=== PATIENT | male | born 1955 | race Caucasian/White ===

== ENCOUNTER 2016-06-10 20:24 | Emergency (ER) | payer MEDICAID ==
[~2016-06-10] VITALS: Wt 56.5 kg
[~2016-06-10 20:24] MED LIST: METF500T4 PO
[2016-06-10] MEDS ORDERED: LIDOCAINE 1% (MDV) 20 ML INJ SC ONE (21:30)
[2016-06-10] MEDS ORDERED: DIPHTH/TET/ACEL PERTUSS (ADULT) 0.5 ML VIAL IM* ONE (21:30)
[2016-06-10] MEDS ORDERED: CEPH-443 PO (22:27)
[2016-06-10 22:28] VITALS: BP 147/48; PULSE 100; RESP 16
--- NOTE | 2016-06-10 22:32 | ERD ---
ER Documentation Chief Complaint Date/Time DATE: 06/10/16 TIME: 22:28 Chief Complaint Bleeding Right BKA d/t fall HPI Patient is a 60-year-old male with a past medical history of diabetes, arthrosclerosis, right below the knee amputation who presents to the emergency department with concerns of wound bleeding. Patient states that he fell earlier today twice now using his walker. Patient states he fell onto his right stump. Patient states that he started having bleeding to the affected area. Patient does report poor healing of the affected air however he states that the wound has only remained slightly open. Patient denies any pain at this time. Patient is able to flex his knee without any difficulty. Patient denies any fevers, chills, nausea, vomiting, chest pain, shortness of breath. Patient denies any headache, head trauma, excessive sleepiness, acute confusion or loss of consciousness, ROS All systems reviewed and are negative except as per history of present illness. Medications Home Meds Active Scripts Cephalexin* (Keflex*) 500 Mg Capsule, 500 MG PO QID for 7 Days, CAP Prov:EDMAR JOYA PA-C 06/10/16 Reported Medications Metformin* (Glucophage*) 500 Mg Tab, 500 MG PO BID 08/22/11 Allergies Allergies: Coded Allergies: No Known Allergy (Unverified , 08/22/11) PMhx/Soc History of Surgery: Yes (R BKA) Anesthesia Reaction: No Hx Neurological Disorder: No Hx Respiratory Disorders: No Hx Cardiac Disorders: Yes (HTN--NON COMPLIANT WITH HTN MEDS) Hx Psychiatric Problems: No Hx Miscellaneous Medical Probl: No Hx Alcohol Use: Yes (2-3 BEERS DAILY) Hx Substance Use: No Hx Tobacco Use: Yes (CIGARETTES 1 PPD) Smoking Status: Current every day smoker Physical Exam Vitals Vital Signs Date Time Temp Pulse Resp B/P Pulse Ox O2 Delivery O2 Flow Rate FiO2 06/10/16 22:28 100 16 147/48 100 Room Air 06/10/16 20:28 97.4 105 20 162/83 97 Physical Exam GENERAL: Well-developed, well-nourished male. Appears in no acute distress. HEAD: Normocephalic, atraumatic. EYES: Pupils are equally reactive bilaterally. EOMs grossly intact. No conjunctival erythema. ENT: Moist mucous membranes. No uvula deviation. No kissing tonsils. NECK: Supple. No meningismus. Normal range of motion of the neck. LUNG: Clear to auscultation bilaterally. No rhonchi, wheezing, rales or coarse breath sounds. HEART: Regular rate and rhythm. No murmurs, rubs or gallops. EXTREMITIES: Equal pulses bilaterally. No peripheral clubbing, cyanosis or edema. No unilateral leg swelling. NEUROLOGIC: Alert and oriented. Moving all four extremities without any difficulty. Normal speech. Steady gait. RIGHT EXTREMITY: Dressing in place with bright red blood noted. Dressing was removed. Below the knee amputation noted. 12 cm complete wound dehiscence of surgical site noted. Scar tissue visualized with blood clots noted. Able is able to flex at the knee without any pain elicited. Nontender palpation of the knee. Nontender palpation of the thigh. Sensation intact to light touch. 2+ femoral pulse palpated Results 24 hrs Current Medications Medications (Trade) Dose Ordered Sig/Ana Route PRN Reason Start Time Stop Time Status Last Admin Dose Admin Lidocaine (Xylocaine 1% (Mdv) 20 ml) 20 ml ONCE ONCE SC 06/10/16 21:30 06/10/16 21:31 DC Diphtheria/ Tetanus/Acell Pertussis (Adacel) 0.5 ml ONCE ONCE IM* 06/10/16 21:30 06/10/16 21:31 DC 06/10/16 21:12 Acetaminophen/ Hydrocodone Bitart ([place] (5/325)) 1 tab ONCE ONCE PO 06/10/16 23:00 06/10/16 23:00 DC 06/10/16 22:38 Procedures/MDM ED COURSE: The patient was stable throughout ED course. I kept the patient and/or family informed of laboratory and diagnostic imaging results throughout the ED course. PROCEDURES: Laceration Repair: The patient was verbally consented prior to procedure. Patient was explained the risks, benefits and alternatives to this procedure. Length: 12 cm Irrigation: Thorough irrigation was performed with normal saline and adequate pressure. Inspection: The wound was thoroughly explored and no foreign bodies, deep tissue , tendon or structural injuries were noted. Anesthesia: 10 cc 1% lidocaine Repair: The area was prepared and draped in the usual sterile manner with the wound exposed. 19 marvin, 3 Prolene 0 sutures were placed with good wound closure and wound approximation. Bleeding was minimal. The patient tolerated the procedure well with no complications. The wound was dressed with Steri- Strips and pressure dressing. The patient was neurovascularly intact post- procedure. Post-procedural wound care was discussed with the patient. MEDICAL DECISION MAKING: This is a 60-year-old male who presents with wound dehiscence to his surgical incision of his right below the knee amputation. Vital signs were reviewed. Patient was afebrile. The wound was cleansed thoroughly and closed using marvin , sutures and steri strips. The patient had good wound closure and wound approximation. Patient tolerated wound closure without any complications. Patient was given TDAP here in the ED. My supervising physician, Dr. Dior, examined the patient, pre and post wound repair. Given that patient has a history of diabetes, I will give the patient a course of antibiotics. At this time the patient's presentation is most consistent with wound dehiscence. Low suspicion for deep space infection, abscess formation, cellulitis, tendon injury , nerve injury, fracture, head injury. PRESCRIPTIONS: Keflex DISCHARGE: At this time, the patient is stable for discharge and outpatient management. Post-procedural wound care was discussed with the patient. Patient was advised to follow-up with his surgeon immediately on Sunday. I have instructed the patient to promptly return to the ER for any new or worsening symptoms including increasing pain, fever, warmth, redness or swelling. The patient and/ or family expressed understanding of and agreement with this plan. All questions were answered. Home care instructions were provided. Departure Diagnosis: Primary Impression: Dehiscence of laceration repair Encounter type: initial encounter Qualified Code: T81.33XA - Dehiscence of laceration repair, initial encounter Condition: Stable Patient Instructions: Wound Care Referrals: JASVIR OLIVARES MD Additional Instructions: Call your primary care doctor TOMORROW for an appointment during the next 1-2 days.See the doctor sooner or return here if your condition worsens before your appointment time. Follow-up with Dr. Fuller on Sunday. Avoid bearing any weight to the affected area. Use wheelchair at all times. Return the emergency department for any new or worsening symptoms including but not limited to fevers, chills, wound opening, bleeding, pain. EDMAR JOYA PA-C June 10, 2016 22:32
[2016-06-10] MEDS ORDERED: HYDROCODONE/APAP (5/325) TAB PO ONE (23:00)
== END 2016-06-10 22:56 | disposition home or self-care (01) ==
LOC: EDBD 20:24 → FTE 20:24
DX: T81.33XA Disruption of traumatic injury wound repair, initial encounter (principal); I10 Essential (primary) hypertension; F17.210 Nicotine dependence, cigarettes, uncomplicated; E11.9 Type 2 diabetes mellitus without complications; Y82.8 Other medical devices associated with adverse incidents; Z79.84 Long term (current) use of oral hypoglycemic drugs; Z23 Encounter for immunization
CPT/HCPCS: 12020; 90471; 90715; Z7502; Z7610

== ENCOUNTER 2016-06-12 11:59 | Inpatient (IN) | payer MEDICAID ==
[~2016-06-12] VITALS: Ht 160 cm; Wt 56.6 kg
[~2016-06-12 11:59] MED LIST changes: +CEPH-443 PO
[2016-06-12 15:00] VITALS: BP 119/59; PULSE 88; RESP 18
[2016-06-12] MEDS ORDERED: METO25TA4 PO (15:47)
[2016-06-12] MEDS ORDERED: GABA300C16 PO (15:47)
[2016-06-12] MEDS ORDERED: LISI20TA11 PO (15:47)
[2016-06-12] MEDS ORDERED: ATOR40TA68 PO (15:47)
[2016-06-12] MEDS ORDERED: ASPI-664 PO (15:47)
[2016-06-12] MEDS ORDERED: LOPE2CAP PO (15:47)
[2016-06-12] MEDS ORDERED: SITA25TA3 PO (15:47)
[2016-06-12] MEDS ORDERED: TRAM50TA2 PO (15:47)
[2016-06-12 15:52] VITALS: Ht 160 cm; Wt 56.6 kg
[2016-06-12] MEDS ORDERED: DOCUSATE SODIUM 100 MG CAP PO PRN (17:30)
[2016-06-12] MEDS ORDERED: ONDANSETRON 4 MG INJ IV PRN (17:30)
[2016-06-12] MEDS ORDERED: GLUCOSE GEL 15 GRAM TUBE PO PRN ×2 (17:30)
[2016-06-12] MEDS ORDERED: DEXTROSE 50% 50 ML SYRINGE IV PRN ×2 (17:30)
[2016-06-12] MEDS ORDERED: ACETAMINOPHEN 325 MG TAB PO PRN (17:30)
[2016-06-12] MEDS ORDERED: GLUCAGON 1 MG INJ IM PRN (17:30)
[2016-06-12] MEDS ORDERED: VANCOMYCIN IV PER PHARMACY XX SCH (17:30)
[2016-06-12] MEDS ORDERED: GLUCOSE GEL 15 GRAM TUBE BUCCAL PRN (17:30)
[2016-06-12] MEDS: metFORMIN 500 MG TAB PO SCH (17:51)
--- NOTE | 2016-06-12 18:03 | CONS ---
DATE OF ADMISSION: 06/12/2016 DATE OF CONSULTATION: 06/12/2016 VASCULAR SURGERY CONSULTATION Dear Doctors: Mr. Hernandez is a 60-year-old gentleman known to our vascular surgery service group secondary to his h istory of right lower extremity atherosclerosis and gangrene. The patient had presented a few month s ago to [facility] with right lower extremity gas gangrene in which he un derwent incision and drainage and vascular evaluation at that time. Patient did undergo foot explor ation for possible revascularization; however, patient did not have any pedal or tibial options for revascularization and subsequently underwent below knee amputation. Patient has since been followin g up with our wound care clinic for eventual wound closure. It seems the patient recently had a fal l in which he developed significant wound dehiscence and was brought into the emergency department. At that time, patient did undergo closure of the wound, but it seems that the patient's wound is st ill having drainage and dehiscing, in which the patient will probably require further debridement an d revision. At the moment, the patient denies shortness of breath, chest pain, nausea, vomiting, f ever or chills. Patient currently has social economic issues in which he lives in his car and is no t able to take care of himself. 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 PHYSICAL EXAMINATION: GENERAL: Alert and oriented x3, no apparent distress. HEENT: Normocephalic, atraumatic. PERRLA, EOMI. Mucosa moist. Poor dentition. NECK: Supple. No carotid bruit. PULMONARY: Clear to auscultation bilaterally. No crackles. CARDIOVASCULAR: S1, S2 present. No murmurs. ABDOMEN: Soft, nontender, nondistended. Bowel sounds positive. EXTREMITIES: Right lower extremity: Palpable femoral pulse. BKA stump with cap refill 3 seconds. Motor, sensor y intact. There are blisters that developed over the area where Steri-Strips were placed and there is wound dehiscence where the areas of the new closure was performed in the ER with marvin and sutu res intact; however, there is serous drainage and there is erythema around all the wound and further wound dehiscence on the anterior aspect of the flap and on the medial and lateral sides. Left lower extremity: Palpable femoral pulse, nonpalpable pedal pulse. Motor, sensory intact. Cap refill 3 to 4 seconds. There is area of lipodermatosclerosis. No ulcers identified. ASSESSMENT AND PLAN: Bilateral lower extremity atherosclerosis with right lower extremity gangrene: It seems the patient 's BK stump has developed significant wound dehiscence post his fall and complicating his wound clos ure. Even though the patient did have a management, it seems that the patient would require an actu al debridement operatively and possible revision with wound VAC placement. We will plan to schedule the patient accordingly per our OR availability. Optimize vascular status (BP meds, diet, nutrition, exercise, sugar control, antiplatelets). Recommend placing the patient on antibiotics. The patient does have erythema around the wound and i s having foul smelling drainage from the wound dehiscence site. Discussed findings, plan of management with the patient and he understands. Thank you for allowing us to participate in the care of your patient. Please call with any questions . Dictated By: JUAN DEWITT/ABI Conf#: [id number] DID#: [id number]
[2016-06-12 18:10] LABS: ADD SCAN DIFF NO
[2016-06-12 18:12] LABS: BASOPHILS % 0.4 % (0.0-2.0); EOSINOPHILS # 0.4 10^3/ul (0.0-0.5); EOSINOPHILS % 6.2 % (0.0-7.0); HEMATOCRIT 32.3 % (42.0-52.0); HEMOGLOBIN 10.6 g/dl (14.0-18.0); LYMPHOCYTES # 1.6 10^3/ul (0.8-2.9); LYMPHOCYTES % 23.4 % (15.0-51.0); MEAN CORPUSCULAR HEMOGLOBIN 28.4 pg (29.0-33.0); MEAN CORPUSCULAR HGB CONC 32.8 g/dl (32.0-37.0); MEAN CORPUSCULAR VOLUME 86.6 fl (82.0-101.0); MEAN PLATELET VOLUME 9.6 fl (7.4-10.4); MONOCYTE # 0.6 10^3/ul (0.3-0.9); MONOCYTES % 8.5 % (0.0-11.0); NEUTROPHIL # 4.3 10^3/ul (1.6-7.5); NEUTROPHILS % 60.9 % (39.0-77.0); PLATELET COUNT 258 10^3/UL (140-415); RED BLOOD COUNT 3.73 10^6/ul (4.70-6.10); RED CELL DISTRIBUTION WIDTH 14.1 % (11.5-14.5)
[2016-06-12] MEDS: SOD CHLORIDE 0.9% 1,000 ML IV SCH (18:14)
[2016-06-12] MEDS: INSULIN ASPART [NOVOLOG] 3 ML PEN SC SCH ×2 (18:14→20:32)
[2016-06-12] MEDS: LEVOFLOXACIN 500MG/D5W (PMX) 100 ML IVPB SCH (18:14)
[2016-06-12 18:29] LABS: POTASSIUM 3.8 mmol/L (3.5-5.1)
[2016-06-12] MEDS ORDERED: VANCOMYCIN 1 GM in NS 250 ML IVPB ONE (18:30)
[2016-06-12 18:32] LABS: CREATININE 0.78 mg/dl (0.61-1.24)
[2016-06-12 19:41] VITALS: BP 95/55; RESP 18
[2016-06-12] MEDS: GABAPENTIN 300 MG CAP PO SCH (20:26)
[2016-06-12] MEDS: ATORVASTATIN 40 MG TAB PO SCH (20:26)
[2016-06-12] MEDS: METOPROLOL 25 MG TAB PO SCH (20:27)
--- NOTE | 2016-06-12 22:09 | HP ---
DATE OF ADMISSION: 06/12/2016 CHIEF COMPLAINT: Dehiscence and laceration of the right BKA stump. HISTORY OF PRESENT ILLNESS: The patient is a 60-year-old gentleman with past medical history positi ve for diabetes, hypertension. The patient underwent right BKA in 04/2016 at [facility] and [facility]; however, patient was discharged and patient is currently homeless. The patient stated that he was walking using walker and fell and no johnathon to have opening and bleeding of the right BKA stump. Then, patient presented to the emergency r oom on Sunday. The patient's wound was cleaned thoroughly at this time and closed using marvin a nd Steri-Strips, and patient was discharged with p.o. antibiotics and instructed to [facility], which patient did. The patient followed up with Dr. Fuller today and was admitted for worsening of right BKA wound. PAST MEDICAL HISTORY: Positive for diabetes, hypertension. PAST SURGICAL HISTORY: Status post right BKA in 04/2016. Status post excisional debridement of the right below knee amputation stump on ____. FAMILY HISTORY: Noncontributory. SOCIAL HISTORY: The patient is homeless. The patient stated that he smokes a couple of cigarettes per day, smoked for many years. The patient stated that he drinks a couple of beers daily. The pat ient denies any illicit drug use. ALLERGIES: NO KNOWN ALLERGIES. MEDICATIONS: On admission include: 1. Keflex 500 mg p.o. q.i.d. 2. Aspirin. 3. Atorvastatin. 4. Gabapentin. 5. Lisinopril. 6. Imodium p.r.n. 7. Metformin. 8. Metoprolol. 9. Januvia. 10. Tramadol p.r.n. REVIEW OF SYSTEMS: A 12-point review of systems is negative unless what mentioned in the HPI. The patient denies any nausea, vomiting. Denies any chest pain. Denies diarrhea. Denies fever or chil ls. PHYSICAL ASSESSMENT: GENERAL: Well-developed, well-nourished gentleman. Currently is awake, alert. VITAL SIGNS: Temperature is 98.2, heart rate is 88, blood pressure 119/39, respiratory rate 18, oxy gen saturation 99% on room air. HEENT: Atraumatic, normocephalic. Pupils equal, round, reactive to light and accommodation. Oral mucosa is pink and moist. NECK: Supple. No cervical lymphadenopathy, no thyromegaly. CHEST: Lungs clear bilaterally. There are no rhonchi, wheezes, rales noted. CARDIOVASCULAR: Normal S1, S2. No murmurs, gallops, clicks, rubs noted. ABDOMEN: Round, soft, nondistended, nontender. Bowel sounds present. There is no guarding, no chet ound tenderness. EXTREMITIES: The patient has a right BKA with some exudate and intact marvin and Steri-Strips. Le ft lower extremity, no edema. Palpable pedal pulse. SKIN: There is no rash, petechiae noted. NEUROLOGICAL: The patient is awake, alert, and oriented x4. No focal deficits noted. Motor streng th of 5/5 in all extremities. LABORATORY DATA: No labs available. We will obtain CBC and BMP. ASSESSMENT AND PLAN: 1. Right xxkaq-fks-pvef amputation stump dehiscence, laceration, possible infection. Dr. Fuller will be following in vascular surgery. Will start patient on IV antibiotics. Continue dressing ch anges per vascular surgery. 2. Diabetes mellitus type 2. Continue Januvia, metformin, and NovoLog per mild algorithm sliding s amado a.c. and at bedtime. Start patient on 1800 ADA, 2 g sodium, low fat, low cholesterol diet. Wi ll obtain hemoglobin A1c. 3. Hypertension. Continue metoprolol and lisinopril. Continue to monitor blood pressure. 4. Homelessness. Will obtain marriage and family social worker consult. 5. Will obtain CBC and BMP. Further recommendations based on clinical course. Plan of care discussed with Dr. Li. Dictated By: WEI SULLIVAN OCEAN FORWARDER for AARON LI MD SR/NTS Conf#: [id number] DID#: [id number]
--- NOTE | 2016-06-12 23:54 | RADRPT ---
PROCEDURE: XR Chest. CLINICAL INDICATION: Chest pain. TECHNIQUE: AP Portable chest. COMPARISON: None available FINDINGS: The soft tissues and bones are remarkable for low lung volume chest x-ray.. No focal infiltrates, m asses, or effusions are noted. The mediastinum and heart are remarkable for mild vascular calcifica tions of the thoracic aorta. Bibasilar discoid atelectasis is present.. No pneumothorax is present . IMPRESSION: 1. Low lung volumes with bibasilar discoid atelectasis. 2. Mild atherosclerotic vascular disease. RPTAT: HDC .Peace Vu MD, Date Time Electronically viewed and signed by .Peace Vu MD, on 06/12/2016 23:54 .C/
--- NOTE | 2016-06-12 23:57 | RADRPT ---
PROCEDURE: Limited right knee series CLINICAL INDICATION: Right. Injury TECHNIQUE: AP oblique and lateral views of his right knee and stump COMPARISON: None available FINDINGS: The osseous structures are intact with no evidence of fracture or subluxation. The soft tissues are remarkable for status post right fzxth-gfq-aars amputation with stump present. Post surgical skin marvin are noted. Amputation of the right proximal tibia and fibular diaphyses are noted. Postsur gical changes are present in the medial joint compartment soft tissues. A small knee effusion is pr esent. IMPRESSION: 1. No acute fractures or dislocations are present. 2. Status post right wmqqy-vkp-lwci amputation. 3. Mild atherosclerotic vascular disease 4. Small right knee effusion RPTAT: HDC .Peace Vu MD, Date Time Electronically viewed and signed by .Peace Vu MD, on 06/12/2016 23:57 .C/
[2016-06-13] MEDS: ACCU-CHEK XX SCH (02:34)
[2016-06-13 05:36] LABS: ADD SCAN DIFF NO
[2016-06-13] MEDS: PANTOPRAZOLE (EC) 40 MG TAB PO SCH (05:59)
[2016-06-13 06:12] LABS: ALBUMIN 3.1 g/dl (3.3-4.9); ALBUMIN/GLOBULIN RATIO 0.88; BILIRUBIN,INDIRECT 0.4 mg/dl (0-1.1); BILIRUBIN,TOTAL 0.4 mg/dl (0.2-1.3); CALCIUM 9.3 mg/dl (8.4-10.2); CREATININE 0.7 mg/dl (0.61-1.24); MAGNESIUM 1.6 mg/dl (1.7-2.5); POTASSIUM 4.6 mmol/L (3.5-5.1); TOTAL PROTEIN 6.6 g/dl (6.1-8.1)
[2016-06-13 06:18] LABS: INR 1.09; PROTIME 14.1 Sec (12.2-14.2); PT RATIO 1.1
[2016-06-13 06:19] LABS: PARTIAL THROMBOPLASTIN TIME 37.6 Sec (25.0-35.0)
[2016-06-13 07:25] VITALS: BP 98/58; RESP 18
[2016-06-13] MEDS: INSULIN ASPART [NOVOLOG] 3 ML PEN SC SCH ×5 (08:30→20:22)
[2016-06-13] MEDS: VANCOMYCIN 750 MG in SOD CHLORIDE 0.9% 150 ML IVPB SCH ×2 (09:00→20:21)
[2016-06-13] MEDS: ASPIRIN (EC) 81 MG TAB PO SCH (09:01)
[2016-06-13] MEDS: LISINOPRIL 20 MG TAB PO SCH (09:01)
[2016-06-13] MEDS: GABAPENTIN 300 MG CAP PO SCH ×3 (09:01→20:21)
[2016-06-13] MEDS: metFORMIN 500 MG TAB PO SCH ×2 (09:01→18:09)
[2016-06-13] MEDS: LINAGLIPTIN 5 MG TABLET PO SCH (09:02)
[2016-06-13] MEDS: METOPROLOL 25 MG TAB PO SCH ×2 (09:02→20:21)
[2016-06-13] MEDS: ENOXAPARIN 30 MG/0.3 ML SYG SC SCH (09:06)
[2016-06-13 09:12] LABS: BASOPHILS % 0.6 % (0.0-2.0); EOSINOPHILS # 0.5 10^3/ul (0.0-0.5); EOSINOPHILS % 6.8 % (0.0-7.0); HEMATOCRIT 33.2 % (42.0-52.0); HEMOGLOBIN 10.3 g/dl (14.0-18.0); LYMPHOCYTES # 1.9 10^3/ul (0.8-2.9); LYMPHOCYTES % 25.6 % (15.0-51.0); MEAN CORPUSCULAR HEMOGLOBIN 27.4 pg (29.0-33.0); MEAN CORPUSCULAR VOLUME 88.3 fl (82.0-101.0); MEAN PLATELET VOLUME 10.1 fl (7.4-10.4); MONOCYTE # 0.7 10^3/ul (0.3-0.9); MONOCYTES % 9.5 % (0.0-11.0); NEUTROPHIL # 4.1 10^3/ul (1.6-7.5); NEUTROPHILS % 56.9 % (39.0-77.0); PLATELET COUNT 269 10^3/UL (140-415); RED BLOOD COUNT 3.76 10^6/ul (4.70-6.10); RED CELL DISTRIBUTION WIDTH 14.4 % (11.5-14.5); WHITE BLOOD COUNT 7.2 10^3/ul (4.8-10.8)
[2016-06-13] MEDS ORDERED: MAGNESIUM SULFATE 2 GM/50 ML 50 ML IVPB ONE (12:00)
--- NOTE | 2016-06-13 13:58 | CONS ---
DATE OF ADMISSION: 06/12/2016 DATE OF CONSULTATION: 06/13/2016 Infectious Disease consultation REASON FOR CONSULTATION: Antibiotic management. HISTORY OF PRESENT ILLNESS: Inocente Hernandez is a 60-year-old male with numerous problems who comes in with dehiscence of laceration of the right BKA stump and is being seen for antibiotic management. H is past problems include: 1. Adult-onset diabetes mellitus. 2. Hypertension. 3. Status post right BKA at [facility] on 04/24/2016. He was recuperating [facility] but was discharged and is homeless. He was walking using a walker and fell. noted to h ave opening and bleeding of the right BKA stump. He came to the emergency room on Sunday, 3 days ago, the wound was cleaned and closed using marvin and Steri-Strips. He was instructed to follow u p [facility], which he did. He was admitted for worsening right BKA wound. PAST MEDICAL HISTORY: Operations as outlined. Status post excisional debridement of the right belo w knee amputation as well. FAMILY HISTORY: Positive for diabetes and hypertension. FAMILY HISTORY: Noncontributory. SOCIAL HISTORY: He is homeless. He smokes a few cigarettes per day. He drinks a beer. He does no t abuse drugs, according to the patient. ALLERGIES: NONE TO PENICILLIN, SULFA OR FOODS. MEDICATIONS: Per chart. REVIEW OF SYSTEMS: Noncontributory. PHYSICAL EXAMINATION: GENERAL: The patient is a well-developed, well-nourished male who is alert, responsive, in no acute distress. VITAL SIGNS: Stable. He is afebrile. SKIN: Without generalized rash. HEENT: Within normal limits. NECK: Supple. LYMPH NODES: None palpable. CHEST: Decreased breath sounds at the bases. HEART: Without murmur or gallop. ABDOMEN: Soft, nontender, without organosplenomegaly or masses. EXTREMITIES: He has a right BKA with some exudate and intact marvin and Steri-Strips. Left lower extremity without cyanosis, clubbing, or edema. RECTAL AND GENITAL: Deferred. NEUROLOGIC: No focal neurological abnormalities. IMPRESSION AND PLAN: The patient comes in now with infected right below knee amputation stump. He was started on vancomycin and Levaquin. He had blood cultures done, 2 sets. He should have a wound culture done as well if that was not ordered. I will dictate my findings to dictate to Dr. Connie leslie, nurse practitioner Maylin and Dr. Fuller. Dictated By: LORENA CEBALLOS MD, JD/ABI Conf#: [id number] DID#: [id number]
--- NOTE | 2016-06-13 14:13 | RADRPT ---
Vent Rate: 73 bpm RR Interval: 0 msec WI Interval: 158 msec QRS Duration: 74 msec QT Interval: 390 msec QTC Interval: 429 msec P-R-T [place]: 61 - 19 - 58 degrees Normal sinus rhythm Normal ECG Electronically Signed By: Alfredo Newton [id number]
--- NOTE | 2016-06-13 16:11 | PN ---
Date/Time of Note Date/Time of Note DATE: 06/13/16 TIME: 16:06 Assessment/Plan VTE Prophylaxis VTE Prophylaxis Intervention: LMWH Lines/Catheters IV [facility]ter [facility]from [facility]): Peripheral IV Central line still needed: Yes Assessment/Plan Chief Complaint/Hosp Course ASSESSMENT AND PLAN: 1. Right [id number] amputation stump dehiscence, laceration, possible infection. Dr. Fuller is following in vascular surgery. Pending wound debridement and revision upon OR availability. Continue IV antibiotics. Continue dressing changes per vascular surgery. Dr. Eldridge is following infection disease consultation. 2. Diabetes mellitus type 2. Hemoglobin A1c is 8.7. Continue Januvia, metformin, and NovoLog per mild algorithm sliding scale a.c. and at bedtime. 3. Hypertension. Continue metoprolol and lisinopril. Continue to monitor blood pressure. 4. Homelessness. Further recommendations based on clinical course. Plan of care discussed with Dr. Li. Problems: Subjective 24 Hr Interval Summary Free Text/Dictation Patient's complaint of right stump pain, denies any nausea vomiting. Exam/Review of Systems Vital Signs Vitals Vital Signs Date Time Temp Pulse Resp B/P Pulse Ox O2 Delivery O2 Flow Rate FiO2 06/13/16 07:25 98.0 78 18 98/58 99 06/12/16 15:00 Room Air Intake and Output 06/12/16 06/12/16 06/13/16 15:00 23:00 07:00 Intake Total 340 ml 920 ml Output Total 1100 ml Balance 340 ml -180 ml Exam GENERAL: Well-developed, well-nourished gentleman. Currently is awake, alert. HEENT: Atraumatic, normocephalic. PERRLA. NECK: Supple. No cervical lymphadenopathy, no thyromegaly. CHEST: Lungs clear bilaterally. There are no rhonchi, wheezes, rales noted. CARDIOVASCULAR: Normal S1, S2. No murmurs, gallops, clicks, rubs noted. ABDOMEN: Round, soft, nondistended, nontender. Bowel sounds present. There is no guarding, no rebound tenderness. EXTREMITIES: The patient has a right BKA with some exudate and intact marvin and Steri-Strips. Left lower extremity, no edema. Palpable pedal pulse. SKIN: There is no rash, petechiae noted. NEUROLOGICAL: The patient is awake, alert, and oriented x4. Results Result Diagram: 06/13/16 0500 06/13/16 0500 Results 24 hrs Laboratory Tests Test 06/12/16 17:46 06/12/16 17:51 06/12/16 20:24 06/13/16 02:15 White Blood Count 7.0 Red Blood Count 3.73 L Hemoglobin 10.6 L Hematocrit 32.3 L Mean Corpuscular Volume 86.6 Mean Corpuscular Hemoglobin 28.4 L Mean Corpuscular Hemoglobin Concent 32.8 Red Cell Distribution Width 14.1 Platelet Count 258 Mean Platelet Volume 9.6 Neutrophils % 60.9 Lymphocytes % 23.4 Monocytes % 8.5 Eosinophils % 6.2 Basophils % 0.4 Nucleated Red Blood Cells % 0.0 Neutrophils # 4.3 Lymphocytes # 1.6 Monocytes # 0.6 Eosinophils # 0.4 Basophils # 0.0 Nucleated Red Blood Cells # 0.0 Sodium Level 133 L Potassium Level 3.8 Chloride Level 92 L Carbon Dioxide Level 29 Anion Gap 16 Blood Urea Nitrogen 11 Creatinine 0.78 Glucose Level 252 H Calcium Level 9.0 Bedside Glucose 282 H 271 H 187 Test 06/13/16 05:00 06/13/16 08:05 06/13/16 12:15 White Blood Count 7.2 Red Blood Count 3.76 L Hemoglobin 10.3 L Hematocrit 33.2 L Mean Corpuscular Volume 88.3 Mean Corpuscular Hemoglobin 27.4 L Mean Corpuscular Hemoglobin Concent 31.0 L Red Cell Distribution Width 14.4 Platelet Count 269 Mean Platelet Volume 10.1 Neutrophils % 56.9 Lymphocytes % 25.6 Monocytes % 9.5 Eosinophils % 6.8 Basophils % 0.6 Nucleated Red Blood Cells % 0.0 Neutrophils # 4.1 Lymphocytes # 1.9 Monocytes # 0.7 Eosinophils # 0.5 Basophils # 0.0 Nucleated Red Blood Cells # 0.0 Prothrombin Time 14.1 Prothrombin Time Ratio 1.1 INR International Normalized Ratio 1.09 Activated Partial Thromboplast Time 37.6 H Sodium Level 132 L Potassium Level 4.6 Chloride Level 99 Carbon Dioxide Level 29 Anion Gap 9 # Blood Urea Nitrogen 10 Creatinine 0.70 Glucose Level 216 Hemoglobin A1c 8.7 H Calcium Level 9.3 Magnesium Level 1.6 L Total Bilirubin 0.4 Direct Bilirubin 0.00 Indirect Bilirubin 0.4 Aspartate Amino Transf (AST/SGOT) 14 L Alanine Aminotransferase (ALT/SGPT) 24 Alkaline Phosphatase 145 H Total Protein 6.6 Albumin 3.1 L Globulin 3.50 H Albumin/Globulin Ratio 0.88 Bedside Glucose 177 225 H Medications Medications Current Medications Aspirin (Halfprin) 81 mg DAILY PO Last administered on 06/13/16 09:01; Admin Dose 81 MG; Start 06/13/16 at 09:00 Atorvastatin Calcium (Lipitor) 10 mg QHS PO Last administered on 06/12/16 20:26 ; Admin Dose 10 MG; Start 06/12/16 at 21:00 Gabapentin (Neurontin) 300 mg TID PO Last administered on 06/13/16 13:08; Admin Dose 300 MG; Start 06/12/16 at 21:00 Lisinopril (Zestril) 20 mg DAILY PO Last administered on 06/13/16 09:01; Admin Dose 20 MG; Start 06/13/16 at 09:00 Metoprolol Tartrate (Lopressor) 25 mg BID PO Last administered on 06/13/16 09: 02; Admin Dose 25 MG; Start 06/12/16 at 21:00 Linagliptin 25 mg 25 mg DAILY PO Last administered on 06/13/16 09:02; Admin Dose 25 MG; Start 06/13/16 at 09:00 Sodium Chloride (NS) 1,000 ml @ 40 mls/hr Q24H IV Last administered on 18:14; Admin Dose 40 MLS/HR; Start 06/12/16 at 17:15 Ondansetron HCl (Zofran Inj) 4 mg Q6H PRN IV NAUSEA AND/OR VOMITING; Start 06/12 at 17:30 Acetaminophen (Tylenol Tab) 650 mg Q6H PRN PO PAIN LEVEL 1-3 OR FEVER; Start at 17:30 Acetaminophen/ Hydrocodone Bitart ([place] (5/325)) 1 tab Q6H PRN PO MODERATE PAIN LEVEL 4-6; Start 06/12/16 at 17:30 Docusate Sodium (Colace) 100 mg Q12H PRN PO CONSTIPATION; Start 06/12/16 at 17: 30 Pantoprazole (Protonix Tab) 40 mg DAILY@06 PO Last administered on 06/13/16 05: 59; Admin Dose 40 MG; Start 06/13/16 at 06:00 Enoxaparin Sodium (Lovenox) 30 mg DAILY SC Last administered on 06/13/16 09:06 ; Admin Dose 30 MG; Start 06/13/16 at 09:00 Diagnostic Test (Pha) 1 ea 1 ea 02 XX Last administered on 06/13/16 02:34; Admin Dose 1 EA; Start 06/13/16 at 02:00 Levofloxacin/ Dextrose (Levaquin 500mg/ D5W 100 ml (Pmx)) 100 ml @ 100 mls/hr Q24H IVPB Last administered on 06/12/16 18:14; Admin Dose 100 MLS/HR; Start 06/12/16 at 17:30 Miscellaneous Information 1 ea NOTE XX ; Start 06/12/16 at 17:30 Glucose (Glutose) 15 gm Q15M PRN PO DECREASED GLUCOSE; Start 06/12/16 at 17:30 Glucose (Glutose) 22.5 gm Q15M PRN PO DECREASED GLUCOSE; Start 06/12/16 at 17:30 Dextrose (D50w Syringe) 25 ml Q15M PRN IV DECREASED GLUCOSE; Start 06/12/16 at 17:30 Dextrose (D50w Syringe) 50 ml Q15M PRN IV DECREASED GLUCOSE; Start 06/12/16 at 17:30 Glucagon (Glucagen) 1 mg Q15M PRN IM DECREASED GLUCOSE; Start 06/12/16 at 17:30 Glucose 15 gm 15 gm Q15M PRN BUCCAL DECREASED GLUCOSE; Start 06/12/16 at 17:30 Vancomycin HCl/ Sodium Chloride (Vancocin/NS) 150 ml @ 75 mls/hr Q12H IVPB Last administered on 06/13/16 09:00; Admin Dose 75 MLS/HR; Start 06/13/16 at 08: 00 Miscellaneous Information (*Rx Drug Level Order Reminder*) VANCO TROUGH @ 0, 700 ON... ONCE ONCE XX ; Start 06/14/16 at 07:00; Stop 06/14/16 at 07:01 WEI SULLIVAN June 13, 2016 16:11
[2016-06-13] MEDS: SOD CHLORIDE 0.9% 1,000 ML IV SCH (17:15)
[2016-06-13] MEDS: LEVOFLOXACIN 500MG/D5W (PMX) 100 ML IVPB SCH (18:09)
[2016-06-13] MEDS: HYDROCODONE/APAP (5/325) TAB PO PRN (19:11)
[2016-06-13 19:55] VITALS: BP 129/63; RESP 20
[2016-06-13] MEDS: ATORVASTATIN 40 MG TAB PO SCH (20:21)
[2016-06-13] MEDS: INSULIN GLARGINE [LANtus] 3 ML PEN SC SCH (20:36)
[2016-06-14] VITALS (19 sets, daily range): BP systolic 108–139; BP diastolic 55–66; PULSE 77–87; RESP 17–30
[2016-06-14] MEDS: ACCU-CHEK XX SCH (02:00)
[2016-06-14] MEDS ORDERED: ACCU-CHEK XX SCH (02:00)
[2016-06-14] MEDS: PANTOPRAZOLE (EC) 40 MG TAB PO SCH (05:40)
[2016-06-14] MEDS: HYDROCODONE/APAP (5/325) TAB PO PRN ×2 (05:40→20:10)
[2016-06-14 06:23] LABS: ADD SCAN DIFF NO
[2016-06-14 06:36] LABS: BASOPHILS % 0.5 % (0.0-2.0); EOSINOPHILS # 0.5 10^3/ul (0.0-0.5); HEMOGLOBIN 10.5 g/dl (14.0-18.0); LYMPHOCYTES # 1.8 10^3/ul (0.8-2.9); LYMPHOCYTES % 29.2 % (15.0-51.0); MEAN CORPUSCULAR HEMOGLOBIN 27.3 pg (29.0-33.0); MEAN CORPUSCULAR HGB CONC 30.9 g/dl (32.0-37.0); MEAN CORPUSCULAR VOLUME 88.5 fl (82.0-101.0); MEAN PLATELET VOLUME 9.7 fl (7.4-10.4); MONOCYTE # 0.5 10^3/ul (0.3-0.9); MONOCYTES % 8.3 % (0.0-11.0); NEUTROPHIL # 3.4 10^3/ul (1.6-7.5); NEUTROPHILS % 53.5 % (39.0-77.0); PLATELET COUNT 272 10^3/UL (140-415); RED BLOOD COUNT 3.84 10^6/ul (4.70-6.10); RED CELL DISTRIBUTION WIDTH 14.4 % (11.5-14.5); WHITE BLOOD COUNT 6.3 10^3/ul (4.8-10.8)
[2016-06-14 07:02] LABS: ALBUMIN 3.3 g/dl (3.3-4.9); ALBUMIN/GLOBULIN RATIO 0.86; BILIRUBIN,INDIRECT 0.2 mg/dl (0-1.1); BILIRUBIN,TOTAL 0.2 mg/dl (0.2-1.3); CALCIUM 9.3 mg/dl (8.4-10.2); CREATININE 0.61 mg/dl (0.61-1.24); POTASSIUM 3.9 mmol/L (3.5-5.1); TOTAL PROTEIN 7.1 g/dl (6.1-8.1)
--- NOTE | 2016-06-14 07:30 | HPN ---
Date/Time of Note Date/Time of Note DATE: 06/14/16 TIME: 07:30 Interval H&P Admission Note Pt. seen H&P reviewed: No system changes JUAN PRIDE MD June 14, 2016 07:30
[2016-06-14] MEDS ORDERED: morphine SULFATE/PF (10 MG/10 ML) INJ ONE (07:35)
[2016-06-14] MEDS ORDERED: LIDOCAINE 2% (SDV) 5 ML INJ ONE (07:57)
[2016-06-14] MEDS ORDERED: CEFAZOLIN 1 GM INJ ONE (07:57)
[2016-06-14] MEDS ORDERED: PROPOFOL 20 ML ONE (07:57)
[2016-06-14] MEDS ORDERED: MEPERIDINE 25 MG INJ IV PRN (08:30)
[2016-06-14] MEDS ORDERED: hydrALAzine 20 MG INJ IV PRN (08:30)
[2016-06-14] MEDS ORDERED: FENTAnyl 50 MCG/ML VIAL IV PRN (08:30)
[2016-06-14] MEDS ORDERED: ONDANSETRON 4 MG INJ IV PRN (08:30)
[2016-06-14] MEDS ORDERED: DIPHENHYDRAMINE 50 MG INJ IV PRN (08:30)
[2016-06-14] MEDS ORDERED: LABETALOL HCL 20MG INJ IV PRN (08:30)
[2016-06-14] MEDS: GABAPENTIN 300 MG CAP PO SCH ×3 (10:05→20:10)
[2016-06-14] MEDS: VANCOMYCIN 750 MG in SOD CHLORIDE 0.9% 150 ML IVPB SCH ×3 (10:05→22:18)
[2016-06-14] MEDS: ASPIRIN (EC) 81 MG TAB PO SCH (10:06)
[2016-06-14] MEDS: LISINOPRIL 20 MG TAB PO SCH (10:06)
[2016-06-14] MEDS: ENOXAPARIN 30 MG/0.3 ML SYG SC SCH (10:09)
--- NOTE | 2016-06-14 10:09 | OPR ---
DATE OF OPERATION: 06/14/2016 SURGEON: Dylan Fuller. PREOPERATIVE DIAGNOSIS: Right lower extremity wound dehiscence. POSTOPERATIVE DIAGNOSIS: Right lower extremity wound dehiscence. ANESTHESIA: Spinal. ESTIMATED BLOOD LOSS: Minimal. COMPLICATIONS: None. PROCEDURE: 1. Right below-knee amputation stump debridement involving skin, subcutaneous tissue, muscle, tendo n, and bone. 2. Creation of a rotational flap at the below knee amputation stump. INDICATIONS: This is a 60-year-old gentleman with history of right lower extremity gas gangrene in which limb salvage was attempted. Unfortunately, patient had severe pedal disease in which a bypass revascularization was not an option. Subsequently, the patient underwent a right below knee amputa tion at outside hospital and he returned with wound dehiscence as he has poor socioeconomic status a nd did not have the appropriate followup. The patient over the weekend had fallen and had further d ehisced his wound in which the area had gotten infected and developed significant necrosis at the in cision line. Risk and benefits and alternatives were discussed with the patient, but not limited to bleeding, myocardial infarction, , stroke, infection, revision of his BKA stump, and the patie nt has agreed to proceed. DESCRIPTION OF PROCEDURE: The patient was brought into the operating room table, placed in supine p osition. The right lower extremity was prepped and draped in the usual standard sterile fashion. T he patient had received a spinal block and preoperative antibiotics were given. At this point, in brenda kilgore sharp scissors, we went ahead and debrided the skin, subcutaneous tissue, muscle, tendon, and th e proximal aspect of the tibia. Once this was completed, a bone sample was sent to pathology for ev aluation of possible osteomyelitis. Once upon the completion of this aspect, we went ahead and used the pulse tungsten refiner to irrigate the wound with saline solution. Subsequently, we used a sharp scis sors and made an incision and created myocutaneous flap that was rotated in order to close the defec t over the bone. We performed this aspect of the procedure as the patient had fallen and had dehisc ed his wound. He also had it exposed tibia where previous rotational flap was performed. Upon revi foreign of that, we went ahead and reapproximated the rotational flap in order to close the defect wher e the tibia was. Further debridement of the bone was performed in order to create smooth edges with a rasper. At the completion of this, we went ahead and placed a wound VAC on the wound to allow fo r a secondary closure. We placed a silver sponge from [facility] at settings of 175 mmHg, high intensity, and continuous. The patient tolerated procedure well and was taken to the postanesthesia care unit in stable condition. All instrument, sponge, needle counts were correct x2. Dictated By: DYLAN DEWITT/ABI Conf#: [id number] DID#: [id number]
[2016-06-14] MEDS: INSULIN ASPART [NOVOLOG] 3 ML PEN SC SCH ×7 (10:20→20:15)
[2016-06-14] MEDS: metFORMIN 500 MG TAB PO SCH ×2 (10:48→17:38)
[2016-06-14] MEDS: LINAGLIPTIN 5 MG TABLET PO SCH (10:48)
[2016-06-14] MEDS: METOPROLOL 25 MG TAB PO SCH ×2 (13:20→20:11)
--- NOTE | 2016-06-14 13:23 | PN ---
Date/Time of Note Date/Time of Note DATE: 06/14/16 TIME: 13:21 Assessment/Plan VTE Prophylaxis VTE Prophylaxis Intervention: SCD's Lines/Catheters IV [facility]ter Type (from [facility]): Peripheral IV Assessment/Plan Chief Complaint/Hosp Course ASSESSMENT AND PLAN: 1. Right [id number] amputation stump dehiscence, laceration, possible infection. S/p debridement and creation of a rotational flap by Dr. Fuller, vascular surgery, on 06/13. Continue IV antibiotics. Continue wound VAC. Dr. Eldridge is following infection disease consultation. 2. Diabetes mellitus type 2. Hemoglobin A1c is 8.7. Continue Januvia, metformin, and NovoLog per mild algorithm sliding scale a.c. and at bedtime. 3. Hypertension. Continue metoprolol and lisinopril. Continue to monitor blood pressure. 4. Homelessness. Further recommendations based on clinical course. Plan of care discussed with Dr. Li. Problems: Subjective 24 Hr Interval Summary Free Text/Dictation Patient's complains of the right BKA stump numbness and mild pain, denies nausea vomiting denies fever. Exam/Review of Systems Vital Signs Vitals Vital Signs Date Time Temp Pulse Resp B/P Pulse Ox O2 Delivery O2 Flow Rate FiO2 06/14/16 09:22 86 23 120/62 100 Room Air 06/14/16 09:07 2.0 06/14/16 08:42 97.2 Intake and Output 06/13/16 06/13/16 06/14/16 15:00 23:00 07:00 Intake Total 1950 ml 780 ml Output Total 2700 ml 900 ml Balance -750 ml -120 ml Exam GENERAL: Well-developed, well-nourished gentleman. Currently is awake, alert. HEENT: Atraumatic, normocephalic. PERRLA. NECK: Supple. No cervical lymphadenopathy, no thyromegaly. CHEST: Lungs clear bilaterally. There are no rhonchi, wheezes, rales noted. CARDIOVASCULAR: Normal S1, S2. No murmurs, gallops, clicks, rubs noted. ABDOMEN: Round, soft, nondistended, nontender. Bowel sounds present. EXTREMITIES: The patient has a right BKA wound to wound vac. SKIN: There is no rash, petechiae noted. NEUROLOGICAL: The patient is awake, alert, and oriented x4. Results Result Diagram: 06/14/16 0540 06/14/16 0540 Results 24 hrs Laboratory Tests Test 06/13/16 18:08 06/13/16 20:19 06/14/16 05:40 06/14/16 05:44 Bedside Glucose 141 146 112 White Blood Count 6.3 Red Blood Count 3.84 L Hemoglobin 10.5 L Hematocrit 34.0 L Mean Corpuscular Volume 88.5 Mean Corpuscular Hemoglobin 27.3 L Mean Corpuscular Hemoglobin Concent 30.9 L Red Cell Distribution Width 14.4 Platelet Count 272 Mean Platelet Volume 9.7 Neutrophils % 53.5 Lymphocytes % 29.2 Monocytes % 8.3 Eosinophils % 8.0 H Basophils % 0.5 Nucleated Red Blood Cells % 0.0 Neutrophils # 3.4 Lymphocytes # 1.8 Monocytes # 0.5 Eosinophils # 0.5 Basophils # 0.0 Nucleated Red Blood Cells # 0.0 Sodium Level 138 Potassium Level 3.9 Chloride Level 102 Carbon Dioxide Level 29 Anion Gap 11 Blood Urea Nitrogen 11 Creatinine 0.61 Glucose Level 115 # Calcium Level 9.3 Total Bilirubin 0.2 Direct Bilirubin 0.00 Indirect Bilirubin 0.2 Aspartate Amino Transf (AST/SGOT) 13 L Alanine Aminotransferase (ALT/SGPT) 24 Alkaline Phosphatase 163 H Total Protein 7.1 Albumin 3.3 Globulin 3.80 H Albumin/Globulin Ratio 0.86 Test 06/14/16 10:14 06/14/16 12:18 Bedside Glucose 104 215 Medications Medications Current Medications Aspirin (Halfprin) 81 mg DAILY PO Last administered on 06/14/16 10:06; Admin Dose 81 MG; Start 06/13/16 at 09:00 Atorvastatin Calcium (Lipitor) 10 mg QHS PO Last administered on 06/13/16 20:21 ; Admin Dose 10 MG; Start 06/12/16 at 21:00 Gabapentin (Neurontin) 300 mg TID PO Last administered on 06/14/16 13:13; Admin Dose 300 MG; Start 06/12/16 at 21:00 Lisinopril (Zestril) 20 mg DAILY PO Last administered on 06/14/16 10:06; Admin Dose 20 MG; Start 06/13/16 at 09:00 Metoprolol Tartrate (Lopressor) 25 mg BID PO Last administered on 06/14/16 13: 20; Admin Dose 25 MG; Start 06/12/16 at 21:00 Linagliptin 25 mg 25 mg DAILY PO Last administered on 06/14/16 10:48; Admin Dose 25 MG; Start 06/13/16 at 09:00 Sodium Chloride (NS) 1,000 ml @ 40 mls/hr Q24H IV Last administered on 18:14; Admin Dose 40 MLS/HR; Start 06/12/16 at 17:15 Ondansetron HCl (Zofran Inj) 4 mg Q6H PRN IV NAUSEA AND/OR VOMITING; Start 06/12 at 17:30 Acetaminophen (Tylenol Tab) 650 mg Q6H PRN PO PAIN LEVEL 1-3 OR FEVER; Start at 17:30 Acetaminophen/ Hydrocodone Bitart ([place] (5/325)) 1 tab Q6H PRN PO MODERATE PAIN LEVEL 4-6 Last administered on 06/14/16 05:40; Admin Dose 1 TAB; Start 06/12/16 at 17:30 Docusate Sodium (Colace) 100 mg Q12H PRN PO CONSTIPATION; Start 06/12/16 at 17: 30 Pantoprazole (Protonix Tab) 40 mg DAILY@06 PO Last administered on 06/14/16 05 :40; Admin Dose 40 MG; Start 06/13/16 at 06:00 Enoxaparin Sodium (Lovenox) 30 mg DAILY SC Last administered on 06/14/16 10:09 ; Admin Dose 30 MG; Start 06/13/16 at 09:00 Diagnostic Test (Pha) (Accu-Chek) 1 ea 02 XX Last administered on 06/13/16 02: 34; Admin Dose 1 EA; Start 06/13/16 at 02:00 Miscellaneous Information 1 ea NOTE XX ; Start 06/12/16 at 17:30 Glucose (Glutose) 15 gm Q15M PRN PO DECREASED GLUCOSE; Start 06/12/16 at 17:30 Glucose (Glutose) 22.5 gm Q15M PRN PO DECREASED GLUCOSE; Start 06/12/16 at 17:30 Dextrose (D50w Syringe) 25 ml Q15M PRN IV DECREASED GLUCOSE; Start 06/12/16 at 17:30 Dextrose (D50w Syringe) 50 ml Q15M PRN IV DECREASED GLUCOSE; Start 06/12/16 at 17:30 Glucagon (Glucagen) 1 mg Q15M PRN IM DECREASED GLUCOSE; Start 06/12/16 at 17:30 Glucose (Glutose) 15 gm Q15M PRN BUCCAL DECREASED GLUCOSE; Start 06/12/16 at 17: 30 Insulin Glargine 12 unit 12 unit DAILY@20 SC Last administered on 06/13/16t 20: 36; Admin Dose 12 UNIT; Start 06/13/16 at 20:00 Vancomycin HCl/ Sodium Chloride (Vancocin/NS) 150 ml @ 75 mls/hr Q12H IVPB ; Start 06/14/16 at 22:00 Levofloxacin (Levaquin) 500 mg DAILY@06 PO ; Start 06/15/16 at 06:00 WEI SULLIVAN June 14, 2016 13:23
--- NOTE | 2016-06-14 13:45 | PN ---
DATE: 06/14/2016 SUBJECTIVE: No acute changes. The patient is alert, eating lunch, looks comfortable. No fevers. No pain. WBC 6.3, no shift, no bands. BUN 11, creatinine 0.61. MICROBIOLOGY: Wound culture growing Staph aureus. ANTIMICROBIALS: The patient is on IV vancomycin and Levaquin. PHYSICAL EXAMINATION: GENERAL: This is a well-nourished, well-developed elderly man who is awake, in no distress . HEENT: Head: Atraumatic, normocephalic. Sclerae anicteric. Buccal mucosa pink. NECK: Supple, trachea midline. CHEST: Rise symmetrical. Breath sounds clear. HEART: S1, S2. ABDOMEN: Soft, bowel tones present. EXTREMITIES: Without cyanosis. Right lower extremity wound VAC present. ASSESSMENT: 1. Right below-knee amputation, infected stump, status post revision with rotation flap and wound V AC application. 2. Diabetes. 3. Hypertension. PLAN: The patient remains stable. Cultures are pending. Continue present care. Local wound care per vascular recommendations. Change Levaquin to p.o. Dictated By: HILARIO ACÑUA [employer] SUPERVISOR for LORENA CEBALLOS MD NI/NTS Conf#: [id number] DID#: [id number]
[2016-06-14] MEDS: SOD CHLORIDE 0.9% 1,000 ML IV SCH (13:59)
[2016-06-14] MEDS: ATORVASTATIN 40 MG TAB PO SCH (20:11)
[2016-06-14] MEDS: INSULIN GLARGINE [LANtus] 3 ML PEN SC SCH (20:23)
[2016-06-15] MEDS: ACCU-CHEK XX SCH (02:00)
[2016-06-15] MEDS ORDERED: LEVOFLOXACIN 500 MG TAB PO SCH (06:00)
[2016-06-15] MEDS: PANTOPRAZOLE (EC) 40 MG TAB PO SCH (06:00)
[2016-06-15] MEDS: HYDROCODONE/APAP (5/325) TAB PO PRN ×2 (06:00→19:36)
[2016-06-15 07:40] VITALS: BP 102/60; RESP 16
[2016-06-15] MEDS: INSULIN ASPART [NOVOLOG] 3 ML PEN SC SCH ×7 (08:49→20:07)
[2016-06-15] MEDS: metFORMIN 500 MG TAB PO SCH ×2 (08:56→17:45)
[2016-06-15] MEDS: GABAPENTIN 300 MG CAP PO SCH ×3 (08:56→20:07)
[2016-06-15] MEDS: ASPIRIN (EC) 81 MG TAB PO SCH (08:56)
[2016-06-15] MEDS: LINAGLIPTIN 5 MG TABLET PO SCH (08:57)
[2016-06-15] MEDS: LISINOPRIL 20 MG TAB PO SCH (09:00)
[2016-06-15] MEDS: METOPROLOL 25 MG TAB PO SCH ×2 (09:00→20:06)
[2016-06-15] MEDS: ENOXAPARIN 30 MG/0.3 ML SYG SC SCH (09:03)
[2016-06-15] MEDS: VANCOMYCIN 750 MG in SOD CHLORIDE 0.9% 150 ML IVPB SCH (10:35)
--- NOTE | 2016-06-15 13:19 | CONS ---
Date/Time of Note Date/Time of Note DATE: 06/15/16 TIME: 13:17 Assessment/Plan Assessment/Plan Chief Complaint/Hosp Course SUBJECTIVE: No acute changes. The patient is alert, eating lunch, looks comfortable. No fevers. No pain. MICROBIOLOGY: Wound culture growing MSSA ANTIMICROBIALS: The patient is on IV vancomycin and Levaquin. PHYSICAL EXAMINATION: GENERAL: This is a well-nourished, well-developed elderly man who is awake, in no distress. HEENT: Head: Atraumatic, normocephalic. Sclerae anicteric. Buccal mucosa pink. NECK: Supple, trachea midline. CHEST: Rise symmetrical. Breath sounds clear. HEART: S1, S2. ABDOMEN: Soft, bowel tones present. EXTREMITIES: Without cyanosis. Right lower extremity wound VAC present. ASSESSMENT: 1. Right below-knee amputation, infected stump, status post revision with rotation flap and wound VAC application. 2. Diabetes. 3. Hypertension. PLAN: The patient remains stable. Will change abx to Ancef, continue local wound care per vascular recommendations. DW staff Problems: Consultation Date/Type/Reason Admit Date/Time June 12, 2016 at 13:22 Initial Consult Date Type of Consultation: ID Exam/Review of Systems Vital Signs Vitals Vital Signs Date Time Temp Pulse Resp B/P Pulse Ox O2 Delivery O2 Flow Rate FiO2 06/15/16 07:40 98.1 76 16 102/60 99 06/14/16 13:30 Room Air 06/14/16 09:07 2.0 Intake and Output 06/14/16 06/14/16 06/15/16 15:00 23:00 07:00 Intake Total 3650 ml 1000 ml 1910 ml Output Total 0 ml 400 ml 1670 ml Balance 3650 ml 600 ml 240 ml Results Result Diagram: 06/14/16 0540 06/14/16 0540 Results 24 hrs Laboratory Tests Test 06/14/16 17:21 06/14/16 20:14 06/14/16 20:50 06/15/16 07:45 Bedside Glucose 134 143 117 Vancomycin Level Trough 9.6 L Test 06/15/16 08:29 06/15/16 11:59 Bedside Glucose 169 88 Medications Medications Current Medications Aspirin (Halfprin) 81 mg DAILY PO Last administered on 06/15/16t 08:56; Admin Dose 81 MG; Start 06/13/16 at 09:00 Atorvastatin Calcium (Lipitor) 10 mg QHS PO Last administered on 06/14/16 20: 11; Admin Dose 10 MG; Start 06/12/16 at 21:00 Gabapentin (Neurontin) 300 mg TID PO Last administered on 06/15/16 12:52; Admin Dose 300 MG; Start 06/12/16 at 21:00 Lisinopril (Zestril) 20 mg DAILY PO Last administered on 06/14/16 10:06; Admin Dose 20 MG; Start 06/13/16 at 09:00 Metoprolol Tartrate 25 mg 25 mg BID PO Last administered on 06/14/16 20:11; Admin Dose 25 MG; Start 06/12/16 at 21:00 Sodium Chloride (NS) 1,000 ml @ 40 mls/hr Q24H IV Last administered on 13:59; Admin Dose 40 MLS/HR; Start 06/12/16 at 17:15 Ondansetron HCl (Zofran Inj) 4 mg Q6H PRN IV NAUSEA AND/OR VOMITING; Start 06/12 at 17:30 Acetaminophen (Tylenol Tab) 650 mg Q6H PRN PO PAIN LEVEL 1-3 OR FEVER; Start at 17:30 Acetaminophen/ Hydrocodone Bitart ([place] (5/325)) 1 tab Q6H PRN PO MODERATE PAIN LEVEL 4-6 Last administered on 06/15/16 06:00; Admin Dose 1 TAB; Start 06/12/16 at 17:30 Docusate Sodium (Colace) 100 mg Q12H PRN PO CONSTIPATION; Start 06/12/16 at 17: 30 Pantoprazole (Protonix Tab) 40 mg DAILY@06 PO Last administered on 06/15/16 06 :00; Admin Dose 40 MG; Start 06/13/16 at 06:00 Enoxaparin Sodium (Lovenox) 30 mg DAILY SC Last administered on 06/15/16 09:03 ; Admin Dose 30 MG; Start 06/13/16 at 09:00 Diagnostic Test (Pha) (Accu-Chek) 1 ea 02 XX Last administered on 06/13/16 02: 34; Admin Dose 1 EA; Start 06/13/16 at 02:00 Miscellaneous Information 1 ea NOTE XX ; Start 06/12/16 at 17:30 Glucose (Glutose) 15 gm Q15M PRN PO DECREASED GLUCOSE; Start 06/12/16 at 17:30 Glucose (Glutose) 22.5 gm Q15M PRN PO DECREASED GLUCOSE; Start 06/12/16 at 17:30 Dextrose (D50w Syringe) 25 ml Q15M PRN IV DECREASED GLUCOSE; Start 06/12/16 at 17:30 Dextrose (D50w Syringe) 50 ml Q15M PRN IV DECREASED GLUCOSE; Start 06/12/16 at 17:30 Glucagon (Glucagen) 1 mg Q15M PRN IM DECREASED GLUCOSE; Start 06/12/16 at 17:30 Glucose (Glutose) 15 gm Q15M PRN BUCCAL DECREASED GLUCOSE; Start 06/12/16 at 17: 30 Insulin Glargine 12 unit 12 unit DAILY@20 SC Last administered on 06/14/16 20: 23; Admin Dose 12 UNIT; Start 06/13/16 at 20:00 Vancomycin HCl/ Sodium Chloride (Vancocin/NS) 150 ml @ 75 mls/hr Q12H IVPB Last administered on 06/15/16 10:35; Admin Dose 75 MLS/HR; Start 06/14/16 at 22 :00 Levofloxacin (Levaquin) 500 mg DAILY@06 PO Last administered on 06/15/16 06:00 ; Admin Dose 500 MG; Start 06/15/16 at 06:00 Linagliptin (Tradjenta) 5 mg DAILY PO Last administered on 06/15/16 08:57; Admin Dose 5 MG; Start 06/15/16 at 09:00 HILARIO ACUÑA NP June 15, 2016 13:19
[2016-06-15] MEDS: CEFAZOLIN 1 GM/50 ML (PMX) 50 ML IVPB SCH ×2 (14:57→21:02)
[2016-06-15] MEDS: SOD CHLORIDE 0.9% 1,000 ML IV SCH ×2 (17:15→21:01)
--- NOTE | 2016-06-15 18:33 | PN ---
Date/Time of Note Date/Time of Note DATE: 06/15/16 TIME: 18:33 Assessment/Plan VTE Prophylaxis VTE Prophylaxis Intervention: other Lines/Catheters IV Catheter Type (from Nrsg): Peripheral IV Assessment/Plan Assessment/Plan 1. Right [id number] amputation stump dehiscence, laceration, possible infection. S/p debridement and creation of a rotational flap by Dr. Fuller, vascular surgery, on 06/13. Continue IV antibiotics. Continue wound VAC. - per Vascular sx - per Dr. Eldridge is following infection disease consultation. 2. Diabetes mellitus type 2. Hemoglobin A1c is 8.7. Continue Januvia, metformin, and NovoLog per mild algorithm sliding scale a.c. and at bedtime. 3. Hypertension. Continue metoprolol and lisinopril. Continue to monitor blood pressure. 4. Homelessness. Further recommendations based on clinical course. Plan of care discussed with Dr. Li. Subjective 24 Hr Interval Summary Free Text/Dictation nad, lying in bed, alert, awake, answers simple Qs, afebrile, dw staff Eyes: no complaints ENT: no complaints Respiratory: no complaints Cardiovascular: no complaints Gastrointestinal: no complaints Genitourinary: no complaints Exam/Review of Systems Vital Signs Vitals Vital Signs Date Time Temp Pulse Resp B/P Pulse Ox O2 Delivery O2 Flow Rate FiO2 06/15/16 07:40 98.1 76 16 102/60 99 06/14/16 13:30 Room Air 06/14/16 09:07 2.0 Intake and Output 06/14/16 06/14/16 06/15/16 15:00 23:00 07:00 Intake Total 3650 ml 1000 ml 1910 ml Output Total 0 ml 400 ml 1670 ml Balance 3650 ml 600 ml 240 ml Exam Constitutional: alert, well developed Psych: nl mood/affect Eyes: nl sclera ENMT: nl external ears & nose Neck: non-tender Cardiovascular: nl pulses Gastrointestinal: non-tender, soft Musculoskeletal: other Extremities: normal pulses Neurological: other Skin: other Lymph: nontender Results Result Diagram: 06/14/16 0540 06/14/16 0540 Results 24 hrs Laboratory Tests Test 06/14/16 20:14 06/14/16 20:50 06/15/16 07:45 06/15/16 08:29 Bedside Glucose 143 117 169 Vancomycin Level Trough 9.6 L Test 06/15/16 11:59 06/15/16 17:20 Bedside Glucose 88 157 Medications Medications Current Medications Aspirin (Halfprin) 81 mg DAILY PO Last administered on 06/15/16 08:56; Admin Dose 81 MG; Start 06/13/16 at 09:00 Atorvastatin Calcium (Lipitor) 10 mg QHS PO Last administered on 06/14/16 20: 11; Admin Dose 10 MG; Start 06/12/16 at 21:00 Gabapentin (Neurontin) 300 mg TID PO Last administered on 06/15/16 12:52; Admin Dose 300 MG; Start 06/12/16 at 21:00 Lisinopril (Zestril) 20 mg DAILY PO Last administered on 06/14/16 10:06; Admin Dose 20 MG; Start 06/13/16 at 09:00 Metoprolol Tartrate 25 mg 25 mg BID PO Last administered on 06/14/16 20:11; Admin Dose 25 MG; Start 06/12/16 at 21:00 Sodium Chloride (NS) 1,000 ml @ 40 mls/hr Q24H IV Last administered on 13:59; Admin Dose 40 MLS/HR; Start 06/12/16 at 17:15 Ondansetron HCl (Zofran Inj) 4 mg Q6H PRN IV NAUSEA AND/OR VOMITING; Start 06/12 at 17:30 Acetaminophen (Tylenol Tab) 650 mg Q6H PRN PO PAIN LEVEL 1-3 OR FEVER; Start at 17:30 Acetaminophen/ Hydrocodone Bitart ([place] (5/325)) 1 tab Q6H PRN PO MODERATE PAIN LEVEL 4-6 Last administered on 06/15/16 06:00; Admin Dose 1 TAB; Start 06/12/16 at 17:30 Docusate Sodium (Colace) 100 mg Q12H PRN PO CONSTIPATION; Start 06/12/16 at 17: 30 Pantoprazole (Protonix Tab) 40 mg DAILY@06 PO Last administered on 06/15/16 06 :00; Admin Dose 40 MG; Start 06/13/16 at 06:00 Enoxaparin Sodium (Lovenox) 30 mg DAILY SC Last administered on 06/15/16 09:03 ; Admin Dose 30 MG; Start 06/13/16 at 09:00 Diagnostic Test (Pha) (Accu-Chek) 1 ea 02 XX Last administered on 06/13/16 02: 34; Admin Dose 1 EA; Start 06/13/16 at 02:00 Miscellaneous Information 1 ea NOTE XX ; Start 06/12/16 at 17:30 Glucose (Glutose) 15 gm Q15M PRN PO DECREASED GLUCOSE; Start 06/12/16 at 17:30 Glucose (Glutose) 22.5 gm Q15M PRN PO DECREASED GLUCOSE; Start 06/12/16 at 17:30 Dextrose (D50w Syringe) 25 ml Q15M PRN IV DECREASED GLUCOSE; Start 06/12/16 at 17:30 Dextrose (D50w Syringe) 50 ml Q15M PRN IV DECREASED GLUCOSE; Start 06/12/16 at 17:30 Glucagon (Glucagen) 1 mg Q15M PRN IM DECREASED GLUCOSE; Start 06/12/16 at 17:30 Glucose (Glutose) 15 gm Q15M PRN BUCCAL DECREASED GLUCOSE; Start 06/12/16 at 17: 30 Insulin Glargine (Lantus) 12 unit DAILY@20 SC Last administered on 06/14/16 20 :23; Admin Dose 12 UNIT; Start 06/13/16 at 20:00 Linagliptin 5 mg 5 mg DAILY PO Last administered on 06/15/16 08:57; Admin Dose 5 MG; Start 06/15/16 at 09:00 Cefazolin Sodium (Ancef 1 Gm/50 ml (Pmx)) 50 ml @ 100 mls/hr Q8 IVPB Last administered on 06/15/16 14:57; Admin Dose 100 MLS/HR; Start 06/15/16 at 14:00 ABRAHAN PINA June 15, 2016 18:33
[2016-06-15 19:40] VITALS: BP 105/53; RESP 20
[2016-06-15] MEDS: ATORVASTATIN 10 MG TAB PO SCH (20:07)
[2016-06-15] MEDS: INSULIN GLARGINE [LANtus] 3 ML PEN SC SCH (20:11)
--- NOTE | 2016-06-15 21:12 | PN ---
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 -Recommend placing the patient on antibiotics. -Discussed findings, plan of management with the patient and he understands. -Thank you for allowing us to participate in the care of your patient. Please call with any questions. Problems: Subjective 24 Hr Interval Summary no new vascular events overnight Exam/Review of Systems Vital Signs Vitals Vital Signs Date Time Temp Pulse Resp B/P Pulse Ox O2 Delivery O2 Flow Rate FiO2 06/15/16 19:40 98.1 87 20 105/53 99 06/14/16 13:30 Room Air 06/14/16 09:07 2.0 Intake and Output 06/14/16 06/14/16 06/15/16 15:00 23:00 07:00 Intake Total 3650 ml 1000 ml 1910 ml Output Total 0 ml 400 ml 1670 ml Balance 3650 ml 600 ml 240 ml Exam Free Text/Dictation GENERAL: Alert and oriented x3, PULMONARY: Clear to auscultation bilaterally CARDIOVASCULAR: S1, S2 present ABDOMEN: Soft, nontender, nondistended. Bowel sounds positive. EXTREMITIES: Right lower extremity: Palpable femoral pulse. BKA stump with cap refill 3 seconds. wound vac intact and functional Left lower extremity: Palpable femoral pulse, nonpalpable pedal pulse. Motor, sensory intact. Cap refill 3 to 4 seconds. There is area of lipodermatosclerosis. No ulcers identified. Results Result Diagram: 06/14/16 0540 06/14/16 0540 JUAN PRIDE MD June 15, 2016 21:12
[2016-06-16] MEDS: ACCU-CHEK XX SCH (02:00)
[2016-06-16] MEDS: CEFAZOLIN 1 GM/50 ML (PMX) 50 ML IVPB SCH (05:57)
[2016-06-16] MEDS: PANTOPRAZOLE (EC) 40 MG TAB PO SCH (05:57)
[2016-06-16] MEDS: HYDROCODONE/APAP (5/325) TAB PO PRN ×2 (06:05→15:18)
[2016-06-16 06:21] LABS: ADD SCAN DIFF NO
[2016-06-16 06:29] LABS: BASOPHILS % 0.5 % (0.0-2.0); EOSINOPHILS # 0.5 10^3/ul (0.0-0.5); EOSINOPHILS % 8.1 % (0.0-7.0); HEMATOCRIT 32.5 % (42.0-52.0); HEMOGLOBIN 10.6 g/dl (14.0-18.0); LYMPHOCYTES # 1.5 10^3/ul (0.8-2.9); LYMPHOCYTES % 26.5 % (15.0-51.0); MEAN CORPUSCULAR HEMOGLOBIN 28.6 pg (29.0-33.0); MEAN CORPUSCULAR HGB CONC 32.6 g/dl (32.0-37.0); MEAN CORPUSCULAR VOLUME 87.6 fl (82.0-101.0); MEAN PLATELET VOLUME 9.4 fl (7.4-10.4); MONOCYTE # 0.5 10^3/ul (0.3-0.9); MONOCYTES % 9.3 % (0.0-11.0); NEUTROPHIL # 3.2 10^3/ul (1.6-7.5); NEUTROPHILS % 55.1 % (39.0-77.0); PLATELET COUNT 289 10^3/UL (140-415); RED BLOOD COUNT 3.71 10^6/ul (4.70-6.10); RED CELL DISTRIBUTION WIDTH 14.1 % (11.5-14.5); WHITE BLOOD COUNT 5.8 10^3/ul (4.8-10.8)
[2016-06-16 06:59] LABS: POTASSIUM 3.9 mmol/L (3.5-5.1)
[2016-06-16 07:02] LABS: CALCIUM 9.4 mg/dl (8.4-10.2); CREATININE 0.65 mg/dl (0.61-1.24)
[2016-06-16] MEDS: INSULIN ASPART [NOVOLOG] 3 ML PEN SC SCH ×7 (08:08→20:48)
[2016-06-16] MEDS: metFORMIN 500 MG TAB PO SCH ×2 (08:13→17:49)
--- NOTE | 2016-06-16 08:18 | PN ---
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 Will re-evaluate on Sunday prior to D/C planning -Will have wound vac team change MWF -Optimize vascular status (BP meds, diet, nutrition, exercise, sugar control, antiplatelets). -Recommend placing the patient on antibiotics. -Discussed findings, plan of management with the patient and he understands. -Thank you for allowing us to participate in the care of your patient. Please call with any questions. Problems: Subjective 24 Hr Interval Summary Constitutional: no complaints Exam/Review of Systems Vital Signs Vitals Vital Signs Date Time Temp Pulse Resp B/P Pulse Ox O2 Delivery O2 Flow Rate FiO2 06/15/16 20:00 Room Air 06/15/16 19:40 98.1 87 20 105/53 99 06/14/16 09:07 2.0 Intake and Output 06/15/16 06/15/16 06/16/16 15:00 23:00 07:00 Intake Total 150 ml 2020 ml 707 ml Output Total 1900 ml 525 ml Balance 150 ml 120 ml 182 ml Exam Free Text/Dictation GENERAL: Alert and oriented x3, PULMONARY: Clear to auscultation bilaterally CARDIOVASCULAR: S1, S2 present ABDOMEN: Soft, nontender, nondistended. Bowel sounds positive. EXTREMITIES: Right lower extremity: Palpable femoral pulse. BKA stump with cap refill 3 seconds. wound vac intact and functional - removed with granulation tissue developing Left lower extremity: Palpable femoral pulse, nonpalpable pedal pulse. Motor, sensory intact. Cap refill 3 to 4 seconds. There is area of lipodermatosclerosis. No ulcers identified. Results Result Diagram: 06/16/16 0546 06/16/16 0546 JUAN PRIDE MD June 16, 2016 08:18
[2016-06-16 08:56] VITALS: BP 133/72; RESP 16
[2016-06-16] MEDS: GABAPENTIN 300 MG CAP PO SCH ×3 (09:22→20:37)
[2016-06-16] MEDS: LISINOPRIL 20 MG TAB PO SCH (09:23)
[2016-06-16] MEDS: ASPIRIN (EC) 81 MG TAB PO SCH (09:23)
[2016-06-16] MEDS: METOPROLOL 25 MG TAB PO SCH ×2 (09:24→20:38)
[2016-06-16] MEDS: LINAGLIPTIN 5 MG TABLET PO SCH (09:25)
[2016-06-16] MEDS: ENOXAPARIN 30 MG/0.3 ML SYG SC SCH (09:28)
--- NOTE | 2016-06-16 14:16 | CONS ---
Date/Time of Note Date/Time of Note DATE: 06/16/16 TIME: 14:16 Assessment/Plan Assessment/Plan Chief Complaint/Hosp Course SUBJECTIVE: No acute changes. The patient is alert, looks comfortable. No fevers. No pain. MICROBIOLOGY: Wound culture growing MSSA/Enterococcus ANTIMICROBIALS: Zosyn PHYSICAL EXAMINATION: GENERAL: This is a well-nourished, well-developed elderly man who is awake, in no distress. HEENT: Head: Atraumatic, normocephalic. Sclerae anicteric. Buccal mucosa pink. NECK: Supple, trachea midline. CHEST: Rise symmetrical. Breath sounds clear. HEART: S1, S2. ABDOMEN: Soft, bowel tones present. EXTREMITIES: Without cyanosis. Right lower extremity wound VAC present. ASSESSMENT: 1. Right below-knee amputation, infected stump, status post revision with rotation flap and wound VAC application. 2. Diabetes. 3. Hypertension. PLAN: The patient remains stable. Abx were changed to Zosyn to cover Enterococcus, continue local wound care per vascular recommendations. DW staff Problems: Consultation Date/Type/Reason Admit Date/Time June 12, 2016 at 13:22 Type of Consultation: ID Exam/Review of Systems Vital Signs Vitals Vital Signs Date Time Temp Pulse Resp B/P Pulse Ox O2 Delivery O2 Flow Rate FiO2 06/16/16 08:56 97.8 78 16 133/72 98 06/15/16 20:00 Room Air 06/14/16 09:07 2.0 Intake and Output 06/15/16 06/15/16 06/16/16 15:00 23:00 07:00 Intake Total 150 ml 2020 ml 707 ml Output Total 1900 ml 525 ml Balance 150 ml 120 ml 182 ml Results Result Diagram: 06/16/16 0546 06/16/16 0546 Results 24 hrs Laboratory Tests Test 06/15/16 17:20 06/15/16 20:04 06/16/16 05:46 06/16/16 07:49 Bedside Glucose 157 77 103 White Blood Count 5.8 Red Blood Count 3.71 L Hemoglobin 10.6 L Hematocrit 32.5 L Mean Corpuscular Volume 87.6 Mean Corpuscular Hemoglobin 28.6 L Mean Corpuscular Hemoglobin Concent 32.6 Red Cell Distribution Width 14.1 Platelet Count 289 Mean Platelet Volume 9.4 Neutrophils % 55.1 Lymphocytes % 26.5 Monocytes % 9.3 Eosinophils % 8.1 H Basophils % 0.5 Nucleated Red Blood Cells % 0.0 Neutrophils # 3.2 Lymphocytes # 1.5 Monocytes # 0.5 Eosinophils # 0.5 Basophils # 0.0 Nucleated Red Blood Cells # 0.0 Sodium Level 141 Potassium Level 3.9 Chloride Level 101 Carbon Dioxide Level 30 Anion Gap 14 Blood Urea Nitrogen 13 Creatinine 0.65 Glucose Level 101 Calcium Level 9.4 Test 06/16/16 12:06 Bedside Glucose 120 Medications Medications Current Medications Aspirin (Halfprin) 81 mg DAILY PO Last administered on 06/16/16 09:23; Admin Dose 81 MG; Start 06/13/16 at 09:00 Gabapentin (Neurontin) 300 mg TID PO Last administered on 06/16/16 12:19; Admin Dose 300 MG; Start 06/12/16 at 21:00 Lisinopril (Zestril) 20 mg DAILY PO Last administered on 06/16/16 09:23; Admin Dose 20 MG; Start 06/13/16 at 09:00 Metoprolol Tartrate 25 mg 25 mg BID PO Last administered on 06/16/16 09:24; Admin Dose 25 MG; Start 06/12/16 at 21:00 Sodium Chloride (NS) 1,000 ml @ 40 mls/hr Q24H IV Last administered on 21:01; Admin Dose 40 MLS/HR; Start 06/12/16 at 17:15 Ondansetron HCl (Zofran Inj) 4 mg Q6H PRN IV NAUSEA AND/OR VOMITING; Start 06/12 at 17:30 Acetaminophen (Tylenol Tab) 650 mg Q6H PRN PO PAIN LEVEL 1-3 OR FEVER; Start at 17:30 Acetaminophen/ Hydrocodone Bitart ([place] (5/325)) 1 tab Q6H PRN PO MODERATE PAIN LEVEL 4-6 Last administered on 06/16/16 06:05; Admin Dose 1 TAB; Start 06/12/16 at 17:30 Docusate Sodium (Colace) 100 mg Q12H PRN PO CONSTIPATION; Start 06/12/16 at 17: 30 Pantoprazole (Protonix Tab) 40 mg DAILY@06 PO Last administered on 06/16/16 05 :57; Admin Dose 40 MG; Start 06/13/16 at 06:00 Enoxaparin Sodium (Lovenox) 30 mg DAILY SC Last administered on 06/16/16 09:28 ; Admin Dose 30 MG; Start 06/13/16 at 09:00 Diagnostic Test (Pha) (Accu-Chek) 1 ea 02 XX Last administered on 06/13/16 02: 34; Admin Dose 1 EA; Start 06/13/16 at 02:00 Miscellaneous Information 1 ea NOTE XX ; Start 06/12/16 at 17:30 Glucose (Glutose) 15 gm Q15M PRN PO DECREASED GLUCOSE; Start 06/12/16 at 17:30 Glucose (Glutose) 22.5 gm Q15M PRN PO DECREASED GLUCOSE; Start 06/12/16 at 17:30 Dextrose (D50w Syringe) 25 ml Q15M PRN IV DECREASED GLUCOSE; Start 06/12/16 at 17:30 Dextrose (D50w Syringe) 50 ml Q15M PRN IV DECREASED GLUCOSE; Start 06/12/16 at 17:30 Glucagon (Glucagen) 1 mg Q15M PRN IM DECREASED GLUCOSE; Start 06/12/16 at 17:30 Glucose (Glutose) 15 gm Q15M PRN BUCCAL DECREASED GLUCOSE; Start 06/12/16 at 17: 30 Insulin Glargine (Lantus) 12 unit DAILY@20 SC Last administered on 06/15/16 20 :11; Admin Dose 12 UNIT; Start 06/13/16 at 20:00 Linagliptin (Tradjenta) 5 mg DAILY PO Last administered on 06/16/16 09:25; Admin Dose 5 MG; Start 06/15/16 at 09:00 Atorvastatin Calcium 10 mg 10 mg QHS PO Last administered on 06/15/16 20:07; Admin Dose 10 MG; Start 06/15/16 at 21:00 Piperacillin Sod/ Tazobactam Sod (Zosyn 3.375gm/ 100 ml (Pmx)) 100 ml @ 200 mls /hr Q8 IVPB ; Start 06/16/16 at 14:00 HILARIO ACUÑA NP June 16, 2016 14:16
--- NOTE | 2016-06-16 14:26 | PN ---
Date/Time of Note Date/Time of Note DATE: 06/16/16 TIME: 14:23 Assessment/Plan VTE Prophylaxis VTE Prophylaxis Intervention: SCD's Lines/Catheters IV Catheter Type (from Nrs): Peripheral IV Assessment/Plan Chief Complaint/Hosp Course ASSESSMENT AND PLAN: 1. Right [id number] amputation stump dehiscence, laceration, possible infection. S/p debridement and creation of a rotational flap by Dr. Fuller, vascular surgery, on 06/13. Continue IV antibiotics. Continue wound VAC. Dr. Eldridge is following infection disease consultation. 2. Diabetes mellitus type 2. Hemoglobin A1c is 8.7. Continue Tradjenta, Lantus, pre-meal NovoLog, and NovoLog per mild algorithm sliding scale a.c. and at bedtime. 3. Hypertension. Continue metoprolol and lisinopril. Continue to monitor blood pressure. 4. Homelessness. Further recommendations based on clinical course. Plan of care discussed with Dr. Li. Problems: Subjective 24 Hr Interval Summary Free Text/Dictation Patient's right lower extremity to wound VAC, patient denies any fever chills, pain is well controlled, good glycemic control. Patient needs a wound VAC global climate change analyst the weekend on Sunday. Case management is asked to assist in sniff placement since patient is homeless. Exam/Review of Systems Vital Signs Vitals Vital Signs Date Time Temp Pulse Resp B/P Pulse Ox O2 Delivery O2 Flow Rate FiO2 06/16/16 08:56 97.8 78 16 133/72 98 06/15/16 20:00 Room Air 06/14/16 09:07 2.0 Intake and Output 06/15/16 06/15/16 06/16/16 15:00 23:00 07:00 Intake Total 150 ml 2020 ml 707 ml Output Total 1900 ml 525 ml Balance 150 ml 120 ml 182 ml Exam GENERAL: Well-developed, well-nourished gentleman. Currently is awake, alert. HEENT: Atraumatic, normocephalic. PERRLA. NECK: Supple. No cervical lymphadenopathy, no thyromegaly. CHEST: Lungs clear bilaterally. There are no rhonchi, wheezes, rales noted. CARDIOVASCULAR: Normal S1, S2. No murmurs, gallops, clicks, rubs noted. ABDOMEN: Round, soft, nondistended, nontender. Bowel sounds present. EXTREMITIES: The patient has a right BKA wound to wound vac. SKIN: There is no rash, petechiae noted. NEUROLOGICAL: The patient is awake, alert, and oriented x4. Results Result Diagram: 06/16/16 0546 06/16/16 0546 Results 24 hrs Laboratory Tests Test 06/15/16 17:20 06/15/16 20:04 06/16/16 05:46 06/16/16 07:49 Bedside Glucose 157 77 103 White Blood Count 5.8 Red Blood Count 3.71 L Hemoglobin 10.6 L Hematocrit 32.5 L Mean Corpuscular Volume 87.6 Mean Corpuscular Hemoglobin 28.6 L Mean Corpuscular Hemoglobin Concent 32.6 Red Cell Distribution Width 14.1 Platelet Count 289 Mean Platelet Volume 9.4 Neutrophils % 55.1 Lymphocytes % 26.5 Monocytes % 9.3 Eosinophils % 8.1 H Basophils % 0.5 Nucleated Red Blood Cells % 0.0 Neutrophils # 3.2 Lymphocytes # 1.5 Monocytes # 0.5 Eosinophils # 0.5 Basophils # 0.0 Nucleated Red Blood Cells # 0.0 Sodium Level 141 Potassium Level 3.9 Chloride Level 101 Carbon Dioxide Level 30 Anion Gap 14 Blood Urea Nitrogen 13 Creatinine 0.65 Glucose Level 101 Calcium Level 9.4 Test 06/16/16 12:06 Bedside Glucose 120 Medications Medications Current Medications Aspirin (Halfprin) 81 mg DAILY PO Last administered on 06/16/16 09:23; Admin Dose 81 MG; Start 06/13/16 at 09:00 Gabapentin (Neurontin) 300 mg TID PO Last administered on 06/16/16 12:19; Admin Dose 300 MG; Start 06/12/16 at 21:00 Lisinopril (Zestril) 20 mg DAILY PO Last administered on 06/16/16 09:23; Admin Dose 20 MG; Start 06/13/16 at 09:00 Metoprolol Tartrate 25 mg 25 mg BID PO Last administered on 06/16/16 09:24; Admin Dose 25 MG; Start 06/12/16 at 21:00 Sodium Chloride (NS) 1,000 ml @ 40 mls/hr Q24H IV Last administered on 21:01; Admin Dose 40 MLS/HR; Start 06/12/16 at 17:15 Ondansetron HCl (Zofran Inj) 4 mg Q6H PRN IV NAUSEA AND/OR VOMITING; Start 06/12 at 17:30 Acetaminophen (Tylenol Tab) 650 mg Q6H PRN PO PAIN LEVEL 1-3 OR FEVER; Start at 17:30 Acetaminophen/ Hydrocodone Bitart ([place] (5/325)) 1 tab Q6H PRN PO MODERATE PAIN LEVEL 4-6 Last administered on 06/16/16 06:05; Admin Dose 1 TAB; Start 06/12/16 at 17:30 Docusate Sodium (Colace) 100 mg Q12H PRN PO CONSTIPATION; Start 06/12/16 at 17: 30 Pantoprazole (Protonix Tab) 40 mg DAILY@06 PO Last administered on 06/16/16 05 :57; Admin Dose 40 MG; Start 06/13/16 at 06:00 Enoxaparin Sodium (Lovenox) 30 mg DAILY SC Last administered on 06/16/16 09:28 ; Admin Dose 30 MG; Start 06/13/16 at 09:00 Diagnostic Test (Pha) (Accu-Chek) 1 ea 02 XX Last administered on 06/13/16 02: 34; Admin Dose 1 EA; Start 06/13/16 at 02:00 Miscellaneous Information 1 ea NOTE XX ; Start 06/12/16 at 17:30 Glucose (Glutose) 15 gm Q15M PRN PO DECREASED GLUCOSE; Start 06/12/16 at 17:30 Glucose (Glutose) 22.5 gm Q15M PRN PO DECREASED GLUCOSE; Start 06/12/16 at 17:30 Dextrose (D50w Syringe) 25 ml Q15M PRN IV DECREASED GLUCOSE; Start 06/12/16 at 17:30 Dextrose (D50w Syringe) 50 ml Q15M PRN IV DECREASED GLUCOSE; Start 06/12/16 at 17:30 Glucagon (Glucagen) 1 mg Q15M PRN IM DECREASED GLUCOSE; Start 06/12/16 at 17:30 Glucose (Glutose) 15 gm Q15M PRN BUCCAL DECREASED GLUCOSE; Start 06/12/16 at 17: 30 Insulin Glargine (Lantus) 12 unit DAILY@20 SC Last administered on 06/15/16 20 :11; Admin Dose 12 UNIT; Start 06/13/16 at 20:00 Linagliptin (Tradjenta) 5 mg DAILY PO Last administered on 06/16/16 09:25; Admin Dose 5 MG; Start 06/15/16 at 09:00 Atorvastatin Calcium 10 mg 10 mg QHS PO Last administered on 06/15/16 20:07; Admin Dose 10 MG; Start 06/15/16 at 21:00 Piperacillin Sod/ Tazobactam Sod (Zosyn 3.375gm/ 100 ml (Pmx)) 100 ml @ 200 mls /hr Q8 IVPB ; Start 06/16/16 at 14:00 WEI SULLIVAN June 16, 2016 14:25
[2016-06-16] MEDS: PIPER-TAZO 3.375 GM IV (PMX) 100 ML IVPB SCH ×2 (14:35→22:17)
[2016-06-16 15:56] VITALS: BP 101/58; PULSE 80; RESP 20
[2016-06-16] MEDS: SOD CHLORIDE 0.9% 1,000 ML IV SCH (17:15)
[2016-06-16 19:24] VITALS: BP 118/59; RESP 18
[2016-06-16] MEDS: ATORVASTATIN 10 MG TAB PO SCH (20:37)
[2016-06-17] MEDS: ACCU-CHEK XX SCH ×2 (02:00→23:56)
[2016-06-17] MEDS: SOD CHLORIDE 0.9% 1,000 ML IV SCH ×2 (03:38→17:15)
[2016-06-17] MEDS: HYDROCODONE/APAP (5/325) TAB PO PRN ×2 (03:43→21:08)
[2016-06-17] MEDS: PANTOPRAZOLE (EC) 40 MG TAB PO SCH (06:21)
[2016-06-17] MEDS: PIPER-TAZO 3.375 GM IV (PMX) 100 ML IVPB SCH ×2 (06:21→13:29)
[2016-06-17 07:05] LABS: ADD SCAN DIFF NO
[2016-06-17 07:13] LABS: BASOPHILS % 0.5 % (0.0-2.0); EOSINOPHILS # 0.5 10^3/ul (0.0-0.5); EOSINOPHILS % 7.1 % (0.0-7.0); HEMATOCRIT 31.9 % (42.0-52.0); HEMOGLOBIN 10.3 g/dl (14.0-18.0); LYMPHOCYTES # 1.3 10^3/ul (0.8-2.9); MEAN CORPUSCULAR HEMOGLOBIN 28.3 pg (29.0-33.0); MEAN CORPUSCULAR HGB CONC 32.3 g/dl (32.0-37.0); MEAN CORPUSCULAR VOLUME 87.6 fl (82.0-101.0); MEAN PLATELET VOLUME 9.9 fl (7.4-10.4); MONOCYTE # 0.6 10^3/ul (0.3-0.9); MONOCYTES % 8.4 % (0.0-11.0); NEUTROPHIL # 4.1 10^3/ul (1.6-7.5); NEUTROPHILS % 63.5 % (39.0-77.0); PLATELET COUNT 274 10^3/UL (140-415); RED BLOOD COUNT 3.64 10^6/ul (4.70-6.10); RED CELL DISTRIBUTION WIDTH 14.1 % (11.5-14.5); WHITE BLOOD COUNT 6.5 10^3/ul (4.8-10.8)
[2016-06-17 07:40] LABS: CALCIUM 9.5 mg/dl (8.4-10.2); CREATININE 0.81 mg/dl (0.61-1.24); POTASSIUM 3.9 mmol/L (3.5-5.1)
[2016-06-17 08:01] VITALS: BP 118/66; RESP 16
[2016-06-17] MEDS: INSULIN ASPART [NOVOLOG] 3 ML PEN SC SCH ×7 (08:08→21:00)
[2016-06-17] MEDS: ASPIRIN (EC) 81 MG TAB PO SCH (08:34)
[2016-06-17] MEDS: LINAGLIPTIN 5 MG TABLET PO SCH (08:34)
[2016-06-17] MEDS: metFORMIN 500 MG TAB PO SCH ×2 (08:34→17:46)
[2016-06-17] MEDS: GABAPENTIN 300 MG CAP PO SCH ×3 (08:34→21:06)
[2016-06-17] MEDS: LISINOPRIL 20 MG TAB PO SCH (08:34)
[2016-06-17] MEDS: METOPROLOL 25 MG TAB PO SCH ×2 (08:34→21:08)
[2016-06-17] MEDS: ENOXAPARIN 30 MG/0.3 ML SYG SC SCH (08:41)
--- NOTE | 2016-06-17 10:28 | PN ---
Date/Time of Note Date/Time of Note DATE: 06/17/16 TIME: 10:27 Assessment/Plan VTE Prophylaxis VTE Prophylaxis Intervention: other Lines/Catheters IV [facility] Type (from [facility]): Peripheral IV Assessment/Plan Chief Complaint/Hosp Course 1. Right [id number]-[id number]-pdps amputation stump dehiscence, laceration, possible infection. S/p debridement and creation of a rotational flap by Dr. Fuller, vascular surgery, on 06/13. Continue IV antibiotics. Continue wound VAC. Dr. Eldridge is following infection disease consultation. 2. Diabetes mellitus type 2. Hemoglobin A1c is 8.7. Continue Tradjenta, Lantus, pre-meal NovoLog, and NovoLog per mild algorithm sliding scale a.c. and at bedtime. 3. Hypertension. Continue metoprolol and lisinopril. Continue to monitor blood pressure. 4. Homelessness. Problems: Subjective 24 Hr Interval Summary Free Text/Dictation Patient complain of pain in right stump Exam/Review of Systems Vital Signs Vitals Vital Signs Date Time Temp Pulse Resp B/P Pulse Ox O2 Delivery O2 Flow Rate FiO2 06/17/16 08:01 98.0 75 16 118/66 100 06/16/16 20:00 Room Air 06/14/16 09:07 2.0 Intake and Output 06/16/16 06/16/16 06/17/16 15:00 23:00 07:00 Intake Total 1610 ml 1088 ml Output Total 1150 ml Balance 460 ml 1088 ml Exam Constitutional: well developed Head: atraumatic, normocephalic Neck: supple Respiratory: clear to auscultation Cardiovascular: regular rate and rhythm Gastrointestinal: non-tender, soft Results Result Diagram: 06/17/16 0524 06/17/16 0524 Results 24 hrs Laboratory Tests Test 06/16/16 12:06 06/16/16 17:43 06/16/16 20:30 06/16/16 20:47 Bedside Glucose 120 96 68 L 82 Test 06/16/16 21:16 06/17/16 05:24 06/17/16 08:01 Bedside Glucose 135 149 White Blood Count 6.5 Red Blood Count 3.64 L Hemoglobin 10.3 L Hematocrit 31.9 L Mean Corpuscular Volume 87.6 Mean Corpuscular Hemoglobin 28.3 L Mean Corpuscular Hemoglobin Concent 32.3 Red Cell Distribution Width 14.1 Platelet Count 274 Mean Platelet Volume 9.9 Neutrophils % 63.5 Lymphocytes % 20.0 Monocytes % 8.4 Eosinophils % 7.1 H Basophils % 0.5 Nucleated Red Blood Cells % 0.0 Neutrophils # 4.1 Lymphocytes # 1.3 Monocytes # 0.6 Eosinophils # 0.5 Basophils # 0.0 Nucleated Red Blood Cells # 0.0 Sodium Level 137 Potassium Level 3.9 Chloride Level 105 Carbon Dioxide Level 27 Anion Gap 9 # Blood Urea Nitrogen 10 Creatinine 0.81 Glucose Level 142 # Calcium Level 9.5 Medications Medications Current Medications Aspirin (Halfprin) 81 mg DAILY PO Last administered on 06/17/16 08:34; Admin Dose 81 MG; Start 06/13/16 at 09:00 Gabapentin (Neurontin) 300 mg TID PO Last administered on 06/17/16 08:34; Admin Dose 300 MG; Start 06/12/16 at 21:00 Lisinopril (Zestril) 20 mg DAILY PO Last administered on 06/17/16 08:34; Admin Dose 20 MG; Start 06/13/16 at 09:00 Metoprolol Tartrate 25 mg 25 mg BID PO Last administered on 06/17/16 08:34; Admin Dose 25 MG; Start 06/12/16 at 21:00 Sodium Chloride (NS) 1,000 ml @ 40 mls/hr Q24H IV Last administered on 03:38; Admin Dose 40 MLS/HR; Start 06/12/16 at 17:15 Ondansetron HCl (Zofran Inj) 4 mg Q6H PRN IV NAUSEA AND/OR VOMITING; Start 06/12 at 17:30 Acetaminophen (Tylenol Tab) 650 mg Q6H PRN PO PAIN LEVEL 1-3 OR FEVER; Start at 17:30 Acetaminophen/ Hydrocodone Bitart ([place] (5/325)) 1 tab Q6H PRN PO MODERATE PAIN LEVEL 4-6 Last administered on 06/17/16 03:43; Admin Dose 1 TAB; Start 06/12/16 at 17:30 Docusate Sodium (Colace) 100 mg Q12H PRN PO CONSTIPATION; Start 06/12/16 at 17: 30 Pantoprazole (Protonix Tab) 40 mg DAILY@06 PO Last administered on 06/17/16 06 :21; Admin Dose 40 MG; Start 06/13/16 at 06:00 Enoxaparin Sodium (Lovenox) 30 mg DAILY SC Last administered on 06/17/16 08:41 ; Admin Dose 30 MG; Start 06/13/16 at 09:00 Diagnostic Test (Pha) (Accu-Chek) 1 ea 02 XX Last administered on 06/13/16 02: 34; Admin Dose 1 EA; Start 06/13/16 at 02:00 Miscellaneous Information 1 ea NOTE XX ; Start 06/12/16 at 17:30 Glucose (Glutose) 15 gm Q15M PRN PO DECREASED GLUCOSE; Start 06/12/16 at 17:30 Glucose (Glutose) 22.5 gm Q15M PRN PO DECREASED GLUCOSE; Start 06/12/16 at 17:30 Dextrose (D50w Syringe) 25 ml Q15M PRN IV DECREASED GLUCOSE; Start 06/12/16 at 17:30 Dextrose (D50w Syringe) 50 ml Q15M PRN IV DECREASED GLUCOSE; Start 06/12/16 at 17:30 Glucagon (Glucagen) 1 mg Q15M PRN IM DECREASED GLUCOSE; Start 06/12/16 at 17:30 Glucose (Glutose) 15 gm Q15M PRN BUCCAL DECREASED GLUCOSE; Start 06/12/16 at 17: 30 Insulin Glargine (Lantus) 12 unit DAILY@20 SC Last administered on 06/15/16 20 :11; Admin Dose 12 UNIT; Start 06/13/16 at 20:00; Status Future hold Linagliptin (Tradjenta) 5 mg DAILY PO Last administered on 06/17/16 08:34; Admin Dose 5 MG; Start 06/15/16 at 09:00 Atorvastatin Calcium 10 mg 10 mg QHS PO Last administered on 06/16/16 20:37; Admin Dose 10 MG; Start 06/15/16 at 21:00 Piperacillin Sod/ Tazobactam Sod (Zosyn 3.375gm/ 100 ml (Pmx)) 100 ml @ 200 mls /hr Q8 IVPB Last administered on 06/17/16 06:21; Admin Dose 200 MLS/HR; Start 06/16/16 at 14:00 SHIRAZ CLARK June 17, 2016 10:28
--- NOTE | 2016-06-17 19:10 | CONS ---
Date/Time of Note Date/Time of Note DATE: 06/17/16 TIME: 19:07 Assessment/Plan Assessment/Plan Chief Complaint/Hosp Course SUBJECTIVE: No acute changes. The patient is alert, looks comfortable. No fevers. No pain. MICROBIOLOGY: Wound culture growing MSSA/Enterococcus ANTIMICROBIALS: Zosyn PHYSICAL EXAMINATION: GENERAL: This is a well-nourished, well-developed elderly man who is awake, in no distress. HEENT: Head: Atraumatic, normocephalic. Sclerae anicteric. Buccal mucosa pink. NECK: Supple, trachea midline. CHEST: Rise symmetrical. Breath sounds clear. HEART: S1, S2. ABDOMEN: Soft, bowel tones present. EXTREMITIES: Without cyanosis. Right lower extremity wound VAC present. ASSESSMENT: 1. Right below-knee amputation, infected stump, status post revision with rotation flap and wound VAC application. 2. Diabetes. 3. Hypertension. PLAN: The patient remains stable. 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 IV abx==> 6 weeks, change abx to Vancomycin [facility] staff Problems: Consultation Date/Type/Reason Admit Date/Time June 12, 2016 at 13:22 Type of Consultation: ID Exam/Review of Systems Vital Signs Vitals Vital Signs Date Time Temp Pulse Resp B/P Pulse Ox O2 Delivery O2 Flow Rate FiO2 06/17/16 08:01 98.0 75 16 118/66 100 06/16/16 20:00 Room Air 06/14/16 09:07 2.0 Intake and Output 06/16/16 06/16/16 06/17/16 15:00 23:00 07:00 Intake Total 1610 ml 1088 ml Output Total 1150 ml Balance 460 ml 1088 ml Results Result Diagram: 06/17/16 0524 06/17/16 0524 Results 24 hrs Laboratory Tests Test 06/16/16 20:30 06/16/16 20:47 06/16/16 21:16 06/17/16 05:24 Bedside Glucose 68 L 82 135 White Blood Count 6.5 Red Blood Count 3.64 L Hemoglobin 10.3 L Hematocrit 31.9 L Mean Corpuscular Volume 87.6 Mean Corpuscular Hemoglobin 28.3 L Mean Corpuscular Hemoglobin Concent 32.3 Red Cell Distribution Width 14.1 Platelet Count 274 Mean Platelet Volume 9.9 Neutrophils % 63.5 Lymphocytes % 20.0 Monocytes % 8.4 Eosinophils % 7.1 H Basophils % 0.5 Nucleated Red Blood Cells % 0.0 Neutrophils # 4.1 Lymphocytes # 1.3 Monocytes # 0.6 Eosinophils # 0.5 Basophils # 0.0 Nucleated Red Blood Cells # 0.0 Sodium Level 137 Potassium Level 3.9 Chloride Level 105 Carbon Dioxide Level 27 Anion Gap 9 # Blood Urea Nitrogen 10 Creatinine 0.81 Glucose Level 142 # Calcium Level 9.5 Test 06/17/16 08:01 06/17/16 12:00 06/17/16 17:26 Bedside Glucose 149 96 94 Medications Medications Current Medications Aspirin (Halfprin) 81 mg DAILY PO Last administered on 06/17/16 08:34; Admin Dose 81 MG; Start 06/13/16 at 09:00 Gabapentin (Neurontin) 300 mg TID PO Last administered on 06/17/16 13:29; Admin Dose 300 MG; Start 06/12/16 at 21:00 Lisinopril (Zestril) 20 mg DAILY PO Last administered on 06/17/16 08:34; Admin Dose 20 MG; Start 06/13/16 at 09:00 Metoprolol Tartrate 25 mg 25 mg BID PO Last administered on 06/17/16 08:34; Admin Dose 25 MG; Start 06/12/16 at 21:00 Sodium Chloride (NS) 1,000 ml @ 40 mls/hr Q24H IV Last administered on 03:38; Admin Dose 40 MLS/HR; Start 06/12/16 at 17:15 Ondansetron HCl (Zofran Inj) 4 mg Q6H PRN IV NAUSEA AND/OR VOMITING; Start 06/12 at 17:30 Acetaminophen (Tylenol Tab) 650 mg Q6H PRN PO PAIN LEVEL 1-3 OR FEVER; Start at 17:30 Acetaminophen/ Hydrocodone Bitart ([place] (5/325)) 1 tab Q6H PRN PO MODERATE PAIN LEVEL 4-6 Last administered on 06/17/16 03:43; Admin Dose 1 TAB; Start 06/12/16 at 17:30 Docusate Sodium (Colace) 100 mg Q12H PRN PO CONSTIPATION; Start 06/12/16 at 17: 30 Pantoprazole (Protonix Tab) 40 mg DAILY@06 PO Last administered on 06/17/16 06 :21; Admin Dose 40 MG; Start 06/13/16 at 06:00 Enoxaparin Sodium (Lovenox) 30 mg DAILY SC Last administered on 06/17/16 08:41 ; Admin Dose 30 MG; Start 06/13/16 at 09:00 Diagnostic Test (Pha) (Accu-Chek) 1 ea 02 XX Last administered on 06/13/16 02: 34; Admin Dose 1 EA; Start 06/13/16 at 02:00 Miscellaneous Information 1 ea NOTE XX ; Start 06/12/16 at 17:30 Glucose (Glutose) 15 gm Q15M PRN PO DECREASED GLUCOSE; Start 06/12/16 at 17:30 Glucose (Glutose) 22.5 gm Q15M PRN PO DECREASED GLUCOSE; Start 06/12/16 at 17:30 Dextrose (D50w Syringe) 25 ml Q15M PRN IV DECREASED GLUCOSE; Start 06/12/16 at 17:30 Dextrose (D50w Syringe) 50 ml Q15M PRN IV DECREASED GLUCOSE; Start 06/12/16 at 17:30 Glucagon (Glucagen) 1 mg Q15M PRN IM DECREASED GLUCOSE; Start 06/12/16 at 17:30 Glucose (Glutose) 15 gm Q15M PRN BUCCAL DECREASED GLUCOSE; Start 06/12/16 at 17: 30 Insulin Glargine (Lantus) 12 unit DAILY@20 SC Last administered on 06/15/16 20 :11; Admin Dose 12 UNIT; Start 06/13/16 at 20:00; Status Future hold Linagliptin (Tradjenta) 5 mg DAILY PO Last administered on 06/17/16 08:34; Admin Dose 5 MG; Start 06/15/16 at 09:00 Atorvastatin Calcium 10 mg 10 mg QHS PO Last administered on 06/16/16 20:37; Admin Dose 10 MG; Start 06/15/16 at 21:00 Piperacillin Sod/ Tazobactam Sod (Zosyn 3.375gm/ 100 ml (Pmx)) 100 ml @ 200 mls /hr Q8 IVPB Last administered on 06/17/16 13:29; Admin Dose 200 MLS/HR; Start 06/16/16 at 14:00 HILARIO ACUÑA NP June 17, 2016 19:10
[2016-06-17] MEDS ORDERED: VANCOMYCIN IV PER PHARMACY XX SCH (19:30)
[2016-06-17 19:43] VITALS: BP 133/66; RESP 18
[2016-06-17] MEDS: ATORVASTATIN 10 MG TAB PO SCH (21:07)
[2016-06-17] MEDS: INSULIN GLARGINE [LANtus] 3 ML PEN SC SCH ×2 (21:23→21:26)
[2016-06-17] MEDS ORDERED: VANCOMYCIN 1 GM in NS 250 ML IVPB ONE (22:00)
[2016-06-18] MEDS: HYDROCODONE/APAP (5/325) TAB PO PRN ×3 (01:08→21:56)
[2016-06-18] MEDS: PANTOPRAZOLE (EC) 40 MG TAB PO SCH (05:38)
[2016-06-18] MEDS: SOD CHLORIDE 0.9% 1,000 ML IV SCH (05:39)
[2016-06-18 07:03] LABS: CREATININE 0.7 mg/dl (0.61-1.24)
[2016-06-18 07:41] VITALS: BP 126/65; RESP 16
[2016-06-18] MEDS: INSULIN ASPART [NOVOLOG] 3 ML PEN SC SCH ×7 (08:15→21:00)
[2016-06-18] MEDS: GABAPENTIN 300 MG CAP PO SCH ×3 (08:36→21:45)
[2016-06-18] MEDS: ASPIRIN (EC) 81 MG TAB PO SCH (08:37)
[2016-06-18] MEDS: LISINOPRIL 20 MG TAB PO SCH (08:37)
[2016-06-18] MEDS: LINAGLIPTIN 5 MG TABLET PO SCH (08:37)
[2016-06-18] MEDS: metFORMIN 500 MG TAB PO SCH ×2 (08:37→17:40)
[2016-06-18] MEDS: METOPROLOL 25 MG TAB PO SCH ×2 (08:38→21:46)
[2016-06-18] MEDS: ENOXAPARIN 30 MG/0.3 ML SYG SC SCH (08:46)
[2016-06-18] MEDS ORDERED: VANCOMYCIN 750 MG in SOD CHLORIDE 0.9% 150 ML IVPB SCH (10:00)
[2016-06-18] MEDS: VANCOMYCIN 1 GM in NS 250 ML IVPB SCH ×2 (11:00→21:45)
--- NOTE | 2016-06-18 11:09 | PN ---
Date/Time of Note Date/Time of Note DATE: 06/18/16 TIME: 11:08 Assessment/Plan VTE Prophylaxis VTE Prophylaxis Intervention: other Lines/Catheters IV C[facility]ter Type (from [facility]): Peripheral IV Assessment/Plan Chief Complaint/Hosp Course 1. Right [id number] amputation stump dehiscence, laceration, possible infection. S/p debridement and creation of a rotational flap by Dr. Fuller, vascular surgery, on 06/13. Continue IV antibiotics. Continue wound VAC. Dr. Eldridge is following infection disease consultation. 2. Diabetes mellitus type 2. Hemoglobin A1c is 8.7. Continue Tradjenta, Lantus, pre-meal NovoLog, and NovoLog per mild algorithm sliding scale a.c. and at bedtime. 3. Hypertension. Continue metoprolol and lisinopril. Continue to monitor blood pressure. 4. Homelessness. Problems: Subjective 24 Hr Interval Summary Free Text/Dictation Patient complain of pain in right stump Exam/Review of Systems Vital Signs Vitals Vital Signs Date Time Temp Pulse Resp B/P Pulse Ox O2 Delivery O2 Flow Rate FiO2 06/18/16 07:41 97.8 75 16 126/65 97 06/16/16 20:00 Room Air 06/14/16 09:07 2.0 Intake and Output 06/17/16 06/17/16 06/18/16 15:00 23:00 07:00 Intake Total 1700 ml 1010 ml Output Total 900 ml 800 ml Balance 800 ml 210 ml Exam Constitutional: well developed Head: atraumatic, normocephalic Neck: supple Respiratory: clear to auscultation Cardiovascular: regular rate and rhythm Gastrointestinal: non-tender, soft Extremities: normal pulses Results Result Diagram: 06/17/16 0524 06/18/16 0611 Results 24 hrs Laboratory Tests Test 06/17/16 12:00 06/17/16 17:26 06/17/16 21:04 06/18/16 06:11 Bedside Glucose 96 94 164 Blood Urea Nitrogen 11 Creatinine 0.70 Test 06/18/16 08:35 Bedside Glucose 105 Medications Medications Current Medications Aspirin (Halfprin) 81 mg DAILY PO Last administered on 06/18/16 08:37; Admin Dose 81 MG; Start 06/13/16 at 09:00 Gabapentin (Neurontin) 300 mg TID PO Last administered on 06/18/16 08:36; Admin Dose 300 MG; Start 06/12/16 at 21:00 Lisinopril (Zestril) 20 mg DAILY PO Last administered on 06/18/16 08:37; Admin Dose 20 MG; Start 06/13/16 at 09:00 Metoprolol Tartrate 25 mg 25 mg BID PO Last administered on 06/18/16 08:38; Admin Dose 25 MG; Start 06/12/16 at 21:00 Sodium Chloride (NS) 1,000 ml @ 40 mls/hr Q24H IV Last administered on 05:39; Admin Dose 40 MLS/HR; Start 06/12/16 at 17:15 Ondansetron HCl (Zofran Inj) 4 mg Q6H PRN IV NAUSEA AND/OR VOMITING; Start 06/12 at 17:30 Acetaminophen (Tylenol Tab) 650 mg Q6H PRN PO PAIN LEVEL 1-3 OR FEVER; Start at 17:30 Acetaminophen/ Hydrocodone Bitart ([place] (5/325)) 1 tab Q6H PRN PO MODERATE PAIN LEVEL 4-6 Last administered on 06/18/16 05:39; Admin Dose 1 TAB; Start 06/12/16 at 17:30 Docusate Sodium (Colace) 100 mg Q12H PRN PO CONSTIPATION; Start 06/12/16 at 17: 30 Pantoprazole (Protonix Tab) 40 mg DAILY@06 PO Last administered on 06/18/16 05 :38; Admin Dose 40 MG; Start 06/13/16 at 06:00 Enoxaparin Sodium (Lovenox) 30 mg DAILY SC Last administered on 06/18/16 08:46 ; Admin Dose 30 MG; Start 06/13/16 at 09:00 Diagnostic Test (Pha) (Accu-Chek) 1 ea 02 XX Last administered on 06/13/16 02: 34; Admin Dose 1 EA; Start 06/13/16 at 02:00 Miscellaneous Information 1 ea NOTE XX ; Start 06/12/16 at 17:30 Glucose (Glutose) 15 gm Q15M PRN PO DECREASED GLUCOSE; Start 06/12/16 at 17:30 Glucose (Glutose) 22.5 gm Q15M PRN PO DECREASED GLUCOSE; Start 06/12/16 at 17:30 Dextrose (D50w Syringe) 25 ml Q15M PRN IV DECREASED GLUCOSE; Start 06/12/16 at 17:30 Dextrose (D50w Syringe) 50 ml Q15M PRN IV DECREASED GLUCOSE; Start 06/12/16 at 17:30 Glucagon (Glucagen) 1 mg Q15M PRN IM DECREASED GLUCOSE; Start 06/12/16 at 17:30 Glucose (Glutose) 15 gm Q15M PRN BUCCAL DECREASED GLUCOSE; Start 06/12/16 at 17: 30 Insulin Glargine (Lantus) 12 unit DAILY@20 SC Last administered on 06/17/16 21 :23; Admin Dose 12 UNIT; Start 06/13/16 at 20:00; Status Future hold Linagliptin (Tradjenta) 5 mg DAILY PO Last administered on 06/18/16 08:37; Admin Dose 5 MG; Start 06/15/16 at 09:00 Atorvastatin Calcium 10 mg 10 mg QHS PO Last administered on 06/17/16 21:07; Admin Dose 10 MG; Start 06/15/16 at 21:00 Vancomycin HCl (Vancocin) 250 ml @ 125 mls/hr Q12H IVPB Last administered on 11:00; Admin Dose 125 MLS/HR; Start 06/18/16 at 10:00 Miscellaneous Information (*Rx Drug Level Order Reminder*) VANCOMYCIN TROUGH AT 0900 ONCE ONCE XX ; Start 06/19/16 at 09:00; Stop 06/19/16 at 09:01 SHIRAZ CLARK June 18, 2016 11:09
--- NOTE | 2016-06-18 14:43 | PN ---
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 Will re-evaluate on Sunday prior to D/C planning -Will have wound vac team change MWF -Optimize vascular status (BP meds, diet, nutrition, exercise, sugar control, antiplatelets). -Recommend placing the patient on antibiotics. -Discussed findings, plan of management with the patient and he understands. -Thank you for allowing us to participate in the care of your patient. Please call with any questions. Problems: Subjective 24 Hr Interval Summary Constitutional: no complaints Exam/Review of Systems Vital Signs Vitals Vital Signs Date Time Temp Pulse Resp B/P Pulse Ox O2 Delivery O2 Flow Rate FiO2 06/18/16 07:41 97.8 75 16 126/65 97 06/16/16 20:00 Room Air 06/14/16 09:07 2.0 Intake and Output 06/17/16 06/17/16 06/18/16 15:00 23:00 07:00 Intake Total 1700 ml 1010 ml Output Total 900 ml 800 ml Balance 800 ml 210 ml Exam Free Text/Dictation GENERAL: Alert and oriented x3, PULMONARY: Clear to auscultation bilaterally CARDIOVASCULAR: S1, S2 present ABDOMEN: Soft, nontender, nondistended. Bowel sounds positive. EXTREMITIES: Right lower extremity: Palpable femoral pulse. BKA stump with cap refill 3 seconds. wound vac intact and functional Left lower extremity: Palpable femoral pulse, nonpalpable pedal pulse. Motor, sensory intact. Cap refill 3 to 4 seconds. There is area of lipodermatosclerosis. No ulcers identified. Results Result Diagram: 06/17/16 0524 06/18/16 0611 JUAN PRIDE MD June 18, 2016 14:43
--- NOTE | 2016-06-18 15:18 | CONS ---
Date/Time of Note Date/Time of Note DATE: 06/18/16 TIME: 15:17 Assessment/Plan Assessment/Plan Chief Complaint/Hosp Course SUBJECTIVE: No acute changes. The patient is alert, no fevers. MICROBIOLOGY: Wound culture growing MSSA/Enterococcus ANTIMICROBIALS: Vancomycin PHYSICAL EXAMINATION: GENERAL: This is a well-nourished, well-developed elderly man who is awake, in no distress. HEENT: Head: Atraumatic, normocephalic. Sclerae anicteric. Buccal mucosa pink. NECK: Supple, trachea midline. CHEST: Rise symmetrical. Breath sounds clear. HEART: S1, S2. ABDOMEN: Soft, bowel tones present. EXTREMITIES: Without cyanosis. Right lower extremity wound VAC present. ASSESSMENT: 1. Right below-knee amputation, infected stump, status post revision with rotation flap and wound VAC application. 2. Diabetes. 3. Hypertension. PLAN: The patient remains stable. 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==> 6 weeks IV Vancomycin or Daptomycin [facility] staff Problems: Consultation Date/Type/Reason Admit Date/Time June 12, 2016 at 13:22 Type of Consultation: ID Exam/Review of Systems Vital Signs Vitals Vital Signs Date Time Temp Pulse Resp B/P Pulse Ox O2 Delivery O2 Flow Rate FiO2 06/18/16 07:41 97.8 75 16 126/65 97 06/16/16 20:00 Room Air 06/14/16 09:07 2.0 Intake and Output 06/17/16 06/17/16 06/18/16 15:00 23:00 07:00 Intake Total 1700 ml 1010 ml Output Total 900 ml 800 ml Balance 800 ml 210 ml Results Result Diagram: 06/17/16 0524 06/18/16 0611 Results 24 hrs Laboratory Tests Test 06/17/16 17:26 06/17/16 21:04 06/18/16 06:11 06/18/16 08:35 Bedside Glucose 94 164 105 Blood Urea Nitrogen 11 Creatinine 0.70 Test 06/18/16 12:16 Bedside Glucose 86 Medications Medications Current Medications Aspirin (Halfprin) 81 mg DAILY PO Last administered on 06/18/16 08:37; Admin Dose 81 MG; Start 06/13/16 at 09:00 Gabapentin (Neurontin) 300 mg TID PO Last administered on 06/18/16 12:17; Admin Dose 300 MG; Start 06/12/16 at 21:00 Lisinopril (Zestril) 20 mg DAILY PO Last administered on 06/18/16 08:37; Admin Dose 20 MG; Start 06/13/16 at 09:00 Metoprolol Tartrate 25 mg 25 mg BID PO Last administered on 06/18/16 08:38; Admin Dose 25 MG; Start 06/12/16 at 21:00 Sodium Chloride (NS) 1,000 ml @ 40 mls/hr Q24H IV Last administered on 05:39; Admin Dose 40 MLS/HR; Start 06/12/16 at 17:15 Ondansetron HCl (Zofran Inj) 4 mg Q6H PRN IV NAUSEA AND/OR VOMITING; Start 06/12 at 17:30 Acetaminophen (Tylenol Tab) 650 mg Q6H PRN PO PAIN LEVEL 1-3 OR FEVER; Start at 17:30 Acetaminophen/ Hydrocodone Bitart ([place] (5/325)) 1 tab Q6H PRN PO MODERATE PAIN LEVEL 4-6 Last administered on 06/18/16 05:39; Admin Dose 1 TAB; Start 06/12/16 at 17:30 Docusate Sodium (Colace) 100 mg Q12H PRN PO CONSTIPATION; Start 06/12/16 at 17: 30 Pantoprazole (Protonix Tab) 40 mg DAILY@06 PO Last administered on 06/18/16 05 :38; Admin Dose 40 MG; Start 06/13/16 at 06:00 Enoxaparin Sodium (Lovenox) 30 mg DAILY SC Last administered on 06/18/16 08:46 ; Admin Dose 30 MG; Start 06/13/16 at 09:00 Diagnostic Test (Pha) (Accu-Chek) 1 ea 02 XX Last administered on 06/13/16 02: 34; Admin Dose 1 EA; Start 06/13/16 at 02:00 Miscellaneous Information 1 ea NOTE XX ; Start 06/12/16 at 17:30 Glucose (Glutose) 15 gm Q15M PRN PO DECREASED GLUCOSE; Start 06/12/16 at 17:30 Glucose (Glutose) 22.5 gm Q15M PRN PO DECREASED GLUCOSE; Start 06/12/16 at 17:30 Dextrose (D50w Syringe) 25 ml Q15M PRN IV DECREASED GLUCOSE; Start 06/12/16 at 17:30 Dextrose (D50w Syringe) 50 ml Q15M PRN IV DECREASED GLUCOSE; Start 06/12/16 at 17:30 Glucagon (Glucagen) 1 mg Q15M PRN IM DECREASED GLUCOSE; Start 06/12/16 at 17:30 Glucose (Glutose) 15 gm Q15M PRN BUCCAL DECREASED GLUCOSE; Start 06/12/16 at 17: 30 Insulin Glargine (Lantus) 12 unit DAILY@20 SC Last administered on 06/17/16 21 :23; Admin Dose 12 UNIT; Start 06/13/16 at 20:00; Status Future hold Linagliptin (Tradjenta) 5 mg DAILY PO Last administered on 06/18/16 08:37; Admin Dose 5 MG; Start 06/15/16 at 09:00 Atorvastatin Calcium 10 mg 10 mg QHS PO Last administered on 06/17/16 21:07; Admin Dose 10 MG; Start 06/15/16 at 21:00 Vancomycin HCl (Vancocin) 250 ml @ 125 mls/hr Q12H IVPB Last administered on 11:00; Admin Dose 125 MLS/HR; Start 06/18/16 at 10:00 Miscellaneous Information (*Rx Drug Level Order Reminder*) VANCOMYCIN TROUGH AT 0900 ONCE ONCE XX ; Start 06/19/16 at 09:00; Stop 06/19/16 at 09:01 HILARIO ACUÑA NP June 18, 2016 15:18
[2016-06-18 19:46] VITALS: BP 130/60; PULSE 82; RESP 18
[2016-06-18] MEDS: ATORVASTATIN 10 MG TAB PO SCH (21:45)
[2016-06-18] MEDS: INSULIN GLARGINE [LANtus] 3 ML PEN SC SCH (21:51)
[2016-06-19] MEDS: ACCU-CHEK XX SCH (02:00)
[2016-06-19] MEDS: PANTOPRAZOLE (EC) 40 MG TAB PO SCH (05:26)
[2016-06-19 06:12] LABS: ADD SCAN DIFF NO
[2016-06-19 06:20] LABS: BASOPHILS % 0.5 % (0.0-2.0); EOSINOPHILS # 0.5 10^3/ul (0.0-0.5); EOSINOPHILS % 8.2 % (0.0-7.0); HEMATOCRIT 31.2 % (42.0-52.0); HEMOGLOBIN 10.1 g/dl (14.0-18.0); LYMPHOCYTES # 1.8 10^3/ul (0.8-2.9); MEAN CORPUSCULAR HEMOGLOBIN 28.1 pg (29.0-33.0); MEAN CORPUSCULAR HGB CONC 32.4 g/dl (32.0-37.0); MEAN CORPUSCULAR VOLUME 86.7 fl (82.0-101.0); MEAN PLATELET VOLUME 9.5 fl (7.4-10.4); MONOCYTE # 0.5 10^3/ul (0.3-0.9); MONOCYTES % 9.7 % (0.0-11.0); NEUTROPHIL # 2.7 10^3/ul (1.6-7.5); NEUTROPHILS % 49.1 % (39.0-77.0); PLATELET COUNT 277 10^3/UL (140-415); WHITE BLOOD COUNT 5.5 10^3/ul (4.8-10.8)
[2016-06-19 06:45] LABS: CALCIUM 9.2 mg/dl (8.4-10.2); CREATININE 0.72 mg/dl (0.61-1.24); POTASSIUM 3.7 mmol/L (3.5-5.1)
[2016-06-19 07:48] VITALS: BP 109/61; RESP 22
[2016-06-19] MEDS: INSULIN ASPART [NOVOLOG] 3 ML PEN SC SCH ×7 (08:15→21:00)
[2016-06-19] MEDS: GABAPENTIN 300 MG CAP PO SCH ×3 (08:25→21:13)
[2016-06-19] MEDS: LINAGLIPTIN 5 MG TABLET PO SCH (08:25)
[2016-06-19] MEDS: LISINOPRIL 20 MG TAB PO SCH (08:26)
[2016-06-19] MEDS: ASPIRIN (EC) 81 MG TAB PO SCH (08:26)
[2016-06-19] MEDS: METOPROLOL 25 MG TAB PO SCH ×2 (08:27→21:14)
[2016-06-19] MEDS: ENOXAPARIN 30 MG/0.3 ML SYG SC SCH (08:33)
[2016-06-19] MEDS: metFORMIN 500 MG TAB PO SCH ×2 (08:42→17:49)
[2016-06-19] MEDS: HYDROCODONE/APAP (5/325) TAB PO PRN ×2 (08:45→21:13)
[2016-06-19] MEDS: VANCOMYCIN 1 GM in NS 250 ML IVPB SCH (11:43)
--- NOTE | 2016-06-19 13:18 | CONS ---
Date/Time of Note Date/Time of Note DATE: 06/19/16 TIME: 13:18 Assessment/Plan Assessment/Plan Chief Complaint/Hosp Course SUBJECTIVE: No acute changes. The patient is alert, no fevers. MICROBIOLOGY: Wound culture growing MSSA/Enterococcus ANTIMICROBIALS: Vancomycin PHYSICAL EXAMINATION: GENERAL: This is a well-nourished, well-developed elderly man who is awake, in no distress. HEENT: Head: Atraumatic, normocephalic. Sclerae anicteric. Buccal mucosa pink. NECK: Supple, trachea midline. CHEST: Rise symmetrical. Breath sounds clear. HEART: S1, S2. ABDOMEN: Soft, bowel tones present. EXTREMITIES: Without cyanosis. Right lower extremity wound VAC present. ASSESSMENT: 1. Right below-knee amputation, infected stump, status post revision with rotation flap and wound VAC application. 2. Diabetes. 3. Hypertension. PLAN: The patient remains stable. Pathology + acute OM, pt will need PICC for [facility] IV abx==> 6 weeks IV Vancomycin or Daptomycin [facility] staff Problems: Consultation Date/Type/Reason Admit Date/Time June 12, 2016 at 13:22 Type of Consultation: ID Exam/Review of Systems Vital Signs Vitals Vital Signs Date Time Temp Pulse Resp B/P Pulse Ox O2 Delivery O2 Flow Rate FiO2 06/19/16 07:48 98.9 67 22 109/61 100 06/18/16 19:46 Room Air Intake and Output 06/18/16 06/18/16 06/19/16 15:00 23:00 07:00 Intake Total 250 ml 1540 ml 1250 ml Output Total 900 ml 750 ml Balance 250 ml 640 ml 500 ml Results Result Diagram: 06/19/16 0540 06/19/16 0540 Results 24 hrs Laboratory Tests Test 06/18/16 15:30 06/18/16 17:37 06/18/16 21:44 06/19/16 05:40 Bedside Glucose 155 231 H 124 White Blood Count 5.5 Red Blood Count 3.60 L Hemoglobin 10.1 L Hematocrit 31.2 L Mean Corpuscular Volume 86.7 Mean Corpuscular Hemoglobin 28.1 L Mean Corpuscular Hemoglobin Concent 32.4 Red Cell Distribution Width 14.0 Platelet Count 277 Mean Platelet Volume 9.5 Neutrophils % 49.1 Lymphocytes % 32.0 Monocytes % 9.7 Eosinophils % 8.2 H Basophils % 0.5 Nucleated Red Blood Cells % 0.0 Neutrophils # 2.7 Lymphocytes # 1.8 Monocytes # 0.5 Eosinophils # 0.5 Basophils # 0.0 Nucleated Red Blood Cells # 0.0 Sodium Level 138 Potassium Level 3.7 Chloride Level 105 Carbon Dioxide Level 27 Anion Gap 10 Blood Urea Nitrogen 16 Creatinine 0.72 Glucose Level 106 Calcium Level 9.2 Test 06/19/16 08:13 06/19/16 09:29 06/19/16 12:25 Bedside Glucose 107 173 Vancomycin Level Trough 5.5 L Medications Medications Current Medications Aspirin (Halfprin) 81 mg DAILY PO Last administered on 06/19/16 08:26; Admin Dose 81 MG; Start 06/13/16 at 09:00 Gabapentin (Neurontin) 300 mg TID PO Last administered on 06/19/16 12:34; Admin Dose 300 MG; Start 06/12/16 at 21:00 Lisinopril (Zestril) 20 mg DAILY PO Last administered on 06/18/16 08:37; Admin Dose 20 MG; Start 06/13/16 at 09:00 Metoprolol Tartrate 25 mg 25 mg BID PO Last administered on 06/18/16 21:46; Admin Dose 25 MG; Start 06/12/16 at 21:00 Sodium Chloride (NS) 1,000 ml @ 40 mls/hr Q24H IV Last administered on 05:39; Admin Dose 40 MLS/HR; Start 06/12/16 at 17:15 Ondansetron HCl (Zofran Inj) 4 mg Q6H PRN IV NAUSEA AND/OR VOMITING; Start 06/12 at 17:30 Acetaminophen (Tylenol Tab) 650 mg Q6H PRN PO PAIN LEVEL 1-3 OR FEVER; Start at 17:30 Acetaminophen/ Hydrocodone Bitart ([place] (5/325)) 1 tab Q6H PRN PO MODERATE PAIN LEVEL 4-6 Last administered on 06/19/16 08:45; Admin Dose 1 TAB; Start 06/12/16 at 17:30 Docusate Sodium (Colace) 100 mg Q12H PRN PO CONSTIPATION; Start 06/12/16 at 17: 30 Pantoprazole (Protonix Tab) 40 mg DAILY@06 PO Last administered on 06/19/16 05 :26; Admin Dose 40 MG; Start 06/13/16 at 06:00 Enoxaparin Sodium (Lovenox) 30 mg DAILY SC Last administered on 06/19/16 08:33 ; Admin Dose 30 MG; Start 06/13/16 at 09:00 Diagnostic Test (Pha) (Accu-Chek) 1 ea 02 XX Last administered on 06/13/16 02: 34; Admin Dose 1 EA; Start 06/13/16 at 02:00 Miscellaneous Information 1 ea NOTE XX ; Start 06/12/16 at 17:30 Glucose (Glutose) 15 gm Q15M PRN PO DECREASED GLUCOSE; Start 06/12/16 at 17:30 Glucose (Glutose) 22.5 gm Q15M PRN PO DECREASED GLUCOSE; Start 06/12/16 at 17:30 Dextrose (D50w Syringe) 25 ml Q15M PRN IV DECREASED GLUCOSE; Start 06/12/16 at 17:30 Dextrose (D50w Syringe) 50 ml Q15M PRN IV DECREASED GLUCOSE; Start 06/12/16 at 17:30 Glucagon (Glucagen) 1 mg Q15M PRN IM DECREASED GLUCOSE; Start 06/12/16 at 17:30 Glucose (Glutose) 15 gm Q15M PRN BUCCAL DECREASED GLUCOSE; Start 06/12/16 at 17: 30 Insulin Glargine (Lantus) 12 unit DAILY@20 SC Last administered on 06/18/16 21 :51; Admin Dose 12 UNIT; Start 06/13/16 at 20:00; Status Future hold Linagliptin (Tradjenta) 5 mg DAILY PO Last administered on 06/19/16 08:25; Admin Dose 5 MG; Start 06/15/16 at 09:00 Atorvastatin Calcium 10 mg 10 mg QHS PO Last administered on 06/18/16 21:45; Admin Dose 10 MG; Start 06/15/16 at 21:00 Vancomycin HCl 250 ml @ 125 mls/hr Q12H IVPB Last administered on 06/19/16 11 :43; Admin Dose 125 MLS/HR; Start 06/18/16 at 10:00; Stop 06/19/16 at 15:00 Vancomycin HCl/ Sodium Chloride (Vancocin/NS) 150 ml @ 75 mls/hr Q8H IVPB ; Start 06/19/16 at 18:00 Miscellaneous Information (*Rx Drug Level Order Reminder*) VANCOMYCIN TROUGH AT 1700 ONCE ONCE XX ; Start 06/20/16 at 17:00; Stop 06/20/16 at 17:01 HILARIO ACUÑA NP June 19, 2016 13:18
[2016-06-19] MEDS: SOD CHLORIDE 0.9% 1,000 ML IV SCH ×2 (17:15→17:45)
[2016-06-19] MEDS: VANCOMYCIN 750 MG in SOD CHLORIDE 0.9% 150 ML IVPB SCH (17:45)
--- NOTE | 2016-06-19 18:11 | PN ---
Date/Time of Note Date/Time of Note DATE: 06/19/16 TIME: 18:09 Assessment/Plan VTE Prophylaxis VTE Prophylaxis Intervention: SCD's Lines/Catheters IV Catheter Type (from Nrs): Peripheral IV Assessment/Plan Chief Complaint/Hosp Course ASSESSMENT AND PLAN: 1. Right [id number] amputation stump dehiscence, laceration, possible infection. S/p debridement and creation of a rotational flap by Dr. Fuller, vascular surgery, on 06/13. Continue IV antibiotics. Continue wound VAC. Pathology positive for osteomyelitis. Dr. Eldridge is following infection disease consultation. 2. Diabetes mellitus type 2. Hemoglobin A1c is 8.7. Continue Tradjenta, Lantus, pre-meal NovoLog, and NovoLog per mild algorithm sliding scale a.c. and at bedtime. 3. Hypertension. Continue metoprolol and lisinopril. Continue to monitor blood pressure. 4. Homelessness. PICC line placement for long-term antibiotics for osteomyelitis Further recommendations based on clinical course. Plan of care discussed with Dr. Li. Problems: Subjective 24 Hr Interval Summary Free Text/Dictation Patient remains afebrile, pain is well controlled. Exam/Review of Systems Vital Signs Vitals Vital Signs Date Time Temp Pulse Resp B/P Pulse Ox O2 Delivery O2 Flow Rate FiO2 06/19/16 07:48 98.9 67 22 109/61 100 06/18/16 19:46 Room Air Intake and Output 06/18/16 06/18/16 06/19/16 15:00 23:00 07:00 Intake Total 250 ml 1540 ml 1250 ml Output Total 900 ml 750 ml Balance 250 ml 640 ml 500 ml Exam GENERAL: Well-developed, well-nourished gentleman. Currently is awake, alert. HEENT: Atraumatic, normocephalic. PERRLA. NECK: Supple. No cervical lymphadenopathy, no thyromegaly. CHEST: Lungs clear bilaterally. There are no rhonchi, wheezes, rales noted. CARDIOVASCULAR: Normal S1, S2. No murmurs, gallops, clicks, rubs noted. ABDOMEN: Round, soft, nondistended, nontender. Bowel sounds present. EXTREMITIES: The patient has a right BKA wound to wound vac. SKIN: There is no rash, petechiae noted. NEUROLOGICAL: The patient is awake, alert, and oriented x4. Results Result Diagram: 06/19/16 0540 06/19/16 0540 Results 24 hrs Laboratory Tests Test 06/18/16 21:44 06/19/16 05:40 06/19/16 08:13 06/19/16 09:29 Bedside Glucose 124 107 White Blood Count 5.5 Red Blood Count 3.60 L Hemoglobin 10.1 L Hematocrit 31.2 L Mean Corpuscular Volume 86.7 Mean Corpuscular Hemoglobin 28.1 L Mean Corpuscular Hemoglobin Concent 32.4 Red Cell Distribution Width 14.0 Platelet Count 277 Mean Platelet Volume 9.5 Neutrophils % 49.1 Lymphocytes % 32.0 Monocytes % 9.7 Eosinophils % 8.2 H Basophils % 0.5 Nucleated Red Blood Cells % 0.0 Neutrophils # 2.7 Lymphocytes # 1.8 Monocytes # 0.5 Eosinophils # 0.5 Basophils # 0.0 Nucleated Red Blood Cells # 0.0 Sodium Level 138 Potassium Level 3.7 Chloride Level 105 Carbon Dioxide Level 27 Anion Gap 10 Blood Urea Nitrogen 16 Creatinine 0.72 Glucose Level 106 Calcium Level 9.2 Vancomycin Level Trough 5.5 L Test 06/19/16 12:25 06/19/16 17:48 Bedside Glucose 173 98 Medications Medications Current Medications Aspirin (Halfprin) 81 mg DAILY PO Last administered on 06/19/16 08:26; Admin Dose 81 MG; Start 06/13/16 at 09:00 Gabapentin (Neurontin) 300 mg TID PO Last administered on 06/19/16 12:34; Admin Dose 300 MG; Start 06/12/16 at 21:00 Lisinopril (Zestril) 20 mg DAILY PO Last administered on 06/18/16 08:37; Admin Dose 20 MG; Start 06/13/16 at 09:00 Metoprolol Tartrate 25 mg 25 mg BID PO Last administered on 06/18/16 21:46; Admin Dose 25 MG; Start 06/12/16 at 21:00 Sodium Chloride (NS) 1,000 ml @ 40 mls/hr Q24H IV Last administered on 17:45; Admin Dose 40 MLS/HR; Start 06/12/16 at 17:15 Ondansetron HCl (Zofran Inj) 4 mg Q6H PRN IV NAUSEA AND/OR VOMITING; Start 06/12 at 17:30 Acetaminophen (Tylenol Tab) 650 mg Q6H PRN PO PAIN LEVEL 1-3 OR FEVER; Start at 17:30 Acetaminophen/ Hydrocodone Bitart ([place] (5/325)) 1 tab Q6H PRN PO MODERATE PAIN LEVEL 4-6 Last administered on 06/19/16 08:45; Admin Dose 1 TAB; Start 06/12/16 at 17:30 Docusate Sodium (Colace) 100 mg Q12H PRN PO CONSTIPATION; Start 06/12/16 at 17: 30 Pantoprazole (Protonix Tab) 40 mg DAILY@06 PO Last administered on 06/19/16 05 :26; Admin Dose 40 MG; Start 06/13/16 at 06:00 Enoxaparin Sodium (Lovenox) 30 mg DAILY SC Last administered on 06/19/16 08:33 ; Admin Dose 30 MG; Start 06/13/16 at 09:00 Diagnostic Test (Pha) (Accu-Chek) 1 ea 02 XX Last administered on 06/13/16 02: 34; Admin Dose 1 EA; Start 06/13/16 at 02:00 Miscellaneous Information 1 ea NOTE XX ; Start 06/12/16 at 17:30 Glucose (Glutose) 15 gm Q15M PRN PO DECREASED GLUCOSE; Start 06/12/16 at 17:30 Glucose (Glutose) 22.5 gm Q15M PRN PO DECREASED GLUCOSE; Start 06/12/16 at 17:30 Dextrose (D50w Syringe) 25 ml Q15M PRN IV DECREASED GLUCOSE; Start 06/12/16 at 17:30 Dextrose (D50w Syringe) 50 ml Q15M PRN IV DECREASED GLUCOSE; Start 06/12/16 at 17:30 Glucagon (Glucagen) 1 mg Q15M PRN IM DECREASED GLUCOSE; Start 06/12/16 at 17:30 Glucose (Glutose) 15 gm Q15M PRN BUCCAL DECREASED GLUCOSE; Start 06/12/16 at 17: 30 Insulin Glargine (Lantus) 12 unit DAILY@20 SC Last administered on 06/18/16 21 :51; Admin Dose 12 UNIT; Start 06/13/16 at 20:00; Status Future hold Linagliptin (Tradjenta) 5 mg DAILY PO Last administered on 06/19/16 08:25; Admin Dose 5 MG; Start 06/15/16 at 09:00 Atorvastatin Calcium 10 mg 10 mg QHS PO Last administered on 06/18/16 21:45; Admin Dose 10 MG; Start 06/15/16 at 21:00 Vancomycin HCl/ Sodium Chloride (Vancocin/NS) 150 ml @ 75 mls/hr Q8H IVPB Last administered on 06/19/16 17:45; Admin Dose 75 MLS/HR; Start 06/19/16 at 18 :00 Miscellaneous Information (*Rx Drug Level Order Reminder*) VANCOMYCIN TROUGH AT 1700 ONCE ONCE XX ; Start 06/20/16 at 17:00; Stop 06/20/16 at 17:01 WEI SULLIVAN June 19, 2016 18:11
[2016-06-19 19:18] VITALS: BP 102/58; RESP 16
[2016-06-19] MEDS: ATORVASTATIN 10 MG TAB PO SCH (21:13)
[2016-06-19] MEDS: INSULIN GLARGINE [LANtus] 3 ML PEN SC SCH (21:54)
[2016-06-20] MEDS: VANCOMYCIN 750 MG in SOD CHLORIDE 0.9% 150 ML IVPB SCH ×3 (01:56→18:51)
[2016-06-20] MEDS: ACCU-CHEK XX SCH (02:07)
[2016-06-20] MEDS: PANTOPRAZOLE (EC) 40 MG TAB PO SCH (06:14)
[2016-06-20] MEDS: HYDROCODONE/APAP (5/325) TAB PO PRN ×2 (06:14→20:09)
[2016-06-20 07:46] VITALS: BP 104/60; RESP 17
[2016-06-20] MEDS: metFORMIN 500 MG TAB PO SCH ×2 (08:05→17:47)
[2016-06-20] MEDS: GABAPENTIN 300 MG CAP PO SCH ×3 (08:06→21:24)
[2016-06-20] MEDS: LINAGLIPTIN 5 MG TABLET PO SCH (08:06)
[2016-06-20] MEDS: ASPIRIN (EC) 81 MG TAB PO SCH (08:06)
[2016-06-20] MEDS: INSULIN ASPART [NOVOLOG] 3 ML PEN SC SCH ×7 (08:06→21:00)
[2016-06-20] MEDS: LISINOPRIL 20 MG TAB PO SCH (08:07)
[2016-06-20] MEDS: METOPROLOL 25 MG TAB PO SCH ×2 (08:08→21:24)
[2016-06-20] MEDS: ENOXAPARIN 30 MG/0.3 ML SYG SC SCH (08:14)
--- NOTE | 2016-06-20 12:47 | CONS ---
Date/Time of Note Date/Time of Note DATE: 06/20/16 TIME: 12:46 Assessment/Plan Assessment/Plan Chief Complaint/Hosp Course SUBJECTIVE: No acute changes. The patient is alert, c/o LE pain, nad, no fevers. MICROBIOLOGY: Wound culture growing MSSA/Enterococcus ANTIMICROBIALS: Vancomycin PHYSICAL EXAMINATION: GENERAL: This is a well-nourished, well-developed elderly man who is awake, in no distress. HEENT: Head: Atraumatic, normocephalic. Sclerae anicteric. Buccal mucosa pink. NECK: Supple, trachea midline. CHEST: Rise symmetrical. Breath sounds clear. HEART: S1, S2. ABDOMEN: Soft, bowel tones present. EXTREMITIES: Without cyanosis. Right lower extremity wound VAC present. ASSESSMENT: 1. Right below-knee amputation, infected stump, status post revision with rotation flap and wound VAC application. 2. Diabetes. 3. Hypertension. PLAN: The patient remains stable. Pathology + acute OM, will order PICC for assisted IV abx==> 6 weeks IV Vancomycin or Daptomycin [facility] staff Problems: Consultation Date/Type/Reason Admit Date/Time June 12, 2016 at 13:22 Type of Consultation: ID Exam/Review of Systems Vital Signs Vitals Vital Signs Date Time Temp Pulse Resp B/P Pulse Ox O2 Delivery O2 Flow Rate FiO2 06/20/16 07:46 98.1 65 17 104/60 98 06/18/16 19:46 Room Air Intake and Output 06/19/16 06/19/16 06/20/16 15:00 23:00 07:00 Intake Total 250 ml 1810 ml 1180 ml Output Total 1100 ml 2050 ml Balance 250 ml 710 ml -870 ml Results Result Diagram: 06/19/16 0540 06/19/16 0540 Results 24 hrs Laboratory Tests Test 06/19/16 17:48 06/19/16 21:12 06/20/16 08:05 06/20/16 11:52 Bedside Glucose 98 128 75 95 Medications Medications Current Medications Aspirin (Halfprin) 81 mg DAILY PO Last administered on 06/20/16 08:06; Admin Dose 81 MG; Start 06/13/16 at 09:00 Gabapentin (Neurontin) 300 mg TID PO Last administered on 06/20/16 08:06; Admin Dose 300 MG; Start 06/12/16 at 21:00 Lisinopril (Zestril) 20 mg DAILY PO Last administered on 06/18/16 08:37; Admin Dose 20 MG; Start 06/13/16 at 09:00 Metoprolol Tartrate 25 mg 25 mg BID PO Last administered on 06/19/16 21:14; Admin Dose 25 MG; Start 06/12/16 at 21:00 Sodium Chloride (NS) 1,000 ml @ 40 mls/hr Q24H IV Last administered on 17:45; Admin Dose 40 MLS/HR; Start 06/12/16 at 17:15 Ondansetron HCl (Zofran Inj) 4 mg Q6H PRN IV NAUSEA AND/OR VOMITING; Start 06/12 at 17:30 Acetaminophen (Tylenol Tab) 650 mg Q6H PRN PO PAIN LEVEL 1-3 OR FEVER; Start at 17:30 Acetaminophen/ Hydrocodone Bitart ([place] (5/325)) 1 tab Q6H PRN PO MODERATE PAIN LEVEL 4-6 Last administered on 06/20/16 06:14; Admin Dose 1 TAB; Start 06/12/16 at 17:30 Docusate Sodium (Colace) 100 mg Q12H PRN PO CONSTIPATION; Start 06/12/16 at 17: 30 Pantoprazole (Protonix Tab) 40 mg DAILY@06 PO Last administered on 06/20/16 06 :14; Admin Dose 40 MG; Start 06/13/16 at 06:00 Enoxaparin Sodium (Lovenox) 30 mg DAILY SC Last administered on 06/20/16 08:14 ; Admin Dose 30 MG; Start 06/13/16 at 09:00 Diagnostic Test (Pha) (Accu-Chek) 1 ea 02 XX Last administered on 06/20/16 02: 07; Admin Dose 1 EA; Start 06/13/16 at 02:00 Miscellaneous Information 1 ea NOTE XX ; Start 06/12/16 at 17:30 Glucose (Glutose) 15 gm Q15M PRN PO DECREASED GLUCOSE; Start 06/12/16 at 17:30 Glucose (Glutose) 22.5 gm Q15M PRN PO DECREASED GLUCOSE; Start 06/12/16 at 17:30 Dextrose (D50w Syringe) 25 ml Q15M PRN IV DECREASED GLUCOSE; Start 06/12/16 at 17:30 Dextrose (D50w Syringe) 50 ml Q15M PRN IV DECREASED GLUCOSE; Start 06/12/16 at 17:30 Glucagon (Glucagen) 1 mg Q15M PRN IM DECREASED GLUCOSE; Start 06/12/16 at 17:30 Glucose (Glutose) 15 gm Q15M PRN BUCCAL DECREASED GLUCOSE; Start 06/12/16 at 17: 30 Insulin Glargine (Lantus) 12 unit DAILY@20 SC Last administered on 06/19/16 21 :54; Admin Dose 12 UNIT; Start 06/13/16 at 20:00; Status Future hold Linagliptin (Tradjenta) 5 mg DAILY PO Last administered on 06/20/16 08:06; Admin Dose 5 MG; Start 06/15/16 at 09:00 Atorvastatin Calcium 10 mg 10 mg QHS PO Last administered on 06/19/16 21:13; Admin Dose 10 MG; Start 06/15/16 at 21:00 Vancomycin HCl/ Sodium Chloride (Vancocin/NS) 150 ml @ 75 mls/hr Q8H IVPB Last administered on 06/20/16 10:16; Admin Dose 75 MLS/HR; Start 06/19/16 at 18 :00 Miscellaneous Information (*Rx Drug Level Order Reminder*) VANCOMYCIN TROUGH AT 1700 ONCE ONCE XX ; Start 06/20/16 at 17:00; Stop 06/20/16 at 17:01 HILARIO ACUÑA NP June 20, 2016 12:47
[2016-06-20] MEDS ORDERED: LIDOCAINE 1% (MPF) 5 ML VIAL SC ONE ×2 (13:00→16:00)
--- NOTE | 2016-06-20 16:25 | RADRPT ---
PROCEDURE: US guidance for PICC line CLINICAL INDICATION: PICC line placement TECHNIQUE: Multiple real-time images were acquired of the patient's arm utilizing a high resolutio n transducer. This was performed by the PICC line nurse for venous access. COMPARISON: None FINDINGS: Ultrasound guidance for PICC line placement. IMPRESSION: Ultrasound guidance for PICC line placement. RPTAT: AA .Zach Carolina MD, MD Date Time Electronically viewed and signed by .Zach Carolina MD, on 06/20/2016 16:25 .S/
--- NOTE | 2016-06-20 16:55 | RADRPT ---
PROCEDURE: XR Chest. CLINICAL INDICATION: Check PICC line position. TECHNIQUE: Single frontal view. COMPARISON: 06/12/2016. FINDINGS: There is a left arm PICC line with the tip in the lower superior vena cava. There is a small benign calcified granuloma at the left lung base laterally. The lungs are otherwise clear. The heart size is normal. There is calcification in the aorta consistent with atherosclerosis. There is no pleural effusion. There is no pneumothorax. IMPRESSION: 1. Satisfactory position of left arm PICC line. 2. Small benign calcified granuloma at the left lung base laterally. 3. Atherosclerosis. 4. Otherwise normal chest x-ray. RPTAT: QQ .Ian Marshall MD, Date Time Electronically viewed and signed by .Ian Marshall MD, on 06/20/2016 16:55 .R/
--- NOTE | 2016-06-20 17:08 | PN ---
Date/Time of Note Date/Time of Note DATE: 06/20/16 TIME: 17:06 Assessment/Plan VTE Prophylaxis VTE Prophylaxis Intervention: SCD's Lines/Catheters IV Catheter Type (from Nrs): PICC Line Central line still needed: Yes Assessment/Plan Chief Complaint/Hosp Course ASSESSMENT AND PLAN: 1. Right [id number] amputation stump dehiscence, laceration, possible infection. S/p debridement and creation of a rotational flap by Dr. Fuller, vascular surgery, on 06/13. Continue IV antibiotics. Continue wound VAC. Pathology positive for osteomyelitis. Dr. Eldridge is following infection disease consultation. 2. Diabetes mellitus type 2. Hemoglobin A1c is 8.7. Continue Tradjenta, Lantus, pre-meal NovoLog, and NovoLog per mild algorithm sliding scale a.c. and at bedtime. 3. Hypertension. Continue metoprolol and lisinopril. Continue to monitor blood pressure. 4. Homelessness. PICC line placement for long-term antibiotics for osteomyelitis Case management plan for DC planning Further recommendations based on clinical course. Plan of care discussed with Dr. Li. Problems: Subjective 24 Hr Interval Summary Free Text/Dictation Patient needs PICC line for half-way antibiotics, patient agreed to PICC line placement, pain is well controlled patient denies any nausea vomiting. Exam/Review of Systems Vital Signs Vitals Vital Signs Date Time Temp Pulse Resp B/P Pulse Ox O2 Delivery O2 Flow Rate FiO2 06/20/16 07:46 98.1 65 17 104/60 98 06/18/16 19:46 Room Air Intake and Output 06/19/16 06/19/16 06/20/16 15:00 23:00 07:00 Intake Total 250 ml 1810 ml 1180 ml Output Total 1100 ml 2050 ml Balance 250 ml 710 ml -870 ml Exam GENERAL: Well-developed, well-nourished gentleman. Currently is awake, alert. HEENT: Atraumatic, normocephalic. PERRLA. NECK: Supple. No cervical lymphadenopathy, no thyromegaly. CHEST: Lungs clear bilaterally. There are no rhonchi, wheezes, rales noted. CARDIOVASCULAR: Normal S1, S2. No murmurs, gallops, clicks, rubs noted. ABDOMEN: Round, soft, nondistended, nontender. Bowel sounds present. EXTREMITIES: The patient has a right BKA wound to wound vac. SKIN: There is no rash, petechiae noted. NEUROLOGICAL: The patient is awake, alert, and oriented x4. Results Result Diagram: 06/19/16 0540 06/19/16 0540 Results 24 hrs Laboratory Tests Test 06/19/16 17:48 06/19/16 21:12 06/20/16 08:05 06/20/16 11:52 Bedside Glucose 98 128 75 95 Medications Medications Current Medications Aspirin (Halfprin) 81 mg DAILY PO Last administered on 06/20/16 08:06; Admin Dose 81 MG; Start 06/13/16 at 09:00 Gabapentin (Neurontin) 300 mg TID PO Last administered on 06/20/16 12:47; Admin Dose 300 MG; Start 06/12/16 at 21:00 Lisinopril (Zestril) 20 mg DAILY PO Last administered on 06/18/16 08:37; Admin Dose 20 MG; Start 06/13/16 at 09:00 Metoprolol Tartrate 25 mg 25 mg BID PO Last administered on 06/19/16 21:14; Admin Dose 25 MG; Start 06/12/16 at 21:00 Sodium Chloride (NS) 1,000 ml @ 40 mls/hr Q24H IV Last administered on 17:45; Admin Dose 40 MLS/HR; Start 06/12/16 at 17:15 Ondansetron HCl (Zofran Inj) 4 mg Q6H PRN IV NAUSEA AND/OR VOMITING; Start 06/12 at 17:30 Acetaminophen (Tylenol Tab) 650 mg Q6H PRN PO PAIN LEVEL 1-3 OR FEVER; Start at 17:30 Acetaminophen/ Hydrocodone Bitart ([place] (5/325)) 1 tab Q6H PRN PO MODERATE PAIN LEVEL 4-6 Last administered on 06/20/16 06:14; Admin Dose 1 TAB; Start 06/12/16 at 17:30 Docusate Sodium (Colace) 100 mg Q12H PRN PO CONSTIPATION; Start 06/12/16 at 17: 30 Pantoprazole (Protonix Tab) 40 mg DAILY@06 PO Last administered on 06/20/16 06 :14; Admin Dose 40 MG; Start 06/13/16 at 06:00 Enoxaparin Sodium (Lovenox) 30 mg DAILY SC Last administered on 06/20/16 08:14 ; Admin Dose 30 MG; Start 06/13/16 at 09:00 Diagnostic Test (Pha) (Accu-Chek) 1 ea 02 XX Last administered on 06/20/16 02: 07; Admin Dose 1 EA; Start 06/13/16 at 02:00 Miscellaneous Information 1 ea NOTE XX ; Start 06/12/16 at 17:30 Glucose (Glutose) 15 gm Q15M PRN PO DECREASED GLUCOSE; Start 06/12/16 at 17:30 Glucose (Glutose) 22.5 gm Q15M PRN PO DECREASED GLUCOSE; Start 06/12/16 at 17:30 Dextrose (D50w Syringe) 25 ml Q15M PRN IV DECREASED GLUCOSE; Start 06/12/16 at 17:30 Dextrose (D50w Syringe) 50 ml Q15M PRN IV DECREASED GLUCOSE; Start 06/12/16 at 17:30 Glucagon (Glucagen) 1 mg Q15M PRN IM DECREASED GLUCOSE; Start 06/12/16 at 17:30 Glucose (Glutose) 15 gm Q15M PRN BUCCAL DECREASED GLUCOSE; Start 06/12/16 at 17: 30 Insulin Glargine (Lantus) 12 unit DAILY@20 SC Last administered on 06/19/16 21 :54; Admin Dose 12 UNIT; Start 06/13/16 at 20:00; Status Future hold Linagliptin (Tradjenta) 5 mg DAILY PO Last administered on 06/20/16 08:06; Admin Dose 5 MG; Start 06/15/16 at 09:00 Atorvastatin Calcium 10 mg 10 mg QHS PO Last administered on 06/19/16 21:13; Admin Dose 10 MG; Start 06/15/16 at 21:00 Vancomycin HCl/ Sodium Chloride (Vancocin/NS) 150 ml @ 75 mls/hr Q8H IVPB Last administered on 06/20/16 10:16; Admin Dose 75 MLS/HR; Start 06/19/16 at 18 :00 IV Flush (NS 10 ml) 10 ml PRN PRN IV IV PROTOCOL; Start 06/20/16 at 16:30 WEI SULLIVAN June 20, 2016 17:08
[2016-06-20] MEDS: SOD CHLORIDE 0.9% 1,000 ML IV SCH (17:12)
[2016-06-20 19:45] VITALS: BP 124/65; RESP 18
[2016-06-20] MEDS: INSULIN GLARGINE [LANtus] 3 ML PEN SC SCH (20:14)
[2016-06-20] MEDS: ATORVASTATIN 10 MG TAB PO SCH (21:24)
[2016-06-21] MEDS: ACCU-CHEK XX SCH (01:14)
[2016-06-21 05:32] LABS: ADD SCAN DIFF NO
[2016-06-21 05:36] LABS: BASOPHILS % 0.4 % (0.0-2.0); EOSINOPHILS # 0.5 10^3/ul (0.0-0.5); EOSINOPHILS % 7.1 % (0.0-7.0); HEMATOCRIT 30.8 % (42.0-52.0); HEMOGLOBIN 10.1 g/dl (14.0-18.0); LYMPHOCYTES % 27.6 % (15.0-51.0); MEAN CORPUSCULAR HEMOGLOBIN 28.5 pg (29.0-33.0); MEAN CORPUSCULAR HGB CONC 32.8 g/dl (32.0-37.0); MEAN PLATELET VOLUME 9.3 fl (7.4-10.4); MONOCYTE # 0.6 10^3/ul (0.3-0.9); MONOCYTES % 8.3 % (0.0-11.0); NEUTROPHILS % 56.2 % (39.0-77.0); PLATELET COUNT 283 10^3/UL (140-415); RED BLOOD COUNT 3.54 10^6/ul (4.70-6.10); RED CELL DISTRIBUTION WIDTH 14.1 % (11.5-14.5); WHITE BLOOD COUNT 7.2 10^3/ul (4.8-10.8)
[2016-06-21] MEDS: VANCOMYCIN 1 GM in NS 250 ML IVPB SCH ×2 (05:44→17:42)
[2016-06-21] MEDS: PANTOPRAZOLE (EC) 40 MG TAB PO SCH (05:44)
[2016-06-21 05:56] LABS: CALCIUM 9.2 mg/dl (8.4-10.2); CREATININE 0.64 mg/dl (0.61-1.24); POTASSIUM 3.9 mmol/L (3.5-5.1)
[2016-06-21] MEDS: HYDROCODONE/APAP (5/325) TAB PO PRN ×2 (06:08→17:48)
[2016-06-21 07:31] VITALS: BP 122/67; RESP 18
[2016-06-21] MEDS: INSULIN ASPART [NOVOLOG] 3 ML PEN SC SCH ×7 (08:02→21:00)
[2016-06-21] MEDS: GABAPENTIN 300 MG CAP PO SCH ×3 (08:30→21:16)
[2016-06-21] MEDS: LISINOPRIL 20 MG TAB PO SCH (08:31)
[2016-06-21] MEDS: LINAGLIPTIN 5 MG TABLET PO SCH (08:32)
[2016-06-21] MEDS: ASPIRIN (EC) 81 MG TAB PO SCH (08:32)
[2016-06-21] MEDS: metFORMIN 500 MG TAB PO SCH ×2 (08:32→17:41)
[2016-06-21] MEDS: ENOXAPARIN 30 MG/0.3 ML SYG SC SCH (08:42)
[2016-06-21] MEDS: METOPROLOL 25 MG TAB PO SCH ×2 (08:48→21:17)
[2016-06-21] MEDS: SOD CHLORIDE 0.9% 1,000 ML IV SCH (12:19)
--- NOTE | 2016-06-21 14:11 | CONS ---
Date/Time of Note Date/Time of Note DATE: 06/21/16 TIME: 14:10 Assessment/Plan Assessment/Plan Chief Complaint/Hosp Course SUBJECTIVE: No acute changes. The patient is alert, nad, no fevers. MICROBIOLOGY: Wound culture growing MSSA/Enterococcus ANTIMICROBIALS: Vancomycin PHYSICAL EXAMINATION: GENERAL: This is a well-nourished, well-developed elderly man who is awake, in no distress. HEENT: Head: Atraumatic, normocephalic. Sclerae anicteric. Buccal mucosa pink. NECK: Supple, trachea midline. CHEST: Rise symmetrical. Breath sounds clear. HEART: S1, S2. ABDOMEN: Soft, bowel tones present. EXTREMITIES: Without cyanosis. Right lower extremity wound VAC present. ASSESSMENT: 1. Right below-knee amputation, infected stump with OM, status post revision with rotation flap and wound VAC application. 2. Diabetes. 3. Hypertension. PLAN: The patient remains stable. Pathology + acute OM, will need 6 weeks IV Vancomycin or Daptomycin, s/p PICC [facility] staff Problems: Consultation Date/Type/Reason Admit Date/Time June 12, 2016 at 13:22 Type of Consultation: ID Exam/Review of Systems Vital Signs Vitals Vital Signs Date Time Temp Pulse Resp B/P Pulse Ox O2 Delivery O2 Flow Rate FiO2 06/21/16 07:31 97.5 72 18 122/67 99 06/18/16 19:46 Room Air Intake and Output 06/20/16 06/20/16 06/21/16 15:00 23:00 07:00 Intake Total 150 ml 960 ml 930 ml Output Total 2000 ml 1000 ml Balance 150 ml -1040 ml -70 ml Results Result Diagram: 06/21/16 0522 06/21/16 0522 Results 24 hrs Laboratory Tests Test 06/20/16 17:00 06/20/16 17:11 06/20/16 20:10 06/20/16 21:27 Vancomycin Level Trough 17.0 Bedside Glucose 115 162 157 Test 06/21/16 05:22 06/21/16 08:01 06/21/16 12:05 White Blood Count 7.2 # Red Blood Count 3.54 L Hemoglobin 10.1 L Hematocrit 30.8 L Mean Corpuscular Volume 87.0 Mean Corpuscular Hemoglobin 28.5 L Mean Corpuscular Hemoglobin Concent 32.8 Red Cell Distribution Width 14.1 Platelet Count 283 Mean Platelet Volume 9.3 Neutrophils % 56.2 Lymphocytes % 27.6 Monocytes % 8.3 Eosinophils % 7.1 H Basophils % 0.4 Nucleated Red Blood Cells % 0.0 Neutrophils # 4.0 Lymphocytes # 2.0 Monocytes # 0.6 Eosinophils # 0.5 Basophils # 0.0 Nucleated Red Blood Cells # 0.0 Sodium Level 139 Potassium Level 3.9 Chloride Level 105 Carbon Dioxide Level 28 Anion Gap 10 Blood Urea Nitrogen 14 Creatinine 0.64 Glucose Level 88 Calcium Level 9.2 Bedside Glucose 87 92 Medications Medications Current Medications Aspirin (Halfprin) 81 mg DAILY PO Last administered on 06/21/16 08:32; Admin Dose 81 MG; Start 06/13/16 at 09:00 Gabapentin (Neurontin) 300 mg TID PO Last administered on 06/21/16 12:16; Admin Dose 300 MG; Start 06/12/16 at 21:00 Lisinopril (Zestril) 20 mg DAILY PO Last administered on 06/21/16 08:31; Admin Dose 20 MG; Start 06/13/16 at 09:00 Metoprolol Tartrate 25 mg 25 mg BID PO Last administered on 06/21/16 08:48; Admin Dose 25 MG; Start 06/12/16 at 21:00 Sodium Chloride (NS) 1,000 ml @ 40 mls/hr Q24H IV Last administered on 12:19; Admin Dose 40 MLS/HR; Start 06/12/16 at 17:15 Ondansetron HCl (Zofran Inj) 4 mg Q6H PRN IV NAUSEA AND/OR VOMITING; Start 06/12 at 17:30 Acetaminophen (Tylenol Tab) 650 mg Q6H PRN PO PAIN LEVEL 1-3 OR FEVER; Start at 17:30 Acetaminophen/ Hydrocodone Bitart ([place] (5/325)) 1 tab Q6H PRN PO MODERATE PAIN LEVEL 4-6 Last administered on 06/21/16 06:08; Admin Dose 1 TAB; Start 06/12/16 at 17:30 Docusate Sodium (Colace) 100 mg Q12H PRN PO CONSTIPATION; Start 06/12/16 at 17: 30 Pantoprazole (Protonix Tab) 40 mg DAILY@06 PO Last administered on 06/21/16 05 :44; Admin Dose 40 MG; Start 06/13/16 at 06:00 Enoxaparin Sodium (Lovenox) 30 mg DAILY SC Last administered on 06/21/16 08:42 ; Admin Dose 30 MG; Start 06/13/16 at 09:00 Diagnostic Test (Pha) (Accu-Chek) 1 ea 02 XX Last administered on 06/20/16 02: 07; Admin Dose 1 EA; Start 06/13/16 at 02:00 Miscellaneous Information 1 ea NOTE XX ; Start 06/12/16 at 17:30 Glucose (Glutose) 15 gm Q15M PRN PO DECREASED GLUCOSE; Start 06/12/16 at 17:30 Glucose (Glutose) 22.5 gm Q15M PRN PO DECREASED GLUCOSE; Start 06/12/16 at 17:30 Dextrose (D50w Syringe) 25 ml Q15M PRN IV DECREASED GLUCOSE; Start 06/12/16 at 17:30 Dextrose (D50w Syringe) 50 ml Q15M PRN IV DECREASED GLUCOSE; Start 06/12/16 at 17:30 Glucagon (Glucagen) 1 mg Q15M PRN IM DECREASED GLUCOSE; Start 06/12/16 at 17:30 Glucose (Glutose) 15 gm Q15M PRN BUCCAL DECREASED GLUCOSE; Start 06/12/16 at 17: 30 Insulin Glargine (Lantus) 12 unit DAILY@20 SC Last administered on 06/20/16 20 :14; Admin Dose 12 UNIT; Start 06/13/16 at 20:00; Status Future hold Linagliptin (Tradjenta) 5 mg DAILY PO Last administered on 06/21/16 08:32; Admin Dose 5 MG; Start 06/15/16 at 09:00 Atorvastatin Calcium (Lipitor) 10 mg QHS PO Last administered on 06/20/16 21: 24; Admin Dose 10 MG; Start 06/15/16 at 21:00 IV Flush 10 ml 10 ml PRN PRN IV IV PROTOCOL; Start 06/20/16 at 16:30 Vancomycin HCl (Vancocin) 250 ml @ 125 mls/hr Q12H IVPB Last administered on 05:44; Admin Dose 125 MLS/HR; Start 06/21/16 at 06:00 Miscellaneous Information (*Rx Drug Level Order Reminder*) VANCOMYCIN TROUGH AT 1700 ONCE ONCE XX ; Start 06/22/16 at 17:00; Stop 06/22/16 at 17:01 HILARIO ACUÑA NP June 21, 2016 14:11
--- NOTE | 2016-06-21 17:18 | PN ---
Date/Time of Note Date/Time of Note DATE: 06/21/16 TIME: 17:16 Assessment/Plan VTE Prophylaxis VTE Prophylaxis Intervention: LMWH Lines/Catheters IV Catheter Type (from Nrs): PICC Line Central line still needed: Yes Assessment/Plan Chief Complaint/Hosp Course ASSESSMENT AND PLAN: 1. Right [id number] amputation stump dehiscence, laceration, possible infection. S/p debridement and creation of a rotational flap by Dr. Fuller, vascular surgery, on 06/13. Continue IV antibiotics. Continue wound VAC. Pathology positive for osteomyelitis. Dr. Eldridge is following infection disease consultation. 2. Diabetes mellitus type 2. Hemoglobin A1c is 8.7. Continue Tradjenta, Lantus, pre-meal NovoLog, and NovoLog per mild algorithm sliding scale a.c. and at bedtime. 3. Hypertension. Continue metoprolol and lisinopril. Continue to monitor blood pressure. 4. Homelessness. Case management plan for DC planning Further recommendations based on clinical course. Plan of care discussed with Dr. Li. Problems: Subjective 24 Hr Interval Summary Free Text/Dictation Patient looks comfortable, complaints of the right stump pain, well controlled on current pain medication regimen. Exam/Review of Systems Vital Signs Vitals Vital Signs Date Time Temp Pulse Resp B/P Pulse Ox O2 Delivery O2 Flow Rate FiO2 06/21/16 07:31 97.5 72 18 122/67 99 06/18/16 19:46 Room Air Intake and Output 06/20/16 06/20/16 06/21/16 14:59 22:59 06:59 Intake Total 150 ml 960 ml 930 ml Output Total 2000 ml 1000 ml Balance 150 ml -1040 ml -70 ml Exam GENERAL: Well-developed, well-nourished gentleman. Currently is awake, alert. HEENT: Atraumatic, normocephalic. PERRLA. NECK: Supple. No cervical lymphadenopathy, no thyromegaly. CHEST: Lungs clear bilaterally. There are no rhonchi, wheezes, rales noted. CARDIOVASCULAR: Normal S1, S2. No murmurs, gallops, clicks, rubs noted. ABDOMEN: Round, soft, nondistended, nontender. Bowel sounds present. EXTREMITIES: The patient has a right BKA wound to wound vac. SKIN: There is no rash, petechiae noted. NEUROLOGICAL: The patient is awake, alert, and oriented x4. Left upper extremity PICC line Results Result Diagram: 06/21/1652106/21/16 05 Results 24 hrs Laboratory Tests Test 06/20/16 20:10 06/20/16 21:27 06/21/16 05:22 06/21/16 08:01 Bedside Glucose 162 157 87 White Blood Count 7.2 # Red Blood Count 3.54 L Hemoglobin 10.1 L Hematocrit 30.8 L Mean Corpuscular Volume 87.0 Mean Corpuscular Hemoglobin 28.5 L Mean Corpuscular Hemoglobin Concent 32.8 Red Cell Distribution Width 14.1 Platelet Count 283 Mean Platelet Volume 9.3 Neutrophils % 56.2 Lymphocytes % 27.6 Monocytes % 8.3 Eosinophils % 7.1 H Basophils % 0.4 Nucleated Red Blood Cells % 0.0 Neutrophils # 4.0 Lymphocytes # 2.0 Monocytes # 0.6 Eosinophils # 0.5 Basophils # 0.0 Nucleated Red Blood Cells # 0.0 Sodium Level 139 Potassium Level 3.9 Chloride Level 105 Carbon Dioxide Level 28 Anion Gap 10 Blood Urea Nitrogen 14 Creatinine 0.64 Glucose Level 88 Calcium Level 9.2 Test 06/21/16 12:05 Bedside Glucose 92 Medications Medications Current Medications Aspirin (Halfprin) 81 mg DAILY PO Last administered on 06/21/16 08:32; Admin Dose 81 MG; Start 06/13/16 at 09:00 Gabapentin (Neurontin) 300 mg TID PO Last administered on 06/21/16 12:16; Admin Dose 300 MG; Start 06/12/16 at 21:00 Lisinopril (Zestril) 20 mg DAILY PO Last administered on 06/21/16 08:31; Admin Dose 20 MG; Start 06/13/16 at 09:00 Metoprolol Tartrate 25 mg 25 mg BID PO Last administered on 06/21/16 08:48; Admin Dose 25 MG; Start 06/12/16 at 21:00 Sodium Chloride (NS) 1,000 ml @ 40 mls/hr Q24H IV Last administered on 12:19; Admin Dose 40 MLS/HR; Start 06/12/16 at 17:15 Ondansetron HCl (Zofran Inj) 4 mg Q6H PRN IV NAUSEA AND/OR VOMITING; Start 06/12 at 17:30 Acetaminophen (Tylenol Tab) 650 mg Q6H PRN PO PAIN LEVEL 1-3 OR FEVER; Start at 17:30 Acetaminophen/ Hydrocodone Bitart ([place] (5/325)) 1 tab Q6H PRN PO MODERATE PAIN LEVEL 4-6 Last administered on 06/21/16 06:08; Admin Dose 1 TAB; Start 06/12/16 at 17:30 Docusate Sodium (Colace) 100 mg Q12H PRN PO CONSTIPATION; Start 06/12/16 at 17: 30 Pantoprazole (Protonix Tab) 40 mg DAILY@06 PO Last administered on 06/21/16 05 :44; Admin Dose 40 MG; Start 06/13/16 at 06:00 Enoxaparin Sodium (Lovenox) 30 mg DAILY SC Last administered on 06/21/16 08:42 ; Admin Dose 30 MG; Start 06/13/16 at 09:00 Diagnostic Test (Pha) (Accu-Chek) 1 ea 02 XX Last administered on 06/20/16 02: 07; Admin Dose 1 EA; Start 06/13/16 at 02:00 Miscellaneous Information 1 ea NOTE XX ; Start 06/12/16 at 17:30 Glucose (Glutose) 15 gm Q15M PRN PO DECREASED GLUCOSE; Start 06/12/16 at 17:30 Glucose (Glutose) 22.5 gm Q15M PRN PO DECREASED GLUCOSE; Start 06/12/16 at 17:30 Dextrose (D50w Syringe) 25 ml Q15M PRN IV DECREASED GLUCOSE; Start 06/12/16 at 17:30 Dextrose (D50w Syringe) 50 ml Q15M PRN IV DECREASED GLUCOSE; Start 06/12/16 at 17:30 Glucagon (Glucagen) 1 mg Q15M PRN IM DECREASED GLUCOSE; Start 06/12/16 at 17:30 Glucose (Glutose) 15 gm Q15M PRN BUCCAL DECREASED GLUCOSE; Start 06/12/16 at 17: 30 Insulin Glargine (Lantus) 12 unit DAILY@20 SC Last administered on 06/20/16 20 :14; Admin Dose 12 UNIT; Start 06/13/16 at 20:00; Status Future hold Linagliptin (Tradjenta) 5 mg DAILY PO Last administered on 06/21/16 08:32; Admin Dose 5 MG; Start 06/15/16 at 09:00 Atorvastatin Calcium (Lipitor) 10 mg QHS PO Last administered on 06/20/16 21: 24; Admin Dose 10 MG; Start 06/15/16 at 21:00 IV Flush 10 ml 10 ml PRN PRN IV IV PROTOCOL; Start 06/20/16 at 16:30 Vancomycin HCl (Vancocin) 250 ml @ 125 mls/hr Q12H IVPB Last administered on 05:44; Admin Dose 125 MLS/HR; Start 06/21/16 at 06:00 Miscellaneous Information (*Rx Drug Level Order Reminder*) VANCOMYCIN TROUGH AT 1700 ONCE ONCE XX ; Start 06/22/16 at 17:00; Stop 06/22/16 at 17:01 WEI SULLIVAN June 21, 2016 17:18
[2016-06-21 19:37] VITALS: BP 110/62; RESP 20
[2016-06-21] MEDS: INSULIN GLARGINE [LANtus] 3 ML PEN SC SCH (20:12)
[2016-06-21] MEDS: ATORVASTATIN 10 MG TAB PO SCH (21:16)
[2016-06-22] MEDS: ACCU-CHEK XX SCH (02:00)
[2016-06-22] MEDS: PANTOPRAZOLE (EC) 40 MG TAB PO SCH (05:17)
[2016-06-22] MEDS: VANCOMYCIN 1 GM in NS 250 ML IVPB SCH ×2 (05:17→18:55)
[2016-06-22 06:01] LABS: POTASSIUM 3.7 mmol/L (3.5-5.1)
[2016-06-22 06:03] LABS: CREATININE 0.66 mg/dl (0.61-1.24)
[2016-06-22 06:04] LABS: CALCIUM 9.3 mg/dl (8.4-10.2)
[2016-06-22] MEDS: HYDROCODONE/APAP (5/325) TAB PO PRN ×2 (07:55→21:03)
[2016-06-22] MEDS: metFORMIN 500 MG TAB PO SCH ×2 (07:56→17:59)
[2016-06-22 08:20] VITALS: BP 108/55; RESP 18
[2016-06-22] MEDS: INSULIN ASPART [NOVOLOG] 3 ML PEN SC SCH ×7 (08:22→21:00)
[2016-06-22] MEDS: METOPROLOL 25 MG TAB PO SCH ×2 (09:00→21:03)
[2016-06-22] MEDS: LISINOPRIL 20 MG TAB PO SCH (09:00)
[2016-06-22] MEDS: ASPIRIN (EC) 81 MG TAB PO SCH (09:00)
[2016-06-22] MEDS: LINAGLIPTIN 5 MG TABLET PO SCH (09:00)
[2016-06-22] MEDS: GABAPENTIN 300 MG CAP PO SCH ×3 (09:00→21:03)
[2016-06-22] MEDS: ENOXAPARIN 30 MG/0.3 ML SYG SC SCH (10:09)
--- NOTE | 2016-06-22 12:45 | PN ---
Date/Time of Note Date/Time of Note DATE: 06/22/16 TIME: 12:42 Assessment/Plan VTE Prophylaxis VTE Prophylaxis Intervention: other Lines/Catheters IV Catheter Type (from Nrsg): PICC Line Central line still needed: Yes Assessment/Plan Assessment/Plan 1. Right [id number] amputation stump dehiscence, laceration, possible infection. S/p debridement and creation of a rotational flap by Dr. Fuller, vascular surgery, on 06/13. Continue IV antibiotics. Continue wound VAC. Pathology positive for osteomyelitis. Dr. Eldridge is following infection disease consultation. 2. Diabetes mellitus type 2. Hemoglobin A1c is 8.7. Continue Tradjenta, Lantus, pre-meal NovoLog, and NovoLog per mild algorithm sliding scale a.c. and at bedtime. 3. Hypertension. Continue metoprolol and lisinopril. Continue to monitor blood pressure. 4. Homelessness. Case management plan for DC planning-placement pending-discussed with the case consultant Further recommendations based on clinical course. Plan of care discussed with Dr. Li. Subjective 24 Hr Interval Summary Free Text/Dictation resting in bed, afebrile, bs controlled, right BKA stump- ddi. dw sfaff- no new events reported overnight Respiratory: no complaints Cardiovascular: no complaints Gastrointestinal: no complaints Genitourinary: no complaints Musculoskeletal: bone/joint pain Skin: other Exam/Review of Systems Vital Signs Vitals Vital Signs Date Time Temp Pulse Resp B/P Pulse Ox O2 Delivery O2 Flow Rate FiO2 06/22/16 08:20 98.5 70 18 108/55 99 06/18/16 19:46 Room Air Intake and Output 06/21/16 06/21/16 06/22/16 15:00 23:00 07:00 Intake Total 900 ml 2210 ml 750 ml Output Total 1900 ml 1600 ml Balance 900 ml 310 ml -850 ml Exam No acute distress, seems comfortable, afebrile-discussed with the staff no acute issues reported. Pending placement discussed with the case consultant Constitutional: alert, oriented Neck: non-tender Respiratory: clear to auscultation, normal air movement Cardiovascular: nl pulses, regular rate and rhythm Gastrointestinal: non-tender, soft Neurological: nl mental status, nl speech, other Skin: other Results Result Diagram: 06/21/16 0506/22/16 0525 Results 24 hrs Laboratory Tests Test 06/21/16 17:44 06/21/16 20:09 06/22/16 05:25 06/22/16 07:55 Bedside Glucose 209 86 172 Sodium Level 141 Potassium Level 3.7 Chloride Level 101 Carbon Dioxide Level 29 Anion Gap 15 Blood Urea Nitrogen 15 Creatinine 0.66 Glucose Level 136 # Calcium Level 9.3 Test 06/22/16 12:05 Bedside Glucose 100 Medications Medications Current Medications Aspirin (Halfprin) 81 mg DAILY PO Last administered on 06/22/16 09:00; Admin Dose 81 MG; Start 06/13/16 at 09:00 Gabapentin (Neurontin) 300 mg TID PO Last administered on 06/22/16 09:00; Admin Dose 300 MG; Start 06/12/16 at 21:00 Lisinopril (Zestril) 20 mg DAILY PO Last administered on 06/22/16 09:00; Admin Dose 20 MG; Start 06/13/16 at 09:00 Metoprolol Tartrate 25 mg 25 mg BID PO Last administered on 06/22/16 09:00; Admin Dose 25 MG; Start 06/12/16 at 21:00 Sodium Chloride (NS) 1,000 ml @ 40 mls/hr Q24H IV Last administered on 12:19; Admin Dose 40 MLS/HR; Start 06/12/16 at 17:15 Ondansetron HCl (Zofran Inj) 4 mg Q6H PRN IV NAUSEA AND/OR VOMITING; Start 06/12 at 17:30 Acetaminophen (Tylenol Tab) 650 mg Q6H PRN PO PAIN LEVEL 1-3 OR FEVER; Start at 17:30 Acetaminophen/ Hydrocodone Bitart ([place] (5/325)) 1 tab Q6H PRN PO MODERATE PAIN LEVEL 4-6 Last administered on 06/22/16 07:55; Admin Dose 1 TAB; Start 06/12/16 at 17:30 Docusate Sodium (Colace) 100 mg Q12H PRN PO CONSTIPATION; Start 06/12/16 at 17: 30 Pantoprazole (Protonix Tab) 40 mg DAILY@06 PO Last administered on 06/22/16 05 :17; Admin Dose 40 MG; Start 06/13/16 at 06:00 Enoxaparin Sodium (Lovenox) 30 mg DAILY SC Last administered on 06/22/16 10:09 ; Admin Dose 30 MG; Start 06/13/16 at 09:00 Diagnostic Test (Pha) (Accu-Chek) 1 ea 02 XX Last administered on 06/20/16 02: 07; Admin Dose 1 EA; Start 06/13/16 at 02:00 Miscellaneous Information 1 ea NOTE XX ; Start 06/12/16 at 17:30 Glucose (Glutose) 15 gm Q15M PRN PO DECREASED GLUCOSE; Start 06/12/16 at 17:30 Glucose (Glutose) 22.5 gm Q15M PRN PO DECREASED GLUCOSE; Start 06/12/16 at 17:30 Dextrose (D50w Syringe) 25 ml Q15M PRN IV DECREASED GLUCOSE; Start 06/12/16 at 17:30 Dextrose (D50w Syringe) 50 ml Q15M PRN IV DECREASED GLUCOSE; Start 06/12/16 at 17:30 Glucagon (Glucagen) 1 mg Q15M PRN IM DECREASED GLUCOSE; Start 06/12/16 at 17:30 Glucose (Glutose) 15 gm Q15M PRN BUCCAL DECREASED GLUCOSE; Start 06/12/16 at 17: 30 Insulin Glargine (Lantus) 12 unit DAILY@20 SC Last administered on 06/21/16 20 :12; Admin Dose 12 UNIT; Start 06/13/16 at 20:00; Status Future hold Linagliptin (Tradjenta) 5 mg DAILY PO Last administered on 06/22/16 09:00; Admin Dose 5 MG; Start 06/15/16 at 09:00 Atorvastatin Calcium (Lipitor) 10 mg QHS PO Last administered on 06/21/16 21: 16; Admin Dose 10 MG; Start 06/15/16 at 21:00 IV Flush 10 ml 10 ml PRN PRN IV IV PROTOCOL; Start 06/20/16 at 16:30 Vancomycin HCl (Vancocin) 250 ml @ 125 mls/hr Q12H IVPB Last administered on 05:17; Admin Dose 125 MLS/HR; Start 06/21/16 at 06:00 Miscellaneous Information (*Rx Drug Level Order Reminder*) VANCOMYCIN TROUGH AT 1700 ONCE ONCE XX ; Start 06/22/16 at 17:00; Stop 06/22/16 at 17:01 ABRAHAN PINA June 22, 2016 12:45
--- NOTE | 2016-06-22 13:45 | CONS ---
Date/Time of Note Date/Time of Note DATE: 06/22/16 TIME: 13:44 Assessment/Plan Assessment/Plan Chief Complaint/Hosp Course SUBJECTIVE: No acute changes. The patient is alert, nad, no fevers. MICROBIOLOGY: Wound culture growing MSSA/Enterococcus ANTIMICROBIALS: Vancomycin PHYSICAL EXAMINATION: GENERAL: This is a well-nourished, well-developed elderly man who is awake, in no distress. HEENT: Head: Atraumatic, normocephalic. Sclerae anicteric. Buccal mucosa pink. NECK: Supple, trachea midline. CHEST: Rise symmetrical. Breath sounds clear. HEART: S1, S2. ABDOMEN: Soft, bowel tones present. EXTREMITIES: Without cyanosis. Right lower extremity wound VAC present. ASSESSMENT: 1. Right below-knee amputation, infected stump with OM, status post revision with rotation flap and wound VAC application. 2. Diabetes. 3. Hypertension. PLAN: The patient remains stable. Pathology + acute OM, will need 6 weeks IV Vancomycin or Daptomycin, s/p PICC DW staff Problems: Consultation Date/Type/Reason Admit Date/Time June 12, 2016 at 13:22 Type of Consultation: ID Exam/Review of Systems Vital Signs Vitals Vital Signs Date Time Temp Pulse Resp B/P Pulse Ox O2 Delivery O2 Flow Rate FiO2 06/22/16 08:20 98.5 70 18 108/55 99 06/18/16 19:46 Room Air Intake and Output 06/21/16 06/21/16 06/22/16 15:00 23:00 07:00 Intake Total 900 ml 2210 ml 750 ml Output Total 1900 ml 1600 ml Balance 900 ml 310 ml -850 ml Results Result Diagram: 06/21/16 0522 06/22/16 0525 Results 24 hrs Laboratory Tests Test 06/21/16 17:44 06/21/16 20:09 06/22/16 05:25 06/22/16 07:55 Bedside Glucose 209 86 172 Sodium Level 141 Potassium Level 3.7 Chloride Level 101 Carbon Dioxide Level 29 Anion Gap 15 Blood Urea Nitrogen 15 Creatinine 0.66 Glucose Level 136 # Calcium Level 9.3 Test 06/22/16 12:05 Bedside Glucose 100 Medications Medications Current Medications Aspirin (Halfprin) 81 mg DAILY PO Last administered on 06/22/16t 09:00; Admin Dose 81 MG; Start 06/13/16 at 09:00 Gabapentin (Neurontin) 300 mg TID PO Last administered on 06/22/16 12:59; Admin Dose 300 MG; Start 06/12/16 at 21:00 Lisinopril (Zestril) 20 mg DAILY PO Last administered on 06/22/16 09:00; Admin Dose 20 MG; Start 06/13/16 at 09:00 Metoprolol Tartrate 25 mg 25 mg BID PO Last administered on 06/22/16 09:00; Admin Dose 25 MG; Start 06/12/16 at 21:00 Sodium Chloride (NS) 1,000 ml @ 40 mls/hr Q24H IV Last administered on 12:19; Admin Dose 40 MLS/HR; Start 06/12/16 at 17:15 Ondansetron HCl (Zofran Inj) 4 mg Q6H PRN IV NAUSEA AND/OR VOMITING; Start 06/12 at 17:30 Acetaminophen (Tylenol Tab) 650 mg Q6H PRN PO PAIN LEVEL 1-3 OR FEVER; Start at 17:30 Acetaminophen/ Hydrocodone Bitart ([place] (5/325)) 1 tab Q6H PRN PO MODERATE PAIN LEVEL 4-6 Last administered on 06/22/16 07:55; Admin Dose 1 TAB; Start 06/12/16 at 17:30 Docusate Sodium (Colace) 100 mg Q12H PRN PO CONSTIPATION; Start 06/12/16 at 17: 30 Pantoprazole (Protonix Tab) 40 mg DAILY@06 PO Last administered on 06/22/16 05 :17; Admin Dose 40 MG; Start 06/13/16 at 06:00 Enoxaparin Sodium (Lovenox) 30 mg DAILY SC Last administered on 06/22/16 10:09 ; Admin Dose 30 MG; Start 06/13/16 at 09:00 Diagnostic Test (Pha) (Accu-Chek) 1 ea 02 XX Last administered on 06/20/16 02: 07; Admin Dose 1 EA; Start 06/13/16 at 02:00 Miscellaneous Information 1 ea NOTE XX ; Start 06/12/16 at 17:30 Glucose (Glutose) 15 gm Q15M PRN PO DECREASED GLUCOSE; Start 06/12/16 at 17:30 Glucose (Glutose) 22.5 gm Q15M PRN PO DECREASED GLUCOSE; Start 06/12/16 at 17:30 Dextrose (D50w Syringe) 25 ml Q15M PRN IV DECREASED GLUCOSE; Start 06/12/16 at 17:30 Dextrose (D50w Syringe) 50 ml Q15M PRN IV DECREASED GLUCOSE; Start 06/12/16 at 17:30 Glucagon (Glucagen) 1 mg Q15M PRN IM DECREASED GLUCOSE; Start 06/12/16 at 17:30 Glucose (Glutose) 15 gm Q15M PRN BUCCAL DECREASED GLUCOSE; Start 06/12/16 at 17: 30 Insulin Glargine (Lantus) 12 unit DAILY@20 SC Last administered on 06/21/16 20 :12; Admin Dose 12 UNIT; Start 06/13/16 at 20:00; Status Future hold Linagliptin (Tradjenta) 5 mg DAILY PO Last administered on 06/22/16 09:00; Admin Dose 5 MG; Start 06/15/16 at 09:00 Atorvastatin Calcium (Lipitor) 10 mg QHS PO Last administered on 06/21/16 21: 16; Admin Dose 10 MG; Start 06/15/16 at 21:00 IV Flush 10 ml 10 ml PRN PRN IV IV PROTOCOL; Start 06/20/16 at 16:30 Vancomycin HCl (Vancocin) 250 ml @ 125 mls/hr Q12H IVPB Last administered on 05:17; Admin Dose 125 MLS/HR; Start 06/21/16 at 06:00 Miscellaneous Information (*Rx Drug Level Order Reminder*) VANCOMYCIN TROUGH AT 1700 ONCE ONCE XX ; Start 06/22/16 at 17:00; Stop 06/22/16 at 17:01 HILARIO ACUÑA NP June 22, 2016 13:45
[2016-06-22] MEDS: SOD CHLORIDE 0.9% 1,000 ML IV SCH (18:55)
[2016-06-22 19:23] VITALS: BP 111/65; RESP 18
[2016-06-22] MEDS: ATORVASTATIN 10 MG TAB PO SCH (21:03)
[2016-06-22] MEDS: INSULIN GLARGINE [LANtus] 3 ML PEN SC SCH (21:05)
--- NOTE | 2016-06-23 00:20 | PN ---
Date/Time of Note Date/Time of Note DATE: 06/22/16 TIME: 20:18 Assessment/Plan Lines/Catheters IV 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 Will re-evaluate 06/23 likely require local debridement -Will have wound vac team change MWF -Optimize vascular status (BP meds, diet, nutrition, exercise, sugar control, antiplatelets). -D/C planning with wound vac discharge -Discussed findings, plan of management with the patient and he understands. -Thank you for allowing us to participate in the care of your patient. Please call with any questions. Problems: Subjective 24 Hr Interval Summary Constitutional: no complaints Exam/Review of Systems Vital Signs Vitals Vital Signs Date Time Temp Pulse Resp B/P Pulse Ox O2 Delivery O2 Flow Rate FiO2 06/22/16 19:23 98.0 82 18 111/65 99 Intake and Output 06/22/16 06/22/16 06/23/16 15:00 23:00 07:00 Intake Total 250 ml 1650 ml Output Total 1850 ml Balance 250 ml -200 ml Exam Free Text/Dictation GENERAL: Alert and oriented x3, PULMONARY: Clear to auscultation bilaterally CARDIOVASCULAR: S1, S2 present ABDOMEN: Soft, nontender, nondistended. Bowel sounds positive. EXTREMITIES: Right lower extremity: Palpable femoral pulse. BKA stump with cap refill 3 seconds. wound vac intact and functional, Some granulation tissue developing Left lower extremity: Palpable femoral pulse, nonpalpable pedal pulse. Motor, sensory intact. Cap refill 3 to 4 seconds. There is area of lipodermatosclerosis. No ulcers identified. Results Result Diagram: 06/21/16 0522 06/22/16 0525 JUAN PRIDE MD June 23, 2016 00:20
[2016-06-23] MEDS: ACCU-CHEK XX SCH (02:00)
[2016-06-23] MEDS: PANTOPRAZOLE (EC) 40 MG TAB PO SCH (05:44)
[2016-06-23 06:03] LABS: ADD SCAN DIFF NO
[2016-06-23 06:15] LABS: BASOPHILS % 0.6 % (0.0-2.0); EOSINOPHILS # 0.5 10^3/ul (0.0-0.5); EOSINOPHILS % 7.6 % (0.0-7.0); HEMATOCRIT 31.7 % (42.0-52.0); HEMOGLOBIN 10.2 g/dl (14.0-18.0); LYMPHOCYTES # 1.9 10^3/ul (0.8-2.9); LYMPHOCYTES % 28.5 % (15.0-51.0); MEAN CORPUSCULAR HEMOGLOBIN 28.4 pg (29.0-33.0); MEAN CORPUSCULAR HGB CONC 32.2 g/dl (32.0-37.0); MEAN CORPUSCULAR VOLUME 88.3 fl (82.0-101.0); MEAN PLATELET VOLUME 9.5 fl (7.4-10.4); MONOCYTE # 0.5 10^3/ul (0.3-0.9); MONOCYTES % 7.4 % (0.0-11.0); NEUTROPHIL # 3.7 10^3/ul (1.6-7.5); NEUTROPHILS % 55.4 % (39.0-77.0); PLATELET COUNT 305 10^3/UL (140-415); RED BLOOD COUNT 3.59 10^6/ul (4.70-6.10); RED CELL DISTRIBUTION WIDTH 14.3 % (11.5-14.5); WHITE BLOOD COUNT 6.6 10^3/ul (4.8-10.8)
[2016-06-23 06:53] LABS: CALCIUM 9.2 mg/dl (8.4-10.2); CREATININE 0.66 mg/dl (0.61-1.24); POTASSIUM 4.1 mmol/L (3.5-5.1)
[2016-06-23 07:30] VITALS: BP 111/62; PULSE 79; RESP 16
[2016-06-23] MEDS: VANCOMYCIN 1.25 GM in SOD CHLORIDE 0.9% 250 ML IVPB SCH ×2 (07:32→18:09)
[2016-06-23] MEDS: metFORMIN 500 MG TAB PO SCH ×2 (08:08→17:30)
[2016-06-23 08:09] VITALS: BP 111/62; RESP 20
[2016-06-23] MEDS: INSULIN ASPART [NOVOLOG] 3 ML PEN SC SCH ×7 (08:09→21:00)
[2016-06-23] MEDS: LISINOPRIL 20 MG TAB PO SCH (08:10)
[2016-06-23] MEDS: GABAPENTIN 300 MG CAP PO SCH ×3 (08:10→20:59)
[2016-06-23] MEDS: METOPROLOL 25 MG TAB PO SCH ×2 (08:10→20:59)
[2016-06-23] MEDS: LINAGLIPTIN 5 MG TABLET PO SCH (08:10)
[2016-06-23] MEDS: ENOXAPARIN 30 MG/0.3 ML SYG SC SCH (08:12)
[2016-06-23] MEDS: HYDROCODONE/APAP (5/325) TAB PO PRN (08:15)
[2016-06-23] MEDS: ASPIRIN (EC) 81 MG TAB PO SCH (08:23)
--- NOTE | 2016-06-23 10:45 | PN ---
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 Will re-evaluate 06/26 ( performed sharp excisional local debridement of muscle, tendon, subcutaneous and skin with scissors. patient tolerated well and rebleeding was initiated - vac reapplied) -Will have wound vac team change MWF -Optimize vascular status (BP meds, diet, nutrition, exercise, sugar control, antiplatelets). -D/C planning with wound vac discharge -Discussed findings, plan of management with the patient and he understands. -Thank you for allowing us to participate in the care of your patient. Please call with any questions. Problems: Subjective 24 Hr Interval Summary no new vascular events overnight Exam/Review of Systems Vital Signs Vitals Vital Signs Date Time Temp Pulse Resp B/P Pulse Ox O2 Delivery O2 Flow Rate FiO2 06/23/16 08:09 98.2 79 20 111/62 97 Intake and Output 06/22/16 06/22/16 06/23/16 15:00 23:00 07:00 Intake Total 250 ml 1650 ml 900 ml Output Total 1850 ml 1200 ml Balance 250 ml -200 ml -300 ml Exam Free Text/Dictation GENERAL: Alert and oriented x3, PULMONARY: Clear to auscultation bilaterally CARDIOVASCULAR: S1, S2 present ABDOMEN: Soft, nontender, nondistended. Bowel sounds positive. EXTREMITIES: Right lower extremity: Palpable femoral pulse. BKA stump with cap refill 3 seconds. wound vac-removed, debrided necrotic tissue, muscle, tendon. Some granulation tissue developing Left lower extremity: Palpable femoral pulse, nonpalpable pedal pulse. Motor, sensory intact. Cap refill 3 to 4 seconds. There is area of lipodermatosclerosis. No ulcers identified. Results Result Diagram: 06/23/16 0538 06/23/16 0538 JUAN PRIDE MD June 23, 2016 10:45
--- NOTE | 2016-06-23 16:39 | PN ---
Date/Time of Note Date/Time of Note DATE: 06/23/16 TIME: 16:38 Assessment/Plan VTE Prophylaxis VTE Prophylaxis Intervention: SCD's Lines/Catheters IV Catheter Type (from Nrs): PICC Line Central line still needed: Yes Assessment/Plan Chief Complaint/Hosp Course ASSESSMENT AND PLAN: 1. Right [id number] amputation stump dehiscence, laceration, possible infection. S/p debridement and creation of a rotational flap by Dr. Fuller, vascular surgery, on 06/13. Continue IV antibiotics. Continue wound VAC. Pathology positive for osteomyelitis. Dr. Eldridge is following infection disease consultation. 2. Diabetes mellitus type 2. Hemoglobin A1c is 8.7. Continue Tradjenta, Lantus, pre-meal NovoLog, and NovoLog per mild algorithm sliding scale a.c. and at bedtime. 3. Hypertension. Continue metoprolol and lisinopril. Continue to monitor blood pressure. 4. Homelessness. Case management plan for DC planning Further recommendations based on clinical course. Plan of care discussed with Dr. Li. Problems: Subjective 24 Hr Interval Summary Free Text/Dictation Patient looks comfortable status post wound VAC change today Exam/Review of Systems Vital Signs Vitals Vital Signs Date Time Temp Pulse Resp B/P Pulse Ox O2 Delivery O2 Flow Rate FiO2 06/23/16 08:09 98.2 79 20 111/62 97 Intake and Output 06/22/16 06/22/16 06/23/16 15:00 23:00 07:00 Intake Total 250 ml 1650 ml 900 ml Output Total 1850 ml 1200 ml Balance 250 ml -200 ml -300 ml Exam GENERAL: Well-developed, well-nourished gentleman. Currently is awake, alert. HEENT: Atraumatic, normocephalic. PERRLA. NECK: Supple. No cervical lymphadenopathy, no thyromegaly. CHEST: Lungs clear bilaterally. There are no rhonchi, wheezes, rales noted. CARDIOVASCULAR: Normal S1, S2. No murmurs, gallops, clicks, rubs noted. ABDOMEN: Round, soft, nondistended, nontender. Bowel sounds present. EXTREMITIES: The patient has a right BKA wound to wound vac. SKIN: There is no rash, petechiae noted. NEUROLOGICAL: The patient is awake, alert, and oriented x4. Left upper extremity PICC line Results Result Diagram: 06/23/16 0538 06/23/16 0538 Results 24 hrs Laboratory Tests Test 06/22/16 17:10 06/22/16 17:23 06/22/16 21:00 06/23/16 05:38 Vancomycin Level Trough 12.6 Bedside Glucose 175 83 White Blood Count 6.6 Red Blood Count 3.59 L Hemoglobin 10.2 L Hematocrit 31.7 L Mean Corpuscular Volume 88.3 Mean Corpuscular Hemoglobin 28.4 L Mean Corpuscular Hemoglobin Concent 32.2 Red Cell Distribution Width 14.3 Platelet Count 305 Mean Platelet Volume 9.5 Neutrophils % 55.4 Lymphocytes % 28.5 Monocytes % 7.4 Eosinophils % 7.6 H Basophils % 0.6 Nucleated Red Blood Cells % 0.0 Neutrophils # 3.7 Lymphocytes # 1.9 Monocytes # 0.5 Eosinophils # 0.5 Basophils # 0.0 Nucleated Red Blood Cells # 0.0 Sodium Level 138 Potassium Level 4.1 Chloride Level 104 Carbon Dioxide Level 28 Anion Gap 10 # Blood Urea Nitrogen 20 Creatinine 0.66 Glucose Level 127 Calcium Level 9.2 Test 06/23/16 08:08 06/23/16 12:05 Bedside Glucose 101 156 Medications Medications Current Medications Aspirin (Halfprin) 81 mg DAILY PO Last administered on 06/23/16 08:23; Admin Dose 81 MG; Start 06/13/16 at 09:00 Gabapentin (Neurontin) 300 mg TID PO Last administered on 06/23/16 12:48; Admin Dose 300 MG; Start 06/12/16 at 21:00 Lisinopril (Zestril) 20 mg DAILY PO Last administered on 06/23/16 08:10; Admin Dose 20 MG; Start 06/13/16 at 09:00 Metoprolol Tartrate 25 mg 25 mg BID PO Last administered on 06/23/16 08:10; Admin Dose 25 MG; Start 06/12/16 at 21:00 Sodium Chloride (NS) 1,000 ml @ 40 mls/hr Q24H IV Last administered on 18:55; Admin Dose 40 MLS/HR; Start 06/12/16 at 17:15 Ondansetron HCl (Zofran Inj) 4 mg Q6H PRN IV NAUSEA AND/OR VOMITING; Start 06/12 at 17:30 Acetaminophen (Tylenol Tab) 650 mg Q6H PRN PO PAIN LEVEL 1-3 OR FEVER; Start at 17:30 Acetaminophen/ Hydrocodone Bitart ([place] (5/325)) 1 tab Q6H PRN PO MODERATE PAIN LEVEL 4-6 Last administered on 06/23/16 08:15; Admin Dose 1 TAB; Start 06/12/16 at 17:30 Docusate Sodium (Colace) 100 mg Q12H PRN PO CONSTIPATION; Start 06/12/16 at 17: 30 Pantoprazole (Protonix Tab) 40 mg DAILY@06 PO Last administered on 06/23/16 05 :44; Admin Dose 40 MG; Start 06/13/16 at 06:00 Enoxaparin Sodium (Lovenox) 30 mg DAILY SC Last administered on 06/23/16 08:12 ; Admin Dose 30 MG; Start 06/13/16 at 09:00 Diagnostic Test (Pha) (Accu-Chek) 1 ea 02 XX Last administered on 06/20/16 02: 07; Admin Dose 1 EA; Start 06/13/16 at 02:00 Miscellaneous Information 1 ea NOTE XX ; Start 06/12/16 at 17:30 Glucose (Glutose) 15 gm Q15M PRN PO DECREASED GLUCOSE; Start 06/12/16 at 17:30 Glucose (Glutose) 22.5 gm Q15M PRN PO DECREASED GLUCOSE; Start 06/12/16 at 17:30 Dextrose (D50w Syringe) 25 ml Q15M PRN IV DECREASED GLUCOSE; Start 06/12/16 at 17:30 Dextrose (D50w Syringe) 50 ml Q15M PRN IV DECREASED GLUCOSE; Start 06/12/16 at 17:30 Glucagon (Glucagen) 1 mg Q15M PRN IM DECREASED GLUCOSE; Start 06/12/16 at 17:30 Glucose (Glutose) 15 gm Q15M PRN BUCCAL DECREASED GLUCOSE; Start 06/12/16 at 17: 30 Insulin Glargine (Lantus) 12 unit DAILY@20 SC Last administered on 06/22/16 21 :05; Admin Dose 12 UNIT; Start 06/13/16 at 20:00; Status Future hold Linagliptin (Tradjenta) 5 mg DAILY PO Last administered on 06/23/16 08:10; Admin Dose 5 MG; Start 06/15/16 at 09:00 Atorvastatin Calcium (Lipitor) 10 mg QHS PO Last administered on 06/22/16 21: 03; Admin Dose 10 MG; Start 06/15/16 at 21:00 IV Flush 10 ml 10 ml PRN PRN IV IV PROTOCOL; Start 06/20/16 at 16:30 Vancomycin HCl/ Sodium Chloride (Vancocin/NS) 250 ml @ 83.333 mls/ hr Q12H IVPB Last administered on 06/23/16 07:32; Admin Dose 83.333 MLS/HR; Start at 07:00 WEI SULLIVAN June 23, 2016 16:39
[2016-06-23] MEDS: SOD CHLORIDE 0.9% 1,000 ML IV SCH (17:15)
--- NOTE | 2016-06-23 18:21 | CONS ---
Date/Time of Note Date/Time of Note DATE: 06/23/16 TIME: 18:20 Assessment/Plan Assessment/Plan Chief Complaint/Hosp Course SUBJECTIVE: No acute changes. The patient is alert, c/o diarrhea, nad, no fevers. MICROBIOLOGY: Wound culture growing MSSA/Enterococcus ANTIMICROBIALS: Vancomycin PHYSICAL EXAMINATION: GENERAL: This is a well-nourished, well-developed elderly man who is awake, in no distress. HEENT: Head: Atraumatic, normocephalic. Sclerae anicteric. Buccal mucosa pink. NECK: Supple, trachea midline. CHEST: Rise symmetrical. Breath sounds clear. HEART: S1, S2. ABDOMEN: Soft, bowel tones present. EXTREMITIES: Without cyanosis. Right lower extremity wound VAC present. ASSESSMENT: 1. Right below-knee amputation, infected stump with OM, status post revision with rotation flap and wound VAC application. 2. Diabetes. 3. Hypertension. 4. Diarrhea==> r/o C dif PLAN: The patient remains stable. Pathology + acute OM, will need 6 weeks IV Vancomycin or Daptomycin, stool for C dif DW staff Problems: Consultation Date/Type/Reason Admit Date/Time June 12, 2016 at 13:22 Type of Consultation: ID Exam/Review of Systems Vital Signs Vitals Vital Signs Date Time Temp Pulse Resp B/P Pulse Ox O2 Delivery O2 Flow Rate FiO2 06/23/16 08:09 98.2 79 20 111/62 97 Intake and Output 06/22/16 06/22/16 06/23/16 14:59 22:59 06:59 Intake Total 250 ml 1650 ml 900 ml Output Total 1850 ml 1200 ml Balance 250 ml -200 ml -300 ml Results Result Diagram: 06/23/16 0538 06/23/16 0538 Results 24 hrs Laboratory Tests Test 06/22/16 21:00 06/23/16 05:38 06/23/16 08:08 06/23/16 12:05 Bedside Glucose 83 101 156 White Blood Count 6.6 Red Blood Count 3.59 L Hemoglobin 10.2 L Hematocrit 31.7 L Mean Corpuscular Volume 88.3 Mean Corpuscular Hemoglobin 28.4 L Mean Corpuscular Hemoglobin Concent 32.2 Red Cell Distribution Width 14.3 Platelet Count 305 Mean Platelet Volume 9.5 Neutrophils % 55.4 Lymphocytes % 28.5 Monocytes % 7.4 Eosinophils % 7.6 H Basophils % 0.6 Nucleated Red Blood Cells % 0.0 Neutrophils # 3.7 Lymphocytes # 1.9 Monocytes # 0.5 Eosinophils # 0.5 Basophils # 0.0 Nucleated Red Blood Cells # 0.0 Sodium Level 138 Potassium Level 4.1 Chloride Level 104 Carbon Dioxide Level 28 Anion Gap 10 # Blood Urea Nitrogen 20 Creatinine 0.66 Glucose Level 127 Calcium Level 9.2 Test 06/23/16 17:29 Bedside Glucose 124 Medications Medications Current Medications Aspirin (Halfprin) 81 mg DAILY PO Last administered on 06/23/16 08:23; Admin Dose 81 MG; Start 06/13/16 at 09:00 Gabapentin (Neurontin) 300 mg TID PO Last administered on 06/23/16 12:48; Admin Dose 300 MG; Start 06/12/16 at 21:00 Lisinopril (Zestril) 20 mg DAILY PO Last administered on 06/23/16 08:10; Admin Dose 20 MG; Start 06/13/16 at 09:00 Metoprolol Tartrate 25 mg 25 mg BID PO Last administered on 06/23/16 08:10; Admin Dose 25 MG; Start 06/12/16 at 21:00 Sodium Chloride (NS) 1,000 ml @ 40 mls/hr Q24H IV Last administered on 18:55; Admin Dose 40 MLS/HR; Start 06/12/16 at 17:15 Ondansetron HCl (Zofran Inj) 4 mg Q6H PRN IV NAUSEA AND/OR VOMITING; Start 06/12 at 17:30 Acetaminophen (Tylenol Tab) 650 mg Q6H PRN PO PAIN LEVEL 1-3 OR FEVER; Start at 17:30 Acetaminophen/ Hydrocodone Bitart ([place] (5/325)) 1 tab Q6H PRN PO MODERATE PAIN LEVEL 4-6 Last administered on 06/23/16 08:15; Admin Dose 1 TAB; Start 06/12/16 at 17:30 Docusate Sodium (Colace) 100 mg Q12H PRN PO CONSTIPATION; Start 06/12/16 at 17: 30 Pantoprazole (Protonix Tab) 40 mg DAILY@06 PO Last administered on 06/23/16 05 :44; Admin Dose 40 MG; Start 06/13/16 at 06:00 Enoxaparin Sodium (Lovenox) 30 mg DAILY SC Last administered on 06/23/16 08:12 ; Admin Dose 30 MG; Start 06/13/16 at 09:00 Diagnostic Test (Pha) (Accu-Chek) 1 ea 02 XX Last administered on 06/20/16 02: 07; Admin Dose 1 EA; Start 06/13/16 at 02:00 Miscellaneous Information 1 ea NOTE XX ; Start 06/12/16 at 17:30 Glucose (Glutose) 15 gm Q15M PRN PO DECREASED GLUCOSE; Start 06/12/16 at 17:30 Glucose (Glutose) 22.5 gm Q15M PRN PO DECREASED GLUCOSE; Start 06/12/16 at 17:30 Dextrose (D50w Syringe) 25 ml Q15M PRN IV DECREASED GLUCOSE; Start 06/12/16 at 17:30 Dextrose (D50w Syringe) 50 ml Q15M PRN IV DECREASED GLUCOSE; Start 06/12/16 at 17:30 Glucagon (Glucagen) 1 mg Q15M PRN IM DECREASED GLUCOSE; Start 06/12/16 at 17:30 Glucose (Glutose) 15 gm Q15M PRN BUCCAL DECREASED GLUCOSE; Start 06/12/16 at 17: 30 Insulin Glargine (Lantus) 12 unit DAILY@20 SC Last administered on 06/22/16 21 :05; Admin Dose 12 UNIT; Start 06/13/16 at 20:00; Status Future hold Linagliptin (Tradjenta) 5 mg DAILY PO Last administered on 06/23/16 08:10; Admin Dose 5 MG; Start 06/15/16 at 09:00 Atorvastatin Calcium (Lipitor) 10 mg QHS PO Last administered on 06/22/16 21: 03; Admin Dose 10 MG; Start 06/15/16 at 21:00 IV Flush 10 ml 10 ml PRN PRN IV IV PROTOCOL; Start 06/20/16 at 16:30 Vancomycin HCl/ Sodium Chloride (Vancocin/NS) 250 ml @ 83.333 mls/ hr Q12H IVPB Last administered on 06/23/16 18:09; Admin Dose 83.333 MLS/HR; Start at 07:00 Miscellaneous Information (*Rx Drug Level Order Reminder*) VANCO TROUGH @ 1, 800 ON... ONCE ONCE XX ; Start 06/24/16 at 18:00; Stop 06/24/16 at 18:01 HILARIO ACUÑA NP June 23, 2016 18:21
[2016-06-23 20:00] VITALS: BP 129/72; PULSE 88; RESP 19
[2016-06-23] MEDS: ATORVASTATIN 10 MG TAB PO SCH (20:59)
[2016-06-23] MEDS: INSULIN GLARGINE [LANtus] 3 ML PEN SC SCH (21:00)
[2016-06-24] MEDS: ACCU-CHEK XX SCH (02:00)
[2016-06-24] MEDS: VANCOMYCIN 1.25 GM in SOD CHLORIDE 0.9% 250 ML IVPB SCH ×2 (06:05→20:44)
[2016-06-24] MEDS: PANTOPRAZOLE (EC) 40 MG TAB PO SCH (06:05)
[2016-06-24] MEDS: SOD CHLORIDE 0.9% 1,000 ML IV SCH (06:07)
[2016-06-24 07:41] VITALS: BP 100/60; RESP 18
[2016-06-24 07:50] VITALS: BP 98/62; RESP 18
[2016-06-24] MEDS: INSULIN ASPART [NOVOLOG] 3 ML PEN SC SCH ×7 (08:10→20:46)
[2016-06-24] MEDS: ASPIRIN (EC) 81 MG TAB PO SCH (08:32)
[2016-06-24] MEDS: metFORMIN 500 MG TAB PO SCH ×2 (08:32→17:36)
[2016-06-24] MEDS: GABAPENTIN 300 MG CAP PO SCH ×3 (08:32→20:44)
[2016-06-24] MEDS: LINAGLIPTIN 5 MG TABLET PO SCH (08:33)
[2016-06-24] MEDS: METOPROLOL 25 MG TAB PO SCH ×2 (08:34→20:45)
[2016-06-24] MEDS: LISINOPRIL 20 MG TAB PO SCH ×2 (08:34→12:28)
[2016-06-24] MEDS: ENOXAPARIN 30 MG/0.3 ML SYG SC SCH (08:44)
[2016-06-24] MEDS: HYDROCODONE/APAP (5/325) TAB PO PRN (09:16)
--- NOTE | 2016-06-24 11:12 | PN ---
Date/Time of Note Date/Time of Note DATE: 06/24/16 TIME: 11:10 Assessment/Plan VTE Prophylaxis VTE Prophylaxis Intervention: other Lines/Catheters IV Catheter Type (from Nrsg): PICC Line Central line still needed: Yes Assessment/Plan Assessment/Plan 1. Right [id number] amputation stump dehiscence, laceration, possible infection. S/p debridement and creation of a rotational flap by Dr. Fuller, vascular surgery, on 06/13. Continue IV antibiotics. Continue wound VAC. Pathology positive for osteomyelitis. Dr. Eldridge is following infection disease consultation. 2. Diabetes mellitus type 2. Hemoglobin A1c is 8.7. Continue Tradjenta, Lantus, pre-meal NovoLog, and NovoLog per mild algorithm sliding scale a.c. and at bedtime. 3. Hypertension. Continue metoprolol and lisinopril. Continue to monitor blood pressure. 4. Homelessness. Case management plan for DC planning Further recommendations based on clinical course. Plan of care discussed with Dr. Li. Subjective 24 Hr Interval Summary Free Text/Dictation nad, sitting up in the bed, afebrile states feels better denies any right extremity pain, wound VAC intact, discussed with the staff no new events reported overnight Eyes: no complaints ENT: no complaints Respiratory: no complaints Cardiovascular: no complaints Gastrointestinal: no complaints Genitourinary: no complaints Musculoskeletal: bone/joint pain (None at present feels better) Skin: other Neurologic: no complaints Endocrine: no complaints Lymphatic: no complaints Psychological: nl mood/affect Immunologic: no complaints Exam/Review of Systems Vital Signs Vitals Vital Signs Date Time Temp Pulse Resp B/P Pulse Ox O2 Delivery O2 Flow Rate FiO2 06/24/16 07:50 97.7 75 18 98/62 96 06/23/16 20:00 Room Air Intake and Output 06/23/16 06/23/16 06/24/16 15:00 23:00 07:00 Intake Total 250 ml 3820 ml 1010 ml Output Total 1500 ml 1800 ml Balance 250 ml 2320 ml -790 ml Exam Constitutional: alert, oriented, well developed Psych: nl mood/affect Head: atraumatic Eyes: nl sclera ENMT: nl external ears & nose Neck: non-tender Respiratory: clear to auscultation Cardiovascular: nl pulses Gastrointestinal: non-tender, soft Musculoskeletal: other Extremities: normal pulses Neurological: nl mental status, nl speech Skin: other Lymph: nontender Results Result Diagram: 06/23/16 0538 06/23/16 0538 Results 24 hrs Laboratory Tests Test 06/23/16 12:05 06/23/16 17:29 06/23/16 20:57 06/24/16 08:00 Bedside Glucose 156 124 136 135 Medications Medications Current Medications Aspirin (Halfprin) 81 mg DAILY PO Last administered on 06/24/16 08:32; Admin Dose 81 MG; Start 06/13/16 at 09:00 Gabapentin (Neurontin) 300 mg TID PO Last administered on 06/24/16 08:32; Admin Dose 300 MG; Start 06/12/16 at 21:00 Lisinopril (Zestril) 20 mg DAILY PO Last administered on 06/23/16 08:10; Admin Dose 20 MG; Start 06/13/16 at 09:00 Metoprolol Tartrate 25 mg 25 mg BID PO Last administered on 06/24/16 08:34; Admin Dose 25 MG; Start 06/12/16 at 21:00 Sodium Chloride (NS) 1,000 ml @ 40 mls/hr Q24H IV Last administered on 06:07; Admin Dose 40 MLS/HR; Start 06/12/16 at 17:15 Ondansetron HCl (Zofran Inj) 4 mg Q6H PRN IV NAUSEA AND/OR VOMITING; Start 06/12 at 17:30 Acetaminophen (Tylenol Tab) 650 mg Q6H PRN PO PAIN LEVEL 1-3 OR FEVER; Start at 17:30 Acetaminophen/ Hydrocodone Bitart ([place] (5/325)) 1 tab Q6H PRN PO MODERATE PAIN LEVEL 4-6 Last administered on 06/24/16 09:16; Admin Dose 1 TAB; Start 06/12/16 at 17:30 Docusate Sodium (Colace) 100 mg Q12H PRN PO CONSTIPATION; Start 06/12/16 at 17: 30 Pantoprazole (Protonix Tab) 40 mg DAILY@06 PO Last administered on 06/24/16 06 :05; Admin Dose 40 MG; Start 06/13/16 at 06:00 Enoxaparin Sodium (Lovenox) 30 mg DAILY SC Last administered on 06/24/16 08:44 ; Admin Dose 30 MG; Start 06/13/16 at 09:00 Diagnostic Test (Pha) (Accu-Chek) 1 ea 02 XX Last administered on 06/20/16 02: 07; Admin Dose 1 EA; Start 06/13/16 at 02:00 Miscellaneous Information 1 ea NOTE XX ; Start 06/12/16 at 17:30 Glucose (Glutose) 15 gm Q15M PRN PO DECREASED GLUCOSE; Start 06/12/16 at 17:30 Glucose (Glutose) 22.5 gm Q15M PRN PO DECREASED GLUCOSE; Start 06/12/16 at 17:30 Dextrose (D50w Syringe) 25 ml Q15M PRN IV DECREASED GLUCOSE; Start 06/12/16 at 17:30 Dextrose (D50w Syringe) 50 ml Q15M PRN IV DECREASED GLUCOSE; Start 06/12/16 at 17:30 Glucagon (Glucagen) 1 mg Q15M PRN IM DECREASED GLUCOSE; Start 06/12/16 at 17:30 Glucose (Glutose) 15 gm Q15M PRN BUCCAL DECREASED GLUCOSE; Start 06/12/16 at 17: 30 Insulin Glargine (Lantus) 12 unit DAILY@20 SC Last administered on 06/23/16 21 :00; Admin Dose 12 UNIT; Start 06/13/16 at 20:00; Status Future hold Linagliptin (Tradjenta) 5 mg DAILY PO Last administered on 06/24/16 08:33; Admin Dose 5 MG; Start 06/15/16 at 09:00 Atorvastatin Calcium (Lipitor) 10 mg QHS PO Last administered on 06/23/16 20: 59; Admin Dose 10 MG; Start 06/15/16 at 21:00 IV Flush 10 ml 10 ml PRN PRN IV IV PROTOCOL; Start 06/20/16 at 16:30 Vancomycin HCl/ Sodium Chloride (Vancocin/NS) 250 ml @ 83.333 mls/ hr Q12H IVPB Last administered on 06/24/16 06:05; Admin Dose 83.333 MLS/HR; Start at 07:00 Miscellaneous Information (*Rx Drug Level Order Reminder*) VANCO TROUGH @ 1, 800 ON... ONCE ONCE XX ; Start 06/24/16 at 18:00; Stop 06/24/16 at 18:01 ABRAHAN PINA June 24, 2016 11:12
[2016-06-24 20:36] VITALS: BP 125/66; RESP 18
[2016-06-24] MEDS: ATORVASTATIN 10 MG TAB PO SCH (20:44)
[2016-06-24] MEDS: INSULIN GLARGINE [LANtus] 3 ML PEN SC SCH (20:48)
[2016-06-25] MEDS: ACCU-CHEK XX SCH (02:00)
[2016-06-25] MEDS: PANTOPRAZOLE (EC) 40 MG TAB PO SCH (05:39)
[2016-06-25] MEDS: VANCOMYCIN 1.25 GM in SOD CHLORIDE 0.9% 250 ML IVPB SCH ×2 (05:39→18:51)
[2016-06-25] MEDS: SOD CHLORIDE 0.9% 1,000 ML IV SCH (05:39)
[2016-06-25 06:46] LABS: ADD SCAN DIFF NO
[2016-06-25 06:48] LABS: BASOPHILS % 0.5 % (0.0-2.0); EOSINOPHILS # 0.5 10^3/ul (0.0-0.5); EOSINOPHILS % 7.2 % (0.0-7.0); HEMATOCRIT 31.5 % (42.0-52.0); HEMOGLOBIN 10.1 g/dl (14.0-18.0); LYMPHOCYTES # 1.9 10^3/ul (0.8-2.9); LYMPHOCYTES % 25.1 % (15.0-51.0); MEAN CORPUSCULAR HEMOGLOBIN 28.3 pg (29.0-33.0); MEAN CORPUSCULAR HGB CONC 32.1 g/dl (32.0-37.0); MEAN CORPUSCULAR VOLUME 88.2 fl (82.0-101.0); MONOCYTE # 0.5 10^3/ul (0.3-0.9); MONOCYTES % 6.8 % (0.0-11.0); NEUTROPHIL # 4.5 10^3/ul (1.6-7.5); PLATELET COUNT 293 10^3/UL (140-415); RED BLOOD COUNT 3.57 10^6/ul (4.70-6.10); RED CELL DISTRIBUTION WIDTH 14.6 % (11.5-14.5); WHITE BLOOD COUNT 7.5 10^3/ul (4.8-10.8)
[2016-06-25 07:11] LABS: CALCIUM 9.4 mg/dl (8.4-10.2); CREATININE 0.63 mg/dl (0.61-1.24); POTASSIUM 3.7 mmol/L (3.5-5.1)
[2016-06-25 07:36] VITALS: BP 106/65; RESP 18
[2016-06-25] MEDS: INSULIN ASPART [NOVOLOG] 3 ML PEN SC SCH ×7 (08:04→20:43)
[2016-06-25] MEDS: GABAPENTIN 300 MG CAP PO SCH ×3 (08:13→20:41)
[2016-06-25] MEDS: LINAGLIPTIN 5 MG TABLET PO SCH (08:13)
[2016-06-25] MEDS: ASPIRIN (EC) 81 MG TAB PO SCH (08:13)
[2016-06-25] MEDS: metFORMIN 500 MG TAB PO SCH ×2 (08:13→17:37)
[2016-06-25] MEDS: METOPROLOL 25 MG TAB PO SCH ×2 (08:16→20:43)
[2016-06-25] MEDS: LISINOPRIL 20 MG TAB PO SCH (08:16)
[2016-06-25] MEDS: ENOXAPARIN 30 MG/0.3 ML SYG SC SCH (08:29)
--- NOTE | 2016-06-25 13:57 | PN ---
Date/Time of Note Date/Time of Note DATE: 06/25/16 TIME: 13:55 Assessment/Plan VTE Prophylaxis VTE Prophylaxis Intervention: SCD's, other Lines/Catheters IV Catheter Type (from Nrsg): PICC Line Central line still needed: Yes Assessment/Plan Assessment/Plan 1. Right [id number] amputation stump dehiscence, laceration, possible infection. S/p debridement and creation of a rotational flap by Dr. Fuller, vascular surgery, on 06/13. Continue IV antibiotics. Continue wound VAC. Pathology positive for osteomyelitis. Dr. Eldridge is following infection disease consultation. 2. Diabetes mellitus type 2. Hemoglobin A1c is 8.7. Continue Tradjenta, Lantus, pre-meal NovoLog, and NovoLog per mild algorithm sliding scale a.c. and at bedtime. 3. Hypertension. Continue metoprolol and lisinopril. Continue to monitor blood pressure. 4. Homelessness. Case management plan for DC planning Further recommendations based on clinical course. Plan of care discussed with Dr. Li. Subjective 24 Hr Interval Summary Free Text/Dictation nad, sitting up in the bed, afebrile c/o right extremity pain, wound VAC intact , discussed with the staff no new events reported overnight Respiratory: no complaints Cardiovascular: no complaints Gastrointestinal: no complaints Musculoskeletal: bone/joint pain Exam/Review of Systems Vital Signs Vitals Vital Signs Date Time Temp Pulse Resp B/P Pulse Ox O2 Delivery O2 Flow Rate FiO2 06/25/16 07:36 97.7 72 18 106/65 98 06/23/16 20:00 Room Air Intake and Output 06/24/16 06/24/16 06/25/16 15:00 23:00 07:00 Intake Total 250 ml 1920 ml 1350 ml Output Total 2300 ml 1700 ml Balance 250 ml -380 ml -350 ml Exam Constitutional: alert, well developed Respiratory: clear to auscultation Cardiovascular: nl pulses, regular rate and rhythm Gastrointestinal: non-tender, soft Musculoskeletal: other Extremities: other Neurological: nl mental status, nl speech Skin: other Results Result Diagram: 06/25/16 0530 06/25/16 0530 Results 24 hrs Laboratory Tests Test 06/24/16 17:33 06/24/16 18:55 06/24/16 20:40 06/25/16 05:30 Bedside Glucose 93 111 Vancomycin Level Trough 14.4 White Blood Count 7.5 Red Blood Count 3.57 L Hemoglobin 10.1 L Hematocrit 31.5 L Mean Corpuscular Volume 88.2 Mean Corpuscular Hemoglobin 28.3 L Mean Corpuscular Hemoglobin Concent 32.1 Red Cell Distribution Width 14.6 H Platelet Count 293 Mean Platelet Volume 10.0 Neutrophils % 60.0 Lymphocytes % 25.1 Monocytes % 6.8 Eosinophils % 7.2 H Basophils % 0.5 Nucleated Red Blood Cells % 0.0 Neutrophils # 4.5 Lymphocytes # 1.9 Monocytes # 0.5 Eosinophils # 0.5 Basophils # 0.0 Nucleated Red Blood Cells # 0.0 Sodium Level 139 Potassium Level 3.7 Chloride Level 103 Carbon Dioxide Level 28 Anion Gap 12 Blood Urea Nitrogen 17 Creatinine 0.63 Glucose Level 117 Calcium Level 9.4 Test 06/25/16 07:58 06/25/16 12:05 Bedside Glucose 115 205 Medications Medications Current Medications Aspirin (Halfprin) 81 mg DAILY PO Last administered on 06/25/16 08:13; Admin Dose 81 MG; Start 06/13/16 at 09:00 Gabapentin (Neurontin) 300 mg TID PO Last administered on 06/25/16 12:08; Admin Dose 300 MG; Start 06/12/16 at 21:00 Lisinopril (Zestril) 20 mg DAILY PO Last administered on 06/25/16 08:16; Admin Dose 20 MG; Start 06/13/16 at 09:00 Metoprolol Tartrate 25 mg 25 mg BID PO Last administered on 06/25/16 08:16; Admin Dose 25 MG; Start 06/12/16 at 21:00 Sodium Chloride (NS) 1,000 ml @ 40 mls/hr Q24H IV Last administered on 05:39; Admin Dose 40 MLS/HR; Start 06/12/16 at 17:15 Ondansetron HCl (Zofran Inj) 4 mg Q6H PRN IV NAUSEA AND/OR VOMITING; Start 06/12 at 17:30 Acetaminophen (Tylenol Tab) 650 mg Q6H PRN PO PAIN LEVEL 1-3 OR FEVER; Start at 17:30 Acetaminophen/ Hydrocodone Bitart ([place] (5/325)) 1 tab Q6H PRN PO MODERATE PAIN LEVEL 4-6 Last administered on 06/24/16 09:16; Admin Dose 1 TAB; Start 06/12/16 at 17:30 Docusate Sodium (Colace) 100 mg Q12H PRN PO CONSTIPATION; Start 06/12/16 at 17: 30 Pantoprazole (Protonix Tab) 40 mg DAILY@06 PO Last administered on 06/25/16 05 :39; Admin Dose 40 MG; Start 06/13/16 at 06:00 Enoxaparin Sodium (Lovenox) 30 mg DAILY SC Last administered on 06/25/16 08:29 ; Admin Dose 30 MG; Start 06/13/16 at 09:00 Diagnostic Test (Pha) (Accu-Chek) 1 ea 02 XX Last administered on 06/20/16 02: 07; Admin Dose 1 EA; Start 06/13/16 at 02:00 Miscellaneous Information 1 ea NOTE XX ; Start 06/12/16 at 17:30 Glucose (Glutose) 15 gm Q15M PRN PO DECREASED GLUCOSE; Start 06/12/16 at 17:30 Glucose (Glutose) 22.5 gm Q15M PRN PO DECREASED GLUCOSE; Start 06/12/16 at 17:30 Dextrose (D50w Syringe) 25 ml Q15M PRN IV DECREASED GLUCOSE; Start 06/12/16 at 17:30 Dextrose (D50w Syringe) 50 ml Q15M PRN IV DECREASED GLUCOSE; Start 06/12/16 at 17:30 Glucagon (Glucagen) 1 mg Q15M PRN IM DECREASED GLUCOSE; Start 06/12/16 at 17:30 Glucose (Glutose) 15 gm Q15M PRN BUCCAL DECREASED GLUCOSE; Start 06/12/16 at 17: 30 Insulin Glargine (Lantus) 12 unit DAILY@20 SC Last administered on 06/24/16 20 :48; Admin Dose 12 UNIT; Start 06/13/16 at 20:00; Status Future hold Linagliptin (Tradjenta) 5 mg DAILY PO Last administered on 06/25/16 08:13; Admin Dose 5 MG; Start 06/15/16 at 09:00 Atorvastatin Calcium (Lipitor) 10 mg QHS PO Last administered on 06/24/16 20: 44; Admin Dose 10 MG; Start 06/15/16 at 21:00 IV Flush 10 ml 10 ml PRN PRN IV IV PROTOCOL; Start 06/20/16 at 16:30 Vancomycin HCl/ Sodium Chloride (Vancocin/NS) 250 ml @ 83.333 mls/ hr Q12H IVPB Last administered on 06/25/16t 05:39; Admin Dose 83.333 MLS/HR; Start at 07:00 ABRAHAN PINA June 25, 2016 13:57
[2016-06-25 20:08] VITALS: BP 104/74; RESP 18
[2016-06-25] MEDS: ATORVASTATIN 10 MG TAB PO SCH (20:42)
[2016-06-25] MEDS: INSULIN GLARGINE [LANtus] 3 ML PEN SC SCH (20:46)
[2016-06-25] MEDS: HYDROCODONE/APAP (5/325) TAB PO PRN (20:48)
[2016-06-26] MEDS: ACCU-CHEK XX SCH (02:00)
[2016-06-26] MEDS: PANTOPRAZOLE (EC) 40 MG TAB PO SCH (06:39)
[2016-06-26] MEDS: VANCOMYCIN 1.25 GM in SOD CHLORIDE 0.9% 250 ML IVPB SCH ×2 (06:39→18:22)
[2016-06-26 07:22] VITALS: BP 114/62; RESP 18
[2016-06-26] MEDS: INSULIN ASPART [NOVOLOG] 3 ML PEN SC SCH ×7 (08:15→20:45)
[2016-06-26] MEDS: ASPIRIN (EC) 81 MG TAB PO SCH (09:20)
[2016-06-26] MEDS: METOPROLOL 25 MG TAB PO SCH ×2 (09:21→20:45)
[2016-06-26] MEDS: LINAGLIPTIN 5 MG TABLET PO SCH (09:21)
[2016-06-26] MEDS: LISINOPRIL 20 MG TAB PO SCH (09:21)
[2016-06-26] MEDS: GABAPENTIN 300 MG CAP PO SCH ×3 (09:21→20:45)
[2016-06-26] MEDS: metFORMIN 500 MG TAB PO SCH ×2 (09:29→17:40)
[2016-06-26] MEDS: ENOXAPARIN 30 MG/0.3 ML SYG SC SCH (09:35)
[2016-06-26] MEDS: HYDROCODONE/APAP (5/325) TAB PO PRN ×2 (09:36→20:49)
--- NOTE | 2016-06-26 13:43 | CONS ---
Date/Time of Note Date/Time of Note DATE: 06/26/16 TIME: 13:42 Assessment/Plan Assessment/Plan Chief Complaint/Hosp Course SUBJECTIVE: Alert, looks comfortable, no fevers. MICROBIOLOGY: Wound culture growing MSSA/Enterococcus ANTIMICROBIALS: Vancomycin PHYSICAL EXAMINATION: GENERAL: This is a well-nourished, well-developed elderly man who is awake, in no distress. HEENT: Head: Atraumatic, normocephalic. Sclerae anicteric. Buccal mucosa pink. NECK: Supple, trachea midline. CHEST: Rise symmetrical. Breath sounds clear. HEART: S1, S2. ABDOMEN: Soft, bowel tones present. EXTREMITIES: Without cyanosis. Right lower extremity wound VAC present. ASSESSMENT: 1. Right below-knee amputation, infected stump with OM, status post revision with rotation flap and wound VAC application. 2. Diabetes. 3. Hypertension. 4. Diarrhea==> r/o C dif PLAN: The patient remains stable. Continue local wound care, will treat with Vancomycin for 6 weeks [facility] staff Problems: Consultation Date/Type/Reason Admit Date/Time June 12, 2016 at 13:22 Type of Consultation: ID Exam/Review of Systems Vital Signs Vitals Vital Signs Date Time Temp Pulse Resp B/P Pulse Ox O2 Delivery O2 Flow Rate FiO2 06/26/16 07:22 97.9 61 18 114/62 99 06/23/16 20:00 Room Air Intake and Output 06/25/16 06/25/16 06/26/16 15:00 23:00 07:00 Intake Total 250 ml 1490 ml 600 ml Output Total 1550 ml 1500 ml Balance 250 ml -60 ml -900 ml Results Result Diagram: 06/25/16 0530 06/25/16 0530 Results 24 hrs Laboratory Tests Test 06/25/16 17:27 06/25/16 20:39 06/26/16 08:04 06/26/16 09:19 Bedside Glucose 173 136 95 97 Test 06/26/16 12:34 06/26/16 13:01 06/26/16 13:22 Bedside Glucose 60 L 95 132 Medications Medications Current Medications Aspirin (Halfprin) 81 mg DAILY PO Last administered on 06/26/16 09:20; Admin Dose 81 MG; Start 06/13/16 at 09:00 Gabapentin (Neurontin) 300 mg TID PO Last administered on 06/26/16 12:33; Admin Dose 300 MG; Start 06/12/16 at 21:00 Lisinopril (Zestril) 20 mg DAILY PO Last administered on 06/26/16 09:21; Admin Dose 20 MG; Start 06/13/16 at 09:00 Metoprolol Tartrate 25 mg 25 mg BID PO Last administered on 06/26/16 09:21; Admin Dose 25 MG; Start 06/12/16 at 21:00 Sodium Chloride (NS) 1,000 ml @ 40 mls/hr Q24H IV Last administered on 05:39; Admin Dose 40 MLS/HR; Start 06/12/16 at 17:15 Ondansetron HCl (Zofran Inj) 4 mg Q6H PRN IV NAUSEA AND/OR VOMITING; Start 06/12 at 17:30 Acetaminophen (Tylenol Tab) 650 mg Q6H PRN PO PAIN LEVEL 1-3 OR FEVER; Start at 17:30 Acetaminophen/ Hydrocodone Bitart ([place] (5/325)) 1 tab Q6H PRN PO MODERATE PAIN LEVEL 4-6 Last administered on 06/26/16 09:36; Admin Dose 1 TAB; Start 06/12/16 at 17:30 Docusate Sodium (Colace) 100 mg Q12H PRN PO CONSTIPATION; Start 06/12/16 at 17: 30 Pantoprazole (Protonix Tab) 40 mg DAILY@06 PO Last administered on 06/26/16 06 :39; Admin Dose 40 MG; Start 06/13/16 at 06:00 Enoxaparin Sodium (Lovenox) 30 mg DAILY SC Last administered on 06/26/16 09:35 ; Admin Dose 30 MG; Start 06/13/16 at 09:00 Diagnostic Test (Pha) (Accu-Chek) 1 ea 02 XX Last administered on 06/20/16 02: 07; Admin Dose 1 EA; Start 06/13/16 at 02:00 Miscellaneous Information 1 ea NOTE XX ; Start 06/12/16 at 17:30 Glucose (Glutose) 15 gm Q15M PRN PO DECREASED GLUCOSE; Start 06/12/16 at 17:30 Glucose (Glutose) 22.5 gm Q15M PRN PO DECREASED GLUCOSE; Start 06/12/16 at 17:30 Dextrose (D50w Syringe) 25 ml Q15M PRN IV DECREASED GLUCOSE; Start 06/12/16 at 17:30 Dextrose (D50w Syringe) 50 ml Q15M PRN IV DECREASED GLUCOSE; Start 06/12/16 at 17:30 Glucagon (Glucagen) 1 mg Q15M PRN IM DECREASED GLUCOSE; Start 06/12/16 at 17:30 Glucose (Glutose) 15 gm Q15M PRN BUCCAL DECREASED GLUCOSE; Start 06/12/16 at 17: 30 Insulin Glargine (Lantus) 12 unit DAILY@20 SC Last administered on 06/25/16 20 :46; Admin Dose 12 UNIT; Start 06/13/16 at 20:00; Status Future hold Linagliptin (Tradjenta) 5 mg DAILY PO Last administered on 06/26/16 09:21; Admin Dose 5 MG; Start 06/15/16 at 09:00 Atorvastatin Calcium (Lipitor) 10 mg QHS PO Last administered on 06/25/16 20: 42; Admin Dose 10 MG; Start 06/15/16 at 21:00 IV Flush 10 ml 10 ml PRN PRN IV IV PROTOCOL; Start 06/20/16 at 16:30 Vancomycin HCl/ Sodium Chloride (Vancocin/NS) 250 ml @ 83.333 mls/ hr Q12H IVPB Last administered on 06/26/16 06:39; Admin Dose 83.333 MLS/HR; Start at 07:00 HILARIO ACUÑA NP June 26, 2016 13:43
[2016-06-26] MEDS: SOD CHLORIDE 0.9% 1,000 ML IV SCH (17:40)
--- NOTE | 2016-06-26 19:30 | PN ---
Date/Time of Note Date/Time of Note DATE: 06/26/16 TIME: 19:29 Assessment/Plan VTE Prophylaxis VTE Prophylaxis Intervention: SCD's Lines/Catheters IV Catheter Type (from Nrs): PICC Line Central line still needed: Yes Assessment/Plan Chief Complaint/Hosp Course ASSESSMENT AND PLAN: 1. Right [id number] amputation stump dehiscence, laceration, possible infection. S/p debridement and creation of a rotational flap by Dr. Fuller, vascular surgery, on 06/13. Continue IV antibiotics. Continue wound VAC. Pathology positive for osteomyelitis. Dr. Eldridge is following infection disease consultation. 2. Diabetes mellitus type 2. Hemoglobin A1c is 8.7. Continue Tradjenta, Lantus, pre-meal NovoLog, and NovoLog per mild algorithm sliding scale a.c. and at bedtime. 3. Hypertension. Continue metoprolol and lisinopril. Continue to monitor blood pressure. 4. Homelessness. Case management plan for DC planning Further recommendations based on clinical course. Plan of care discussed with Dr. Li. Problems: Subjective 24 Hr Interval Summary Free Text/Dictation Patient's complaint of the right stump pain and numbness, denies any fever nausea vomiting. Status post wound VAC change today. Exam/Review of Systems Vital Signs Vitals Vital Signs Date Time Temp Pulse Resp B/P Pulse Ox O2 Delivery O2 Flow Rate FiO2 06/26/16 07:22 97.9 61 18 114/62 99 06/23/16 20:00 Room Air Intake and Output 06/25/16 06/25/16 06/26/16 15:00 23:00 07:00 Intake Total 250 ml 1490 ml 600 ml Output Total 1550 ml 1500 ml Balance 250 ml -60 ml -900 ml Exam Constitutional: alert, oriented Psych: no complaints Head: normocephalic Neck: supple Respiratory: clear to auscultation Cardiovascular: nl pulses, regular rate and rhythm Gastrointestinal: soft Extremities: normal pulses, other (right BKA wound to wound vac.) 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 Results Result Diagram: 06/25/16 0530 06/25/16 0530 Results 24 hrs Laboratory Tests Test 06/25/16 20:39 06/26/16 08:04 06/26/16 09:19 06/26/16 12:34 Bedside Glucose 136 95 97 60 L Test 06/26/16 13:01 06/26/16 13:22 06/26/16 17:36 Bedside Glucose 95 132 161 Medications Medications Current Medications Aspirin (Halfprin) 81 mg DAILY PO Last administered on 06/26/16 09:20; Admin Dose 81 MG; Start 06/13/16 at 09:00 Gabapentin (Neurontin) 300 mg TID PO Last administered on 06/26/16 12:33; Admin Dose 300 MG; Start 06/12/16 at 21:00 Lisinopril (Zestril) 20 mg DAILY PO Last administered on 06/26/16 09:21; Admin Dose 20 MG; Start 06/13/16 at 09:00 Metoprolol Tartrate 25 mg 25 mg BID PO Last administered on 06/26/16 09:21; Admin Dose 25 MG; Start 06/12/16 at 21:00 Sodium Chloride (NS) 1,000 ml @ 40 mls/hr Q24H IV Last administered on 17:40; Admin Dose 40 MLS/HR; Start 06/12/16 at 17:15 Ondansetron HCl (Zofran Inj) 4 mg Q6H PRN IV NAUSEA AND/OR VOMITING; Start 06/12 at 17:30 Acetaminophen (Tylenol Tab) 650 mg Q6H PRN PO PAIN LEVEL 1-3 OR FEVER; Start at 17:30 Acetaminophen/ Hydrocodone Bitart ([place] (5/325)) 1 tab Q6H PRN PO MODERATE PAIN LEVEL 4-6 Last administered on 06/26/16 09:36; Admin Dose 1 TAB; Start 06/12/16 at 17:30 Docusate Sodium (Colace) 100 mg Q12H PRN PO CONSTIPATION; Start 06/12/16 at 17: 30 Pantoprazole (Protonix Tab) 40 mg DAILY@06 PO Last administered on 06/26/16 06 :39; Admin Dose 40 MG; Start 06/13/16 at 06:00 Enoxaparin Sodium (Lovenox) 30 mg DAILY SC Last administered on 06/26/16 09:35 ; Admin Dose 30 MG; Start 06/13/16 at 09:00 Diagnostic Test (Pha) (Accu-Chek) 1 ea 02 XX Last administered on 06/20/16 02: 07; Admin Dose 1 EA; Start 06/13/16 at 02:00 Miscellaneous Information 1 ea NOTE XX ; Start 06/12/16 at 17:30 Glucose (Glutose) 15 gm Q15M PRN PO DECREASED GLUCOSE; Start 06/12/16 at 17:30 Glucose (Glutose) 22.5 gm Q15M PRN PO DECREASED GLUCOSE; Start 06/12/16 at 17:30 Dextrose (D50w Syringe) 25 ml Q15M PRN IV DECREASED GLUCOSE; Start 06/12/16 at 17:30 Dextrose (D50w Syringe) 50 ml Q15M PRN IV DECREASED GLUCOSE; Start 06/12/16 at 17:30 Glucagon (Glucagen) 1 mg Q15M PRN IM DECREASED GLUCOSE; Start 06/12/16 at 17:30 Glucose (Glutose) 15 gm Q15M PRN BUCCAL DECREASED GLUCOSE; Start 06/12/16 at 17: 30 Insulin Glargine (Lantus) 12 unit DAILY@20 SC Last administered on 06/25/16 20 :46; Admin Dose 12 UNIT; Start 06/13/16 at 20:00; Status Future hold Linagliptin (Tradjenta) 5 mg DAILY PO Last administered on 06/26/16 09:21; Admin Dose 5 MG; Start 06/15/16 at 09:00 Atorvastatin Calcium (Lipitor) 10 mg QHS PO Last administered on 06/25/16 20: 42; Admin Dose 10 MG; Start 06/15/16 at 21:00 IV Flush 10 ml 10 ml PRN PRN IV IV PROTOCOL; Start 06/20/16 at 16:30 Vancomycin HCl/ Sodium Chloride (Vancocin/NS) 250 ml @ 83.333 mls/ hr Q12H IVPB Last administered on 06/26/16 18:22; Admin Dose 83.333 MLS/HR; Start at 07:00 WEI SULLIVAN June 26, 2016 19:30
[2016-06-26 19:43] VITALS: BP 103/58; RESP 18
[2016-06-26] MEDS: ATORVASTATIN 10 MG TAB PO SCH (20:45)
[2016-06-26] MEDS: INSULIN GLARGINE [LANtus] 3 ML PEN SC SCH (20:49)
--- NOTE | 2016-06-26 23:17 | PN ---
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 performed sharp excisional local debridement of muscle, tendon, subcutaneous and skin with scissors. patient tolerated well and rebleeding was initiated - vac reapplied) -Will have wound vac team change MWF -Optimize vascular status (BP meds, diet, nutrition, exercise, sugar control, antiplatelets). -D/C planning with wound vac discharge -Discussed findings, plan of management with the patient and he understands. -Thank you for allowing us to participate in the care of your patient. Please call with any questions. Problems: Subjective 24 Hr Interval Summary no new vascular events overnight Exam/Review of Systems Vital Signs Vitals Vital Signs Date Time Temp Pulse Resp B/P Pulse Ox O2 Delivery O2 Flow Rate FiO2 06/26/16 19:43 98.2 72 18 103/58 99 06/23/16 20:00 Room Air Intake and Output 06/25/16 06/25/16 06/26/16 15:00 23:00 07:00 Intake Total 250 ml 1490 ml 600 ml Output Total 1550 ml 1500 ml Balance 250 ml -60 ml -900 ml Exam Free Text/Dictation GENERAL: Alert and oriented x3, PULMONARY: Clear to auscultation bilaterally CARDIOVASCULAR: S1, S2 present ABDOMEN: Soft, nontender, nondistended. Bowel sounds positive. EXTREMITIES: Right lower extremity: Palpable femoral pulse. BKA stump with cap refill 3 seconds. wound vac-removed, debrided necrotic tissue, muscle, tendon. granulation tissue developing Left lower extremity: Palpable femoral pulse, nonpalpable pedal pulse. Motor, sensory intact. Cap refill 3 to 4 seconds. There is area of lipodermatosclerosis. No ulcers identified. Results Result Diagram: 06/25/1630 06/25/1630 JUAN PRIDE MD June 26, 2016 23:17
[2016-06-27] MEDS: ACCU-CHEK XX SCH (02:00)
[2016-06-27 06:15] LABS: ADD SCAN DIFF NO
[2016-06-27 06:17] LABS: BASOPHIL # 0.1 10^3/ul (0.0-0.1); BASOPHILS % 0.8 % (0.0-2.0); EOSINOPHILS # 0.5 10^3/ul (0.0-0.5); EOSINOPHILS % 7.7 % (0.0-7.0); HEMOGLOBIN 10.3 g/dl (14.0-18.0); LYMPHOCYTES # 1.6 10^3/ul (0.8-2.9); LYMPHOCYTES % 24.5 % (15.0-51.0); MEAN CORPUSCULAR HEMOGLOBIN 27.7 pg (29.0-33.0); MEAN CORPUSCULAR HGB CONC 31.2 g/dl (32.0-37.0); MEAN CORPUSCULAR VOLUME 88.7 fl (82.0-101.0); MEAN PLATELET VOLUME 9.6 fl (7.4-10.4); MONOCYTE # 0.5 10^3/ul (0.3-0.9); MONOCYTES % 7.4 % (0.0-11.0); NEUTROPHIL # 3.9 10^3/ul (1.6-7.5); NEUTROPHILS % 59.3 % (39.0-77.0); PLATELET COUNT 258 10^3/UL (140-415); RED BLOOD COUNT 3.72 10^6/ul (4.70-6.10); RED CELL DISTRIBUTION WIDTH 14.9 % (11.5-14.5); WHITE BLOOD COUNT 6.6 10^3/ul (4.8-10.8)
[2016-06-27] MEDS: PANTOPRAZOLE (EC) 40 MG TAB PO SCH (06:23)
[2016-06-27] MEDS: VANCOMYCIN 1.25 GM in SOD CHLORIDE 0.9% 250 ML IVPB SCH ×2 (06:24→20:07)
[2016-06-27 06:39] LABS: CREATININE 0.7 mg/dl (0.61-1.24)
[2016-06-27 06:40] LABS: CALCIUM 9.3 mg/dl (8.4-10.2)
[2016-06-27 07:56] VITALS: BP 120/59; RESP 18
[2016-06-27] MEDS: INSULIN ASPART [NOVOLOG] 3 ML PEN SC SCH ×7 (08:10→21:09)
[2016-06-27] MEDS: GABAPENTIN 300 MG CAP PO SCH ×3 (08:44→20:11)
[2016-06-27] MEDS: ASPIRIN (EC) 81 MG TAB PO SCH (08:44)
[2016-06-27] MEDS: metFORMIN 500 MG TAB PO SCH ×2 (08:45→17:40)
[2016-06-27] MEDS: METOPROLOL 25 MG TAB PO SCH ×2 (08:46→21:03)
[2016-06-27] MEDS: LISINOPRIL 20 MG TAB PO SCH (08:46)
[2016-06-27] MEDS: LINAGLIPTIN 5 MG TABLET PO SCH (08:46)
[2016-06-27] MEDS: ENOXAPARIN 30 MG/0.3 ML SYG SC SCH (08:56)
[2016-06-27] MEDS: HYDROCODONE/APAP (5/325) TAB PO PRN ×2 (12:58→20:11)
--- NOTE | 2016-06-27 14:21 | CONS ---
Date/Time of Note Date/Time of Note DATE: 06/27/16 TIME: 14:20 Assessment/Plan Assessment/Plan Chief Complaint/Hosp Course SUBJECTIVE: Alert, feels good, awaiting for PT, no fevers MICROBIOLOGY: Wound culture growing MSSA/Enterococcus ANTIMICROBIALS: Vancomycin PHYSICAL EXAMINATION: GENERAL: This is a well-nourished, well-developed elderly man who is awake, in no distress. HEENT: Head: Atraumatic, normocephalic. Sclerae anicteric. Buccal mucosa pink. NECK: Supple, trachea midline. CHEST: Rise symmetrical. Breath sounds clear. HEART: S1, S2. ABDOMEN: Soft, bowel tones present. EXTREMITIES: Without cyanosis. Right lower extremity wound VAC present. ASSESSMENT: 1. Right below-knee amputation, infected stump with OM, status post revision with rotation flap and wound VAC application. 2. Diabetes. 3. Hypertension. PLAN: The patient remains stable. Continue local wound care per vascular and podiatry teams, continue PT, Vancomycin for 6 weeks [facility] staff Problems: Consultation Date/Type/Reason Admit Date/Time June 12, 2016 at 13:22 Type of Consultation: ID Exam/Review of Systems Vital Signs Vitals Vital Signs Date Time Temp Pulse Resp B/P Pulse Ox O2 Delivery O2 Flow Rate FiO2 06/27/16 07:56 97.8 67 18 120/59 100 06/23/16 20:00 Room Air Intake and Output 06/26/16 06/26/16 06/27/16 15:00 23:00 07:00 Intake Total 250 ml 2650 ml 1020 ml Output Total 0 ml 2600 ml 1600 ml Balance 250 ml 50 ml -580 ml Results Result Diagram: 06/27/16 0600 06/27/16 0600 Results 24 hrs Laboratory Tests Test 06/26/16 17:36 06/26/16 20:42 06/27/16 06:00 06/27/16 07:55 Bedside Glucose 161 127 115 White Blood Count 6.6 Red Blood Count 3.72 L Hemoglobin 10.3 L Hematocrit 33.0 L Mean Corpuscular Volume 88.7 Mean Corpuscular Hemoglobin 27.7 L Mean Corpuscular Hemoglobin Concent 31.2 L Red Cell Distribution Width 14.9 H Platelet Count 258 Mean Platelet Volume 9.6 Neutrophils % 59.3 Lymphocytes % 24.5 Monocytes % 7.4 Eosinophils % 7.7 H Basophils % 0.8 Nucleated Red Blood Cells % 0.0 Neutrophils # 3.9 Lymphocytes # 1.6 Monocytes # 0.5 Eosinophils # 0.5 Basophils # 0.1 Nucleated Red Blood Cells # 0.0 Sodium Level 141 Potassium Level 4.0 Chloride Level 102 Carbon Dioxide Level 28 Anion Gap 15 Blood Urea Nitrogen 22 H Creatinine 0.70 Glucose Level 130 Calcium Level 9.3 Test 06/27/16 12:25 Bedside Glucose 157 Medications Medications Current Medications Aspirin (Halfprin) 81 mg DAILY PO Last administered on 06/27/16 08:44; Admin Dose 81 MG; Start 06/13/16 at 09:00 Gabapentin (Neurontin) 300 mg TID PO Last administered on 06/27/16 12:57; Admin Dose 300 MG; Start 06/12/16 at 21:00 Lisinopril (Zestril) 20 mg DAILY PO Last administered on 06/27/16 08:46; Admin Dose 20 MG; Start 06/13/16 at 09:00 Metoprolol Tartrate 25 mg 25 mg BID PO Last administered on 06/27/16 08:46; Admin Dose 25 MG; Start 06/12/16 at 21:00 Sodium Chloride (NS) 1,000 ml @ 40 mls/hr Q24H IV Last administered on 17:40; Admin Dose 40 MLS/HR; Start 06/12/16 at 17:15 Ondansetron HCl (Zofran Inj) 4 mg Q6H PRN IV NAUSEA AND/OR VOMITING; Start 06/12 at 17:30 Acetaminophen (Tylenol Tab) 650 mg Q6H PRN PO PAIN LEVEL 1-3 OR FEVER; Start at 17:30 Acetaminophen/ Hydrocodone Bitart ([place] (5/325)) 1 tab Q6H PRN PO MODERATE PAIN LEVEL 4-6 Last administered on 06/27/16 12:58; Admin Dose 1 TAB; Start 06/12/16 at 17:30 Docusate Sodium (Colace) 100 mg Q12H PRN PO CONSTIPATION; Start 06/12/16 at 17: 30 Pantoprazole (Protonix Tab) 40 mg DAILY@06 PO Last administered on 06/27/16 06 :23; Admin Dose 40 MG; Start 06/13/16 at 06:00 Enoxaparin Sodium (Lovenox) 30 mg DAILY SC Last administered on 06/27/16 08:56 ; Admin Dose 30 MG; Start 06/13/16 at 09:00 Diagnostic Test (Pha) (Accu-Chek) 1 ea 02 XX Last administered on 06/20/16 02: 07; Admin Dose 1 EA; Start 06/13/16 at 02:00 Miscellaneous Information 1 ea NOTE XX ; Start 06/12/16 at 17:30 Glucose (Glutose) 15 gm Q15M PRN PO DECREASED GLUCOSE; Start 06/12/16 at 17:30 Glucose (Glutose) 22.5 gm Q15M PRN PO DECREASED GLUCOSE; Start 06/12/16 at 17:30 Dextrose (D50w Syringe) 25 ml Q15M PRN IV DECREASED GLUCOSE; Start 06/12/16 at 17:30 Dextrose (D50w Syringe) 50 ml Q15M PRN IV DECREASED GLUCOSE; Start 06/12/16 at 17:30 Glucagon (Glucagen) 1 mg Q15M PRN IM DECREASED GLUCOSE; Start 06/12/16 at 17:30 Glucose (Glutose) 15 gm Q15M PRN BUCCAL DECREASED GLUCOSE; Start 06/12/16 at 17: 30 Insulin Glargine (Lantus) 12 unit DAILY@20 SC Last administered on 06/26/16 20 :49; Admin Dose 12 UNIT; Start 06/13/16 at 20:00; Status Future hold Linagliptin (Tradjenta) 5 mg DAILY PO Last administered on 06/27/16 08:46; Admin Dose 5 MG; Start 06/15/16 at 09:00 Atorvastatin Calcium (Lipitor) 10 mg QHS PO Last administered on 06/26/16 20: 45; Admin Dose 10 MG; Start 06/15/16 at 21:00 IV Flush 10 ml 10 ml PRN PRN IV IV PROTOCOL; Start 06/20/16 at 16:30 Vancomycin HCl/ Sodium Chloride (Vancocin/NS) 250 ml @ 83.333 mls/ hr Q12H IVPB Last administered on 06/27/16 06:24; Admin Dose 83.333 MLS/HR; Start at 07:00 Miscellaneous Information (*Rx Drug Level Order Reminder*) VANCO TROUGH @ 1, 800 ON... ONCE ONCE XX ; Start 06/27/16 at 18:00; Stop 06/27/16 at 18:01 HILARIO ACUÑA NP June 27, 2016 14:21
--- NOTE | 2016-06-27 16:42 | PN ---
Date/Time of Note Date/Time of Note DATE: 06/27/16 TIME: 16:40 Assessment/Plan VTE Prophylaxis VTE Prophylaxis Intervention: SCD's Lines/Catheters IV Catheter Type (from Nrs): PICC Line Central line still needed: Yes Assessment/Plan Chief Complaint/Hosp Course No acute events overnight, blood sugar is well controlled, complains of the right stump pain and numbness, pain is controlled with current medication regimen. ASSESSMENT AND PLAN: 1. Right bjksk-gif-[id number] amputation stump dehiscence, laceration, possible infection. S/p debridement and creation of a rotational flap by Dr. Fuller, vascular surgery, on 06/13. Continue IV antibiotics. Continue wound VAC. Pathology positive for osteomyelitis. Dr. Eldridge is following infection disease consultation. 2. Diabetes mellitus type 2. Hemoglobin A1c is 8.7. Continue Tradjenta, Lantus, pre-meal NovoLog, and NovoLog per mild algorithm sliding scale a.c. and at bedtime. 3. Hypertension. Continue metoprolol and lisinopril. Continue to monitor blood pressure. 4. Homelessness. Pending [facility] facility placement. Further recommendations based on clinical course. Plan of care discussed with Dr. Li. Problems: Exam/Review of Systems Vital Signs Vitals Vital Signs Date Time Temp Pulse Resp B/P Pulse Ox O2 Delivery O2 Flow Rate FiO2 06/27/16 07:56 97.8 67 18 120/59 100 06/23/16 20:00 Room Air Intake and Output 06/26/16 06/26/16 06/27/16 15:00 23:00 07:00 Intake Total 250 ml 2650 ml 1020 ml Output Total 0 ml 2600 ml 1600 ml Balance 250 ml 50 ml -580 ml Exam Constitutional: alert, oriented Psych: no complaints Head: normocephalic Neck: supple Respiratory: clear to auscultation Cardiovascular: nl pulses, regular rate and rhythm Gastrointestinal: soft Extremities: normal pulses, other (right BKA wound to wound vac.) 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 Results Result Diagram: 06/27/16 0600 06/27/16 0600 Results 24 hrs Laboratory Tests Test 06/26/16 17:36 06/26/16 20:42 06/27/16 06:00 06/27/16 07:55 Bedside Glucose 161 127 115 White Blood Count 6.6 Red Blood Count 3.72 L Hemoglobin 10.3 L Hematocrit 33.0 L Mean Corpuscular Volume 88.7 Mean Corpuscular Hemoglobin 27.7 L Mean Corpuscular Hemoglobin Concent 31.2 L Red Cell Distribution Width 14.9 H Platelet Count 258 Mean Platelet Volume 9.6 Neutrophils % 59.3 Lymphocytes % 24.5 Monocytes % 7.4 Eosinophils % 7.7 H Basophils % 0.8 Nucleated Red Blood Cells % 0.0 Neutrophils # 3.9 Lymphocytes # 1.6 Monocytes # 0.5 Eosinophils # 0.5 Basophils # 0.1 Nucleated Red Blood Cells # 0.0 Sodium Level 141 Potassium Level 4.0 Chloride Level 102 Carbon Dioxide Level 28 Anion Gap 15 Blood Urea Nitrogen 22 H Creatinine 0.70 Glucose Level 130 Calcium Level 9.3 Test 06/27/16 12:25 Bedside Glucose 157 Medications Medications Current Medications Aspirin (Halfprin) 81 mg DAILY PO Last administered on 06/27/16 08:44; Admin Dose 81 MG; Start 06/13/16 at 09:00 Gabapentin (Neurontin) 300 mg TID PO Last administered on 06/27/16 12:57; Admin Dose 300 MG; Start 06/12/16 at 21:00 Lisinopril (Zestril) 20 mg DAILY PO Last administered on 06/27/16 08:46; Admin Dose 20 MG; Start 06/13/16 at 09:00 Metoprolol Tartrate 25 mg 25 mg BID PO Last administered on 06/27/16 08:46; Admin Dose 25 MG; Start 06/12/16 at 21:00 Sodium Chloride (NS) 1,000 ml @ 40 mls/hr Q24H IV Last administered on 17:40; Admin Dose 40 MLS/HR; Start 06/12/16 at 17:15 Ondansetron HCl (Zofran Inj) 4 mg Q6H PRN IV NAUSEA AND/OR VOMITING; Start 06/12 at 17:30 Acetaminophen (Tylenol Tab) 650 mg Q6H PRN PO PAIN LEVEL 1-3 OR FEVER; Start at 17:30 Acetaminophen/ Hydrocodone Bitart ([place] (5/325)) 1 tab Q6H PRN PO MODERATE PAIN LEVEL 4-6 Last administered on 5/23/17at 12:58; Admin Dose 1 TAB; Start 06/12/16 at 17:30 Docusate Sodium (Colace) 100 mg Q12H PRN PO CONSTIPATION; Start 06/12/16 at 17: 30 Pantoprazole (Protonix Tab) 40 mg DAILY@06 PO Last administered on 06/27/16 06 :23; Admin Dose 40 MG; Start 06/13/16 at 06:00 Enoxaparin Sodium (Lovenox) 30 mg DAILY SC Last administered on 06/27/16 08:56 ; Admin Dose 30 MG; Start 06/13/16 at 09:00 Diagnostic Test (Pha) (Accu-Chek) 1 ea 02 XX Last administered on 06/20/16 02: 07; Admin Dose 1 EA; Start 06/13/16 at 02:00 Miscellaneous Information 1 ea NOTE XX ; Start 06/12/16 at 17:30 Glucose (Glutose) 15 gm Q15M PRN PO DECREASED GLUCOSE; Start 06/12/16 at 17:30 Glucose (Glutose) 22.5 gm Q15M PRN PO DECREASED GLUCOSE; Start 06/12/16 at 17:30 Dextrose (D50w Syringe) 25 ml Q15M PRN IV DECREASED GLUCOSE; Start 06/12/16 at 17:30 Dextrose (D50w Syringe) 50 ml Q15M PRN IV DECREASED GLUCOSE; Start 06/12/16 at 17:30 Glucagon (Glucagen) 1 mg Q15M PRN IM DECREASED GLUCOSE; Start 06/12/16 at 17:30 Glucose (Glutose) 15 gm Q15M PRN BUCCAL DECREASED GLUCOSE; Start 06/12/16 at 17: 30 Insulin Glargine (Lantus) 12 unit DAILY@20 SC Last administered on 06/26/16 20 :49; Admin Dose 12 UNIT; Start 06/13/16 at 20:00; Status Future hold Linagliptin (Tradjenta) 5 mg DAILY PO Last administered on 06/27/16 08:46; Admin Dose 5 MG; Start 06/15/16 at 09:00 Atorvastatin Calcium (Lipitor) 10 mg QHS PO Last administered on 06/26/16 20: 45; Admin Dose 10 MG; Start 06/15/16 at 21:00 IV Flush 10 ml 10 ml PRN PRN IV IV PROTOCOL; Start 06/20/16 at 16:30 Vancomycin HCl/ Sodium Chloride (Vancocin/NS) 250 ml @ 83.333 mls/ hr Q12H IVPB Last administered on 06/27/16t 06:24; Admin Dose 83.333 MLS/HR; Start at 07:00 Miscellaneous Information (*Rx Drug Level Order Reminder*) VANCO TROUGH @ 1, 800 ON... ONCE ONCE XX ; Start 06/27/16 at 18:00; Stop 06/27/16 at 18:01 WEI SULLIVAN June 27, 2016 16:42
[2016-06-27] MEDS: SOD CHLORIDE 0.9% 1,000 ML IV SCH (17:15)
[2016-06-27] MEDS: ATORVASTATIN 10 MG TAB PO SCH (20:11)
[2016-06-27 20:35] VITALS: BP 118/61; RESP 18
[2016-06-27] MEDS: INSULIN GLARGINE [LANtus] 3 ML PEN SC SCH (21:12)
[2016-06-28] MEDS: ACCU-CHEK XX SCH (02:15)
[2016-06-28] MEDS: SOD CHLORIDE 0.9% 1,000 ML IV SCH ×2 (06:23→17:15)
[2016-06-28] MEDS: PANTOPRAZOLE (EC) 40 MG TAB PO SCH (06:24)
[2016-06-28] MEDS: VANCOMYCIN 1.25 GM in SOD CHLORIDE 0.9% 250 ML IVPB SCH ×2 (06:24→19:19)
[2016-06-28 06:52] LABS: CALCIUM 9.3 mg/dl (8.4-10.2); CREATININE 0.79 mg/dl (0.61-1.24); POTASSIUM 4.1 mmol/L (3.5-5.1)
[2016-06-28 07:59] VITALS: BP 126/64; RESP 16
--- NOTE | 2016-06-28 08:13 | RADRPT ---
PROCEDURE: US Lower extremity arterial. CLINICAL INDICATION: peripheral arterial disease, claudication, leg pain TECHNIQUE: Multiple sonographic images of the right lower extremity arteries were obtained utilizi ng grayscale, color-flow and doppler imaging. The images were reviewed on a PACS workstation. COMPARISON: None. FINDINGS: There is moderate calcific plaque. The patient is status post [id number] amputation. Velocities and waveforms were obtained as described below. RIGHT LEG: Right common femoral artery: 193 cm/s; triphasic waveforms Right proximal superficial femoral artery: 123.5 cm/s; triphasic waveforms Right mid superficial femoral artery: 150.7 cm/s; triphasic waveforms Right distal superficial femoral artery: 64.5 cm/s; biphasic waveforms Right popliteal artery: 65 cm/s; biphasic waveforms RPTAT: AA IMPRESSION: Status post [id number] amputation. Moderate calcific plaque, consistent with atherosclerotic disease. .Zach Carolina MD, MD Date Time Electronically viewed and signed by .Zach Carolina MD, on 06/28/2016 08:13 .S/
[2016-06-28] MEDS: INSULIN ASPART [NOVOLOG] 3 ML PEN SC SCH ×7 (08:15→21:00)
[2016-06-28] MEDS: ASPIRIN (EC) 81 MG TAB PO SCH (08:46)
[2016-06-28] MEDS: GABAPENTIN 300 MG CAP PO SCH ×3 (08:46→21:23)
[2016-06-28] MEDS: LINAGLIPTIN 5 MG TABLET PO SCH (08:46)
[2016-06-28] MEDS: METOPROLOL 25 MG TAB PO SCH ×2 (08:46→21:24)
[2016-06-28] MEDS: LISINOPRIL 20 MG TAB PO SCH (08:47)
[2016-06-28] MEDS: metFORMIN 500 MG TAB PO SCH ×2 (08:49→17:23)
[2016-06-28] MEDS: HYDROCODONE/APAP (5/325) TAB PO PRN ×2 (08:49→21:52)
[2016-06-28] MEDS: ENOXAPARIN 30 MG/0.3 ML SYG SC SCH (08:59)
--- NOTE | 2016-06-28 13:15 | CONS ---
Date/Time of Note Date/Time of Note DATE: 06/28/16 TIME: 13:14 Assessment/Plan Assessment/Plan Chief Complaint/Hosp Course SUBJECTIVE: DW staff, no events, awake, looks comfortable, no fvrs MICROBIOLOGY: Wound culture growing MSSA/Enterococcus ANTIMICROBIALS: Vancomycin PHYSICAL EXAMINATION: GENERAL: This is a well-nourished, well-developed elderly man who is awake, in no distress. HEENT: Head: Atraumatic, normocephalic. Sclerae anicteric. Buccal mucosa pink. NECK: Supple, trachea midline. CHEST: Rise symmetrical. Breath sounds clear. HEART: S1, S2. ABDOMEN: Soft, bowel tones present. EXTREMITIES: Without cyanosis. Right lower extremity wound VAC present. ASSESSMENT: 1. Right below-knee amputation, infected stump with OM, status post revision with rotation flap and wound VAC application. 2. Diabetes. 3. Hypertension. PLAN: The patient remains stable. Continue local wound care per vascular and podiatry teams, continue PT, Vancomycin for 6 weeks DW staff Problems: Consultation Date/Type/Reason Admit Date/Time June 12, 2016 at 13:22 Type of Consultation: ID Exam/Review of Systems Vital Signs Vitals Vital Signs Date Time Temp Pulse Resp B/P Pulse Ox O2 Delivery O2 Flow Rate FiO2 06/28/16 07:59 98.0 68 16 126/64 99 Intake and Output 06/27/16 06/27/16 06/28/16 15:00 23:00 07:00 Intake Total 250 ml 2790 ml 1000 ml Output Total 0 ml 1450 ml 1000 ml Balance 250 ml 1340 ml 0 ml Results Result Diagram: 06/27/16 0600 06/28/16 0550 Results 24 hrs Laboratory Tests Test 06/27/16 17:34 06/27/16 18:00 06/27/16 21:00 06/28/16 02:30 Bedside Glucose 194 181 119 Vancomycin Level Trough 16.6 Test 06/28/16 05:50 06/28/16 08:19 06/28/16 11:48 Sodium Level 139 Potassium Level 4.1 Chloride Level 104 Carbon Dioxide Level 29 Anion Gap 10 # Blood Urea Nitrogen 20 Creatinine 0.79 Glucose Level 101 Calcium Level 9.3 Bedside Glucose 98 75 Medications Medications Current Medications Aspirin (Halfprin) 81 mg DAILY PO Last administered on 06/28/16t 08:46; Admin Dose 81 MG; Start 06/13/16 at 09:00 Gabapentin (Neurontin) 300 mg TID PO Last administered on 06/28/16 12:14; Admin Dose 300 MG; Start 06/12/16 at 21:00 Lisinopril (Zestril) 20 mg DAILY PO Last administered on 06/28/16 08:47; Admin Dose 20 MG; Start 06/13/16 at 09:00 Metoprolol Tartrate 25 mg 25 mg BID PO Last administered on 06/28/16 08:46; Admin Dose 25 MG; Start 06/12/16 at 21:00 Sodium Chloride (NS) 1,000 ml @ 40 mls/hr Q24H IV Last administered on 06:23; Admin Dose 40 MLS/HR; Start 06/12/16 at 17:15 Ondansetron HCl (Zofran Inj) 4 mg Q6H PRN IV NAUSEA AND/OR VOMITING; Start 06/12 at 17:30 Acetaminophen (Tylenol Tab) 650 mg Q6H PRN PO PAIN LEVEL 1-3 OR FEVER; Start at 17:30 Acetaminophen/ Hydrocodone Bitart ([place] (5/325)) 1 tab Q6H PRN PO MODERATE PAIN LEVEL 4-6 Last administered on 06/28/16 08:49; Admin Dose 1 TAB; Start 06/12/16 at 17:30 Docusate Sodium (Colace) 100 mg Q12H PRN PO CONSTIPATION; Start 06/12/16 at 17: 30 Pantoprazole (Protonix Tab) 40 mg DAILY@06 PO Last administered on 06/28/16 06 :24; Admin Dose 40 MG; Start 06/13/16 at 06:00 Enoxaparin Sodium (Lovenox) 30 mg DAILY SC Last administered on 06/28/16 08:59 ; Admin Dose 30 MG; Start 06/13/16 at 09:00 Diagnostic Test (Pha) (Accu-Chek) 1 ea 02 XX Last administered on 06/28/16 02: 15; Admin Dose 1 EA; Start 06/13/16 at 02:00 Miscellaneous Information 1 ea NOTE XX ; Start 06/12/16 at 17:30 Glucose (Glutose) 15 gm Q15M PRN PO DECREASED GLUCOSE; Start 06/12/16 at 17:30 Glucose (Glutose) 22.5 gm Q15M PRN PO DECREASED GLUCOSE; Start 06/12/16 at 17:30 Dextrose (D50w Syringe) 25 ml Q15M PRN IV DECREASED GLUCOSE; Start 06/12/16 at 17:30 Dextrose (D50w Syringe) 50 ml Q15M PRN IV DECREASED GLUCOSE; Start 06/12/16 at 17:30 Glucagon (Glucagen) 1 mg Q15M PRN IM DECREASED GLUCOSE; Start 06/12/16 at 17:30 Glucose (Glutose) 15 gm Q15M PRN BUCCAL DECREASED GLUCOSE; Start 06/12/16 at 17: 30 Insulin Glargine (Lantus) 12 unit DAILY@20 SC Last administered on 06/27/16 21 :12; Admin Dose 12 UNIT; Start 06/13/16 at 20:00; Status Future hold Linagliptin (Tradjenta) 5 mg DAILY PO Last administered on 06/28/16 08:46; Admin Dose 5 MG; Start 06/15/16 at 09:00 Atorvastatin Calcium (Lipitor) 10 mg QHS PO Last administered on 06/27/16 20: 11; Admin Dose 10 MG; Start 06/15/16 at 21:00 IV Flush 10 ml 10 ml PRN PRN IV IV PROTOCOL; Start 06/20/16 at 16:30 Vancomycin HCl/ Sodium Chloride (Vancocin/NS) 250 ml @ 83.333 mls/ hr Q12H IVPB Last administered on 06/28/16 06:24; Admin Dose 83.333 MLS/HR; Start at 07:00 HILARIO ACUÑA NP June 28, 2016 13:15
--- NOTE | 2016-06-28 16:08 | PN ---
Date/Time of Note Date/Time of Note DATE: 06/28/16 TIME: 16:07 Assessment/Plan VTE Prophylaxis VTE Prophylaxis Intervention: SCD's Lines/Catheters IV Catheter Type (from Nrs): PICC Line Central line still needed: Yes Assessment/Plan Chief Complaint/Hosp Course Patient remains hemodynamically stable, awaits for intermediate facility placement, discussed with case management, no bed available yet. ASSESSMENT AND PLAN: 1. Right [id number] amputation stump dehiscence, laceration, possible infection. S/p debridement and creation of a rotational flap by Dr. Fuller, vascular surgery, on 06/13. Continue IV antibiotics. Continue wound VAC. Pathology positive for osteomyelitis. Dr. Eldridge is following infection disease consultation. 2. Diabetes mellitus type 2. Hemoglobin A1c is 8.7. Continue Tradjenta, Lantus, pre-meal NovoLog, and NovoLog per mild algorithm sliding scale a.c. and at bedtime. 3. Hypertension. Continue metoprolol and lisinopril. Continue to monitor blood pressure. 4. Homelessness. Pending intermediate facility placement. Further recommendations based on clinical course. Plan of care discussed with Dr. Li. Problems: Exam/Review of Systems Vital Signs Vitals Vital Signs Date Time Temp Pulse Resp B/P Pulse Ox O2 Delivery O2 Flow Rate FiO2 06/28/16 07:59 98.0 68 16 126/64 99 Intake and Output 06/27/16 06/27/16 06/28/16 15:00 23:00 07:00 Intake Total 250 ml 2790 ml 1000 ml Output Total 0 ml 1450 ml 1000 ml Balance 250 ml 1340 ml 0 ml Exam Constitutional: alert, oriented Psych: no complaints Head: normocephalic Neck: supple Respiratory: clear to auscultation Cardiovascular: nl pulses, regular rate and rhythm Gastrointestinal: soft Extremities: normal pulses, other (right BKA wound to wound vac.) Neurological: REGISTERED NURSE OBSTETRICS II-XII intact Results Result Diagram: 06/27/16 0600 06/28/16 0550 Results 24 hrs Laboratory Tests Test 06/27/16 17:34 06/27/16 18:00 06/27/16 21:00 06/28/16 02:30 Bedside Glucose 194 181 119 Vancomycin Level Trough 16.6 Test 06/28/16 05:50 06/28/16 08:19 06/28/16 11:48 Sodium Level 139 Potassium Level 4.1 Chloride Level 104 Carbon Dioxide Level 29 Anion Gap 10 # Blood Urea Nitrogen 20 Creatinine 0.79 Glucose Level 101 Calcium Level 9.3 Bedside Glucose 98 75 Medications Medications Current Medications Aspirin (Halfprin) 81 mg DAILY PO Last administered on 06/28/16 08:46; Admin Dose 81 MG; Start 06/13/16 at 09:00 Gabapentin (Neurontin) 300 mg TID PO Last administered on 06/28/16 12:14; Admin Dose 300 MG; Start 06/12/16 at 21:00 Lisinopril (Zestril) 20 mg DAILY PO Last administered on 06/28/16 08:47; Admin Dose 20 MG; Start 06/13/16 at 09:00 Metoprolol Tartrate 25 mg 25 mg BID PO Last administered on 06/28/16 08:46; Admin Dose 25 MG; Start 06/12/16 at 21:00 Sodium Chloride (NS) 1,000 ml @ 40 mls/hr Q24H IV Last administered on 06:23; Admin Dose 40 MLS/HR; Start 06/12/16 at 17:15 Ondansetron HCl (Zofran Inj) 4 mg Q6H PRN IV NAUSEA AND/OR VOMITING; Start 06/12 at 17:30 Acetaminophen (Tylenol Tab) 650 mg Q6H PRN PO PAIN LEVEL 1-3 OR FEVER; Start at 17:30 Acetaminophen/ Hydrocodone Bitart ([place] (5/325)) 1 tab Q6H PRN PO MODERATE PAIN LEVEL 4-6 Last administered on 06/28/16 08:49; Admin Dose 1 TAB; Start 06/12/16 at 17:30 Docusate Sodium (Colace) 100 mg Q12H PRN PO CONSTIPATION; Start 06/12/16 at 17: 30 Pantoprazole (Protonix Tab) 40 mg DAILY@06 PO Last administered on 06/28/16 06 :24; Admin Dose 40 MG; Start 06/13/16 at 06:00 Enoxaparin Sodium (Lovenox) 30 mg DAILY SC Last administered on 06/28/16 08:59 ; Admin Dose 30 MG; Start 06/13/16 at 09:00 Diagnostic Test (Pha) (Accu-Chek) 1 ea 02 XX Last administered on 06/28/16 02: 15; Admin Dose 1 EA; Start 06/13/16 at 02:00 Miscellaneous Information 1 ea NOTE XX ; Start 06/12/16 at 17:30 Glucose (Glutose) 15 gm Q15M PRN PO DECREASED GLUCOSE; Start 06/12/16 at 17:30 Glucose (Glutose) 22.5 gm Q15M PRN PO DECREASED GLUCOSE; Start 06/12/16 at 17:30 Dextrose (D50w Syringe) 25 ml Q15M PRN IV DECREASED GLUCOSE; Start 06/12/16 at 17:30 Dextrose (D50w Syringe) 50 ml Q15M PRN IV DECREASED GLUCOSE; Start 06/12/16 at 17:30 Glucagon (Glucagen) 1 mg Q15M PRN IM DECREASED GLUCOSE; Start 06/12/16 at 17:30 Glucose (Glutose) 15 gm Q15M PRN BUCCAL DECREASED GLUCOSE; Start 06/12/16 at 17: 30 Insulin Glargine (Lantus) 12 unit DAILY@20 SC Last administered on 06/27/16 21 :12; Admin Dose 12 UNIT; Start 06/13/16 at 20:00; Status Future hold Linagliptin (Tradjenta) 5 mg DAILY PO Last administered on 06/28/16 08:46; Admin Dose 5 MG; Start 06/15/16 at 09:00 Atorvastatin Calcium (Lipitor) 10 mg QHS PO Last administered on 06/27/16 20: 11; Admin Dose 10 MG; Start 06/15/16 at 21:00 IV Flush 10 ml 10 ml PRN PRN IV IV PROTOCOL; Start 06/20/16 at 16:30 Vancomycin HCl/ Sodium Chloride (Vancocin/NS) 250 ml @ 83.333 mls/ hr Q12H IVPB Last administered on 06/28/16 06:24; Admin Dose 83.333 MLS/HR; Start at 07:00 WEI SULLIVAN June 28, 2016 16:08
--- NOTE | 2016-06-28 19:10 | PN ---
Date/Time of Note Date/Time of Note DATE: 06/28/16 TIME: 19:09 Assessment/Plan Lines/Catheters IV C[facility] Type (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 -D/C planning with wound vac discharge -Discussed findings, plan of management with the patient and he understands. -Thank you for allowing us to participate in the care of your patient. Please call with any questions. Problems: Subjective 24 Hr Interval Summary Constitutional: improved, no complaints Exam/Review of Systems Vital Signs Vitals Vital Signs Date Time Temp Pulse Resp B/P Pulse Ox O2 Delivery O2 Flow Rate FiO2 06/28/16 07:59 98.0 68 16 126/64 99 Intake and Output 06/27/16 06/27/16 06/28/16 15:00 23:00 07:00 Intake Total 250 ml 2790 ml 1000 ml Output Total 0 ml 1450 ml 1000 ml Balance 250 ml 1340 ml 0 ml Exam Free Text/Dictation GENERAL: Alert and oriented x3, PULMONARY: Clear to auscultation bilaterally CARDIOVASCULAR: S1, S2 present ABDOMEN: Soft, nontender, nondistended. Bowel sounds positive. EXTREMITIES: Right lower extremity: Palpable femoral pulse. BKA stump with cap refill 3 seconds. wound vac-removed- granulation tissue developing Left lower extremity: Palpable femoral pulse, nonpalpable pedal pulse. Motor, sensory intact. Cap refill 3 to 4 seconds. There is area of lipodermatosclerosis. No ulcers identified. Results Result Diagram: 06/27/16 0600 06/28/16 0550 JUAN PRIDE MD June 28, 2016 19:10
[2016-06-28 19:54] VITALS: BP 133/76; RESP 20
[2016-06-28] MEDS: ATORVASTATIN 10 MG TAB PO SCH (21:23)
[2016-06-28] MEDS: INSULIN GLARGINE [LANtus] 3 ML PEN SC SCH (21:27)
[2016-06-29] MEDS: ACCU-CHEK XX SCH (01:50)
[2016-06-29] MEDS: PANTOPRAZOLE (EC) 40 MG TAB PO SCH (06:47)
[2016-06-29] MEDS: VANCOMYCIN 1.25 GM in SOD CHLORIDE 0.9% 250 ML IVPB SCH ×2 (06:48→18:59)
[2016-06-29 06:56] LABS: CALCIUM 9.4 mg/dl (8.4-10.2); CREATININE 0.66 mg/dl (0.61-1.24); POTASSIUM 3.9 mmol/L (3.5-5.1)
[2016-06-29 07:57] VITALS: BP 105/58; RESP 18
[2016-06-29] MEDS: ASPIRIN (EC) 81 MG TAB PO SCH (08:00)
[2016-06-29] MEDS: metFORMIN 500 MG TAB PO SCH ×2 (08:03→17:42)
[2016-06-29] MEDS: LINAGLIPTIN 5 MG TABLET PO SCH (08:03)
[2016-06-29] MEDS: METOPROLOL 25 MG TAB PO SCH ×2 (08:06→20:52)
[2016-06-29] MEDS: LISINOPRIL 20 MG TAB PO SCH (08:06)
[2016-06-29] MEDS: INSULIN ASPART [NOVOLOG] 3 ML PEN SC SCH ×7 (08:07→21:00)
[2016-06-29] MEDS: GABAPENTIN 300 MG CAP PO SCH ×3 (08:16→20:49)
[2016-06-29] MEDS: ENOXAPARIN 30 MG/0.3 ML SYG SC SCH (08:19)
--- NOTE | 2016-06-29 11:39 | PN ---
Date/Time of Note Date/Time of Note DATE: 06/29/16 TIME: 11:34 Assessment/Plan VTE Prophylaxis VTE Prophylaxis Intervention: other Lines/Catheters IV Catheter Type (from Nrsg): PICC Line Central line still needed: Yes Assessment/Plan Assessment/Plan 1. Right [id number] amputation stump dehiscence, laceration, possible infection. S/p debridement and creation of a rotational flap by Dr. Fuller, vascular surgery, on 06/13. Continue IV antibiotics. Continue wound VAC. Pathology positive for osteomyelitis. Dr. Eldridge is following infection disease consultation. 2. Diabetes mellitus type 2. Hemoglobin A1c is 8.7. Continue Tradjenta, Lantus, pre-meal NovoLog, and NovoLog per mild algorithm sliding scale a.c. and at bedtime. 3. Hypertension. Continue metoprolol and lisinopril. Continue to monitor blood pressure. 4. Homelessness. Pending shelter facility placement. Further recommendations based on clinical course. Plan of care discussed with Dr. Rosales/ staff/patient Subjective 24 Hr Interval Summary Free Text/Dictation complains of the right stump pain on and off, DDI, wound vac intact. current pain med is effective, no acute events overnight reported, blood sugar is well controlled, dw staff/patient- all Qs answered. Respiratory: no complaints Cardiovascular: no complaints Gastrointestinal: no complaints Genitourinary: no complaints Musculoskeletal: bone/joint pain Skin: other Neurologic: no complaints Psychological: no complaints Immunologic: no complaints Exam/Review of Systems Vital Signs Vitals Vital Signs Date Time Temp Pulse Resp B/P Pulse Ox O2 Delivery O2 Flow Rate FiO2 06/29/16 07:57 98.8 69 18 105/58 97 Intake and Output 06/28/16 06/28/16 06/29/16 15:00 23:00 07:00 Intake Total 250 ml 3430 ml 1160 ml Output Total 1950 ml 2000 ml Balance 250 ml 1480 ml -840 ml Exam Constitutional: alert, oriented, well developed Psych: no complaints Eyes: EOMI, nl sclera ENMT: nl external ears & nose Neck: non-tender Respiratory: clear to auscultation Cardiovascular: nl pulses Gastrointestinal: non-tender, soft Musculoskeletal: other Extremities: normal pulses, other (right stump- DDI, wound vac intact) Neurological: nl mental status, nl speech Skin: other Lymph: nontender Results Result Diagram: 06/27/16 0600 06/29/16 0530 Results 24 hrs Laboratory Tests Test 06/28/16 11:48 06/28/16 17:19 06/28/16 21:22 06/29/16 05:30 Bedside Glucose 75 117 99 Sodium Level 139 Potassium Level 3.9 Chloride Level 103 Carbon Dioxide Level 28 Anion Gap 12 Blood Urea Nitrogen 17 Creatinine 0.66 Glucose Level 118 Calcium Level 9.4 Test 06/29/16 08:03 Bedside Glucose 95 Medications Medications Current Medications Aspirin (Halfprin) 81 mg DAILY PO Last administered on 06/29/16 08:00; Admin Dose 81 MG; Start 06/13/16 at 09:00 Gabapentin (Neurontin) 300 mg TID PO Last administered on 06/29/16 08:16; Admin Dose 300 MG; Start 06/12/16 at 21:00 Lisinopril (Zestril) 20 mg DAILY PO Last administered on 06/28/16 08:47; Admin Dose 20 MG; Start 06/13/16 at 09:00 Metoprolol Tartrate 25 mg 25 mg BID PO Last administered on 06/28/16 21:24; Admin Dose 25 MG; Start 06/12/16 at 21:00 Sodium Chloride (NS) 1,000 ml @ 40 mls/hr Q24H IV Last administered on 06:23; Admin Dose 40 MLS/HR; Start 06/12/16 at 17:15 Ondansetron HCl (Zofran Inj) 4 mg Q6H PRN IV NAUSEA AND/OR VOMITING; Start 06/12 at 17:30 Acetaminophen (Tylenol Tab) 650 mg Q6H PRN PO PAIN LEVEL 1-3 OR FEVER; Start at 17:30 Acetaminophen/ Hydrocodone Bitart ([place] (5/325)) 1 tab Q6H PRN PO MODERATE PAIN LEVEL 4-6 Last administered on 06/28/16 21:52; Admin Dose 1 TAB; Start 06/12/16 at 17:30 Docusate Sodium (Colace) 100 mg Q12H PRN PO CONSTIPATION; Start 06/12/16 at 17: 30 Pantoprazole (Protonix Tab) 40 mg DAILY@06 PO Last administered on 06/29/16 06 :47; Admin Dose 40 MG; Start 06/13/16 at 06:00 Enoxaparin Sodium (Lovenox) 30 mg DAILY SC Last administered on 06/29/16 08:19 ; Admin Dose 30 MG; Start 06/13/16 at 09:00 Diagnostic Test (Pha) (Accu-Chek) 1 ea 02 XX Last administered on 06/28/16 02: 15; Admin Dose 1 EA; Start 06/13/16 at 02:00 Miscellaneous Information 1 ea NOTE XX ; Start 06/12/16 at 17:30 Glucose (Glutose) 15 gm Q15M PRN PO DECREASED GLUCOSE; Start 06/12/16 at 17:30 Glucose (Glutose) 22.5 gm Q15M PRN PO DECREASED GLUCOSE; Start 06/12/16 at 17:30 Dextrose (D50w Syringe) 25 ml Q15M PRN IV DECREASED GLUCOSE; Start 06/12/16 at 17:30 Dextrose (D50w Syringe) 50 ml Q15M PRN IV DECREASED GLUCOSE; Start 06/12/16 at 17:30 Glucagon (Glucagen) 1 mg Q15M PRN IM DECREASED GLUCOSE; Start 06/12/16 at 17:30 Glucose (Glutose) 15 gm Q15M PRN BUCCAL DECREASED GLUCOSE; Start 06/12/16 at 17: 30 Insulin Glargine (Lantus) 12 unit DAILY@20 SC Last administered on 06/28/16 21 :27; Admin Dose 12 UNIT; Start 06/13/16 at 20:00; Status Future hold Linagliptin (Tradjenta) 5 mg DAILY PO Last administered on 06/29/16 08:03; Admin Dose 5 MG; Start 06/15/16 at 09:00 Atorvastatin Calcium (Lipitor) 10 mg QHS PO Last administered on 06/28/16 21: 23; Admin Dose 10 MG; Start 06/15/16 at 21:00 IV Flush 10 ml 10 ml PRN PRN IV IV PROTOCOL; Start 06/20/16 at 16:30 Vancomycin HCl/ Sodium Chloride (Vancocin/NS) 250 ml @ 83.333 mls/ hr Q12H IVPB Last administered on 06/29/16 06:48; Admin Dose 83.333 MLS/HR; Start at 07:00 ABRAHAN PINA June 29, 2016 11:39
--- NOTE | 2016-06-29 13:30 | CONS ---
Date/Time of Note Date/Time of Note DATE: 06/29/16 TIME: 13:28 Assessment/Plan Assessment/Plan Chief Complaint/Hosp Course SUBJECTIVE: DW staff, no events, awake, looks comfortable, no fvrs MICROBIOLOGY: Wound culture growing MSSA/Enterococcus ANTIMICROBIALS: Vancomycin PHYSICAL EXAMINATION: GENERAL: This is a well-nourished, well-developed elderly man who is awake, in no distress. HEENT: Head: Atraumatic, normocephalic. Sclerae anicteric. Buccal mucosa pink. NECK: Supple, trachea midline. CHEST: Rise symmetrical. Breath sounds clear. HEART: S1, S2. ABDOMEN: Soft, bowel tones present. EXTREMITIES: Without cyanosis. Right lower extremity wound VAC present. ASSESSMENT: 1. Right below-knee amputation, infected stump with OM, status post revision with rotation flap and wound VAC application. 2. Diabetes. 3. Hypertension. PLAN: The patient remains stable. Continue local wound care per vascular and podiatry teams, continue PT, Vancomycin till 07/28 DW staff Problems: Consultation Date/Type/Reason Admit Date/Time June 12, 2016 at 13:22 Type of Consultation: ID Exam/Review of Systems Vital Signs Vitals Vital Signs Date Time Temp Pulse Resp B/P Pulse Ox O2 Delivery O2 Flow Rate FiO2 06/29/16 07:57 98.8 69 18 105/58 97 Intake and Output 06/28/16 06/28/16 06/29/16 15:00 23:00 07:00 Intake Total 250 ml 3430 ml 1160 ml Output Total 1950 ml 2000 ml Balance 250 ml 1480 ml -840 ml Results Result Diagram: 06/27/16 0600 06/29/16 0530 Results 24 hrs Laboratory Tests Test 06/28/16 17:19 06/28/16 21:22 06/29/16 05:30 06/29/16 08:03 Bedside Glucose 117 99 95 Sodium Level 139 Potassium Level 3.9 Chloride Level 103 Carbon Dioxide Level 28 Anion Gap 12 Blood Urea Nitrogen 17 Creatinine 0.66 Glucose Level 118 Calcium Level 9.4 Test 06/29/16 11:57 Bedside Glucose 114 Medications Medications Current Medications Aspirin (Halfprin) 81 mg DAILY PO Last administered on 06/29/16t 08:00; Admin Dose 81 MG; Start 06/13/16 at 09:00 Gabapentin (Neurontin) 300 mg TID PO Last administered on 06/29/16 12:57; Admin Dose 300 MG; Start 06/12/16 at 21:00 Lisinopril (Zestril) 20 mg DAILY PO Last administered on 06/28/16 08:47; Admin Dose 20 MG; Start 06/13/16 at 09:00 Metoprolol Tartrate 25 mg 25 mg BID PO Last administered on 06/28/16 21:24; Admin Dose 25 MG; Start 06/12/16 at 21:00 Sodium Chloride (NS) 1,000 ml @ 40 mls/hr Q24H IV Last administered on 06:23; Admin Dose 40 MLS/HR; Start 06/12/16 at 17:15 Ondansetron HCl (Zofran Inj) 4 mg Q6H PRN IV NAUSEA AND/OR VOMITING; Start 06/12 at 17:30 Acetaminophen (Tylenol Tab) 650 mg Q6H PRN PO PAIN LEVEL 1-3 OR FEVER; Start at 17:30 Acetaminophen/ Hydrocodone Bitart ([place] (5/325)) 1 tab Q6H PRN PO MODERATE PAIN LEVEL 4-6 Last administered on 06/28/16 21:52; Admin Dose 1 TAB; Start 06/12/16 at 17:30 Docusate Sodium (Colace) 100 mg Q12H PRN PO CONSTIPATION; Start 06/12/16 at 17: 30 Pantoprazole (Protonix Tab) 40 mg DAILY@06 PO Last administered on 06/29/16 06 :47; Admin Dose 40 MG; Start 06/13/16 at 06:00 Enoxaparin Sodium (Lovenox) 30 mg DAILY SC Last administered on 06/29/16 08:19 ; Admin Dose 30 MG; Start 06/13/16 at 09:00 Diagnostic Test (Pha) (Accu-Chek) 1 ea 02 XX Last administered on 06/28/16 02: 15; Admin Dose 1 EA; Start 06/13/16 at 02:00 Miscellaneous Information 1 ea NOTE XX ; Start 06/12/16 at 17:30 Glucose (Glutose) 15 gm Q15M PRN PO DECREASED GLUCOSE; Start 06/12/16 at 17:30 Glucose (Glutose) 22.5 gm Q15M PRN PO DECREASED GLUCOSE; Start 06/12/16 at 17:30 Dextrose (D50w Syringe) 25 ml Q15M PRN IV DECREASED GLUCOSE; Start 06/12/16 at 17:30 Dextrose (D50w Syringe) 50 ml Q15M PRN IV DECREASED GLUCOSE; Start 06/12/16 at 17:30 Glucagon (Glucagen) 1 mg Q15M PRN IM DECREASED GLUCOSE; Start 06/12/16 at 17:30 Glucose (Glutose) 15 gm Q15M PRN BUCCAL DECREASED GLUCOSE; Start 06/12/16 at 17: 30 Insulin Glargine (Lantus) 12 unit DAILY@20 SC Last administered on 06/28/16 21 :27; Admin Dose 12 UNIT; Start 06/13/16 at 20:00; Status Future hold Linagliptin (Tradjenta) 5 mg DAILY PO Last administered on 06/29/16 08:03; Admin Dose 5 MG; Start 06/15/16 at 09:00 Atorvastatin Calcium (Lipitor) 10 mg QHS PO Last administered on 06/28/16 21: 23; Admin Dose 10 MG; Start 06/15/16 at 21:00 IV Flush 10 ml 10 ml PRN PRN IV IV PROTOCOL; Start 06/20/16 at 16:30 Vancomycin HCl/ Sodium Chloride (Vancocin/NS) 250 ml @ 83.333 mls/ hr Q12H IVPB Last administered on 06/29/16 06:48; Admin Dose 83.333 MLS/HR; Start at 07:00 Miscellaneous Information (*Rx Drug Level Order Reminder*) VANCOMYCIN TROUGH AT 0600 ONCE ONCE XX ; Start 06/30/16 at 06:00; Stop 06/30/16 at 06:01 HILARIO ACUÑA NP June 29, 2016 13:30
[2016-06-29] MEDS: SOD CHLORIDE 0.9% 1,000 ML IV SCH (18:59)
[2016-06-29 20:30] VITALS: BP 114/56; RESP 18
[2016-06-29] MEDS: ATORVASTATIN 10 MG TAB PO SCH (20:49)
[2016-06-29] MEDS: INSULIN GLARGINE [LANtus] 3 ML PEN SC SCH (20:50)
[2016-06-29] MEDS: HYDROCODONE/APAP (5/325) TAB PO PRN (20:59)
--- NOTE | 2016-06-29 23:58 | PN ---
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 -D/C planning with wound vac discharge -Discussed findings, plan of management with the patient and he understands. -Thank you for allowing us to participate in the care of your patient. Please call with any questions. Problems: Subjective 24 Hr Interval Summary Constitutional: no complaints Exam/Review of Systems Vital Signs Vitals Vital Signs Date Time Temp Pulse Resp B/P Pulse Ox O2 Delivery O2 Flow Rate FiO2 06/29/16 20:30 98.3 74 18 114/56 97 Intake and Output 06/29/16 06/29/16 06/30/16 15:00 23:00 07:00 Intake Total 250 ml 1360 ml Output Total 1100 ml Balance 250 ml 260 ml Exam Free Text/Dictation GENERAL: Alert and oriented x3, PULMONARY: Clear to auscultation bilaterally CARDIOVASCULAR: S1, S2 present ABDOMEN: Soft, nontender, nondistended. Bowel sounds positive. EXTREMITIES: Right lower extremity: Palpable femoral pulse. BKA stump with cap refill 3 seconds. wound vac intact Left lower extremity: Palpable femoral pulse, nonpalpable pedal pulse. Motor, sensory intact. Cap refill 3 to 4 seconds. There is area of lipodermatosclerosis. No ulcers identified. Results Result Diagram: 06/27/16 0600 06/29/16 0530 JUAN PRIDE MD June 29, 2016 23:58
[2016-06-30] MEDS: ACCU-CHEK XX SCH (02:00)
[2016-06-30 06:07] LABS: ADD SCAN DIFF NO
[2016-06-30 06:14] LABS: BASOPHIL # 0.1 10^3/ul (0.0-0.1); BASOPHILS % 0.9 % (0.0-2.0); EOSINOPHILS # 0.5 10^3/ul (0.0-0.5); EOSINOPHILS % 8.1 % (0.0-7.0); HEMATOCRIT 32.3 % (42.0-52.0); HEMOGLOBIN 10.3 g/dl (14.0-18.0); LYMPHOCYTES # 1.4 10^3/ul (0.8-2.9); MEAN CORPUSCULAR HEMOGLOBIN 28.4 pg (29.0-33.0); MEAN CORPUSCULAR HGB CONC 31.9 g/dl (32.0-37.0); MEAN PLATELET VOLUME 9.9 fl (7.4-10.4); MONOCYTE # 0.6 10^3/ul (0.3-0.9); MONOCYTES % 9.7 % (0.0-11.0); NEUTROPHIL # 3.3 10^3/ul (1.6-7.5); NEUTROPHILS % 57.1 % (39.0-77.0); PLATELET COUNT 236 10^3/UL (140-415); RED BLOOD COUNT 3.63 10^6/ul (4.70-6.10); RED CELL DISTRIBUTION WIDTH 14.8 % (11.5-14.5); WHITE BLOOD COUNT 5.8 10^3/ul (4.8-10.8)
[2016-06-30] MEDS: PANTOPRAZOLE (EC) 40 MG TAB PO SCH (06:19)
[2016-06-30 06:33] LABS: CALCIUM 9.6 mg/dl (8.4-10.2); CREATININE 0.68 mg/dl (0.61-1.24); POTASSIUM 4.1 mmol/L (3.5-5.1)
[2016-06-30] MEDS: HYDROCODONE/APAP (5/325) TAB PO PRN ×2 (06:57→21:13)
[2016-06-30 07:51] VITALS: BP 133/69; RESP 18
[2016-06-30] MEDS: INSULIN ASPART [NOVOLOG] 3 ML PEN SC SCH ×7 (08:15→21:00)
[2016-06-30] MEDS: LINAGLIPTIN 5 MG TABLET PO SCH (08:25)
[2016-06-30] MEDS: LISINOPRIL 20 MG TAB PO SCH (08:26)
[2016-06-30] MEDS: METOPROLOL 25 MG TAB PO SCH ×2 (08:26→21:01)
[2016-06-30] MEDS: ASPIRIN (EC) 81 MG TAB PO SCH (08:26)
[2016-06-30] MEDS: GABAPENTIN 300 MG CAP PO SCH ×3 (08:26→21:01)
[2016-06-30] MEDS: VANCOMYCIN 1 GM in NS 250 ML IVPB SCH ×2 (08:27→21:01)
[2016-06-30] MEDS: metFORMIN 500 MG TAB PO SCH ×2 (08:32→17:30)
[2016-06-30] MEDS: ENOXAPARIN 30 MG/0.3 ML SYG SC SCH (08:50)
--- NOTE | 2016-06-30 13:30 | PN ---
Date/Time of Note Date/Time of Note DATE: 06/30/16 TIME: 13:28 Assessment/Plan VTE Prophylaxis VTE Prophylaxis Intervention: SCD's Lines/Catheters IV Catheter Type (from Nrs): PICC Line Central line still needed: Yes Assessment/Plan Chief Complaint/Hosp Course ASSESSMENT AND PLAN: - Right [id number] amputation stump dehiscence, laceration, possible infection. S/p debridement and creation of a rotational flap by Dr. Fuller, vascular surgery, on 06/13. Continue IV antibiotics. Continue wound VAC. Pathology positive for osteomyelitis. Dr. Eldridge is following infection disease consultation. - Diabetes mellitus type 2. Hemoglobin A1c is 8.7. Continue Tradjenta, Lantus , pre-meal NovoLog, and NovoLog per mild algorithm sliding scale a.c. and at bedtime. - Hypertension. Continue metoprolol and lisinopril. Continue to monitor blood pressure. - Homelessness. Pending fpc facility placement. Further recommendations based on clinical course. Plan of care discussed with Dr. Li. Problems: Exam/Review of Systems Vital Signs Vitals Vital Signs Date Time Temp Pulse Resp B/P Pulse Ox O2 Delivery O2 Flow Rate FiO2 06/30/16 07:51 98.4 76 18 133/69 99 Intake and Output 06/29/16 06/29/16 06/30/16 15:00 23:00 07:00 Intake Total 250 ml 1610 ml 800 ml Output Total 1100 ml 1100 ml Balance 250 ml 510 ml -300 ml Exam Constitutional: alert, oriented Psych: no complaints Head: normocephalic Neck: supple Respiratory: clear to auscultation Cardiovascular: nl pulses, regular rate and rhythm Gastrointestinal: soft Extremities: normal pulses, other (right BKA wound to wound vac.) Neurological: UROLOGIST MD II-XII intact Results Result Diagram: 06/30/16 0540 06/30/16 0540 Results 24 hrs Laboratory Tests Test 06/29/16 17:33 06/29/16 20:46 06/30/16 05:40 06/30/16 07:54 Bedside Glucose 130 94 83 White Blood Count 5.8 Red Blood Count 3.63 L Hemoglobin 10.3 L Hematocrit 32.3 L Mean Corpuscular Volume 89.0 Mean Corpuscular Hemoglobin 28.4 L Mean Corpuscular Hemoglobin Concent 31.9 L Red Cell Distribution Width 14.8 H Platelet Count 236 Mean Platelet Volume 9.9 Neutrophils % 57.1 Lymphocytes % 24.0 Monocytes % 9.7 Eosinophils % 8.1 H Basophils % 0.9 Nucleated Red Blood Cells % 0.0 Neutrophils # 3.3 Lymphocytes # 1.4 Monocytes # 0.6 Eosinophils # 0.5 Basophils # 0.1 Nucleated Red Blood Cells # 0.0 Sodium Level 138 Potassium Level 4.1 Chloride Level 103 Carbon Dioxide Level 27 Anion Gap 12 Blood Urea Nitrogen 18 Creatinine 0.68 Glucose Level 96 Calcium Level 9.6 Vancomycin Level Trough 19.9 Test 06/30/16 12:01 Bedside Glucose 85 Medications Medications Current Medications Aspirin (Halfprin) 81 mg DAILY PO Last administered on 06/30/16 08:26; Admin Dose 81 MG; Start 06/13/16 at 09:00 Gabapentin (Neurontin) 300 mg TID PO Last administered on 06/30/16 12:03; Admin Dose 300 MG; Start 06/12/16 at 21:00 Lisinopril (Zestril) 20 mg DAILY PO Last administered on 06/30/16 08:26; Admin Dose 20 MG; Start 06/13/16 at 09:00 Metoprolol Tartrate 25 mg 25 mg BID PO Last administered on 06/30/16 08:26; Admin Dose 25 MG; Start 06/12/16 at 21:00 Sodium Chloride (NS) 1,000 ml @ 40 mls/hr Q24H IV Last administered on 18:59; Admin Dose 40 MLS/HR; Start 06/12/16 at 17:15 Ondansetron HCl (Zofran Inj) 4 mg Q6H PRN IV NAUSEA AND/OR VOMITING; Start 06/12 at 17:30 Acetaminophen (Tylenol Tab) 650 mg Q6H PRN PO PAIN LEVEL 1-3 OR FEVER; Start at 17:30 Acetaminophen/ Hydrocodone Bitart ([place] (5/325)) 1 tab Q6H PRN PO MODERATE PAIN LEVEL 4-6 Last administered on 06/30/16 06:57; Admin Dose 1 TAB; Start 06/12/16 at 17:30 Docusate Sodium (Colace) 100 mg Q12H PRN PO CONSTIPATION; Start 06/12/16 at 17: 30 Pantoprazole (Protonix Tab) 40 mg DAILY@06 PO Last administered on 06/30/16 06 :19; Admin Dose 40 MG; Start 06/13/16 at 06:00 Enoxaparin Sodium (Lovenox) 30 mg DAILY SC Last administered on 06/30/16 08:50 ; Admin Dose 30 MG; Start 06/13/16 at 09:00 Diagnostic Test (Pha) (Accu-Chek) 1 ea 02 XX Last administered on 06/30/16 02: 00; Admin Dose 1 EA; Start 06/13/16 at 02:00 Miscellaneous Information 1 ea NOTE XX ; Start 06/12/16 at 17:30 Glucose (Glutose) 15 gm Q15M PRN PO DECREASED GLUCOSE; Start 06/12/16 at 17:30 Glucose (Glutose) 22.5 gm Q15M PRN PO DECREASED GLUCOSE; Start 06/12/16 at 17:30 Dextrose (D50w Syringe) 25 ml Q15M PRN IV DECREASED GLUCOSE; Start 06/12/16 at 17:30 Dextrose (D50w Syringe) 50 ml Q15M PRN IV DECREASED GLUCOSE; Start 06/12/16 at 17:30 Glucagon (Glucagen) 1 mg Q15M PRN IM DECREASED GLUCOSE; Start 06/12/16 at 17:30 Glucose (Glutose) 15 gm Q15M PRN BUCCAL DECREASED GLUCOSE; Start 06/12/16 at 17: 30 Insulin Glargine (Lantus) 12 unit DAILY@20 SC Last administered on 06/29/16 20 :50; Admin Dose 12 UNIT; Start 06/13/16 at 20:00; Status Future hold Linagliptin (Tradjenta) 5 mg DAILY PO Last administered on 06/30/16 08:25; Admin Dose 5 MG; Start 06/15/16 at 09:00 Atorvastatin Calcium (Lipitor) 10 mg QHS PO Last administered on 06/29/16 20: 49; Admin Dose 10 MG; Start 06/15/16 at 21:00 IV Flush 10 ml 10 ml PRN PRN IV IV PROTOCOL; Start 06/20/16 at 16:30 Vancomycin HCl (Vancocin) 250 ml @ 125 mls/hr Q12H IVPB Last administered on 08:27; Admin Dose 125 MLS/HR; Start 06/30/16 at 09:00 WEI SULLIVAN June 30, 2016 13:30
--- NOTE | 2016-06-30 13:58 | CONS ---
Date/Time of Note Date/Time of Note DATE: 06/30/16 TIME: 13:58 Assessment/Plan Assessment/Plan Chief Complaint/Hosp Course SUBJECTIVE: DW staff, no events, looks comfortable, no fevers MICROBIOLOGY: Wound culture growing MSSA/Enterococcus ANTIMICROBIALS: Vancomycin PHYSICAL EXAMINATION: GENERAL: This is a well-nourished, well-developed elderly man who is awake, in no distress. HEENT: Head: Atraumatic, normocephalic. Sclerae anicteric. Buccal mucosa pink. NECK: Supple, trachea midline. CHEST: Rise symmetrical. Breath sounds clear. HEART: S1, S2. ABDOMEN: Soft, bowel tones present. EXTREMITIES: Without cyanosis. Right lower extremity wound VAC present. ASSESSMENT: 1. Right below-knee amputation, infected stump with OM, status post revision with rotation flap and wound VAC application. 2. Diabetes. 3. Hypertension. PLAN: The patient remains stable. Continue local wound care per vascular and podiatry teams, continue PT, Vancomycin till 07/28 DW staff Problems: Consultation Date/Type/Reason Admit Date/Time June 12, 2016 at 13:22 Type of Consultation: ID Exam/Review of Systems Vital Signs Vitals Vital Signs Date Time Temp Pulse Resp B/P Pulse Ox O2 Delivery O2 Flow Rate FiO2 06/30/16 07:51 98.4 76 18 133/69 99 Intake and Output 06/29/16 06/29/16 06/30/16 15:00 23:00 07:00 Intake Total 250 ml 1610 ml 800 ml Output Total 1100 ml 1100 ml Balance 250 ml 510 ml -300 ml Results Result Diagram: 06/30/16 0540 06/30/16 0540 Results 24 hrs Laboratory Tests Test 06/29/16 17:33 06/29/16 20:46 06/30/16 05:40 06/30/16 07:54 Bedside Glucose 130 94 83 White Blood Count 5.8 Red Blood Count 3.63 L Hemoglobin 10.3 L Hematocrit 32.3 L Mean Corpuscular Volume 89.0 Mean Corpuscular Hemoglobin 28.4 L Mean Corpuscular Hemoglobin Concent 31.9 L Red Cell Distribution Width 14.8 H Platelet Count 236 Mean Platelet Volume 9.9 Neutrophils % 57.1 Lymphocytes % 24.0 Monocytes % 9.7 Eosinophils % 8.1 H Basophils % 0.9 Nucleated Red Blood Cells % 0.0 Neutrophils # 3.3 Lymphocytes # 1.4 Monocytes # 0.6 Eosinophils # 0.5 Basophils # 0.1 Nucleated Red Blood Cells # 0.0 Sodium Level 138 Potassium Level 4.1 Chloride Level 103 Carbon Dioxide Level 27 Anion Gap 12 Blood Urea Nitrogen 18 Creatinine 0.68 Glucose Level 96 Calcium Level 9.6 Vancomycin Level Trough 19.9 Test 06/30/16 12:01 Bedside Glucose 85 Medications Medications Current Medications Aspirin (Halfprin) 81 mg DAILY PO Last administered on 06/30/16 08:26; Admin Dose 81 MG; Start 06/13/16 at 09:00 Gabapentin (Neurontin) 300 mg TID PO Last administered on 06/30/16 12:03; Admin Dose 300 MG; Start 06/12/16 at 21:00 Lisinopril (Zestril) 20 mg DAILY PO Last administered on 06/30/16 08:26; Admin Dose 20 MG; Start 06/13/16 at 09:00 Metoprolol Tartrate 25 mg 25 mg BID PO Last administered on 06/30/16 08:26; Admin Dose 25 MG; Start 06/12/16 at 21:00 Sodium Chloride (NS) 1,000 ml @ 40 mls/hr Q24H IV Last administered on 18:59; Admin Dose 40 MLS/HR; Start 06/12/16 at 17:15 Ondansetron HCl (Zofran Inj) 4 mg Q6H PRN IV NAUSEA AND/OR VOMITING; Start 06/12 at 17:30 Acetaminophen (Tylenol Tab) 650 mg Q6H PRN PO PAIN LEVEL 1-3 OR FEVER; Start at 17:30 Acetaminophen/ Hydrocodone Bitart ([place] (5/325)) 1 tab Q6H PRN PO MODERATE PAIN LEVEL 4-6 Last administered on 06/30/16 06:57; Admin Dose 1 TAB; Start 06/12/16 at 17:30 Docusate Sodium (Colace) 100 mg Q12H PRN PO CONSTIPATION; Start 06/12/16 at 17: 30 Pantoprazole (Protonix Tab) 40 mg DAILY@06 PO Last administered on 06/30/16 06 :19; Admin Dose 40 MG; Start 06/13/16 at 06:00 Enoxaparin Sodium (Lovenox) 30 mg DAILY SC Last administered on 06/30/16 08:50 ; Admin Dose 30 MG; Start 06/13/16 at 09:00 Diagnostic Test (Pha) (Accu-Chek) 1 ea 02 XX Last administered on 06/30/16 02: 00; Admin Dose 1 EA; Start 06/13/16 at 02:00 Miscellaneous Information 1 ea NOTE XX ; Start 06/12/16 at 17:30 Glucose (Glutose) 15 gm Q15M PRN PO DECREASED GLUCOSE; Start 06/12/16 at 17:30 Glucose (Glutose) 22.5 gm Q15M PRN PO DECREASED GLUCOSE; Start 06/12/16 at 17:30 Dextrose (D50w Syringe) 25 ml Q15M PRN IV DECREASED GLUCOSE; Start 06/12/16 at 17:30 Dextrose (D50w Syringe) 50 ml Q15M PRN IV DECREASED GLUCOSE; Start 06/12/16 at 17:30 Glucagon (Glucagen) 1 mg Q15M PRN IM DECREASED GLUCOSE; Start 06/12/16 at 17:30 Glucose (Glutose) 15 gm Q15M PRN BUCCAL DECREASED GLUCOSE; Start 06/12/16 at 17: 30 Insulin Glargine (Lantus) 12 unit DAILY@20 SC Last administered on 06/29/16 20 :50; Admin Dose 12 UNIT; Start 06/13/16 at 20:00; Status Future hold Linagliptin (Tradjenta) 5 mg DAILY PO Last administered on 06/30/16 08:25; Admin Dose 5 MG; Start 06/15/16 at 09:00 Atorvastatin Calcium (Lipitor) 10 mg QHS PO Last administered on 06/29/16 20: 49; Admin Dose 10 MG; Start 06/15/16 at 21:00 IV Flush 10 ml 10 ml PRN PRN IV IV PROTOCOL; Start 06/20/16 at 16:30 Vancomycin HCl (Vancocin) 250 ml @ 125 mls/hr Q12H IVPB Last administered on 08:27; Admin Dose 125 MLS/HR; Start 06/30/16 at 09:00 HILARIO ACUÑA NP June 30, 2016 13:58
--- NOTE | 2016-06-30 14:10 | PN ---
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 patient tolerated well and good rebleeding -Will have wound vac team change MWF -Optimize vascular status (BP meds, diet, nutrition, exercise, sugar control, antiplatelets). -D/C planning with wound vac discharge -Discussed findings, plan of management with the patient and he understands. -Thank you for allowing us to participate in the care of your patient. Please call with any questions. Problems: Subjective 24 Hr Interval Summary Constitutional: improved, no complaints Exam/Review of Systems Vital Signs Vitals Vital Signs Date Time Temp Pulse Resp B/P Pulse Ox O2 Delivery O2 Flow Rate FiO2 06/30/16 07:51 98.4 76 18 133/69 99 Intake and Output 06/29/16 06/29/16 06/30/16 15:00 23:00 07:00 Intake Total 250 ml 1610 ml 800 ml Output Total 1100 ml 1100 ml Balance 250 ml 510 ml -300 ml Exam Free Text/Dictation GENERAL: Alert and oriented x3, PULMONARY: Clear to auscultation bilaterally CARDIOVASCULAR: S1, S2 present ABDOMEN: Soft, nontender, nondistended. Bowel sounds positive. EXTREMITIES: Right lower extremity: Palpable femoral pulse. BKA stump with cap refill 3 seconds. wound vac-removed- granulation tissue developing Left lower extremity: Palpable femoral pulse, nonpalpable pedal pulse. Motor, sensory intact. Cap refill 3 to 4 seconds. There is area of lipodermatosclerosis. No ulcers identified. Results Result Diagram: 06/30/16 0540 06/30/16 0540 JUAN PRIDE MD June 30, 2016 14:10
[2016-06-30] MEDS: SOD CHLORIDE 0.9% 1,000 ML IV SCH (17:15)
[2016-06-30 19:25] VITALS: BP 109/66; RESP 20
[2016-06-30] MEDS: ATORVASTATIN 10 MG TAB PO SCH (21:01)
[2016-06-30] MEDS: INSULIN GLARGINE [LANtus] 3 ML PEN SC SCH (21:08)
[2016-07-01] MEDS: ACCU-CHEK XX SCH (02:00)
[2016-07-01] MEDS: PANTOPRAZOLE (EC) 40 MG TAB PO SCH (05:56)
[2016-07-01] MEDS: SOD CHLORIDE 0.9% 1,000 ML IV SCH (05:56)
[2016-07-01 07:34] LABS: POTASSIUM 4.2 mmol/L (3.5-5.1)
[2016-07-01 07:36] LABS: CREATININE 0.72 mg/dl (0.61-1.24)
[2016-07-01 07:37] LABS: CALCIUM 9.5 mg/dl (8.4-10.2)
[2016-07-01 07:53] VITALS: BP 119/68; RESP 18
[2016-07-01] MEDS: INSULIN ASPART [NOVOLOG] 3 ML PEN SC SCH ×7 (08:15→21:06)
[2016-07-01] MEDS: ASPIRIN (EC) 81 MG TAB PO SCH (08:27)
[2016-07-01] MEDS: LISINOPRIL 20 MG TAB PO SCH (08:27)
[2016-07-01] MEDS: LINAGLIPTIN 5 MG TABLET PO SCH (08:27)
[2016-07-01] MEDS: GABAPENTIN 300 MG CAP PO SCH ×3 (08:27→21:01)
[2016-07-01] MEDS: metFORMIN 500 MG TAB PO SCH ×2 (08:27→17:28)
[2016-07-01] MEDS: VANCOMYCIN 1 GM in NS 250 ML IVPB SCH ×2 (08:28→21:15)
[2016-07-01] MEDS: METOPROLOL 25 MG TAB PO SCH ×2 (08:28→21:02)
[2016-07-01] MEDS: ENOXAPARIN 30 MG/0.3 ML SYG SC SCH (09:33)
--- NOTE | 2016-07-01 11:55 | PN ---
Date/Time of Note Date/Time of Note DATE: 07/01/16 TIME: 11:55 Assessment/Plan VTE Prophylaxis VTE Prophylaxis Intervention: other Lines/Catheters IV Catheter Type (from Nrs): PICC Line Central line still needed: Yes Assessment/Plan Chief Complaint/Hosp Course - Right [id number] amputation stump dehiscence, laceration, possible infection. S/p debridement and creation of a rotational flap by Dr. Fuller, vascular surgery, on 06/13. Continue IV antibiotics. Continue wound VAC. Pathology positive for osteomyelitis. Dr. Eldridge is following infection disease consultation. - Diabetes mellitus type 2. Hemoglobin A1c is 8.7. Continue Tradjenta, Lantus , pre-meal NovoLog, and NovoLog per mild algorithm sliding scale a.c. and at bedtime. - Hypertension. Continue metoprolol and lisinopril. Continue to monitor blood pressure. - Homelessness. [facility]ending [facility] facility placement. Problems: Subjective 24 Hr Interval Summary Free Text/Dictation Patient has no complaints Exam/Review of Systems Vital Signs Vitals Vital Signs Date Time Temp Pulse Resp B/P Pulse Ox O2 Delivery O2 Flow Rate FiO2 07/01/16 07:53 98.2 72 18 119/68 99 Intake and Output 06/30/16 06/30/16 07/01/16 15:00 23:00 07:00 Intake Total 2040 ml 1050 ml Output Total 0 ml 1600 ml Balance 2040 ml -550 ml Exam Constitutional: well developed Head: atraumatic, normocephalic Neck: supple Respiratory: clear to auscultation Cardiovascular: regular rate and rhythm Gastrointestinal: non-tender, soft Extremities: normal pulses Results Result Diagram: 06/30/16 0540 07/01/16 0602 Results 24 hrs Laboratory Tests Test 06/30/16 12:01 06/30/16 17:29 06/30/16 20:59 07/01/16 06:02 Bedside Glucose 85 111 109 Sodium Level 140 Potassium Level 4.2 Chloride Level 102 Carbon Dioxide Level 29 Anion Gap 13 Blood Urea Nitrogen 19 Creatinine 0.72 Glucose Level 73 Calcium Level 9.5 Test 07/01/16 08:09 Bedside Glucose 100 Medications Medications Current Medications Aspirin (Halfprin) 81 mg DAILY PO Last administered on 07/01/16t 08:27; Admin Dose 81 MG; Start 06/13/16 at 09:00 Gabapentin (Neurontin) 300 mg TID PO Last administered on 07/01/16 08:27; Admin Dose 300 MG; Start 06/12/16 at 21:00 Lisinopril (Zestril) 20 mg DAILY PO Last administered on 07/01/16 08:27; Admin Dose 20 MG; Start 06/13/16 at 09:00 Metoprolol Tartrate 25 mg 25 mg BID PO Last administered on 07/01/16 08:28; Admin Dose 25 MG; Start 06/12/16 at 21:00 Sodium Chloride (NS) 1,000 ml @ 40 mls/hr Q24H IV Last administered on 05:56; Admin Dose 40 MLS/HR; Start 06/12/16 at 17:15 Ondansetron HCl (Zofran Inj) 4 mg Q6H PRN IV NAUSEA AND/OR VOMITING; Start 06/12 at 17:30 Acetaminophen (Tylenol Tab) 650 mg Q6H PRN PO PAIN LEVEL 1-3 OR FEVER; Start at 17:30 Acetaminophen/ Hydrocodone Bitart ([place] (5/325)) 1 tab Q6H PRN PO MODERATE PAIN LEVEL 4-6 Last administered on 06/30/16 21:13; Admin Dose 1 TAB; Start 06/12/16 at 17:30 Docusate Sodium (Colace) 100 mg Q12H PRN PO CONSTIPATION; Start 06/12/16 at 17: 30 Pantoprazole (Protonix Tab) 40 mg DAILY@06 PO Last administered on 07/01/16 05 :56; Admin Dose 40 MG; Start 06/13/16 at 06:00 Enoxaparin Sodium (Lovenox) 30 mg DAILY SC Last administered on 07/01/16 09:33 ; Admin Dose 30 MG; Start 06/13/16 at 09:00 Diagnostic Test (Pha) (Accu-Chek) 1 ea 02 XX Last administered on 06/30/16 02: 00; Admin Dose 1 EA; Start 06/13/16 at 02:00 Miscellaneous Information 1 ea NOTE XX ; Start 06/12/16 at 17:30 Glucose (Glutose) 15 gm Q15M PRN PO DECREASED GLUCOSE; Start 06/12/16 at 17:30 Glucose (Glutose) 22.5 gm Q15M PRN PO DECREASED GLUCOSE; Start 06/12/16 at 17:30 Dextrose (D50w Syringe) 25 ml Q15M PRN IV DECREASED GLUCOSE; Start 06/12/16 at 17:30 Dextrose (D50w Syringe) 50 ml Q15M PRN IV DECREASED GLUCOSE; Start 06/12/16 at 17:30 Glucagon (Glucagen) 1 mg Q15M PRN IM DECREASED GLUCOSE; Start 06/12/16 at 17:30 Glucose (Glutose) 15 gm Q15M PRN BUCCAL DECREASED GLUCOSE; Start 06/12/16 at 17: 30 Insulin Glargine (Lantus) 12 unit DAILY@20 SC Last administered on 06/30/16 21 :08; Admin Dose 12 UNIT; Start 06/13/16 at 20:00; Status Future hold Linagliptin (Tradjenta) 5 mg DAILY PO Last administered on 07/01/16 08:27; Admin Dose 5 MG; Start 06/15/16 at 09:00 Atorvastatin Calcium (Lipitor) 10 mg QHS PO Last administered on 06/30/16 21: 01; Admin Dose 10 MG; Start 06/15/16 at 21:00 IV Flush 10 ml 10 ml PRN PRN IV IV PROTOCOL; Start 06/20/16 at 16:30 Vancomycin HCl (Vancocin) 250 ml @ 125 mls/hr Q12H IVPB Last administered on 08:28; Admin Dose 125 MLS/HR; Start 06/30/16 at 09:00 SHIRAZ CLARK July 01, 2016 11:55
[2016-07-01 20:01] VITALS: BP 115/61; RESP 20
[2016-07-01] MEDS: HYDROCODONE/APAP (5/325) TAB PO PRN (20:20)
[2016-07-01] MEDS: ATORVASTATIN 10 MG TAB PO SCH (21:01)
[2016-07-01] MEDS: INSULIN GLARGINE [LANtus] 3 ML PEN SC SCH (21:07)
[2016-07-02] MEDS: ACCU-CHEK XX SCH (01:55)
[2016-07-02] MEDS: PANTOPRAZOLE (EC) 40 MG TAB PO SCH (05:37)
[2016-07-02] MEDS: HYDROCODONE/APAP (5/325) TAB PO PRN ×2 (05:41→20:26)
[2016-07-02] MEDS: VANCOMYCIN 1.25 GM in SOD CHLORIDE 0.9% 250 ML IVPB SCH ×2 (05:41→17:28)
[2016-07-02 07:46] VITALS: BP 102/58; RESP 18
[2016-07-02] MEDS: INSULIN ASPART [NOVOLOG] 3 ML PEN SC SCH ×7 (08:15→20:26)
[2016-07-02] MEDS: metFORMIN 500 MG TAB PO SCH ×2 (08:17→17:19)
[2016-07-02] MEDS: ASPIRIN (EC) 81 MG TAB PO SCH (08:18)
[2016-07-02] MEDS: GABAPENTIN 300 MG CAP PO SCH ×3 (08:18→20:25)
[2016-07-02] MEDS: LINAGLIPTIN 5 MG TABLET PO SCH (08:18)
[2016-07-02] MEDS: ENOXAPARIN 30 MG/0.3 ML SYG SC SCH (08:21)
[2016-07-02] MEDS: METOPROLOL 25 MG TAB PO SCH ×2 (09:00→20:26)
[2016-07-02] MEDS: LISINOPRIL 20 MG TAB PO SCH (09:00)
--- NOTE | 2016-07-02 12:16 | PN ---
Date/Time of Note Date/Time of Note DATE: 07/02/16 TIME: 12:15 Assessment/Plan VTE Prophylaxis VTE Prophylaxis Intervention: other Lines/Catheters IV Catheter Type (from Nrs): PICC Line Central line still needed: Yes Assessment/Plan Chief Complaint/Hosp Course - Right [id number] amputation stump dehiscence, laceration, possible infection. S/p debridement and creation of a rotational flap by Dr. Fuller, vascular surgery, on 06/13. Continue IV antibiotics. Continue wound VAC. Pathology positive for osteomyelitis. Dr. Eldridge is following infection disease consultation. - Diabetes mellitus type 2. Hemoglobin A1c is 8.7. Continue Tradjenta, Lantus , pre-meal NovoLog, and NovoLog per mild algorithm sliding scale a.c. and at bedtime. - Hypertension. Continue metoprolol and lisinopril. Continue to monitor blood pressure. - Homelessness. Pending senior care facility placement. Problems: Subjective 24 Hr Interval Summary Free Text/Dictation Patient has no complaints Exam/Review of Systems Vital Signs Vitals Vital Signs Date Time Temp Pulse Resp B/P Pulse Ox O2 Delivery O2 Flow Rate FiO2 07/02/16 07:46 97.7 60 18 102/58 99 07/01/16 20:00 Room Air Intake and Output 07/01/16 07/01/16 07/02/16 15:00 23:00 07:00 Intake Total 2130 ml 1670 ml Output Total 1700 ml 1900 ml Balance 430 ml -230 ml Exam Constitutional: well developed Head: atraumatic, normocephalic Neck: supple Respiratory: diminished breath sounds Cardiovascular: regular rate and rhythm Gastrointestinal: non-tender, soft Extremities: normal pulses Results Result Diagram: 06/30/16 0540 07/01/16 0602 Results 24 hrs Laboratory Tests Test 07/01/16 17:23 07/01/16 20:18 07/01/16 21:00 07/02/16 01:53 Bedside Glucose 107 193 75 Vancomycin Level Trough 10.1 Test 07/02/16 07:56 07/02/16 11:57 Bedside Glucose 78 71 Medications Medications Current Medications Aspirin (Halfprin) 81 mg DAILY PO Last administered on 07/02/16t 08:18; Admin Dose 81 MG; Start 06/13/16 at 09:00 Gabapentin (Neurontin) 300 mg TID PO Last administered on 07/02/16 12:04; Admin Dose 300 MG; Start 06/12/16 at 21:00 Lisinopril (Zestril) 20 mg DAILY PO Last administered on 07/01/16 08:27; Admin Dose 20 MG; Start 06/13/16 at 09:00 Metoprolol Tartrate 25 mg 25 mg BID PO Last administered on 07/01/16 21:02; Admin Dose 25 MG; Start 06/12/16 at 21:00 Sodium Chloride (NS) 1,000 ml @ 40 mls/hr Q24H IV Last administered on 05:56; Admin Dose 40 MLS/HR; Start 06/12/16 at 17:15 Ondansetron HCl (Zofran Inj) 4 mg Q6H PRN IV NAUSEA AND/OR VOMITING; Start 06/12 at 17:30 Acetaminophen (Tylenol Tab) 650 mg Q6H PRN PO PAIN LEVEL 1-3 OR FEVER; Start at 17:30 Acetaminophen/ Hydrocodone Bitart ([place] (5/325)) 1 tab Q6H PRN PO MODERATE PAIN LEVEL 4-6 Last administered on 07/02/16 05:41; Admin Dose 1 TAB; Start 06/12/16 at 17:30 Docusate Sodium (Colace) 100 mg Q12H PRN PO CONSTIPATION; Start 06/12/16 at 17: 30 Pantoprazole (Protonix Tab) 40 mg DAILY@06 PO Last administered on 07/02/16 05 :37; Admin Dose 40 MG; Start 06/13/16 at 06:00 Enoxaparin Sodium (Lovenox) 30 mg DAILY SC Last administered on 07/02/16 08:21 ; Admin Dose 30 MG; Start 06/13/16 at 09:00 Diagnostic Test (Pha) (Accu-Chek) 1 ea 02 XX Last administered on 07/02/16 01: 55; Admin Dose 1 EA; Start 06/13/16 at 02:00 Miscellaneous Information 1 ea NOTE XX ; Start 06/12/16 at 17:30 Glucose (Glutose) 15 gm Q15M PRN PO DECREASED GLUCOSE; Start 06/12/16 at 17:30 Glucose (Glutose) 22.5 gm Q15M PRN PO DECREASED GLUCOSE; Start 06/12/16 at 17:30 Dextrose (D50w Syringe) 25 ml Q15M PRN IV DECREASED GLUCOSE; Start 06/12/16 at 17:30 Dextrose (D50w Syringe) 50 ml Q15M PRN IV DECREASED GLUCOSE; Start 06/12/16 at 17:30 Glucagon (Glucagen) 1 mg Q15M PRN IM DECREASED GLUCOSE; Start 06/12/16 at 17:30 Glucose (Glutose) 15 gm Q15M PRN BUCCAL DECREASED GLUCOSE; Start 06/12/16 at 17: 30 Insulin Glargine (Lantus) 12 unit DAILY@20 SC Last administered on 07/01/16 21 :07; Admin Dose 12 UNIT; Start 06/13/16 at 20:00; Status Future hold Linagliptin (Tradjenta) 5 mg DAILY PO Last administered on 07/02/16 08:18; Admin Dose 5 MG; Start 06/15/16 at 09:00 Atorvastatin Calcium (Lipitor) 10 mg QHS PO Last administered on 07/01/16 21: 01; Admin Dose 10 MG; Start 06/15/16 at 21:00 IV Flush 10 ml 10 ml PRN PRN IV IV PROTOCOL; Start 06/20/16 at 16:30 Vancomycin HCl/ Sodium Chloride (Vancocin/NS) 250 ml @ 83.333 mls/ hr Q12H IVPB Last administered on 07/02/16 05:41; Admin Dose 83.333 MLS/HR; Start at 06:00 SHIRAZ CLARK July 02, 2016 12:16
[2016-07-02] MEDS: SOD CHLORIDE 0.9% 1,000 ML IV SCH (14:31)
[2016-07-02 20:14] VITALS: BP 125/70; RESP 18
[2016-07-02] MEDS: ATORVASTATIN 10 MG TAB PO SCH (20:25)
[2016-07-02] MEDS: INSULIN GLARGINE [LANtus] 3 ML PEN SC SCH (20:31)
[2016-07-03] MEDS: ACCU-CHEK XX SCH (01:55)
[2016-07-03] MEDS: HYDROCODONE/APAP (5/325) TAB PO PRN ×2 (05:53→14:31)
[2016-07-03] MEDS: PANTOPRAZOLE (EC) 40 MG TAB PO SCH (05:53)
[2016-07-03] MEDS: VANCOMYCIN 1.25 GM in SOD CHLORIDE 0.9% 250 ML IVPB SCH ×2 (05:53→18:15)
[2016-07-03 06:43] LABS: ADD SCAN DIFF NO
[2016-07-03 07:10] LABS: BASOPHILS % 0.4 % (0.0-2.0); EOSINOPHILS # 0.5 10^3/ul (0.0-0.5); EOSINOPHILS % 9.3 % (0.0-7.0); HEMATOCRIT 32.2 % (42.0-52.0); HEMOGLOBIN 10.3 g/dl (14.0-18.0); LYMPHOCYTES # 1.6 10^3/ul (0.8-2.9); MEAN CORPUSCULAR HEMOGLOBIN 28.1 pg (29.0-33.0); MEAN PLATELET VOLUME 10.1 fl (7.4-10.4); MONOCYTE # 0.6 10^3/ul (0.3-0.9); MONOCYTES % 11.3 % (0.0-11.0); NEUTROPHIL # 2.3 10^3/ul (1.6-7.5); NEUTROPHILS % 46.8 % (39.0-77.0); PLATELET COUNT 232 10^3/UL (140-415); RED BLOOD COUNT 3.66 10^6/ul (4.70-6.10); RED CELL DISTRIBUTION WIDTH 14.9 % (11.5-14.5); WHITE BLOOD COUNT 4.9 10^3/ul (4.8-10.8)
[2016-07-03 07:21] LABS: CALCIUM 9.4 mg/dl (8.4-10.2); CREATININE 0.65 mg/dl (0.61-1.24)
[2016-07-03 07:27] VITALS: BP 128/69; RESP 18
[2016-07-03] MEDS: INSULIN ASPART [NOVOLOG] 3 ML PEN SC SCH ×8 (08:13→20:39)
[2016-07-03] MEDS: metFORMIN 500 MG TAB PO SCH ×2 (08:21→18:17)
[2016-07-03] MEDS: LINAGLIPTIN 5 MG TABLET PO SCH (08:22)
[2016-07-03] MEDS: ASPIRIN (EC) 81 MG TAB PO SCH (08:22)
[2016-07-03] MEDS: METOPROLOL 25 MG TAB PO SCH ×2 (08:22→20:31)
[2016-07-03] MEDS: LISINOPRIL 20 MG TAB PO SCH (08:22)
[2016-07-03] MEDS: GABAPENTIN 300 MG CAP PO SCH ×3 (08:22→20:31)
[2016-07-03] MEDS: ENOXAPARIN 30 MG/0.3 ML SYG SC SCH (08:26)
--- NOTE | 2016-07-03 09:58 | PN ---
Date/Time of Note Date/Time of Note DATE: 07/03/16 TIME: 09:57 Assessment/Plan VTE Prophylaxis VTE Prophylaxis Intervention: other Lines/Catheters IV Catheter Type (from Nrs): PICC Line Central line still needed: Yes Assessment/Plan Chief Complaint/Hosp Course - Right [id number] amputation stump dehiscence, laceration, possible infection. S/p debridement and creation of a rotational flap by Dr. Fuller, vascular surgery, on 06/13. Continue IV antibiotics. Continue wound VAC. Pathology positive for osteomyelitis. Dr. Eldridge is following infection disease consultation. - Diabetes mellitus type 2. Hemoglobin A1c is 8.7. Continue Tradjenta, Lantus , pre-meal NovoLog, and NovoLog per mild algorithm sliding scale a.c. and at bedtime. - Hypertension. Continue metoprolol and lisinopril. Continue to monitor blood pressure. - Homelessness. Pending custodial facility placement. Problems: Subjective 24 Hr Interval Summary Free Text/Dictation Patient's condition is unchanged Exam/Review of Systems Vital Signs Vitals Vital Signs Date Time Temp Pulse Resp B/P Pulse Ox O2 Delivery O2 Flow Rate FiO2 07/03/16 07:27 98.2 70 18 128/69 100 07/02/16 20:00 Room Air Intake and Output 07/02/16 07/02/16 07/03/16 15:00 23:00 07:00 Intake Total 450 ml 2250 ml 700 ml Output Total 1350 ml 1650 ml Balance 450 ml 900 ml -950 ml Exam Constitutional: well developed Head: atraumatic, normocephalic Neck: supple Respiratory: clear to auscultation Cardiovascular: regular rate and rhythm Gastrointestinal: non-tender, soft Extremities: normal pulses Results Result Diagram: 07/03/16 0610 07/03/16 0610 Results 24 hrs Laboratory Tests Test 07/02/16 11:57 07/02/16 17:17 07/02/16 20:24 07/03/16 06:10 Bedside Glucose 71 143 93 White Blood Count 4.9 Red Blood Count 3.66 L Hemoglobin 10.3 L Hematocrit 32.2 L Mean Corpuscular Volume 88.0 Mean Corpuscular Hemoglobin 28.1 L Mean Corpuscular Hemoglobin Concent 32.0 Red Cell Distribution Width 14.9 H Platelet Count 232 Mean Platelet Volume 10.1 Neutrophils % 46.8 Lymphocytes % 32.0 Monocytes % 11.3 H Eosinophils % 9.3 H Basophils % 0.4 Nucleated Red Blood Cells % 0.0 Neutrophils # 2.3 Lymphocytes # 1.6 Monocytes # 0.6 Eosinophils # 0.5 Basophils # 0.0 Nucleated Red Blood Cells # 0.0 Sodium Level 143 Potassium Level 4.0 Chloride Level 103 Carbon Dioxide Level 31 Anion Gap 13 Blood Urea Nitrogen 20 Creatinine 0.65 Glucose Level 67 L Calcium Level 9.4 Test 07/03/16 07:55 Bedside Glucose 80 Medications Medications Current Medications Aspirin (Halfprin) 81 mg DAILY PO Last administered on 07/03/16 08:22; Admin Dose 81 MG; Start 06/13/16 at 09:00 Gabapentin (Neurontin) 300 mg TID PO Last administered on 07/03/16 08:22; Admin Dose 300 MG; Start 06/12/16 at 21:00 Lisinopril (Zestril) 20 mg DAILY PO Last administered on 07/03/16 08:22; Admin Dose 20 MG; Start 06/13/16 at 09:00 Metoprolol Tartrate 25 mg 25 mg BID PO Last administered on 07/03/16 08:22; Admin Dose 25 MG; Start 06/12/16 at 21:00 Sodium Chloride (NS) 1,000 ml @ 40 mls/hr Q24H IV Last administered on 14:31; Admin Dose 40 MLS/HR; Start 06/12/16 at 17:15 Ondansetron HCl (Zofran Inj) 4 mg Q6H PRN IV NAUSEA AND/OR VOMITING; Start 06/12 at 17:30 Acetaminophen (Tylenol Tab) 650 mg Q6H PRN PO PAIN LEVEL 1-3 OR FEVER; Start at 17:30 Acetaminophen/ Hydrocodone Bitart ([place] (5/325)) 1 tab Q6H PRN PO MODERATE PAIN LEVEL 4-6 Last administered on 07/03/16 05:53; Admin Dose 1 TAB; Start 06/12/16 at 17:30 Docusate Sodium (Colace) 100 mg Q12H PRN PO CONSTIPATION; Start 06/12/16 at 17: 30 Pantoprazole (Protonix Tab) 40 mg DAILY@06 PO Last administered on 07/03/16 05 :53; Admin Dose 40 MG; Start 06/13/16 at 06:00 Enoxaparin Sodium (Lovenox) 30 mg DAILY SC Last administered on 07/03/16 08:26 ; Admin Dose 30 MG; Start 06/13/16 at 09:00 Diagnostic Test (Pha) (Accu-Chek) 1 ea 02 XX Last administered on 07/02/16 01: 55; Admin Dose 1 EA; Start 06/13/16 at 02:00 Miscellaneous Information 1 ea NOTE XX ; Start 06/12/16 at 17:30 Glucose (Glutose) 15 gm Q15M PRN PO DECREASED GLUCOSE; Start 06/12/16 at 17:30 Glucose (Glutose) 22.5 gm Q15M PRN PO DECREASED GLUCOSE; Start 06/12/16 at 17:30 Dextrose (D50w Syringe) 25 ml Q15M PRN IV DECREASED GLUCOSE; Start 06/12/16 at 17:30 Dextrose (D50w Syringe) 50 ml Q15M PRN IV DECREASED GLUCOSE; Start 06/12/16 at 17:30 Glucagon (Glucagen) 1 mg Q15M PRN IM DECREASED GLUCOSE; Start 06/12/16 at 17:30 Glucose (Glutose) 15 gm Q15M PRN BUCCAL DECREASED GLUCOSE; Start 06/12/16 at 17: 30 Insulin Glargine (Lantus) 12 unit DAILY@20 SC Last administered on 07/02/16 20 :31; Admin Dose 12 UNIT; Start 06/13/16 at 20:00; Status Future hold Linagliptin (Tradjenta) 5 mg DAILY PO Last administered on 07/03/16 08:22; Admin Dose 5 MG; Start 06/15/16 at 09:00 Atorvastatin Calcium (Lipitor) 10 mg QHS PO Last administered on 07/02/16 20: 25; Admin Dose 10 MG; Start 06/15/16 at 21:00 IV Flush 10 ml 10 ml PRN PRN IV IV PROTOCOL; Start 06/20/16 at 16:30 Vancomycin HCl/ Sodium Chloride (Vancocin/NS) 250 ml @ 83.333 mls/ hr Q12H IVPB Last administered on 07/03/16 05:53; Admin Dose 83.333 MLS/HR; Start at 06:00 SHIRAZ CLARK July 03, 2016 09:58
[2016-07-03] MEDS: SOD CHLORIDE 0.9% 1,000 ML IV SCH (17:15)
[2016-07-03 19:28] VITALS: BP 120/57; RESP 18
[2016-07-03] MEDS: ATORVASTATIN 10 MG TAB PO SCH (20:31)
[2016-07-03] MEDS: INSULIN GLARGINE [LANtus] 3 ML PEN SC SCH (20:35)
[2016-07-04] MEDS: ACCU-CHEK XX SCH (02:00)
[2016-07-04] MEDS: SOD CHLORIDE 0.9% 1,000 ML IV SCH ×2 (05:44→17:15)
[2016-07-04] MEDS: PANTOPRAZOLE (EC) 40 MG TAB PO SCH (05:53)
[2016-07-04] MEDS: VANCOMYCIN 1.25 GM in SOD CHLORIDE 0.9% 250 ML IVPB SCH (05:54)
[2016-07-04 07:26] VITALS: BP 119/58; RESP 18
[2016-07-04] MEDS: INSULIN ASPART [NOVOLOG] 3 ML PEN SC SCH ×7 (08:14→20:28)
[2016-07-04] MEDS: GABAPENTIN 300 MG CAP PO SCH ×3 (08:16→20:24)
[2016-07-04] MEDS: METOPROLOL 25 MG TAB PO SCH ×2 (08:17→20:31)
[2016-07-04] MEDS: metFORMIN 500 MG TAB PO SCH ×2 (08:18→17:47)
[2016-07-04] MEDS: LINAGLIPTIN 5 MG TABLET PO SCH (08:18)
[2016-07-04] MEDS: LISINOPRIL 20 MG TAB PO SCH (08:18)
[2016-07-04] MEDS: ASPIRIN (EC) 81 MG TAB PO SCH (08:18)
[2016-07-04] MEDS: ENOXAPARIN 30 MG/0.3 ML SYG SC SCH (08:25)
[2016-07-04] MEDS: HYDROCODONE/APAP (5/325) TAB PO PRN (13:54)
--- NOTE | 2016-07-04 19:39 | PN ---
Date/Time of Note Date/Time of Note DATE: 07/04/16 TIME: 19:37 Assessment/Plan VTE Prophylaxis VTE Prophylaxis Intervention: SCD's Lines/Catheters IV Catheter Type (from Nrs): PICC Line Central line still needed: Yes Assessment/Plan Chief Complaint/Hosp Course No complaints, patient remains stable, wound VAC to the right stump. ASSESSMENT AND PLAN: - Right [id number] amputation stump dehiscence, laceration, possible infection. S/p debridement and creation of a rotational flap by Dr. Fuller, vascular surgery, on 06/13. Continue IV antibiotics. Continue wound VAC. Pathology positive for osteomyelitis. Dr. Eldridge is following infection disease consultation. - Diabetes mellitus type 2. Hemoglobin A1c is 8.7. Continue Tradjenta, Lantus , pre-meal NovoLog, and NovoLog per mild algorithm sliding scale a.c. and at bedtime. - Hypertension. Continue metoprolol and lisinopril. Continue to monitor blood pressure. - Homelessness. Pending group home facility placement. Further recommendations based on clinical course. Plan of care discussed with Dr. Li. Problems: Exam/Review of Systems Vital Signs Vitals Vital Signs Date Time Temp Pulse Resp B/P Pulse Ox O2 Delivery O2 Flow Rate FiO2 07/04/16 07:26 97.8 66 18 119/58 100 07/02/16 20:00 Room Air Intake and Output 07/03/16 07/03/16 07/04/16 15:00 23:00 07:00 Intake Total 250 ml 1990 ml 780 ml Output Total 1525 ml 1950 ml Balance 250 ml 465 ml -1170 ml Exam Constitutional: alert, oriented Psych: no complaints Head: normocephalic Neck: supple Respiratory: clear to auscultation Cardiovascular: nl pulses, regular rate and rhythm Gastrointestinal: soft Extremities: normal pulses, other (right BKA wound to wound vac.) Neurological: CHURN DRILLER II-XII intact Results Result Diagram: 07/03/16 0610 07/03/16 0610 Results 24 hrs Laboratory Tests Test 07/03/16 20:29 07/04/16 01:22 07/04/16 04:52 07/04/16 08:13 Bedside Glucose 231 H 135 96 Vancomycin Level Trough 20.8 *H Test 07/04/16 11:58 07/04/16 17:35 Bedside Glucose 93 146 Medications Medications Current Medications Aspirin (Halfprin) 81 mg DAILY PO Last administered on 07/04/16 08:18; Admin Dose 81 MG; Start 06/13/16 at 09:00 Gabapentin (Neurontin) 300 mg TID PO Last administered on 07/04/16 13:51; Admin Dose 300 MG; Start 06/12/16 at 21:00 Lisinopril (Zestril) 20 mg DAILY PO Last administered on 07/04/16 08:18; Admin Dose 20 MG; Start 06/13/16 at 09:00 Metoprolol Tartrate 25 mg 25 mg BID PO Last administered on 07/04/16 08:17; Admin Dose 25 MG; Start 06/12/16 at 21:00 Sodium Chloride (NS) 1,000 ml @ 40 mls/hr Q24H IV Last administered on 05:44; Admin Dose 40 MLS/HR; Start 06/12/16 at 17:15 Ondansetron HCl (Zofran Inj) 4 mg Q6H PRN IV NAUSEA AND/OR VOMITING; Start 06/12 at 17:30 Acetaminophen (Tylenol Tab) 650 mg Q6H PRN PO PAIN LEVEL 1-3 OR FEVER; Start at 17:30 Acetaminophen/ Hydrocodone Bitart ([place] (5/325)) 1 tab Q6H PRN PO MODERATE PAIN LEVEL 4-6 Last administered on 07/04/16 13:54; Admin Dose 1 TAB; Start 06/12/16 at 17:30 Docusate Sodium (Colace) 100 mg Q12H PRN PO CONSTIPATION; Start 06/12/16 at 17: 30 Pantoprazole (Protonix Tab) 40 mg DAILY@06 PO Last administered on 07/04/16 05 :53; Admin Dose 40 MG; Start 06/13/16 at 06:00 Enoxaparin Sodium (Lovenox) 30 mg DAILY SC Last administered on 07/04/16 08:25 ; Admin Dose 30 MG; Start 06/13/16 at 09:00 Diagnostic Test (Pha) (Accu-Chek) 1 ea 02 XX Last administered on 07/02/16 01: 55; Admin Dose 1 EA; Start 06/13/16 at 02:00 Miscellaneous Information 1 ea NOTE XX ; Start 06/12/16 at 17:30 Glucose (Glutose) 15 gm Q15M PRN PO DECREASED GLUCOSE; Start 06/12/16 at 17:30 Glucose (Glutose) 22.5 gm Q15M PRN PO DECREASED GLUCOSE; Start 06/12/16 at 17:30 Dextrose (D50w Syringe) 25 ml Q15M PRN IV DECREASED GLUCOSE; Start 06/12/16 at 17:30 Dextrose (D50w Syringe) 50 ml Q15M PRN IV DECREASED GLUCOSE; Start 06/12/16 at 17:30 Glucagon (Glucagen) 1 mg Q15M PRN IM DECREASED GLUCOSE; Start 06/12/16 at 17:30 Glucose (Glutose) 15 gm Q15M PRN BUCCAL DECREASED GLUCOSE; Start 06/12/16 at 17: 30 Insulin Glargine (Lantus) 12 unit DAILY@20 SC Last administered on 07/03/16 20 :35; Admin Dose 12 UNIT; Start 06/13/16 at 20:00; Status Future hold Linagliptin (Tradjenta) 5 mg DAILY PO Last administered on 07/04/16 08:18; Admin Dose 5 MG; Start 06/15/16 at 09:00 Atorvastatin Calcium (Lipitor) 10 mg QHS PO Last administered on 07/03/16 20: 31; Admin Dose 10 MG; Start 06/15/16 at 21:00 IV Flush 10 ml 10 ml PRN PRN IV IV PROTOCOL; Start 06/20/16 at 16:30 Vancomycin HCl (Vancocin) 250 ml @ 125 mls/hr Q12H IVPB ; Start 07/04/16 at 20: 00 WEI SULLIVAN July 04, 2016 19:38
[2016-07-04] MEDS: ATORVASTATIN 10 MG TAB PO SCH (20:24)
[2016-07-04] MEDS: VANCOMYCIN 1 GM in NS 250 ML IVPB SCH (20:26)
[2016-07-04] MEDS: INSULIN GLARGINE [LANtus] 3 ML PEN SC SCH (21:35)
[2016-07-05] MEDS: ACCU-CHEK XX SCH (02:00)
[2016-07-05 06:03] LABS: POTASSIUM 4.5 mmol/L (3.5-5.1)
[2016-07-05 06:06] LABS: CALCIUM 9.7 mg/dl (8.4-10.2); CREATININE 0.74 mg/dl (0.61-1.24)
[2016-07-05] MEDS: PANTOPRAZOLE (EC) 40 MG TAB PO SCH (06:08)
[2016-07-05 06:09] LABS: CREATININE 0.76 mg/dl (0.61-1.24)
[2016-07-05 07:41] VITALS: BP 126/66; RESP 18
[2016-07-05] MEDS: VANCOMYCIN 1 GM in NS 250 ML IVPB SCH ×2 (08:02→20:20)
[2016-07-05] MEDS: metFORMIN 500 MG TAB PO SCH ×2 (08:04→17:25)
[2016-07-05] MEDS: HYDROCODONE/APAP (5/325) TAB PO PRN (08:04)
[2016-07-05] MEDS: METOPROLOL 25 MG TAB PO SCH ×2 (08:05→20:24)
[2016-07-05] MEDS: LISINOPRIL 20 MG TAB PO SCH (08:05)
[2016-07-05] MEDS: ASPIRIN (EC) 81 MG TAB PO SCH (08:05)
[2016-07-05] MEDS: LINAGLIPTIN 5 MG TABLET PO SCH (08:05)
[2016-07-05] MEDS: GABAPENTIN 300 MG CAP PO SCH ×3 (08:05→20:20)
[2016-07-05] MEDS: ENOXAPARIN 30 MG/0.3 ML SYG SC SCH (08:13)
[2016-07-05] MEDS: INSULIN ASPART [NOVOLOG] 3 ML PEN SC SCH ×7 (08:14→20:45)
[2016-07-05] MEDS: SOD CHLORIDE 0.9% 1,000 ML IV SCH (14:10)
--- NOTE | 2016-07-05 16:13 | PN ---
Date/Time of Note Date/Time of Note DATE: 07/05/16 TIME: 16:10 Assessment/Plan VTE Prophylaxis VTE Prophylaxis Intervention: LMWH Lines/Catheters IV [facility] Type (from [facility]): PICC Line Central line still needed: Yes Urinary Cath still in place: No Assessment/Plan Chief Complaint/Hosp Course No acute events, adequate blood sugar control. ASSESSMENT AND PLAN: - Right [id number] amputation stump dehiscence, laceration, possible infection. S/p debridement and creation of a rotational flap by Dr. Fuller, vascular surgery, on 06/13. Continue wound VAC. Pathology positive for osteomyelitis. Dr. Eldridge is following infection disease consultation. Continue antibiotics per ID. - Diabetes mellitus type 2. Hemoglobin A1c is 8.7. Continue Tradjenta, Lantus , pre-meal NovoLog, and NovoLog per mild algorithm sliding scale a.c. and at bedtime. - Hypertension. Continue metoprolol and lisinopril. Continue to monitor blood pressure. - Homelessness. Pending snf facility placement. Further recommendations based on clinical course. Plan of care discussed with Dr. Li. Problems: Exam/Review of Systems Vital Signs Vitals Vital Signs Date Time Temp Pulse Resp B/P Pulse Ox O2 Delivery O2 Flow Rate FiO2 07/05/16 07:41 97.8 80 18 126/66 98 07/02/16 20:00 Room Air Intake and Output 07/04/16 07/04/16 07/05/16 15:00 23:00 07:00 Intake Total 2430 ml 800 ml Output Total 1700 ml 925 ml Balance 730 ml -125 ml Exam Constitutional: alert, oriented Head: normocephalic Neck: supple Respiratory: normal air movement Cardiovascular: nl pulses Gastrointestinal: non-tender, soft Extremities: other (Riled right lower extremity stump with wound VAC) Results Result Diagram: 07/03/16 0610 07/05/16 0509 Results 24 hrs Laboratory Tests Test 07/04/16 17:35 07/04/16 20:20 07/04/16 21:32 07/05/16 05:09 Bedside Glucose 146 71 108 Sodium Level 141 Potassium Level 4.5 Chloride Level 108 Carbon Dioxide Level 27 Anion Gap 11 Blood Urea Nitrogen 20 Creatinine 0.74 Glucose Level 128 # Calcium Level 9.7 Test 07/05/16 08:02 07/05/16 11:51 Bedside Glucose 102 126 Medications Medications Current Medications Aspirin (Halfprin) 81 mg DAILY PO Last administered on 07/05/16 08:05; Admin Dose 81 MG; Start 06/13/16 at 09:00 Gabapentin (Neurontin) 300 mg TID PO Last administered on 07/05/16 11:51; Admin Dose 300 MG; Start 06/12/16 at 21:00 Lisinopril (Zestril) 20 mg DAILY PO Last administered on 07/05/16 08:05; Admin Dose 20 MG; Start 06/13/16 at 09:00 Metoprolol Tartrate 25 mg 25 mg BID PO Last administered on 07/05/16 08:05; Admin Dose 25 MG; Start 06/12/16 at 21:00 Sodium Chloride (NS) 1,000 ml @ 40 mls/hr Q24H IV Last administered on 14:10; Admin Dose 40 MLS/HR; Start 06/12/16 at 17:15 Ondansetron HCl (Zofran Inj) 4 mg Q6H PRN IV NAUSEA AND/OR VOMITING; Start 06/12 at 17:30 Acetaminophen (Tylenol Tab) 650 mg Q6H PRN PO PAIN LEVEL 1-3 OR FEVER; Start at 17:30 Acetaminophen/ Hydrocodone Bitart ([place] (5/325)) 1 tab Q6H PRN PO MODERATE PAIN LEVEL 4-6 Last administered on 07/05/16 08:04; Admin Dose 1 TAB; Start 06/12/16 at 17:30 Docusate Sodium (Colace) 100 mg Q12H PRN PO CONSTIPATION; Start 06/12/16 at 17: 30 Pantoprazole (Protonix Tab) 40 mg DAILY@06 PO Last administered on 07/05/16 06 :08; Admin Dose 40 MG; Start 06/13/16 at 06:00 Enoxaparin Sodium (Lovenox) 30 mg DAILY SC Last administered on 07/05/16 08:13 ; Admin Dose 30 MG; Start 06/13/16 at 09:00 Diagnostic Test (Pha) (Accu-Chek) 1 ea 02 XX Last administered on 07/02/16 01: 55; Admin Dose 1 EA; Start 06/13/16 at 02:00 Miscellaneous Information 1 ea NOTE XX ; Start 06/12/16 at 17:30 Glucose (Glutose) 15 gm Q15M PRN PO DECREASED GLUCOSE; Start 06/12/16 at 17:30 Glucose (Glutose) 22.5 gm Q15M PRN PO DECREASED GLUCOSE; Start 06/12/16 at 17:30 Dextrose (D50w Syringe) 25 ml Q15M PRN IV DECREASED GLUCOSE; Start 06/12/16 at 17:30 Dextrose (D50w Syringe) 50 ml Q15M PRN IV DECREASED GLUCOSE; Start 06/12/16 at 17:30 Glucagon (Glucagen) 1 mg Q15M PRN IM DECREASED GLUCOSE; Start 06/12/16 at 17:30 Glucose (Glutose) 15 gm Q15M PRN BUCCAL DECREASED GLUCOSE; Start 06/12/16 at 17: 30 Insulin Glargine (Lantus) 12 unit DAILY@20 SC Last administered on 07/04/16 21 :35; Admin Dose 12 UNIT; Start 06/13/16 at 20:00; Status Future hold Linagliptin (Tradjenta) 5 mg DAILY PO Last administered on 07/05/16 08:05; Admin Dose 5 MG; Start 06/15/16 at 09:00 Atorvastatin Calcium (Lipitor) 10 mg QHS PO Last administered on 07/04/16 20: 24; Admin Dose 10 MG; Start 06/15/16 at 21:00 IV Flush 10 ml 10 ml PRN PRN IV IV PROTOCOL; Start 06/20/16 at 16:30 Vancomycin HCl (Vancocin) 250 ml @ 125 mls/hr Q12H IVPB Last administered on 08:02; Admin Dose 125 MLS/HR; Start 07/04/16 at 20:00 Miscellaneous Information (*Rx Drug Level Order Reminder*) VANCO TROUGH 07/06 @ 19,:00 ONCE ONCE XX ; Start 07/06/16 at 19:00; Stop 07/06/16 at 19:01 WEI SULLIVAN July 05, 2016 16:13
--- NOTE | 2016-07-05 19:29 | CONS ---
Date/Time of Note Date/Time of Note DATE: 07/05/16 TIME: 19:29 Assessment/Plan Assessment/Plan Chief Complaint/Hosp Course SUBJECTIVE: Awake, no events, looks comfortable, no fevers MICROBIOLOGY: Wound culture growing MSSA/Enterococcus ANTIMICROBIALS: Vancomycin PHYSICAL EXAMINATION: GENERAL: This is a well-nourished, well-developed elderly man who is awake, in no distress. HEENT: Head: Atraumatic, normocephalic. Sclerae anicteric. Buccal mucosa pink. NECK: Supple, trachea midline. CHEST: Rise symmetrical. Breath sounds clear. HEART: S1, S2. ABDOMEN: Soft, bowel tones present. EXTREMITIES: Without cyanosis. Right lower extremity wound VAC present. ASSESSMENT: 1. Right below-knee amputation, infected stump with OM, status post revision with rotation flap and wound VAC application. 2. Diabetes. 3. Hypertension. PLAN: The patient remains stable. Continue local wound, continue Vancomycin till 07/28 DW staff Problems: Consultation Date/Type/Reason Admit Date/Time June 12, 2016 at 13:22 Type of Consultation: ID Exam/Review of Systems Vital Signs Vitals Vital Signs Date Time Temp Pulse Resp B/P Pulse Ox O2 Delivery O2 Flow Rate FiO2 07/05/16 07:41 97.8 80 18 126/66 98 07/02/16 20:00 Room Air Intake and Output 07/04/16 07/04/16 07/05/16 15:00 23:00 07:00 Intake Total 2430 ml 800 ml Output Total 1700 ml 925 ml Balance 730 ml -125 ml Results Result Diagram: 07/03/16 0610 07/05/16 0509 Results 24 hrs Laboratory Tests Test 07/04/16 20:20 07/04/16 21:32 07/05/16 05:09 07/05/16 08:02 Bedside Glucose 71 108 102 Sodium Level 141 Potassium Level 4.5 Chloride Level 108 Carbon Dioxide Level 27 Anion Gap 11 Blood Urea Nitrogen 20 Creatinine 0.74 Glucose Level 128 # Calcium Level 9.7 Test 07/05/16 11:51 07/05/16 17:23 Bedside Glucose 126 162 Medications Medications Current Medications Aspirin (Halfprin) 81 mg DAILY PO Last administered on 07/05/16t 08:05; Admin Dose 81 MG; Start 06/13/16 at 09:00 Gabapentin (Neurontin) 300 mg TID PO Last administered on 07/05/16 11:51; Admin Dose 300 MG; Start 06/12/16 at 21:00 Lisinopril (Zestril) 20 mg DAILY PO Last administered on 07/05/16 08:05; Admin Dose 20 MG; Start 06/13/16 at 09:00 Metoprolol Tartrate 25 mg 25 mg BID PO Last administered on 07/05/16 08:05; Admin Dose 25 MG; Start 06/12/16 at 21:00 Sodium Chloride (NS) 1,000 ml @ 40 mls/hr Q24H IV Last administered on 14:10; Admin Dose 40 MLS/HR; Start 06/12/16 at 17:15 Ondansetron HCl (Zofran Inj) 4 mg Q6H PRN IV NAUSEA AND/OR VOMITING; Start 06/12 at 17:30 Acetaminophen (Tylenol Tab) 650 mg Q6H PRN PO PAIN LEVEL 1-3 OR FEVER; Start at 17:30 Acetaminophen/ Hydrocodone Bitart ([place] (5/325)) 1 tab Q6H PRN PO MODERATE PAIN LEVEL 4-6 Last administered on 07/05/16 08:04; Admin Dose 1 TAB; Start 06/12/16 at 17:30 Docusate Sodium (Colace) 100 mg Q12H PRN PO CONSTIPATION; Start 06/12/16 at 17: 30 Pantoprazole (Protonix Tab) 40 mg DAILY@06 PO Last administered on 07/05/16 06 :08; Admin Dose 40 MG; Start 06/13/16 at 06:00 Enoxaparin Sodium (Lovenox) 30 mg DAILY SC Last administered on 07/05/16 08:13 ; Admin Dose 30 MG; Start 06/13/16 at 09:00 Diagnostic Test (Pha) (Accu-Chek) 1 ea 02 XX Last administered on 07/02/16 01: 55; Admin Dose 1 EA; Start 06/13/16 at 02:00 Miscellaneous Information 1 ea NOTE XX ; Start 06/12/16 at 17:30 Glucose (Glutose) 15 gm Q15M PRN PO DECREASED GLUCOSE; Start 06/12/16 at 17:30 Glucose (Glutose) 22.5 gm Q15M PRN PO DECREASED GLUCOSE; Start 06/12/16 at 17:30 Dextrose (D50w Syringe) 25 ml Q15M PRN IV DECREASED GLUCOSE; Start 06/12/16 at 17:30 Dextrose (D50w Syringe) 50 ml Q15M PRN IV DECREASED GLUCOSE; Start 06/12/16 at 17:30 Glucagon (Glucagen) 1 mg Q15M PRN IM DECREASED GLUCOSE; Start 06/12/16 at 17:30 Glucose (Glutose) 15 gm Q15M PRN BUCCAL DECREASED GLUCOSE; Start 06/12/16 at 17: 30 Insulin Glargine (Lantus) 12 unit DAILY@20 SC Last administered on 07/04/16 21 :35; Admin Dose 12 UNIT; Start 06/13/16 at 20:00; Status Future hold Linagliptin (Tradjenta) 5 mg DAILY PO Last administered on 07/05/16 08:05; Admin Dose 5 MG; Start 06/15/16 at 09:00 Atorvastatin Calcium (Lipitor) 10 mg QHS PO Last administered on 07/04/16 20: 24; Admin Dose 10 MG; Start 06/15/16 at 21:00 IV Flush 10 ml 10 ml PRN PRN IV IV PROTOCOL; Start 06/20/16 at 16:30 Vancomycin HCl (Vancocin) 250 ml @ 125 mls/hr Q12H IVPB Last administered on 08:02; Admin Dose 125 MLS/HR; Start 07/04/16 at 20:00 Miscellaneous Information (*Rx Drug Level Order Reminder*) VANCO TROUGH 07/06 @ 19,:00 ONCE ONCE XX ; Start 07/06/16 at 19:00; Stop 07/06/16 at 19:01 HILARIO ACUÑA NP July 05, 2016 19:29
[2016-07-05 19:58] VITALS: BP 108/65; RESP 20
[2016-07-05] MEDS: ATORVASTATIN 10 MG TAB PO SCH (20:20)
[2016-07-05] MEDS: INSULIN GLARGINE [LANtus] 3 ML PEN SC SCH (20:45)
[2016-07-06] MEDS: ACCU-CHEK XX SCH (02:00)
[2016-07-06] MEDS: PANTOPRAZOLE (EC) 40 MG TAB PO SCH (05:22)
[2016-07-06] MEDS: HYDROCODONE/APAP (5/325) TAB PO PRN ×2 (05:23→20:35)
[2016-07-06 07:49] VITALS: BP 131/66; RESP 18
[2016-07-06] MEDS: INSULIN ASPART [NOVOLOG] 3 ML PEN SC SCH ×7 (07:58→20:36)
[2016-07-06] MEDS: ASPIRIN (EC) 81 MG TAB PO SCH (08:24)
[2016-07-06] MEDS: LISINOPRIL 20 MG TAB PO SCH (08:24)
[2016-07-06] MEDS: LINAGLIPTIN 5 MG TABLET PO SCH (08:24)
[2016-07-06] MEDS: metFORMIN 500 MG TAB PO SCH ×2 (08:24→17:48)
[2016-07-06] MEDS: VANCOMYCIN 1 GM in NS 250 ML IVPB SCH (08:24)
[2016-07-06] MEDS: GABAPENTIN 300 MG CAP PO SCH ×3 (08:24→20:34)
[2016-07-06] MEDS: METOPROLOL 25 MG TAB PO SCH ×2 (08:25→20:34)
[2016-07-06] MEDS: ENOXAPARIN 30 MG/0.3 ML SYG SC SCH (08:37)
--- NOTE | 2016-07-06 11:15 | PN ---
Date/Time of Note Date/Time of Note DATE: 07/06/16 TIME: 11:10 Assessment/Plan VTE Prophylaxis VTE Prophylaxis Intervention: LMWH Lines/Catheters IV Catheter Type (from [facility]): PICC Line Central line still needed: Yes Urinary Cath still in place: No Assessment/Plan Assessment/Plan - Right [id number] amputation stump dehiscence, laceration, possible infection. S/p debridement and creation of a rotational flap by Dr. Fuller, vascular surgery, on 06/13. Continue wound VAC. Pathology positive for osteomyelitis. Dr. Eldridge is following infection disease consultation. Continue antibiotics per ID. - Diabetes mellitus type 2. Hemoglobin A1c is 8.7. Continue Tradjenta, Lantus , pre-meal NovoLog, and NovoLog per mild algorithm sliding scale a.c. and at bedtime. - Hypertension. Continue metoprolol and lisinopril. Continue to monitor blood pressure. - Homelessness. Pending long-term facility placement. Further recommendations based on clinical course. Plan of care discussed with Dr. Li. Subjective 24 Hr Interval Summary Free Text/Dictation Alert, right stump wound getting better- wound vac, dressing was changed last night, intact, feels better, dw staff- no new issues reported. Constitutional: improved Eyes: no complaints ENT: no complaints Respiratory: no complaints Cardiovascular: no complaints Gastrointestinal: no complaints Genitourinary: no complaints Musculoskeletal: bone/joint pain Skin: other Neurologic: no complaints Endocrine: no complaints Exam/Review of Systems Vital Signs Vitals Vital Signs Date Time Temp Pulse Resp B/P Pulse Ox O2 Delivery O2 Flow Rate FiO2 07/06/16 07:49 97.8 65 18 131/66 100 07/02/16 20:00 Room Air Intake and Output 07/05/16 07/05/16 07/06/16 15:00 23:00 07:00 Intake Total 1250 ml 1450 ml 1560 ml Output Total 50 ml 1620 ml 2050 ml Balance 1200 ml -170 ml -490 ml Exam Constitutional: alert, oriented Psych: no complaints Neck: non-tender Respiratory: clear to auscultation, normal air movement Cardiovascular: nl pulses, regular rate and rhythm Gastrointestinal: non-tender, soft Musculoskeletal: other (sp right AKA) Extremities: normal pulses Neurological: nl mental status, nl speech Skin: other (right knee- stump dressing DDI, wound vac intact. no active drainane noted.) Results Result Diagram: 07/03/16 0610 07/05/16 0509 Results 24 hrs Laboratory Tests Test 07/05/16 11:51 07/05/16 17:23 07/05/16 20:21 07/06/16 07:54 Bedside Glucose 126 162 82 76 Medications Medications Current Medications Aspirin (Halfprin) 81 mg DAILY PO Last administered on 07/06/16 08:24; Admin Dose 81 MG; Start 06/13/16 at 09:00 Gabapentin (Neurontin) 300 mg TID PO Last administered on 07/06/16 08:24; Admin Dose 300 MG; Start 06/12/16 at 21:00 Lisinopril (Zestril) 20 mg DAILY PO Last administered on 07/06/16 08:24; Admin Dose 20 MG; Start 06/13/16 at 09:00 Metoprolol Tartrate 25 mg 25 mg BID PO Last administered on 07/06/16 08:25; Admin Dose 25 MG; Start 06/12/16 at 21:00 Sodium Chloride (NS) 1,000 ml @ 40 mls/hr Q24H IV Last administered on 14:10; Admin Dose 40 MLS/HR; Start 06/12/16 at 17:15 Ondansetron HCl (Zofran Inj) 4 mg Q6H PRN IV NAUSEA AND/OR VOMITING; Start 06/12 at 17:30 Acetaminophen (Tylenol Tab) 650 mg Q6H PRN PO PAIN LEVEL 1-3 OR FEVER; Start at 17:30 Acetaminophen/ Hydrocodone Bitart ([place] (5/325)) 1 tab Q6H PRN PO MODERATE PAIN LEVEL 4-6 Last administered on 07/06/16 05:23; Admin Dose 1 TAB; Start 06/12 at 17:30 Docusate Sodium (Colace) 100 mg Q12H PRN PO CONSTIPATION; Start 06/12/16 at 17: 30 Pantoprazole (Protonix Tab) 40 mg DAILY@06 PO Last administered on 07/06/16 05: 22; Admin Dose 40 MG; Start 06/13/16 at 06:00 Enoxaparin Sodium (Lovenox) 30 mg DAILY SC Last administered on 07/06/16 08:37 ; Admin Dose 30 MG; Start 06/13/16 at 09:00 Diagnostic Test (Pha) (Accu-Chek) 1 ea 02 XX Last administered on 07/02/16 01: 55; Admin Dose 1 EA; Start 06/13/16 at 02:00 Miscellaneous Information 1 ea NOTE XX ; Start 06/12/16 at 17:30 Glucose (Glutose) 15 gm Q15M PRN PO DECREASED GLUCOSE; Start 06/12/16 at 17:30 Glucose (Glutose) 22.5 gm Q15M PRN PO DECREASED GLUCOSE; Start 06/12/16 at 17:30 Dextrose (D50w Syringe) 25 ml Q15M PRN IV DECREASED GLUCOSE; Start 06/12/16 at 17:30 Dextrose (D50w Syringe) 50 ml Q15M PRN IV DECREASED GLUCOSE; Start 06/12/16 at 17:30 Glucagon (Glucagen) 1 mg Q15M PRN IM DECREASED GLUCOSE; Start 06/12/16 at 17:30 Glucose (Glutose) 15 gm Q15M PRN BUCCAL DECREASED GLUCOSE; Start 06/12/16 at 17: 30 Insulin Glargine (Lantus) 12 unit DAILY@20 SC Last administered on 07/05/16 20 :45; Admin Dose 12 UNIT; Start 06/13/16 at 20:00; Status Future hold Linagliptin (Tradjenta) 5 mg DAILY PO Last administered on 07/06/16 08:24; Admin Dose 5 MG; Start 06/15/16 at 09:00 Atorvastatin Calcium (Lipitor) 10 mg QHS PO Last administered on 07/05/16 20: 20; Admin Dose 10 MG; Start 06/15/16 at 21:00 IV Flush 10 ml 10 ml PRN PRN IV IV PROTOCOL; Start 06/20/16 at 16:30 Vancomycin HCl (Vancocin) 250 ml @ 125 mls/hr Q12H IVPB Last administered on 08:24; Admin Dose 125 MLS/HR; Start 07/04/16 at 20:00 Miscellaneous Information (*Rx Drug Level Order Reminder*) VANCO TROUGH 07/06 @ 19,:00 ONCE ONCE XX ; Start 07/06/16 at 19:00; Stop 07/06/16 at 19:01 ABRAHAN PINA Jul 06, 2016 11:15
--- NOTE | 2016-07-06 13:44 | PN ---
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 -D/C planning with wound vac, arrange for Home Health -Discussed findings, plan of management with the patient and he understands. -Thank you for allowing us to participate in the care of your patient. Please call with any questions. Problems: Subjective 24 Hr Interval Summary no new vascular events overnight, [place] changed Exam/Review of Systems Vital Signs Vitals Vital Signs Date Time Temp Pulse Resp B/P Pulse Ox O2 Delivery O2 Flow Rate FiO2 07/06/16 07:49 97.8 65 18 131/66 100 07/02/16 20:00 Room Air Intake and Output 07/05/16 07/05/16 07/06/16 15:00 23:00 07:00 Intake Total 1250 ml 1450 ml 1560 ml Output Total 50 ml 1620 ml 2050 ml Balance 1200 ml -170 ml -490 ml Exam Free Text/Dictation GENERAL: Alert and oriented x3, PULMONARY: Clear to auscultation bilaterally CARDIOVASCULAR: S1, S2 present ABDOMEN: Soft, nontender, nondistended. Bowel sounds positive. EXTREMITIES: Right lower extremity: Palpable femoral pulse. BKA stump with cap refill 3 seconds. wound vac-intact and functional Left lower extremity: Palpable femoral pulse, nonpalpable pedal pulse. Motor, sensory intact. Cap refill 3 to 4 seconds. There is area of lipodermatosclerosis. No ulcers identified. Results Result Diagram: 07/03/16 0610 07/05/16 0509 JUAN PRIDE MD Jul 06, 2016 13:44
[2016-07-06] MEDS: SOD CHLORIDE 0.9% 1,000 ML IV SCH (18:20)
[2016-07-06 19:48] VITALS: BP 117/55; RESP 20
[2016-07-06] MEDS: ATORVASTATIN 10 MG TAB PO SCH (20:34)
[2016-07-06] MEDS: INSULIN GLARGINE [LANtus] 3 ML PEN SC SCH (20:39)
[2016-07-06] MEDS: VANCOMYCIN 750 MG in SOD CHLORIDE 0.9% 150 ML IVPB SCH (22:18)
[2016-07-07] MEDS: ACCU-CHEK XX SCH (02:00)
[2016-07-07 05:31] LABS: ADD SCAN DIFF NO
[2016-07-07] MEDS: PANTOPRAZOLE (EC) 40 MG TAB PO SCH (05:53)
[2016-07-07] MEDS: HYDROCODONE/APAP (5/325) TAB PO PRN (05:54)
[2016-07-07 05:57] LABS: BASOPHILS % 0.7 % (0.0-2.0); EOSINOPHILS # 0.6 10^3/ul (0.0-0.5); EOSINOPHILS % 9.2 % (0.0-7.0); HEMATOCRIT 32.7 % (42.0-52.0); HEMOGLOBIN 10.5 g/dl (14.0-18.0); LYMPHOCYTES # 1.5 10^3/ul (0.8-2.9); LYMPHOCYTES % 25.1 % (15.0-51.0); MEAN CORPUSCULAR HEMOGLOBIN 28.5 pg (29.0-33.0); MEAN CORPUSCULAR HGB CONC 32.1 g/dl (32.0-37.0); MEAN CORPUSCULAR VOLUME 88.6 fl (82.0-101.0); MEAN PLATELET VOLUME 10.2 fl (7.4-10.4); MONOCYTE # 0.5 10^3/ul (0.3-0.9); MONOCYTES % 8.7 % (0.0-11.0); NEUTROPHIL # 3.4 10^3/ul (1.6-7.5); PLATELET COUNT 240 10^3/UL (140-415); RED BLOOD COUNT 3.69 10^6/ul (4.70-6.10); RED CELL DISTRIBUTION WIDTH 15.3 % (11.5-14.5)
[2016-07-07 06:21] LABS: CALCIUM 9.3 mg/dl (8.4-10.2); CREATININE 0.69 mg/dl (0.61-1.24); POTASSIUM 4.4 mmol/L (3.5-5.1)
[2016-07-07 08:00] VITALS: BP 127/71; RESP 18
[2016-07-07] MEDS: INSULIN ASPART [NOVOLOG] 3 ML PEN SC SCH ×7 (08:10→20:43)
[2016-07-07] MEDS: metFORMIN 500 MG TAB PO SCH ×2 (08:22→17:41)
[2016-07-07] MEDS: LISINOPRIL 20 MG TAB PO SCH (08:22)
[2016-07-07] MEDS: ASPIRIN (EC) 81 MG TAB PO SCH (08:22)
[2016-07-07] MEDS: METOPROLOL 25 MG TAB PO SCH ×2 (08:23→20:42)
[2016-07-07] MEDS: LINAGLIPTIN 5 MG TABLET PO SCH (08:23)
[2016-07-07] MEDS: GABAPENTIN 300 MG CAP PO SCH ×3 (08:23→20:42)
[2016-07-07] MEDS: ENOXAPARIN 30 MG/0.3 ML SYG SC SCH (08:29)
[2016-07-07] MEDS: VANCOMYCIN 750 MG in SOD CHLORIDE 0.9% 150 ML IVPB SCH ×2 (11:16→23:01)
--- NOTE | 2016-07-07 13:16 | CONS ---
Date/Time of Note Date/Time of Note DATE: 07/07/16 TIME: 13:15 Assessment/Plan Assessment/Plan Chief Complaint/Hosp Course SUBJECTIVE: Awake, no events, looks comfortable, no fevers MICROBIOLOGY: Wound culture growing MSSA/Enterococcus ANTIMICROBIALS: Vancomycin PHYSICAL EXAMINATION: GENERAL: This is a well-nourished, well-developed elderly man who is awake, in no distress. HEENT: Head: Atraumatic, normocephalic. Sclerae anicteric. Buccal mucosa pink. NECK: Supple, trachea midline. CHEST: Rise symmetrical. Breath sounds clear. HEART: S1, S2. ABDOMEN: Soft, bowel tones present. EXTREMITIES: Without cyanosis. Right lower extremity wound VAC present. ASSESSMENT: 1. Right below-knee amputation, infected stump with OM, status post revision with rotation flap and wound VAC application. 2. Diabetes. 3. Hypertension. PLAN: The patient remains stable. Continue local wound, continue Vancomycin till 07/28, monitor renal f-n==> good so far DW staff Problems: Consultation Date/Type/Reason Admit Date/Time June 12, 2016 at 13:22 Type of Consultation: ID Exam/Review of Systems Vital Signs Vitals Vital Signs Date Time Temp Pulse Resp B/P Pulse Ox O2 Delivery O2 Flow Rate FiO2 07/07/16 08:00 98.4 76 18 127/71 97 Intake and Output 07/06/16 07/06/16 07/07/16 15:00 23:00 07:00 Intake Total 250 ml 1320 ml 1350 ml Output Total 500 ml 1350 ml Balance 250 ml 820 ml 0 ml Results Result Diagram: 07/07/16 0500 07/07/16 0500 Results 24 hrs Laboratory Tests Test 07/06/16 17:33 07/06/16 19:20 07/06/16 20:33 07/07/16 05:00 Bedside Glucose 213 122 Vancomycin Level Trough 17.5 White Blood Count 6.0 # Red Blood Count 3.69 L Hemoglobin 10.5 L Hematocrit 32.7 L Mean Corpuscular Volume 88.6 Mean Corpuscular Hemoglobin 28.5 L Mean Corpuscular Hemoglobin Concent 32.1 Red Cell Distribution Width 15.3 H Platelet Count 240 Mean Platelet Volume 10.2 Neutrophils % 56.0 Lymphocytes % 25.1 Monocytes % 8.7 Eosinophils % 9.2 H Basophils % 0.7 Nucleated Red Blood Cells % 0.0 Neutrophils # 3.4 Lymphocytes # 1.5 Monocytes # 0.5 Eosinophils # 0.6 H Basophils # 0.0 Nucleated Red Blood Cells # 0.0 Sodium Level 142 Potassium Level 4.4 Chloride Level 104 Carbon Dioxide Level 27 Anion Gap 15 Blood Urea Nitrogen 19 Creatinine 0.69 Glucose Level 97 Calcium Level 9.3 Test 07/07/16 08:08 07/07/16 12:28 07/07/16 12:54 Bedside Glucose 96 66 L 99 Medications Medications Current Medications Aspirin (Halfprin) 81 mg DAILY PO Last administered on 07/07/16 08:22; Admin Dose 81 MG; Start 06/13/16 at 09:00 Gabapentin (Neurontin) 300 mg TID PO Last administered on 07/07/16 12:58; Admin Dose 300 MG; Start 06/12/16 at 21:00 Lisinopril (Zestril) 20 mg DAILY PO Last administered on 07/07/16 08:22; Admin Dose 20 MG; Start 06/13/16 at 09:00 Metoprolol Tartrate 25 mg 25 mg BID PO Last administered on 07/07/16 08:23; Admin Dose 25 MG; Start 06/12/16 at 21:00 Sodium Chloride (NS) 1,000 ml @ 40 mls/hr Q24H IV Last administered on 18:20; Admin Dose 40 MLS/HR; Start 06/12/16 at 17:15 Ondansetron HCl (Zofran Inj) 4 mg Q6H PRN IV NAUSEA AND/OR VOMITING; Start 06/12 at 17:30 Acetaminophen (Tylenol Tab) 650 mg Q6H PRN PO PAIN LEVEL 1-3 OR FEVER; Start at 17:30 Acetaminophen/ Hydrocodone Bitart ([place] (5/325)) 1 tab Q6H PRN PO MODERATE PAIN LEVEL 4-6 Last administered on 07/07/16 05:54; Admin Dose 1 TAB; Start 06/12 at 17:30 Docusate Sodium (Colace) 100 mg Q12H PRN PO CONSTIPATION; Start 06/12/16 at 17: 30 Pantoprazole (Protonix Tab) 40 mg DAILY@06 PO Last administered on 07/07/16 05: 53; Admin Dose 40 MG; Start 06/13/16 at 06:00 Enoxaparin Sodium (Lovenox) 30 mg DAILY SC Last administered on 07/07/16 08:29 ; Admin Dose 30 MG; Start 06/13/16 at 09:00 Diagnostic Test (Pha) (Accu-Chek) 1 ea 02 XX Last administered on 07/02/16 01: 55; Admin Dose 1 EA; Start 06/13/16 at 02:00 Miscellaneous Information 1 ea NOTE XX ; Start 06/12/16 at 17:30 Glucose (Glutose) 15 gm Q15M PRN PO DECREASED GLUCOSE; Start 06/12/16 at 17:30 Glucose (Glutose) 22.5 gm Q15M PRN PO DECREASED GLUCOSE; Start 06/12/16 at 17:30 Dextrose (D50w Syringe) 25 ml Q15M PRN IV DECREASED GLUCOSE; Start 06/12/16 at 17:30 Dextrose (D50w Syringe) 50 ml Q15M PRN IV DECREASED GLUCOSE; Start 06/12/16 at 17:30 Glucagon (Glucagen) 1 mg Q15M PRN IM DECREASED GLUCOSE; Start 06/12/16 at 17:30 Glucose (Glutose) 15 gm Q15M PRN BUCCAL DECREASED GLUCOSE; Start 06/12/16 at 17: 30 Insulin Glargine (Lantus) 12 unit DAILY@20 SC Last administered on 07/06/16 20: 39; Admin Dose 12 UNIT; Start 06/13/16 at 20:00; Status Future hold Linagliptin (Tradjenta) 5 mg DAILY PO Last administered on 07/07/16 08:23; Admin Dose 5 MG; Start 06/15/16 at 09:00 Atorvastatin Calcium (Lipitor) 10 mg QHS PO Last administered on 07/06/16 20:34 ; Admin Dose 10 MG; Start 06/15/16 at 21:00 IV Flush 10 ml 10 ml PRN PRN IV IV PROTOCOL; Start 06/20/16 at 16:30 Vancomycin HCl/ Sodium Chloride (Vancocin/NS) 150 ml @ 75 mls/hr Q12H IVPB Last administered on 07/07/16 11:16; Admin Dose 75 MLS/HR; Start 07/06/16 at 23: 00 HILARIO ACUÑA NP Jul 07, 2016 13:16
--- NOTE | 2016-07-07 15:36 | PN ---
Date/Time of Note Date/Time of Note DATE: 07/07/16 TIME: 15:34 Assessment/Plan VTE Prophylaxis VTE Prophylaxis Intervention: SCD's Lines/Catheters IV [facility]ter Type (from [facility]): PICC Line Central line still needed: Yes Urinary Cath still in place: No Assessment/Plan Chief Complaint/Hosp Course Patient remains hemodynamically stable, no complaints. Discussed with case management no correction facility bed available today. Patient's blood sugar is 66 in a.m. overall good glycemic control, will decrease Lantus to 9. ASSESSMENT AND PLAN: - Right [id number] amputation stump dehiscence, laceration, possible infection. S/p debridement and creation of a rotational flap by Dr. Fuller, vascular surgery, on 06/13. Continue wound VAC. Pathology positive for osteomyelitis. Dr. Eldridge is following infection disease consultation. Continue vancomycin until July 28. - Diabetes mellitus type 2. Hemoglobin A1c is 8.7. Continue Tradjenta, Lantus , pre-meal NovoLog, and NovoLog per mild algorithm sliding scale a.c. and at bedtime. - Hypertension. Continue metoprolol and lisinopril. Continue to monitor blood pressure. - Homelessness. Pending correction facility placement. Further recommendations based on clinical course. Plan of care discussed with Dr. Li. Problems: Exam/Review of Systems Vital Signs Vitals Vital Signs Date Time Temp Pulse Resp B/P Pulse Ox O2 Delivery O2 Flow Rate FiO2 07/07/16 08:00 98.4 76 18 127/71 97 Intake and Output 07/06/16 07/06/16 07/07/16 15:00 23:00 07:00 Intake Total 250 ml 1320 ml 1350 ml Output Total 500 ml 1350 ml Balance 250 ml 820 ml 0 ml Exam Constitutional: alert, oriented Head: normocephalic Neck: supple Respiratory: normal air movement Cardiovascular: nl pulses Gastrointestinal: non-tender, soft Extremities: other (right lower extremity stump wound with wound VAC) Results Result Diagram: 07/07/16 0500 07/07/16 0500 Results 24 hrs Laboratory Tests Test 07/06/16 17:33 07/06/16 19:20 07/06/16 20:33 07/07/16 05:00 Bedside Glucose 213 122 Vancomycin Level Trough 17.5 White Blood Count 6.0 # Red Blood Count 3.69 L Hemoglobin 10.5 L Hematocrit 32.7 L Mean Corpuscular Volume 88.6 Mean Corpuscular Hemoglobin 28.5 L Mean Corpuscular Hemoglobin Concent 32.1 Red Cell Distribution Width 15.3 H Platelet Count 240 Mean Platelet Volume 10.2 Neutrophils % 56.0 Lymphocytes % 25.1 Monocytes % 8.7 Eosinophils % 9.2 H Basophils % 0.7 Nucleated Red Blood Cells % 0.0 Neutrophils # 3.4 Lymphocytes # 1.5 Monocytes # 0.5 Eosinophils # 0.6 H Basophils # 0.0 Nucleated Red Blood Cells # 0.0 Sodium Level 142 Potassium Level 4.4 Chloride Level 104 Carbon Dioxide Level 27 Anion Gap 15 Blood Urea Nitrogen 19 Creatinine 0.69 Glucose Level 97 Calcium Level 9.3 Test 07/07/16 08:08 07/07/16 12:28 07/07/16 12:54 07/07/16 14:41 Bedside Glucose 96 66 L 99 110 Medications Medications Current Medications Aspirin (Halfprin) 81 mg DAILY PO Last administered on 07/07/16 08:22; Admin Dose 81 MG; Start 06/13/16 at 09:00 Gabapentin (Neurontin) 300 mg TID PO Last administered on 07/07/16 12:58; Admin Dose 300 MG; Start 06/12/16 at 21:00 Lisinopril (Zestril) 20 mg DAILY PO Last administered on 07/07/16 08:22; Admin Dose 20 MG; Start 06/13/16 at 09:00 Metoprolol Tartrate 25 mg 25 mg BID PO Last administered on 07/07/16 08:23; Admin Dose 25 MG; Start 06/12/16 at 21:00 Sodium Chloride (NS) 1,000 ml @ 40 mls/hr Q24H IV Last administered on 18:20; Admin Dose 40 MLS/HR; Start 06/12/16 at 17:15 Ondansetron HCl (Zofran Inj) 4 mg Q6H PRN IV NAUSEA AND/OR VOMITING; Start 06/12 at 17:30 Acetaminophen (Tylenol Tab) 650 mg Q6H PRN PO PAIN LEVEL 1-3 OR FEVER; Start at 17:30 Acetaminophen/ Hydrocodone Bitart ([place] (5/325)) 1 tab Q6H PRN PO MODERATE PAIN LEVEL 4-6 Last administered on 07/07/16 05:54; Admin Dose 1 TAB; Start 06/12 at 17:30 Docusate Sodium (Colace) 100 mg Q12H PRN PO CONSTIPATION; Start 06/12/16 at 17: 30 Pantoprazole (Protonix Tab) 40 mg DAILY@06 PO Last administered on 07/07/16 05: 53; Admin Dose 40 MG; Start 06/13/16 at 06:00 Enoxaparin Sodium (Lovenox) 30 mg DAILY SC Last administered on 07/07/16 08:29 ; Admin Dose 30 MG; Start 06/13/16 at 09:00 Diagnostic Test (Pha) (Accu-Chek) 1 ea 02 XX Last administered on 07/02/16 01: 55; Admin Dose 1 EA; Start 06/13/16 at 02:00 Miscellaneous Information 1 ea NOTE XX ; Start 06/12/16 at 17:30 Glucose (Glutose) 15 gm Q15M PRN PO DECREASED GLUCOSE; Start 06/12/16 at 17:30 Glucose (Glutose) 22.5 gm Q15M PRN PO DECREASED GLUCOSE; Start 06/12/16 at 17:30 Dextrose (D50w Syringe) 25 ml Q15M PRN IV DECREASED GLUCOSE; Start 06/12/16 at 17:30 Dextrose (D50w Syringe) 50 ml Q15M PRN IV DECREASED GLUCOSE; Start 06/12/16 at 17:30 Glucagon (Glucagen) 1 mg Q15M PRN IM DECREASED GLUCOSE; Start 06/12/16 at 17:30 Glucose (Glutose) 15 gm Q15M PRN BUCCAL DECREASED GLUCOSE; Start 06/12/16 at 17: 30 Insulin Glargine (Lantus) 12 unit DAILY@20 SC Last administered on 07/06/16 20: 39; Admin Dose 12 UNIT; Start 06/13/16 at 20:00; Status Future hold Linagliptin (Tradjenta) 5 mg DAILY PO Last administered on 07/07/16 08:23; Admin Dose 5 MG; Start 06/15/16 at 09:00 Atorvastatin Calcium (Lipitor) 10 mg QHS PO Last administered on 07/06/16 20:34 ; Admin Dose 10 MG; Start 06/15/16 at 21:00 IV Flush 10 ml 10 ml PRN PRN IV IV PROTOCOL; Start 06/20/16 at 16:30 Vancomycin HCl/ Sodium Chloride (Vancocin/NS) 150 ml @ 75 mls/hr Q12H IVPB Last administered on 07/07/16 11:16; Admin Dose 75 MLS/HR; Start 07/06/16 at 23: 00 WEI SULLIVAN Jul 07, 2016 15:36
[2016-07-07] MEDS: SOD CHLORIDE 0.9% 1,000 ML IV SCH (17:15)
[2016-07-07 19:44] VITALS: BP 125/62; RESP 20
[2016-07-07] MEDS: ATORVASTATIN 10 MG TAB PO SCH (20:42)
[2016-07-07] MEDS: INSULIN GLARGINE [LANtus] 3 ML PEN SC SCH (20:46)
[2016-07-08] MEDS: ACCU-CHEK XX SCH (02:00)
[2016-07-08] MEDS: PANTOPRAZOLE (EC) 40 MG TAB PO SCH (05:39)
[2016-07-08] MEDS: SOD CHLORIDE 0.9% 1,000 ML IV SCH ×2 (05:40→17:15)
[2016-07-08 06:12] LABS: CALCIUM 9.4 mg/dl (8.4-10.2); CREATININE 0.85 mg/dl (0.61-1.24)
[2016-07-08 07:35] VITALS: BP 147/67; RESP 18
[2016-07-08] MEDS: INSULIN ASPART [NOVOLOG] 3 ML PEN SC SCH ×7 (08:00→21:00)
[2016-07-08] MEDS: LINAGLIPTIN 5 MG TABLET PO SCH (08:01)
[2016-07-08] MEDS: metFORMIN 500 MG TAB PO SCH ×2 (08:01→17:27)
[2016-07-08] MEDS: GABAPENTIN 300 MG CAP PO SCH ×3 (08:26→21:10)
[2016-07-08] MEDS: METOPROLOL 25 MG TAB PO SCH ×2 (08:26→21:10)
[2016-07-08] MEDS: ASPIRIN (EC) 81 MG TAB PO SCH (08:26)
[2016-07-08] MEDS: LISINOPRIL 20 MG TAB PO SCH (08:27)
[2016-07-08] MEDS: ENOXAPARIN 30 MG/0.3 ML SYG SC SCH (08:36)
[2016-07-08] MEDS: VANCOMYCIN 750 MG in SOD CHLORIDE 0.9% 150 ML IVPB SCH ×2 (11:53→23:23)
--- NOTE | 2016-07-08 13:36 | PN ---
Date/Time of Note Date/Time of Note DATE: 07/08/16 TIME: 13:29 Assessment/Plan VTE Prophylaxis VTE Prophylaxis Intervention: other Lines/Catheters IV Catheter Type (from Nrs): PICC Line Central line still needed: Yes Urinary Cath still in place: No Assessment/Plan Assessment/Plan - Right [id number] amputation stump dehiscence, laceration, possible infection. S/p debridement and creation of a rotational flap by Dr. Fuller, vascular surgery, on 06/13. Continue wound VAC. Pathology positive for osteomyelitis. - per Dr. Eldridge in infection disease consultation. Continue vancomycin until July 28. - Diabetes mellitus type 2. Hemoglobin A1c is 8.7. - glycemic control - Hypertension. Continue metoprolol and lisinopril. Continue to monitor blood pressure. - Homelessness. Pending senior care facility placement. Further recommendations based on clinical course. Plan of care discussed with Dr. Li. Exam/Review of Systems Vital Signs Vitals Vital Signs Date Time Temp Pulse Resp B/P Pulse Ox O2 Delivery O2 Flow Rate FiO2 07/08/16 07:35 98.2 72 18 147/67 98 Intake and Output 07/07/16 07/07/16 07/08/16 15:00 23:00 07:00 Intake Total 150 ml 2160 ml 950 ml Output Total 950 ml 1700 ml Balance 150 ml 1210 ml -750 ml Exam Constitutional: alert, well developed Neck: non-tender, supple Respiratory: clear to auscultation, normal air movement Cardiovascular: nl pulses, regular rate and rhythm Gastrointestinal: non-tender, soft Musculoskeletal: other Extremities: normal pulses Neurological: nl mental status, nl speech Skin: other Lymph: nontender Results Result Diagram: 07/07/16 0500 07/08/16 0534 Results 24 hrs Laboratory Tests Test 07/07/16 14:41 07/07/16 17:31 07/07/16 20:41 07/08/16 05:34 Bedside Glucose 110 154 106 Sodium Level 143 Potassium Level 4.0 Chloride Level 106 Carbon Dioxide Level 29 Anion Gap 12 Blood Urea Nitrogen 17 Creatinine 0.85 Glucose Level 107 Calcium Level 9.4 Test 07/08/16 07:59 07/08/16 10:35 07/08/16 11:52 Bedside Glucose 105 152 Vancomycin Level Trough 13.3 Medications Medications Current Medications Aspirin (Halfprin) 81 mg DAILY PO Last administered on 07/08/16 08:26; Admin Dose 81 MG; Start 06/13/16 at 09:00 Gabapentin (Neurontin) 300 mg TID PO Last administered on 07/08/16 12:49; Admin Dose 300 MG; Start 06/12/16 at 21:00 Lisinopril (Zestril) 20 mg DAILY PO Last administered on 07/08/16 08:27; Admin Dose 20 MG; Start 06/13/16 at 09:00 Metoprolol Tartrate 25 mg 25 mg BID PO Last administered on 07/08/16 08:26; Admin Dose 25 MG; Start 06/12/16 at 21:00 Sodium Chloride (NS) 1,000 ml @ 40 mls/hr Q24H IV Last administered on 05:40; Admin Dose 40 MLS/HR; Start 06/12/16 at 17:15 Ondansetron HCl (Zofran Inj) 4 mg Q6H PRN IV NAUSEA AND/OR VOMITING; Start 06/12 at 17:30 Acetaminophen (Tylenol Tab) 650 mg Q6H PRN PO PAIN LEVEL 1-3 OR FEVER; Start at 17:30 Acetaminophen/ Hydrocodone Bitart ([place] (5/325)) 1 tab Q6H PRN PO MODERATE PAIN LEVEL 4-6 Last administered on 07/07/16 05:54; Admin Dose 1 TAB; Start 06/12 at 17:30 Docusate Sodium (Colace) 100 mg Q12H PRN PO CONSTIPATION; Start 06/12/16 at 17: 30 Pantoprazole (Protonix Tab) 40 mg DAILY@06 PO Last administered on 07/08/16 05: 39; Admin Dose 40 MG; Start 06/13/16 at 06:00 Enoxaparin Sodium (Lovenox) 30 mg DAILY SC Last administered on 07/08/16 08:36 ; Admin Dose 30 MG; Start 06/13/16 at 09:00 Diagnostic Test (Pha) (Accu-Chek) 1 ea 02 XX Last administered on 07/02/16 01: 55; Admin Dose 1 EA; Start 06/13/16 at 02:00 Miscellaneous Information 1 ea NOTE XX ; Start 06/12/16 at 17:30 Glucose (Glutose) 15 gm Q15M PRN PO DECREASED GLUCOSE; Start 06/12/16 at 17:30 Glucose (Glutose) 22.5 gm Q15M PRN PO DECREASED GLUCOSE; Start 06/12/16 at 17:30 Dextrose (D50w Syringe) 25 ml Q15M PRN IV DECREASED GLUCOSE; Start 06/12/16 at 17:30 Dextrose (D50w Syringe) 50 ml Q15M PRN IV DECREASED GLUCOSE; Start 06/12/16 at 17:30 Glucagon (Glucagen) 1 mg Q15M PRN IM DECREASED GLUCOSE; Start 06/12/16 at 17:30 Glucose (Glutose) 15 gm Q15M PRN BUCCAL DECREASED GLUCOSE; Start 06/12/16 at 17: 30 Linagliptin (Tradjenta) 5 mg DAILY PO Last administered on 07/08/16 08:01; Admin Dose 5 MG; Start 06/15/16 at 09:00 Atorvastatin Calcium (Lipitor) 10 mg QHS PO Last administered on 07/07/16 20:42 ; Admin Dose 10 MG; Start 06/15/16 at 21:00 IV Flush 10 ml 10 ml PRN PRN IV IV PROTOCOL; Start 06/20/16 at 16:30 Vancomycin HCl/ Sodium Chloride (Vancocin/NS) 150 ml @ 75 mls/hr Q12H IVPB Last administered on 07/08/16 11:53; Admin Dose 75 MLS/HR; Start 07/06/16 at 23: 00 Insulin Glargine (Lantus) 9 unit DAILY@20 SC Last administered on 07/07/16 20: 46; Admin Dose 9 UNIT; Start 07/07/16 at 20:00 ABRAHAN PINA Jul 08, 2016 13:36
--- NOTE | 2016-07-08 13:46 | PN ---
Date/Time of Note Date/Time of Note DATE: 07/08/16 TIME: 13:02 Assessment/Plan VTE Prophylaxis VTE Prophylaxis Intervention: other Lines/Catheters IV Catheter Type (from [facility]): PICC Line Central line still needed: Yes Urinary Cath still in place: No Assessment/Plan Assessment/Plan - Right [id number] amputation stump dehiscence, laceration, possible infection. S/p debridement and creation of a rotational flap by Dr. Fuller, vascular surgery, on 06/13. Continue wound VAC. Pathology positive for osteomyelitis. - per Dr. Eldridge in infection disease consultation. Continue vancomycin until July 28. - Diabetes mellitus type 2. Hemoglobin A1c is 8.7. - glycemic control - Hypertension. Continue metoprolol and lisinopril. Continue to monitor blood pressure. - Homelessness. Pending [facility] facility [facility]. Further recommendations based on clinical course. Plan of care discussed with Dr. Li. Subjective 24 Hr Interval Summary Free Text/Dictation resting, VSS, BS controlled, afebrile, right BKA - wound vac intact. dw staff Respiratory: no complaints Cardiovascular: no complaints Gastrointestinal: no complaints Musculoskeletal: other Skin: other Exam/Review of Systems Vital Signs Vitals Vital Signs Date Time Temp Pulse Resp B/P Pulse Ox O2 Delivery O2 Flow Rate FiO2 07/08/16 07:35 98.2 72 18 147/67 98 Intake and Output 07/07/16 07/07/16 07/08/16 15:00 23:00 07:00 Intake Total 150 ml 2160 ml 950 ml Output Total 950 ml 1700 ml Balance 150 ml 1210 ml -750 ml Exam Constitutional: alert, oriented Respiratory: clear to auscultation, normal air movement Cardiovascular: nl pulses, regular rate and rhythm Musculoskeletal: other Extremities: other (right BKA amputation, wound vac noted- intact) Neurological: nl mental status, nl speech Skin: other Results Result Diagram: 07/07/16 0500 07/08/16 0534 Results 24 hrs Laboratory Tests Test 07/07/16 14:41 07/07/16 17:31 07/07/16 20:41 07/08/16 05:34 Bedside Glucose 110 154 106 Sodium Level 143 Potassium Level 4.0 Chloride Level 106 Carbon Dioxide Level 29 Anion Gap 12 Blood Urea Nitrogen 17 Creatinine 0.85 Glucose Level 107 Calcium Level 9.4 Test 07/08/16 07:59 07/08/16 10:35 07/08/16 11:52 Bedside Glucose 105 152 Vancomycin Level Trough 13.3 Medications Medications Current Medications Aspirin (Halfprin) 81 mg DAILY PO Last administered on 07/08/16 08:26; Admin Dose 81 MG; Start 06/13/16 at 09:00 Gabapentin (Neurontin) 300 mg TID PO Last administered on 07/08/16 12:49; Admin Dose 300 MG; Start 06/12/16 at 21:00 Lisinopril (Zestril) 20 mg DAILY PO Last administered on 07/08/16 08:27; Admin Dose 20 MG; Start 06/13/16 at 09:00 Metoprolol Tartrate 25 mg 25 mg BID PO Last administered on 07/08/16 08:26; Admin Dose 25 MG; Start 06/12/16 at 21:00 Sodium Chloride (NS) 1,000 ml @ 40 mls/hr Q24H IV Last administered on 05:40; Admin Dose 40 MLS/HR; Start 06/12/16 at 17:15 Ondansetron HCl (Zofran Inj) 4 mg Q6H PRN IV NAUSEA AND/OR VOMITING; Start 06/12 at 17:30 Acetaminophen (Tylenol Tab) 650 mg Q6H PRN PO PAIN LEVEL 1-3 OR FEVER; Start at 17:30 Acetaminophen/ Hydrocodone Bitart ([place] (5/325)) 1 tab Q6H PRN PO MODERATE PAIN LEVEL 4-6 Last administered on 07/07/16 05:54; Admin Dose 1 TAB; Start 06/12 at 17:30 Docusate Sodium (Colace) 100 mg Q12H PRN PO CONSTIPATION; Start 06/12/16 at 17: 30 Pantoprazole (Protonix Tab) 40 mg DAILY@06 PO Last administered on 07/08/16 05: 39; Admin Dose 40 MG; Start 06/13/16 at 06:00 Enoxaparin Sodium (Lovenox) 30 mg DAILY SC Last administered on 07/08/16 08:36 ; Admin Dose 30 MG; Start 06/13/16 at 09:00 Diagnostic Test (Pha) (Accu-Chek) 1 ea 02 XX Last administered on 07/02/16 01: 55; Admin Dose 1 EA; Start 06/13/16 at 02:00 Miscellaneous Information 1 ea NOTE XX ; Start 06/12/16 at 17:30 Glucose (Glutose) 15 gm Q15M PRN PO DECREASED GLUCOSE; Start 06/12/16 at 17:30 Glucose (Glutose) 22.5 gm Q15M PRN PO DECREASED GLUCOSE; Start 06/12/16 at 17:30 Dextrose (D50w Syringe) 25 ml Q15M PRN IV DECREASED GLUCOSE; Start 06/12/16 at 17:30 Dextrose (D50w Syringe) 50 ml Q15M PRN IV DECREASED GLUCOSE; Start 06/12/16 at 17:30 Glucagon (Glucagen) 1 mg Q15M PRN IM DECREASED GLUCOSE; Start 06/12/16 at 17:30 Glucose (Glutose) 15 gm Q15M PRN BUCCAL DECREASED GLUCOSE; Start 06/12/16 at 17: 30 Linagliptin (Tradjenta) 5 mg DAILY PO Last administered on 07/08/16 08:01; Admin Dose 5 MG; Start 06/15/16 at 09:00 Atorvastatin Calcium (Lipitor) 10 mg QHS PO Last administered on 07/07/16 20:42 ; Admin Dose 10 MG; Start 06/15/16 at 21:00 IV Flush 10 ml 10 ml PRN PRN IV IV PROTOCOL; Start 06/20/16 at 16:30 Vancomycin HCl/ Sodium Chloride (Vancocin/NS) 150 ml @ 75 mls/hr Q12H IVPB Last administered on 07/08/16 11:53; Admin Dose 75 MLS/HR; Start 07/06/16 at 23: 00 Insulin Glargine (Lantus) 9 unit DAILY@20 SC Last administered on 07/07/16 20: 46; Admin Dose 9 UNIT; Start 07/07/16 at 20:00 ABRAHAN PINA Jul 08, 2016 13:33
[2016-07-08] MEDS: HYDROCODONE/APAP (5/325) TAB PO PRN (18:46)
[2016-07-08 19:29] VITALS: BP 118/61; RESP 20
[2016-07-08] MEDS: ATORVASTATIN 10 MG TAB PO SCH (21:09)
[2016-07-08] MEDS: INSULIN GLARGINE [LANtus] 3 ML PEN SC SCH (21:43)
[2016-07-09] MEDS: ACCU-CHEK XX SCH (02:00)
[2016-07-09] MEDS: PANTOPRAZOLE (EC) 40 MG TAB PO SCH (05:42)
[2016-07-09 05:56] LABS: ADD SCAN DIFF NO; BASOPHILS % 0.5 % (0.0-2.0); EOSINOPHILS # 0.5 10^3/ul (0.0-0.5); EOSINOPHILS % 8.1 % (0.0-7.0); HEMATOCRIT 32.9 % (42.0-52.0); HEMOGLOBIN 10.4 g/dl (14.0-18.0); LYMPHOCYTES # 1.8 10^3/ul (0.8-2.9); LYMPHOCYTES % 30.9 % (15.0-51.0); MEAN CORPUSCULAR HGB CONC 31.6 g/dl (32.0-37.0); MEAN CORPUSCULAR VOLUME 88.7 fl (82.0-101.0); MEAN PLATELET VOLUME 10.1 fl (7.4-10.4); MONOCYTE # 0.5 10^3/ul (0.3-0.9); MONOCYTES % 8.7 % (0.0-11.0); NEUTROPHILS % 51.5 % (39.0-77.0); PLATELET COUNT 202 10^3/UL (140-415); RED BLOOD COUNT 3.71 10^6/ul (4.70-6.10); RED CELL DISTRIBUTION WIDTH 15.1 % (11.5-14.5); WHITE BLOOD COUNT 5.8 10^3/ul (4.8-10.8)
[2016-07-09 06:42] LABS: CALCIUM 9.2 mg/dl (8.4-10.2); CREATININE 0.69 mg/dl (0.61-1.24); POTASSIUM 4.1 mmol/L (3.5-5.1)
[2016-07-09 07:59] VITALS: BP 127/67; RESP 17
[2016-07-09] MEDS: metFORMIN 500 MG TAB PO SCH ×2 (08:00→17:45)
[2016-07-09] MEDS: INSULIN ASPART [NOVOLOG] 3 ML PEN SC SCH ×7 (08:09→21:00)
[2016-07-09] MEDS: LINAGLIPTIN 5 MG TABLET PO SCH (08:15)
--- NOTE | 2016-07-09 09:02 | PN ---
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 -D/C planning with wound vac, arrange for Home Health -Discussed findings, plan of management with the patient and he understands. -Thank you for allowing us to participate in the care of your patient. Please call with any questions. Problems: Subjective 24 Hr Interval Summary Constitutional: no complaints Exam/Review of Systems Vital Signs Vitals Vital Signs Date Time Temp Pulse Resp B/P Pulse Ox O2 Delivery O2 Flow Rate FiO2 07/09/16 07:59 98.4 69 17 127/67 97 Intake and Output 07/08/16 07/08/16 07/09/16 15:00 23:00 07:00 Intake Total 2030 ml 1000 ml Output Total 600 ml 1990 ml 1420 ml Balance -600 ml 40 ml -420 ml Exam Free Text/Dictation GENERAL: Alert and oriented x3, PULMONARY: Clear to auscultation bilaterally CARDIOVASCULAR: S1, S2 present ABDOMEN: Soft, nontender, nondistended. Bowel sounds positive. EXTREMITIES: Right lower extremity: Palpable femoral pulse. BKA stump with cap refill 3 seconds. wound vac-intact and functional Left lower extremity: Palpable femoral pulse, nonpalpable pedal pulse. Motor, sensory intact. Cap refill 3 to 4 seconds. There is area of lipodermatosclerosis. No ulcers identified. Results Result Diagram: 07/09/16 0544 07/09/16 0524 JUAN PRIDE MD Jul 09, 2016 09:02
[2016-07-09] MEDS: LISINOPRIL 20 MG TAB PO SCH (09:24)
[2016-07-09] MEDS: GABAPENTIN 300 MG CAP PO SCH ×3 (09:24→21:03)
[2016-07-09] MEDS: ASPIRIN (EC) 81 MG TAB PO SCH (09:24)
[2016-07-09] MEDS: METOPROLOL 25 MG TAB PO SCH ×2 (09:25→21:04)
[2016-07-09 09:28] VITALS: BP 113/66; PULSE 73
[2016-07-09] MEDS: ENOXAPARIN 30 MG/0.3 ML SYG SC SCH (09:38)
[2016-07-09] MEDS: VANCOMYCIN 750 MG in SOD CHLORIDE 0.9% 150 ML IVPB SCH ×2 (11:31→23:06)
[2016-07-09] MEDS: HYDROCODONE/APAP (5/325) TAB PO PRN ×2 (11:34→19:50)
[2016-07-09] MEDS: SOD CHLORIDE 0.9% 1,000 ML IV SCH ×2 (14:31→17:15)
--- NOTE | 2016-07-09 14:58 | PN ---
Date/Time of Note Date/Time of Note DATE: 07/09/16 TIME: 14:58 Assessment/Plan VTE Prophylaxis VTE Prophylaxis Intervention: other Lines/Catheters IV Catheter Type (from Nrs): PICC Line Central line still needed: Yes Urinary Cath still in place: No Assessment/Plan Assessment/Plan - Right [id number] amputation stump dehiscence, laceration, possible infection. S/p debridement and creation of a rotational flap by Dr. Fuller, vascular surgery, on 06/13. Continue wound VAC. Pathology positive for osteomyelitis. Dr. Eldridge is following infection disease consultation. Continue vancomycin until July 28. - Diabetes mellitus type 2. Hemoglobin A1c is 8.7. Continue Tradjenta, Lantus , pre-meal NovoLog, and NovoLog per mild algorithm sliding scale a.c. and at bedtime. - Hypertension. Continue metoprolol and lisinopril. Continue to monitor blood pressure. - Homelessness. Pending alf facility placement. Further recommendations based on clinical course. Plan of care discussed with Dr. Li. Subjective 24 Hr Interval Summary Free Text/Dictation feela better. Rt BKA- stump dressing DDI. wound vac intact. dw staff Respiratory: no complaints Cardiovascular: no complaints Gastrointestinal: no complaints Genitourinary: no complaints Musculoskeletal: bone/joint pain Exam/Review of Systems Vital Signs Vitals Vital Signs Date Time Temp Pulse Resp B/P Pulse Ox O2 Delivery O2 Flow Rate FiO2 07/09/16 09:28 73 113/66 07/09/16 07:59 98.4 17 97 Intake and Output 07/08/16 07/08/16 07/09/16 15:00 23:00 07:00 Intake Total 2030 ml 1000 ml Output Total 600 ml 1990 ml 1420 ml Balance -600 ml 40 ml -420 ml Exam Constitutional: alert, oriented, well developed Respiratory: clear to auscultation, normal air movement Cardiovascular: nl pulses, regular rate and rhythm Gastrointestinal: non-tender, soft Musculoskeletal: other Extremities: normal pulses Neurological: nl mental status, nl speech Skin: other Results Result Diagram: 07/09/16 0544 07/09/16 0524 Results 24 hrs Laboratory Tests Test 07/08/16 17:25 07/08/16 21:36 07/09/16 05:24 07/09/16 05:44 Bedside Glucose 147 111 Sodium Level 142 Potassium Level 4.1 Chloride Level 106 Carbon Dioxide Level 29 Anion Gap 11 Blood Urea Nitrogen 20 Creatinine 0.69 Glucose Level 103 Calcium Level 9.2 White Blood Count 5.8 Red Blood Count 3.71 L Hemoglobin 10.4 L Hematocrit 32.9 L Mean Corpuscular Volume 88.7 Mean Corpuscular Hemoglobin 28.0 L Mean Corpuscular Hemoglobin Concent 31.6 L Red Cell Distribution Width 15.1 H Platelet Count 202 Mean Platelet Volume 10.1 Neutrophils % 51.5 Lymphocytes % 30.9 Monocytes % 8.7 Eosinophils % 8.1 H Basophils % 0.5 Nucleated Red Blood Cells % 0.0 Neutrophils # 3.0 Lymphocytes # 1.8 Monocytes # 0.5 Eosinophils # 0.5 Basophils # 0.0 Nucleated Red Blood Cells # 0.0 Test 07/09/16 07:48 07/09/16 12:10 Bedside Glucose 186 79 Medications Medications Current Medications Aspirin (Halfprin) 81 mg DAILY PO Last administered on 07/09/16 09:24; Admin Dose 81 MG; Start 06/13/16 at 09:00 Gabapentin (Neurontin) 300 mg TID PO Last administered on 07/09/16 13:08; Admin Dose 300 MG; Start 06/12/16 at 21:00 Lisinopril (Zestril) 20 mg DAILY PO Last administered on 07/09/16 09:24; Admin Dose 20 MG; Start 06/13/16 at 09:00 Metoprolol Tartrate 25 mg 25 mg BID PO Last administered on 07/09/16 09:25; Admin Dose 25 MG; Start 06/12/16 at 21:00 Sodium Chloride (NS) 1,000 ml @ 40 mls/hr Q24H IV Last administered on 14:31; Admin Dose 40 MLS/HR; Start 06/12/16 at 17:15 Ondansetron HCl (Zofran Inj) 4 mg Q6H PRN IV NAUSEA AND/OR VOMITING; Start 06/12 at 17:30 Acetaminophen (Tylenol Tab) 650 mg Q6H PRN PO PAIN LEVEL 1-3 OR FEVER; Start at 17:30 Acetaminophen/ Hydrocodone Bitart ([place] (5/325)) 1 tab Q6H PRN PO MODERATE PAIN LEVEL 4-6 Last administered on 07/09/16 11:34; Admin Dose 1 TAB; Start 06/12 at 17:30 Docusate Sodium (Colace) 100 mg Q12H PRN PO CONSTIPATION; Start 06/12/16 at 17: 30 Pantoprazole (Protonix Tab) 40 mg DAILY@06 PO Last administered on 07/09/16 05: 42; Admin Dose 40 MG; Start 06/13/16 at 06:00 Enoxaparin Sodium (Lovenox) 30 mg DAILY SC Last administered on 07/09/16 09:38 ; Admin Dose 30 MG; Start 06/13/16 at 09:00 Diagnostic Test (Pha) (Accu-Chek) 1 ea 02 XX Last administered on 07/02/16 01: 55; Admin Dose 1 EA; Start 06/13/16 at 02:00 Miscellaneous Information 1 ea NOTE XX ; Start 06/12/16 at 17:30 Glucose (Glutose) 15 gm Q15M PRN PO DECREASED GLUCOSE; Start 06/12/16 at 17:30 Glucose (Glutose) 22.5 gm Q15M PRN PO DECREASED GLUCOSE; Start 06/12/16 at 17:30 Dextrose (D50w Syringe) 25 ml Q15M PRN IV DECREASED GLUCOSE; Start 06/12/16 at 17:30 Dextrose (D50w Syringe) 50 ml Q15M PRN IV DECREASED GLUCOSE; Start 06/12/16 at 17:30 Glucagon (Glucagen) 1 mg Q15M PRN IM DECREASED GLUCOSE; Start 06/12/16 at 17:30 Glucose (Glutose) 15 gm Q15M PRN BUCCAL DECREASED GLUCOSE; Start 06/12/16 at 17: 30 Linagliptin (Tradjenta) 5 mg DAILY PO Last administered on 07/09/16 08:15; Admin Dose 5 MG; Start 06/15/16 at 09:00 Atorvastatin Calcium (Lipitor) 10 mg QHS PO Last administered on 07/08/16 21:09 ; Admin Dose 10 MG; Start 06/15/16 at 21:00 IV Flush 10 ml 10 ml PRN PRN IV IV PROTOCOL; Start 06/20/16 at 16:30 Vancomycin HCl/ Sodium Chloride (Vancocin/NS) 150 ml @ 75 mls/hr Q12H IVPB Last administered on 07/09/16 11:31; Admin Dose 75 MLS/HR; Start 07/06/16 at 23: 00 Insulin Glargine (Lantus) 9 unit DAILY@20 SC Last administered on 07/08/16 21: 43; Admin Dose 9 UNIT; Start 07/07/16 at 20:00 ABRAHAN PINA Jul 09, 2016 14:58
--- NOTE | 2016-07-09 15:07 | PN ---
Date/Time of Note Date/Time of Note DATE: 07/09/16 TIME: 15:06 Assessment/Plan VTE Prophylaxis VTE Prophylaxis Intervention: other Lines/Catheters IV Catheter Type (from [facility]): PICC Line Central line still needed: Yes Urinary Cath still in place: No Assessment/Plan Assessment/Plan - Right [id number] amputation stump dehiscence, laceration, possible infection. S/p debridement and creation of a rotational flap by Dr. Fuller, vascular surgery, on 06/13. Continue wound VAC. Pathology positive for osteomyelitis. Dr. Eldridge is following infection disease consultation. Continue vancomycin until July 28. - Diabetes mellitus type 2. Hemoglobin A1c is 8.7. - gkycemic control - Hypertension. Continue metoprolol and lisinopril. Continue to monitor blood pressure. - Homelessness. [facility]. Further recommendations based on clinical course. Plan of care discussed with Dr. Li. Subjective 24 Hr Interval Summary Constitutional: improved Respiratory: no complaints Cardiovascular: no complaints Gastrointestinal: no complaints Genitourinary: no complaints Musculoskeletal: other (Right stump wound with wound vac) Neurologic: no complaints Exam/Review of Systems Vital Signs Vitals Vital Signs Date Time Temp Pulse Resp B/P Pulse Ox O2 Delivery O2 Flow Rate FiO2 07/09/16 09:28 73 113/66 07/09/16 07:59 98.4 17 97 Intake and Output 07/08/16 07/08/16 07/09/16 15:00 23:00 07:00 Intake Total 2030 ml 1000 ml Output Total 600 ml 1990 ml 1420 ml Balance -600 ml 40 ml -420 ml Exam Constitutional: alert, oriented Respiratory: clear to auscultation, normal air movement Cardiovascular: nl pulses, regular rate and rhythm Gastrointestinal: non-tender, soft Musculoskeletal: other Neurological: nl mental status, nl speech (He) Lymph: nontender Results Result Diagram: 07/09/16 0544 07/09/16 0524 Results 24 hrs Laboratory Tests Test 07/08/16 17:25 07/08/16 21:36 07/09/16 05:24 07/09/16 05:44 Bedside Glucose 147 111 Sodium Level 142 Potassium Level 4.1 Chloride Level 106 Carbon Dioxide Level 29 Anion Gap 11 Blood Urea Nitrogen 20 Creatinine 0.69 Glucose Level 103 Calcium Level 9.2 White Blood Count 5.8 Red Blood Count 3.71 L Hemoglobin 10.4 L Hematocrit 32.9 L Mean Corpuscular Volume 88.7 Mean Corpuscular Hemoglobin 28.0 L Mean Corpuscular Hemoglobin Concent 31.6 L Red Cell Distribution Width 15.1 H Platelet Count 202 Mean Platelet Volume 10.1 Neutrophils % 51.5 Lymphocytes % 30.9 Monocytes % 8.7 Eosinophils % 8.1 H Basophils % 0.5 Nucleated Red Blood Cells % 0.0 Neutrophils # 3.0 Lymphocytes # 1.8 Monocytes # 0.5 Eosinophils # 0.5 Basophils # 0.0 Nucleated Red Blood Cells # 0.0 Test 07/09/16 07:48 07/09/16 12:10 Bedside Glucose 186 79 Medications Medications Current Medications Aspirin (Halfprin) 81 mg DAILY PO Last administered on 07/09/16 09:24; Admin Dose 81 MG; Start 06/13/16 at 09:00 Gabapentin (Neurontin) 300 mg TID PO Last administered on 07/09/16 13:08; Admin Dose 300 MG; Start 06/12/16 at 21:00 Lisinopril (Zestril) 20 mg DAILY PO Last administered on 07/09/16 09:24; Admin Dose 20 MG; Start 06/13/16 at 09:00 Metoprolol Tartrate 25 mg 25 mg BID PO Last administered on 07/09/16 09:25; Admin Dose 25 MG; Start 06/12/16 at 21:00 Sodium Chloride (NS) 1,000 ml @ 40 mls/hr Q24H IV Last administered on 14:31; Admin Dose 40 MLS/HR; Start 06/12/16 at 17:15 Ondansetron HCl (Zofran Inj) 4 mg Q6H PRN IV NAUSEA AND/OR VOMITING; Start 06/12 at 17:30 Acetaminophen (Tylenol Tab) 650 mg Q6H PRN PO PAIN LEVEL 1-3 OR FEVER; Start at 17:30 Acetaminophen/ Hydrocodone Bitart ([place] (5/325)) 1 tab Q6H PRN PO MODERATE PAIN LEVEL 4-6 Last administered on 07/09/16 11:34; Admin Dose 1 TAB; Start 06/12 at 17:30 Docusate Sodium (Colace) 100 mg Q12H PRN PO CONSTIPATION; Start 06/12/16 at 17: 30 Pantoprazole (Protonix Tab) 40 mg DAILY@06 PO Last administered on 07/09/16 05: 42; Admin Dose 40 MG; Start 06/13/16 at 06:00 Enoxaparin Sodium (Lovenox) 30 mg DAILY SC Last administered on 07/09/16 09:38 ; Admin Dose 30 MG; Start 06/13/16 at 09:00 Diagnostic Test (Pha) (Accu-Chek) 1 ea 02 XX Last administered on 07/02/16 01: 55; Admin Dose 1 EA; Start 06/13/16 at 02:00 Miscellaneous Information 1 ea NOTE XX ; Start 06/12/16 at 17:30 Glucose (Glutose) 15 gm Q15M PRN PO DECREASED GLUCOSE; Start 06/12/16 at 17:30 Glucose (Glutose) 22.5 gm Q15M PRN PO DECREASED GLUCOSE; Start 06/12/16 at 17:30 Dextrose (D50w Syringe) 25 ml Q15M PRN IV DECREASED GLUCOSE; Start 06/12/16 at 17:30 Dextrose (D50w Syringe) 50 ml Q15M PRN IV DECREASED GLUCOSE; Start 06/12/16 at 17:30 Glucagon (Glucagen) 1 mg Q15M PRN IM DECREASED GLUCOSE; Start 06/12/16 at 17:30 Glucose (Glutose) 15 gm Q15M PRN BUCCAL DECREASED GLUCOSE; Start 06/12/16 at 17: 30 Linagliptin (Tradjenta) 5 mg DAILY PO Last administered on 07/09/16 08:15; Admin Dose 5 MG; Start 06/15/16 at 09:00 Atorvastatin Calcium (Lipitor) 10 mg QHS PO Last administered on 07/08/16 21:09 ; Admin Dose 10 MG; Start 06/15/16 at 21:00 IV Flush 10 ml 10 ml PRN PRN IV IV PROTOCOL; Start 06/20/16 at 16:30 Vancomycin HCl/ Sodium Chloride (Vancocin/NS) 150 ml @ 75 mls/hr Q12H IVPB Last administered on 07/09/16 11:31; Admin Dose 75 MLS/HR; Start 07/06/16 at 23: 00 Insulin Glargine (Lantus) 9 unit DAILY@20 SC Last administered on 07/08/16t 21: 43; Admin Dose 9 UNIT; Start 07/07/16 at 20:00 ABRAHAN PINA Jul 09, 2016 15:07
[2016-07-09 19:15] VITALS: BP 107/62; RESP 18
[2016-07-09] MEDS: ATORVASTATIN 10 MG TAB PO SCH (21:03)
[2016-07-09] MEDS: INSULIN GLARGINE [LANtus] 3 ML PEN SC SCH (21:07)
[2016-07-10] MEDS: ACCU-CHEK XX SCH (02:00)
[2016-07-10 05:40] LABS: ADD SCAN DIFF NO
[2016-07-10 05:51] LABS: BASOPHILS % 0.6 % (0.0-2.0); EOSINOPHILS # 0.5 10^3/ul (0.0-0.5); HEMATOCRIT 32.2 % (42.0-52.0); HEMOGLOBIN 10.3 g/dl (14.0-18.0); LYMPHOCYTES # 1.5 10^3/ul (0.8-2.9); LYMPHOCYTES % 30.7 % (15.0-51.0); MEAN CORPUSCULAR HEMOGLOBIN 28.2 pg (29.0-33.0); MEAN CORPUSCULAR VOLUME 88.2 fl (82.0-101.0); MONOCYTE # 0.5 10^3/ul (0.3-0.9); MONOCYTES % 9.6 % (0.0-11.0); NEUTROPHIL # 2.5 10^3/ul (1.6-7.5); NEUTROPHILS % 49.7 % (39.0-77.0); PLATELET COUNT 219 10^3/UL (140-415); RED BLOOD COUNT 3.65 10^6/ul (4.70-6.10); RED CELL DISTRIBUTION WIDTH 15.1 % (11.5-14.5)
[2016-07-10 06:08] LABS: CALCIUM 9.3 mg/dl (8.4-10.2); CREATININE 0.66 mg/dl (0.61-1.24)
[2016-07-10] MEDS: PANTOPRAZOLE (EC) 40 MG TAB PO SCH (06:25)
[2016-07-10] MEDS: HYDROCODONE/APAP (5/325) TAB PO PRN ×2 (06:26→17:20)
[2016-07-10] MEDS: INSULIN ASPART [NOVOLOG] 3 ML PEN SC SCH ×7 (07:59→21:00)
[2016-07-10 08:10] VITALS: BP 136/76; RESP 18
[2016-07-10] MEDS: metFORMIN 500 MG TAB PO SCH ×2 (08:25→17:19)
[2016-07-10] MEDS: LINAGLIPTIN 5 MG TABLET PO SCH (08:25)
[2016-07-10] MEDS: METOPROLOL 25 MG TAB PO SCH ×2 (08:27→21:40)
[2016-07-10] MEDS: GABAPENTIN 300 MG CAP PO SCH ×3 (08:27→21:39)
[2016-07-10] MEDS: ASPIRIN (EC) 81 MG TAB PO SCH (08:27)
[2016-07-10] MEDS: LISINOPRIL 20 MG TAB PO SCH (08:27)
[2016-07-10] MEDS: ENOXAPARIN 30 MG/0.3 ML SYG SC SCH (08:37)
[2016-07-10] MEDS: VANCOMYCIN 750 MG in SOD CHLORIDE 0.9% 150 ML IVPB SCH ×2 (11:05→23:23)
[2016-07-10] MEDS: SOD CHLORIDE 0.9% 1,000 ML IV SCH (17:15)
--- NOTE | 2016-07-10 19:33 | PN ---
Date/Time of Note Date/Time of Note DATE: 07/10/16 TIME: 19:31 Assessment/Plan VTE Prophylaxis VTE Prophylaxis Intervention: SCD's Lines/Catheters IV Catheter Type (from Nrsg): PICC Line Central line still needed: Yes Urinary Cath still in place: No Assessment/Plan Chief Complaint/Hosp Course Patient pain pain is well controlled, good glycemic control on current insulin regimen. ASSESSMENT AND PLAN: - Right [id number] amputation stump dehiscence, laceration, possible infection. S/p debridement and creation of a rotational flap by Dr. Fuller, vascular surgery, on 06/13. Continue wound VAC. Pathology positive for osteomyelitis. Dr. Eldridge is following infection disease consultation. Continue vancomycin until July 28. - Diabetes mellitus type 2. Hemoglobin A1c is 8.7. Continue Tradjenta, Lantus , pre-meal NovoLog, and NovoLog per mild algorithm sliding scale a.c. and at bedtime. - Hypertension. Continue metoprolol and lisinopril. Continue to monitor blood pressure. - Homelessness. Pending [facility] placement. Further recommendations based on clinical course. Plan of care discussed with Dr. Li. Problems: Exam/Review of Systems Vital Signs Vitals Vital Signs Date Time Temp Pulse Resp B/P Pulse Ox O2 Delivery O2 Flow Rate FiO2 07/10/16 08:10 97.7 71 18 136/76 99 Intake and Output 07/09/16 07/09/16 07/10/16 15:00 23:00 07:00 Intake Total 500 ml 2580 ml 550 ml Output Total 600 ml 1500 ml Balance -100 ml 1080 ml 550 ml Exam Constitutional: alert, oriented Head: normocephalic Neck: supple Respiratory: normal air movement Cardiovascular: nl pulses Gastrointestinal: non-tender, soft Extremities: other (right lower extremity stump wound with wound VAC) Results Result Diagram: 07/10/16 0528 07/10/1628 Results 24 hrs Laboratory Tests Test 07/09/16 21:02 07/10/16 05:28 07/10/16 07:58 07/10/16 11:59 Bedside Glucose 153 95 107 White Blood Count 5.0 Red Blood Count 3.65 L Hemoglobin 10.3 L Hematocrit 32.2 L Mean Corpuscular Volume 88.2 Mean Corpuscular Hemoglobin 28.2 L Mean Corpuscular Hemoglobin Concent 32.0 Red Cell Distribution Width 15.1 H Platelet Count 219 Mean Platelet Volume 10.0 Neutrophils % 49.7 Lymphocytes % 30.7 Monocytes % 9.6 Eosinophils % 9.0 H Basophils % 0.6 Nucleated Red Blood Cells % 0.0 Neutrophils # 2.5 Lymphocytes # 1.5 Monocytes # 0.5 Eosinophils # 0.5 Basophils # 0.0 Nucleated Red Blood Cells # 0.0 Sodium Level 144 Potassium Level 4.0 Chloride Level 106 Carbon Dioxide Level 29 Anion Gap 13 Blood Urea Nitrogen 17 Creatinine 0.66 Glucose Level 102 Calcium Level 9.3 Test 07/10/16 17:11 Bedside Glucose 103 Medications Medications Current Medications Aspirin (Halfprin) 81 mg DAILY PO Last administered on 07/10/16 08:27; Admin Dose 81 MG; Start 06/13/16 at 09:00 Gabapentin (Neurontin) 300 mg TID PO Last administered on 07/10/16 17:20; Admin Dose 300 MG; Start 06/12/16 at 21:00 Lisinopril (Zestril) 20 mg DAILY PO Last administered on 07/10/16 08:27; Admin Dose 20 MG; Start 06/13/16 at 09:00 Metoprolol Tartrate 25 mg 25 mg BID PO Last administered on 07/10/16 08:27; Admin Dose 25 MG; Start 06/12/16 at 21:00 Sodium Chloride (NS) 1,000 ml @ 40 mls/hr Q24H IV Last administered on 14:31; Admin Dose 40 MLS/HR; Start 06/12/16 at 17:15 Ondansetron HCl (Zofran Inj) 4 mg Q6H PRN IV NAUSEA AND/OR VOMITING; Start 06/12 at 17:30 Acetaminophen (Tylenol Tab) 650 mg Q6H PRN PO PAIN LEVEL 1-3 OR FEVER; Start at 17:30 Acetaminophen/ Hydrocodone Bitart ([place] (5/325)) 1 tab Q6H PRN PO MODERATE PAIN LEVEL 4-6 Last administered on 07/10/16 17:20; Admin Dose 1 TAB; Start 06/12 at 17:30 Docusate Sodium (Colace) 100 mg Q12H PRN PO CONSTIPATION; Start 06/12/16 at 17: 30 Pantoprazole (Protonix Tab) 40 mg DAILY@06 PO Last administered on 07/10/16 06: 25; Admin Dose 40 MG; Start 06/13/16 at 06:00 Enoxaparin Sodium (Lovenox) 30 mg DAILY SC Last administered on 07/10/16 08:37 ; Admin Dose 30 MG; Start 06/13/16 at 09:00 Diagnostic Test (Pha) (Accu-Chek) 1 ea 02 XX Last administered on 07/02/16 01: 55; Admin Dose 1 EA; Start 06/13/16 at 02:00 Miscellaneous Information 1 ea NOTE XX ; Start 06/12/16 at 17:30 Glucose (Glutose) 15 gm Q15M PRN PO DECREASED GLUCOSE; Start 06/12/16 at 17:30 Glucose (Glutose) 22.5 gm Q15M PRN PO DECREASED GLUCOSE; Start 06/12/16 at 17:30 Dextrose (D50w Syringe) 25 ml Q15M PRN IV DECREASED GLUCOSE; Start 06/12/16 at 17:30 Dextrose (D50w Syringe) 50 ml Q15M PRN IV DECREASED GLUCOSE; Start 06/12/16 at 17:30 Glucagon (Glucagen) 1 mg Q15M PRN IM DECREASED GLUCOSE; Start 06/12/16 at 17:30 Glucose (Glutose) 15 gm Q15M PRN BUCCAL DECREASED GLUCOSE; Start 06/12/16 at 17: 30 Linagliptin (Tradjenta) 5 mg DAILY PO Last administered on 07/10/16 08:25; Admin Dose 5 MG; Start 06/15/16 at 09:00 Atorvastatin Calcium (Lipitor) 10 mg QHS PO Last administered on 07/09/16 21:03 ; Admin Dose 10 MG; Start 06/15/16 at 21:00 IV Flush 10 ml 10 ml PRN PRN IV IV PROTOCOL; Start 06/20/16 at 16:30 Vancomycin HCl/ Sodium Chloride (Vancocin/NS) 150 ml @ 75 mls/hr Q12H IVPB Last administered on 07/10/16 11:05; Admin Dose 75 MLS/HR; Start 07/06/16 at 23: 00 Insulin Glargine (Lantus) 9 unit DAILY@20 SC Last administered on 07/09/16 21: 07; Admin Dose 9 UNIT; Start 07/07/16 at 20:00 WEI SULLIVAN Jul 10, 2016 19:32
[2016-07-10 20:00] VITALS: BP 133/73; RESP 18
[2016-07-10] MEDS: ATORVASTATIN 10 MG TAB PO SCH (21:39)
[2016-07-10] MEDS: INSULIN GLARGINE [LANtus] 3 ML PEN SC SCH (21:42)
[2016-07-11] MEDS: ACCU-CHEK XX SCH (02:00)
[2016-07-11] MEDS: SOD CHLORIDE 0.9% 1,000 ML IV SCH ×2 (04:28→17:15)
[2016-07-11] MEDS: PANTOPRAZOLE (EC) 40 MG TAB PO SCH (05:39)
[2016-07-11 07:48] VITALS: BP 117/65; RESP 20
[2016-07-11] MEDS: LISINOPRIL 20 MG TAB PO SCH (08:04)
[2016-07-11] MEDS: ASPIRIN (EC) 81 MG TAB PO SCH (08:04)
[2016-07-11] MEDS: LINAGLIPTIN 5 MG TABLET PO SCH (08:04)
[2016-07-11] MEDS: GABAPENTIN 300 MG CAP PO SCH ×3 (08:04→20:41)
[2016-07-11] MEDS: METOPROLOL 25 MG TAB PO SCH ×2 (08:05→20:41)
[2016-07-11] MEDS: INSULIN ASPART [NOVOLOG] 3 ML PEN SC SCH ×7 (08:05→20:53)
[2016-07-11] MEDS: metFORMIN 500 MG TAB PO SCH ×2 (08:05→17:31)
[2016-07-11] MEDS: ENOXAPARIN 30 MG/0.3 ML SYG SC SCH (08:20)
[2016-07-11] MEDS: VANCOMYCIN 750 MG in SOD CHLORIDE 0.9% 150 ML IVPB SCH ×2 (11:23→22:47)
--- NOTE | 2016-07-11 18:50 | PN ---
Date/Time of Note Date/Time of Note DATE: 07/11/16 TIME: 18:49 Assessment/Plan VTE Prophylaxis VTE Prophylaxis Intervention: LMWH Lines/Catheters IV [facility] Type ([facility] PICC Line Central line still needed: Yes Urinary Cath still in place: No Assessment/Plan Chief Complaint/Hosp Course Patient looks comfortable, no complaints. ASSESSMENT AND PLAN: - Right [id number] amputation stump dehiscence, laceration, possible infection. S/p debridement and creation of a rotational flap by Dr. Fuller, vascular surgery, on 06/13. Continue wound VAC. Pathology positive for osteomyelitis. Dr. Eldridge is following infection disease consultation. Continue vancomycin until July 28. - Diabetes mellitus type 2. Hemoglobin A1c is 8.7. Continue Tradjenta, Lantus , pre-meal NovoLog, and NovoLog per mild algorithm sliding scale a.c. and at bedtime. - Hypertension. Continue metoprolol and lisinopril. Continue to monitor blood pressure. - Homelessness. Pending group home facility placement. Further recommendations based on clinical course. Plan of care discussed with Dr. Li. Problems: Exam/Review of Systems Vital Signs Vitals Vital Signs Date Time Temp Pulse Resp B/P Pulse Ox O2 Delivery O2 Flow Rate FiO2 07/11/16 07:48 97.6 70 20 117/65 99 Intake and Output 07/10/16 07/10/16 07/11/16 15:00 23:00 07:00 Intake Total 1600 ml 1270 ml 1150 ml Output Total 1800 ml 1200 ml 1100 ml Balance -200 ml 70 ml 50 ml Exam Constitutional: alert, oriented Head: normocephalic Neck: supple Respiratory: normal air movement Cardiovascular: nl pulses Gastrointestinal: non-tender, soft Extremities: other (right lower extremity stump wound with wound VAC) Results Result Diagram: 07/10/16 0528 07/10/1628 Results 24 hrs Laboratory Tests Test 07/10/16 21:39 07/11/16 07:54 07/11/16 12:01 07/11/16 17:23 Bedside Glucose 110 102 93 192 Medications Medications Current Medications Aspirin (Halfprin) 81 mg DAILY PO Last administered on 07/11/16t 08:04; Admin Dose 81 MG; Start 06/13/16 at 09:00 Gabapentin (Neurontin) 300 mg TID PO Last administered on 07/11/16 12:38; Admin Dose 300 MG; Start 06/12/16 at 21:00 Lisinopril (Zestril) 20 mg DAILY PO Last administered on 07/11/16 08:04; Admin Dose 20 MG; Start 06/13/16 at 09:00 Metoprolol Tartrate 25 mg 25 mg BID PO Last administered on 07/11/16 08:05; Admin Dose 25 MG; Start 06/12/16 at 21:00 Sodium Chloride (NS) 1,000 ml @ 40 mls/hr Q24H IV Last administered on 04:28; Admin Dose 40 MLS/HR; Start 06/12/16 at 17:15 Ondansetron HCl (Zofran Inj) 4 mg Q6H PRN IV NAUSEA AND/OR VOMITING; Start 06/12 at 17:30 Acetaminophen (Tylenol Tab) 650 mg Q6H PRN PO PAIN LEVEL 1-3 OR FEVER; Start at 17:30 Acetaminophen/ Hydrocodone Bitart ([place] (5/325)) 1 tab Q6H PRN PO MODERATE PAIN LEVEL 4-6 Last administered on 07/10/16 17:20; Admin Dose 1 TAB; Start 06/12 at 17:30 Docusate Sodium (Colace) 100 mg Q12H PRN PO CONSTIPATION; Start 06/12/16 at 17: 30 Pantoprazole (Protonix Tab) 40 mg DAILY@06 PO Last administered on 07/11/16 05: 39; Admin Dose 40 MG; Start 06/13/16 at 06:00 Enoxaparin Sodium (Lovenox) 30 mg DAILY SC Last administered on 07/11/16 08:20 ; Admin Dose 30 MG; Start 06/13/16 at 09:00 Diagnostic Test (Pha) (Accu-Chek) 1 ea 02 XX Last administered on 07/02/16 01: 55; Admin Dose 1 EA; Start 06/13/16 at 02:00 Miscellaneous Information 1 ea NOTE XX ; Start 06/12/16 at 17:30 Glucose (Glutose) 15 gm Q15M PRN PO DECREASED GLUCOSE; Start 06/12/16 at 17:30 Glucose (Glutose) 22.5 gm Q15M PRN PO DECREASED GLUCOSE; Start 06/12/16 at 17:30 Dextrose (D50w Syringe) 25 ml Q15M PRN IV DECREASED GLUCOSE; Start 06/12/16 at 17:30 Dextrose (D50w Syringe) 50 ml Q15M PRN IV DECREASED GLUCOSE; Start 06/12/16 at 17:30 Glucagon (Glucagen) 1 mg Q15M PRN IM DECREASED GLUCOSE; Start 06/12/16 at 17:30 Glucose (Glutose) 15 gm Q15M PRN BUCCAL DECREASED GLUCOSE; Start 06/12/16 at 17: 30 Linagliptin (Tradjenta) 5 mg DAILY PO Last administered on 07/11/16 08:04; Admin Dose 5 MG; Start 06/15/16 at 09:00 Atorvastatin Calcium (Lipitor) 10 mg QHS PO Last administered on 07/10/16 21:39 ; Admin Dose 10 MG; Start 06/15/16 at 21:00 IV Flush 10 ml 10 ml PRN PRN IV IV PROTOCOL; Start 06/20/16 at 16:30 Vancomycin HCl/ Sodium Chloride (Vancocin/NS) 150 ml @ 75 mls/hr Q12H IVPB Last administered on 07/11/16 11:23; Admin Dose 75 MLS/HR; Start 07/06/16 at 23: 00 Insulin Glargine (Lantus) 9 unit DAILY@20 SC Last administered on 07/10/16 21: 42; Admin Dose 9 UNIT; Start 07/07/16 at 20:00 WEI SULLIVAN Jul 11, 2016 18:50
[2016-07-11 19:21] VITALS: BP 116/66; RESP 20
[2016-07-11] MEDS: ATORVASTATIN 10 MG TAB PO SCH (20:41)
[2016-07-11] MEDS: INSULIN GLARGINE [LANtus] 3 ML PEN SC SCH (20:44)
[2016-07-11] MEDS: HYDROCODONE/APAP (5/325) TAB PO PRN (20:54)
[2016-07-12] MEDS: ACCU-CHEK XX SCH ×2 (02:00→22:18)
[2016-07-12] MEDS: PANTOPRAZOLE (EC) 40 MG TAB PO SCH (05:39)
[2016-07-12 06:16] LABS: ADD SCAN DIFF NO
[2016-07-12 06:23] LABS: BASOPHILS % 0.6 % (0.0-2.0); EOSINOPHILS # 0.4 10^3/ul (0.0-0.5); EOSINOPHILS % 7.6 % (0.0-7.0); HEMATOCRIT 33.3 % (42.0-52.0); HEMOGLOBIN 10.5 g/dl (14.0-18.0); LYMPHOCYTES # 1.6 10^3/ul (0.8-2.9); LYMPHOCYTES % 32.2 % (15.0-51.0); MEAN CORPUSCULAR HEMOGLOBIN 28.1 pg (29.0-33.0); MEAN CORPUSCULAR HGB CONC 31.5 g/dl (32.0-37.0); MEAN PLATELET VOLUME 10.2 fl (7.4-10.4); MONOCYTE # 0.5 10^3/ul (0.3-0.9); MONOCYTES % 10.2 % (0.0-11.0); NEUTROPHIL # 2.5 10^3/ul (1.6-7.5); NEUTROPHILS % 49.2 % (39.0-77.0); PLATELET COUNT 217 10^3/UL (140-415); RED BLOOD COUNT 3.74 10^6/ul (4.70-6.10); RED CELL DISTRIBUTION WIDTH 15.3 % (11.5-14.5); WHITE BLOOD COUNT 5.1 10^3/ul (4.8-10.8)
[2016-07-12] MEDS: HYDROCODONE/APAP (5/325) TAB PO PRN ×2 (06:26→19:10)
[2016-07-12 06:52] LABS: CALCIUM 9.4 mg/dl (8.4-10.2); CREATININE 0.75 mg/dl (0.61-1.24); POTASSIUM 4.1 mmol/L (3.5-5.1)
[2016-07-12 08:15] VITALS: BP 134/64; RESP 18
[2016-07-12] MEDS: ASPIRIN (EC) 81 MG TAB PO SCH (08:15)
[2016-07-12] MEDS: metFORMIN 500 MG TAB PO SCH ×2 (08:15→17:30)
[2016-07-12] MEDS: INSULIN ASPART [NOVOLOG] 3 ML PEN SC SCH ×7 (08:15→21:00)
[2016-07-12] MEDS: GABAPENTIN 300 MG CAP PO SCH ×3 (08:15→20:49)
[2016-07-12] MEDS: LINAGLIPTIN 5 MG TABLET PO SCH (08:15)
[2016-07-12] MEDS: LISINOPRIL 20 MG TAB PO SCH (08:16)
[2016-07-12] MEDS: METOPROLOL 25 MG TAB PO SCH ×2 (08:17→21:00)
[2016-07-12] MEDS: ENOXAPARIN 30 MG/0.3 ML SYG SC SCH (08:29)
[2016-07-12] MEDS: VANCOMYCIN 750 MG in SOD CHLORIDE 0.9% 150 ML IVPB SCH ×2 (11:16→23:25)
--- NOTE | 2016-07-12 12:59 | CONS ---
Date/Time of Note Date/Time of Note DATE: 07/12/16 TIME: 12:58 Assessment/Plan Assessment/Plan Chief Complaint/Hosp Course SUBJECTIVE: Awake, no events, looks comfortable, no fevers. b/cr 17/0.75 MICROBIOLOGY: Wound culture growing MSSA/Enterococcus ANTIMICROBIALS: Vancomycin PHYSICAL EXAMINATION: GENERAL: This is a well-nourished, well-developed elderly man who is awake, in no distress. HEENT: Head: Atraumatic, normocephalic. Sclerae anicteric. Buccal mucosa pink. NECK: Supple, trachea midline. CHEST: Rise symmetrical. Breath sounds clear. HEART: S1, S2. ABDOMEN: Soft, bowel tones present. EXTREMITIES: Without cyanosis. Right lower extremity wound VAC present. ASSESSMENT: 1. Right below-knee amputation, infected stump with OM, status post revision with rotation flap and wound VAC application. 2. Diabetes. 3. Hypertension. PLAN: The patient remains stable. Continue local wound, continue Vancomycin till 07/28 DW staff Problems: Consultation Date/Type/Reason Admit Date/Time June 12, 2016 at 13:22 Type of Consultation: ID Exam/Review of Systems Vital Signs Vitals Vital Signs Date Time Temp Pulse Resp B/P Pulse Ox O2 Delivery O2 Flow Rate FiO2 07/12/16 08:15 97.8 71 18 134/64 99 Intake and Output 07/11/16 07/11/16 07/12/16 15:00 23:00 07:00 Intake Total 2880 ml 510 ml Output Total 800 ml 600 ml Balance 2080 ml -90 ml Results Result Diagram: 07/12/16 0539 07/12/16 0539 Results 24 hrs Laboratory Tests Test 07/11/16 17:23 07/11/16 20:38 07/12/16 02:16 07/12/16 05:39 Bedside Glucose 192 222 H 152 White Blood Count 5.1 Red Blood Count 3.74 L Hemoglobin 10.5 L Hematocrit 33.3 L Mean Corpuscular Volume 89.0 Mean Corpuscular Hemoglobin 28.1 L Mean Corpuscular Hemoglobin Concent 31.5 L Red Cell Distribution Width 15.3 H Platelet Count 217 Mean Platelet Volume 10.2 Neutrophils % 49.2 Lymphocytes % 32.2 Monocytes % 10.2 Eosinophils % 7.6 H Basophils % 0.6 Nucleated Red Blood Cells % 0.0 Neutrophils # 2.5 Lymphocytes # 1.6 Monocytes # 0.5 Eosinophils # 0.4 Basophils # 0.0 Nucleated Red Blood Cells # 0.0 Sodium Level 143 Potassium Level 4.1 Chloride Level 106 Carbon Dioxide Level 28 Anion Gap 13 Blood Urea Nitrogen 17 Creatinine 0.75 Glucose Level 101 Calcium Level 9.4 Test 07/12/16 08:01 07/12/16 11:58 Bedside Glucose 97 90 Medications Medications Current Medications Aspirin (Halfprin) 81 mg DAILY PO Last administered on 07/12/16 08:15; Admin Dose 81 MG; Start 06/13/16 at 09:00 Gabapentin (Neurontin) 300 mg TID PO Last administered on 07/12/16 12:19; Admin Dose 300 MG; Start 06/12/16 at 21:00 Lisinopril (Zestril) 20 mg DAILY PO Last administered on 07/12/16 08:16; Admin Dose 20 MG; Start 06/13/16 at 09:00 Metoprolol Tartrate 25 mg 25 mg BID PO Last administered on 07/12/16 08:17; Admin Dose 25 MG; Start 06/12/16 at 21:00 Sodium Chloride (NS) 1,000 ml @ 40 mls/hr Q24H IV Last administered on 04:28; Admin Dose 40 MLS/HR; Start 06/12/16 at 17:15 Ondansetron HCl (Zofran Inj) 4 mg Q6H PRN IV NAUSEA AND/OR VOMITING; Start 06/12 at 17:30 Acetaminophen (Tylenol Tab) 650 mg Q6H PRN PO PAIN LEVEL 1-3 OR FEVER; Start at 17:30 Acetaminophen/ Hydrocodone Bitart ([place] (5/325)) 1 tab Q6H PRN PO MODERATE PAIN LEVEL 4-6 Last administered on 07/12/16 06:26; Admin Dose 1 TAB; Start 06/12 at 17:30 Docusate Sodium (Colace) 100 mg Q12H PRN PO CONSTIPATION; Start 06/12/16 at 17: 30 Pantoprazole (Protonix Tab) 40 mg DAILY@06 PO Last administered on 07/12/16 05: 39; Admin Dose 40 MG; Start 06/13/16 at 06:00 Enoxaparin Sodium (Lovenox) 30 mg DAILY SC Last administered on 07/12/16 08:29 ; Admin Dose 30 MG; Start 06/13/16 at 09:00 Diagnostic Test (Pha) (Accu-Chek) 1 ea 02 XX Last administered on 07/02/16 01: 55; Admin Dose 1 EA; Start 06/13/16 at 02:00 Miscellaneous Information 1 ea NOTE XX ; Start 06/12/16 at 17:30 Glucose (Glutose) 15 gm Q15M PRN PO DECREASED GLUCOSE; Start 06/12/16 at 17:30 Glucose (Glutose) 22.5 gm Q15M PRN PO DECREASED GLUCOSE; Start 06/12/16 at 17:30 Dextrose (D50w Syringe) 25 ml Q15M PRN IV DECREASED GLUCOSE; Start 06/12/16 at 17:30 Dextrose (D50w Syringe) 50 ml Q15M PRN IV DECREASED GLUCOSE; Start 06/12/16 at 17:30 Glucagon (Glucagen) 1 mg Q15M PRN IM DECREASED GLUCOSE; Start 06/12/16 at 17:30 Glucose (Glutose) 15 gm Q15M PRN BUCCAL DECREASED GLUCOSE; Start 06/12/16 at 17: 30 Linagliptin (Tradjenta) 5 mg DAILY PO Last administered on 07/12/16 08:15; Admin Dose 5 MG; Start 06/15/16 at 09:00 Atorvastatin Calcium (Lipitor) 10 mg QHS PO Last administered on 07/11/16 20:41 ; Admin Dose 10 MG; Start 06/15/16 at 21:00 IV Flush 10 ml 10 ml PRN PRN IV IV PROTOCOL; Start 06/20/16 at 16:30 Vancomycin HCl/ Sodium Chloride (Vancocin/NS) 150 ml @ 75 mls/hr Q12H IVPB Last administered on 07/12/16 11:16; Admin Dose 75 MLS/HR; Start 07/06/16 at 23: 00 Insulin Glargine (Lantus) 9 unit DAILY@20 SC Last administered on 07/11/16 20: 44; Admin Dose 9 UNIT; Start 07/07/16 at 20:00 HILARIO ACUÑA NP Jul 12, 2016 12:59
[2016-07-12] MEDS: SOD CHLORIDE 0.9% 1,000 ML IV SCH (15:28)
--- NOTE | 2016-07-12 16:42 | PN ---
Date/Time of Note Date/Time of Note DATE: 07/12/16 TIME: 16:39 Assessment/Plan VTE Prophylaxis VTE Prophylaxis Intervention: SCD's Lines/Catheters [facility] PICC Line Central line still needed: Yes Urinary Cath still in place: No Assessment/Plan Chief Complaint/Hosp Course Patient status post wound VAC change today, pain is well controlled on current medication regimen. No long term facility bed is available per case management. ASSESSMENT AND PLAN: - Right [id number] amputation stump dehiscence, laceration, possible infection. S/p debridement and creation of a rotational flap by Dr. Fuller, vascular surgery, on 06/13. Continue wound VAC. Pathology positive for osteomyelitis. Dr. Eldridge is following infection disease consultation. Continue vancomycin until July 28. - Diabetes mellitus type 2. Hemoglobin A1c is 8.7. Continue Tradjenta, Lantus , pre-meal NovoLog, and NovoLog per mild algorithm sliding scale a.c. and at bedtime. - Hypertension. Continue metoprolol and lisinopril. Continue to monitor blood pressure. - Homelessness. Pending long term facility placement. Further recommendations based on clinical course. Plan of care discussed with Dr. Li. Problems: Exam/Review of Systems Vital Signs Vitals Vital Signs Date Time Temp Pulse Resp B/P Pulse Ox O2 Delivery O2 Flow Rate FiO2 07/12/16 08:15 97.8 71 18 134/64 99 Intake and Output 07/11/16 07/11/16 07/12/16 15:00 23:00 07:00 Intake Total 2880 ml 510 ml Output Total 800 ml 600 ml Balance 2080 ml -90 ml Exam Constitutional: alert, oriented Head: normocephalic Neck: supple Respiratory: normal air movement Cardiovascular: nl pulses Gastrointestinal: non-tender, soft Extremities: other (right lower extremity stump wound with wound VAC) Results Result Diagram: 07/12/16 0539 07/12/16 0539 Results 24 hrs Laboratory Tests Test 07/11/16 17:23 07/11/16 20:38 07/12/16 02:16 07/12/16 05:39 Bedside Glucose 192 222 H 152 White Blood Count 5.1 Red Blood Count 3.74 L Hemoglobin 10.5 L Hematocrit 33.3 L Mean Corpuscular Volume 89.0 Mean Corpuscular Hemoglobin 28.1 L Mean Corpuscular Hemoglobin Concent 31.5 L Red Cell Distribution Width 15.3 H Platelet Count 217 Mean Platelet Volume 10.2 Neutrophils % 49.2 Lymphocytes % 32.2 Monocytes % 10.2 Eosinophils % 7.6 H Basophils % 0.6 Nucleated Red Blood Cells % 0.0 Neutrophils # 2.5 Lymphocytes # 1.6 Monocytes # 0.5 Eosinophils # 0.4 Basophils # 0.0 Nucleated Red Blood Cells # 0.0 Sodium Level 143 Potassium Level 4.1 Chloride Level 106 Carbon Dioxide Level 28 Anion Gap 13 Blood Urea Nitrogen 17 Creatinine 0.75 Glucose Level 101 Calcium Level 9.4 Test 07/12/16 08:01 07/12/16 11:58 Bedside Glucose 97 90 Medications Medications Current Medications Aspirin (Halfprin) 81 mg DAILY PO Last administered on 07/12/16 08:15; Admin Dose 81 MG; Start 06/13/16 at 09:00 Gabapentin (Neurontin) 300 mg TID PO Last administered on 07/12/16 12:19; Admin Dose 300 MG; Start 06/12/16 at 21:00 Lisinopril (Zestril) 20 mg DAILY PO Last administered on 07/12/16 08:16; Admin Dose 20 MG; Start 06/13/16 at 09:00 Metoprolol Tartrate 25 mg 25 mg BID PO Last administered on 07/12/16 08:17; Admin Dose 25 MG; Start 06/12/16 at 21:00 Sodium Chloride (NS) 1,000 ml @ 40 mls/hr Q24H IV Last administered on 15:28; Admin Dose 40 MLS/HR; Start 06/12/16 at 17:15 Ondansetron HCl (Zofran Inj) 4 mg Q6H PRN IV NAUSEA AND/OR VOMITING; Start 06/12 at 17:30 Acetaminophen (Tylenol Tab) 650 mg Q6H PRN PO PAIN LEVEL 1-3 OR FEVER; Start at 17:30 Acetaminophen/ Hydrocodone Bitart ([place] (5/325)) 1 tab Q6H PRN PO MODERATE PAIN LEVEL 4-6 Last administered on 07/12/16 06:26; Admin Dose 1 TAB; Start 06/12 at 17:30 Docusate Sodium (Colace) 100 mg Q12H PRN PO CONSTIPATION; Start 06/12/16 at 17: 30 Pantoprazole (Protonix Tab) 40 mg DAILY@06 PO Last administered on 07/12/16 05: 39; Admin Dose 40 MG; Start 06/13/16 at 06:00 Enoxaparin Sodium (Lovenox) 30 mg DAILY SC Last administered on 07/12/16 08:29 ; Admin Dose 30 MG; Start 06/13/16 at 09:00 Diagnostic Test (Pha) (Accu-Chek) 1 ea 02 XX Last administered on 07/02/16 01: 55; Admin Dose 1 EA; Start 06/13/16 at 02:00 Miscellaneous Information 1 ea NOTE XX ; Start 06/12/16 at 17:30 Glucose (Glutose) 15 gm Q15M PRN PO DECREASED GLUCOSE; Start 06/12/16 at 17:30 Glucose (Glutose) 22.5 gm Q15M PRN PO DECREASED GLUCOSE; Start 06/12/16 at 17:30 Dextrose (D50w Syringe) 25 ml Q15M PRN IV DECREASED GLUCOSE; Start 06/12/16 at 17:30 Dextrose (D50w Syringe) 50 ml Q15M PRN IV DECREASED GLUCOSE; Start 06/12/16 at 17:30 Glucagon (Glucagen) 1 mg Q15M PRN IM DECREASED GLUCOSE; Start 06/12/16 at 17:30 Glucose (Glutose) 15 gm Q15M PRN BUCCAL DECREASED GLUCOSE; Start 06/12/16 at 17: 30 Linagliptin (Tradjenta) 5 mg DAILY PO Last administered on 07/12/16 08:15; Admin Dose 5 MG; Start 06/15/16 at 09:00 Atorvastatin Calcium (Lipitor) 10 mg QHS PO Last administered on 07/11/16 20:41 ; Admin Dose 10 MG; Start 06/15/16 at 21:00 IV Flush 10 ml 10 ml PRN PRN IV IV PROTOCOL; Start 06/20/16 at 16:30 Vancomycin HCl/ Sodium Chloride (Vancocin/NS) 150 ml @ 75 mls/hr Q12H IVPB Last administered on 07/12/16 11:16; Admin Dose 75 MLS/HR; Start 07/06/16 at 23: 00 Insulin Glargine (Lantus) 9 unit DAILY@20 SC Last administered on 07/11/16t 20: 44; Admin Dose 9 UNIT; Start 07/07/16 at 20:00 Miscellaneous Information (*Rx Drug Level Order Reminder*) VANCOMYCIN TROUGH 07/12 AT 2200 ONCE ONCE XX ; Start 07/12/16 at 22:00; Stop 07/12/16 at 22:01 WEI SULLIVAN Jul 12, 2016 16:42
[2016-07-12 19:27] VITALS: BP 104/63; RESP 20
[2016-07-12] MEDS: ATORVASTATIN 10 MG TAB PO SCH (20:50)
[2016-07-12] MEDS: INSULIN GLARGINE [LANtus] 3 ML PEN SC SCH (20:59)
[2016-07-13] MEDS: PANTOPRAZOLE (EC) 40 MG TAB PO SCH (07:24)
[2016-07-13 07:52] VITALS: BP 117/64; RESP 16
[2016-07-13] MEDS: ASPIRIN (EC) 81 MG TAB PO SCH (08:18)
[2016-07-13] MEDS: metFORMIN 500 MG TAB PO SCH ×2 (08:18→17:42)
[2016-07-13] MEDS: LISINOPRIL 20 MG TAB PO SCH (08:19)
[2016-07-13] MEDS: GABAPENTIN 300 MG CAP PO SCH ×3 (08:19→20:35)
[2016-07-13] MEDS: METOPROLOL 25 MG TAB PO SCH ×2 (08:19→20:36)
[2016-07-13] MEDS: LINAGLIPTIN 5 MG TABLET PO SCH (08:19)
[2016-07-13] MEDS: INSULIN ASPART [NOVOLOG] 3 ML PEN SC SCH ×7 (08:30→20:32)
[2016-07-13] MEDS: ENOXAPARIN 30 MG/0.3 ML SYG SC SCH (09:27)
[2016-07-13] MEDS: VANCOMYCIN 850 MG in SOD CHLORIDE 0.9% 250 ML IVPB SCH ×2 (11:16→23:31)
--- NOTE | 2016-07-13 16:15 | PN ---
Date/Time of Note Date/Time of Note DATE: 07/13/16 TIME: 16:13 Assessment/Plan VTE Prophylaxis VTE Prophylaxis Intervention: other Lines/Catheters IV Catheter Type (from Nrs): PICC Line Central line still needed: Yes Urinary Cath still in place: No Assessment/Plan Assessment/Plan - Right [id number] amputation stump dehiscence, laceration, possible infection. S/p debridement and creation of a rotational flap by Dr. Fuller, vascular surgery, on 06/13. Continue wound VAC. Pathology positive for osteomyelitis. Dr. Eldridge is following infection disease consultation. Continue vancomycin until July 28. - Diabetes mellitus type 2. Hemoglobin A1c is 8.7. Continue Tradjenta, Lantus , pre-meal NovoLog, and NovoLog per mild algorithm sliding scale a.c. and at bedtime. - Hypertension. Continue metoprolol and lisinopril. Continue to monitor blood pressure. - Homelessness. [facility]. Further recommendations based on clinical course. Plan of care discussed with Dr. Li. Subjective 24 Hr Interval Summary Free Text/Dictation resting in bed, seems comfortable, status post wound VAC change yesterday, pain is well controlled with current medication regimen. No penitentiary facility bed is available per case management.dw staff- no new issues reported Respiratory: no complaints Cardiovascular: no complaints Gastrointestinal: no complaints Genitourinary: no complaints Musculoskeletal: no complaints Exam/Review of Systems Vital Signs Vitals Vital Signs Date Time Temp Pulse Resp B/P Pulse Ox O2 Delivery O2 Flow Rate FiO2 07/13/16 07:52 97.7 75 16 117/64 95 Intake and Output 07/12/16 07/12/16 07/13/16 15:00 23:00 07:00 Intake Total 1310 ml 1880 ml 1050 ml Output Total 1050 ml 2450 ml 1500 ml Balance 260 ml -570 ml -450 ml Exam Constitutional: alert, oriented Respiratory: clear to auscultation, normal air movement Cardiovascular: nl pulses, regular rate and rhythm Gastrointestinal: non-tender, soft Extremities: normal pulses Neurological: nl mental status, nl speech Lymph: nontender Results Result Diagram: 07/12/16 0539 07/12/16 0539 Results 24 hrs Laboratory Tests Test 07/12/16 17:22 07/12/16 20:48 07/12/16 21:55 07/13/16 08:01 Bedside Glucose 98 143 117 Vancomycin Level Trough 12.2 Test 07/13/16 12:01 Bedside Glucose 135 Medications Medications Current Medications Aspirin (Halfprin) 81 mg DAILY PO Last administered on 07/13/16 08:18; Admin Dose 81 MG; Start 06/13/16 at 09:00 Gabapentin (Neurontin) 300 mg TID PO Last administered on 07/13/16 13:03; Admin Dose 300 MG; Start 06/12/16 at 21:00 Lisinopril (Zestril) 20 mg DAILY PO Last administered on 07/13/16 08:19; Admin Dose 20 MG; Start 06/13/16 at 09:00 Metoprolol Tartrate 25 mg 25 mg BID PO Last administered on 07/13/16 08:19; Admin Dose 25 MG; Start 06/12/16 at 21:00 Sodium Chloride (NS) 1,000 ml @ 40 mls/hr Q24H IV Last administered on 15:28; Admin Dose 40 MLS/HR; Start 06/12/16 at 17:15 Ondansetron HCl (Zofran Inj) 4 mg Q6H PRN IV NAUSEA AND/OR VOMITING; Start 06/12 at 17:30 Acetaminophen (Tylenol Tab) 650 mg Q6H PRN PO PAIN LEVEL 1-3 OR FEVER; Start at 17:30 Acetaminophen/ Hydrocodone Bitart ([place] (5/325)) 1 tab Q6H PRN PO MODERATE PAIN LEVEL 4-6 Last administered on 07/12/16 19:10; Admin Dose 1 TAB; Start 06/12 at 17:30 Docusate Sodium (Colace) 100 mg Q12H PRN PO CONSTIPATION; Start 06/12/16 at 17: 30 Pantoprazole (Protonix Tab) 40 mg DAILY@06 PO Last administered on 07/13/16 07: 24; Admin Dose 40 MG; Start 06/13/16 at 06:00 Enoxaparin Sodium (Lovenox) 30 mg DAILY SC Last administered on 07/13/16 09:27 ; Admin Dose 30 MG; Start 06/13/16 at 09:00 Diagnostic Test (Pha) (Accu-Chek) 1 ea 02 XX Last administered on 07/02/16 01: 55; Admin Dose 1 EA; Start 06/13/16 at 02:00 Miscellaneous Information 1 ea NOTE XX ; Start 06/12/16 at 17:30 Glucose (Glutose) 15 gm Q15M PRN PO DECREASED GLUCOSE; Start 06/12/16 at 17:30 Glucose (Glutose) 22.5 gm Q15M PRN PO DECREASED GLUCOSE; Start 06/12/16 at 17:30 Dextrose (D50w Syringe) 25 ml Q15M PRN IV DECREASED GLUCOSE; Start 06/12/16 at 17:30 Dextrose (D50w Syringe) 50 ml Q15M PRN IV DECREASED GLUCOSE; Start 06/12/16 at 17:30 Glucagon (Glucagen) 1 mg Q15M PRN IM DECREASED GLUCOSE; Start 06/12/16 at 17:30 Glucose (Glutose) 15 gm Q15M PRN BUCCAL DECREASED GLUCOSE; Start 06/12/16 at 17: 30 Linagliptin (Tradjenta) 5 mg DAILY PO Last administered on 07/13/16 08:19; Admin Dose 5 MG; Start 06/15/16 at 09:00 Atorvastatin Calcium (Lipitor) 10 mg QHS PO Last administered on 07/12/16 20:50 ; Admin Dose 10 MG; Start 06/15/16 at 21:00 IV Flush (NS 10 ml) 10 ml PRN PRN IV IV PROTOCOL; Start 06/20/16 at 16:30 Insulin Glargine 9 unit 9 unit DAILY@20 SC Last administered on 07/12/16 20:59 ; Admin Dose 9 UNIT; Start 07/07/16 at 20:00 Vancomycin HCl/ Sodium Chloride (Vancocin/NS) 250 ml @ 125 mls/hr Q12H IVPB Last administered on 07/13/16 11:16; Admin Dose 125 MLS/HR; Start 07/13/16 at 11: 00 ABRAHAN PINA Jul 13, 2016 16:15
[2016-07-13] MEDS: SOD CHLORIDE 0.9% 1,000 ML IV SCH ×2 (17:15→19:01)
[2016-07-13] MEDS: HYDROCODONE/APAP (5/325) TAB PO PRN (17:41)
[2016-07-13 19:16] VITALS: BP 111/68; RESP 18
[2016-07-13 20:30] VITALS: BP 133/70; PULSE 76
[2016-07-13] MEDS: ATORVASTATIN 10 MG TAB PO SCH (20:35)
[2016-07-13] MEDS: INSULIN GLARGINE [LANtus] 3 ML PEN SC SCH (20:45)
[2016-07-14] MEDS: ACCU-CHEK XX SCH (02:00)
[2016-07-14] MEDS: PANTOPRAZOLE (EC) 40 MG TAB PO SCH (05:05)
[2016-07-14 05:52] LABS: CREATININE 0.72 mg/dl (0.61-1.24)
[2016-07-14 07:53] VITALS: BP 129/66; RESP 18
[2016-07-14] MEDS: INSULIN ASPART [NOVOLOG] 3 ML PEN SC SCH ×8 (07:58→20:33)
[2016-07-14] MEDS: HYDROCODONE/APAP (5/325) TAB PO PRN ×2 (08:16→14:55)
[2016-07-14] MEDS: metFORMIN 500 MG TAB PO SCH ×2 (08:16→18:01)
[2016-07-14] MEDS: LISINOPRIL 20 MG TAB PO SCH (08:17)
[2016-07-14] MEDS: GABAPENTIN 300 MG CAP PO SCH ×3 (08:17→20:35)
[2016-07-14] MEDS: METOPROLOL 25 MG TAB PO SCH ×2 (08:17→20:39)
[2016-07-14] MEDS: ASPIRIN (EC) 81 MG TAB PO SCH (08:17)
[2016-07-14] MEDS: LINAGLIPTIN 5 MG TABLET PO SCH (08:18)
[2016-07-14] MEDS: ENOXAPARIN 30 MG/0.3 ML SYG SC SCH (08:22)
[2016-07-14] MEDS: VANCOMYCIN 850 MG in SOD CHLORIDE 0.9% 250 ML IVPB SCH ×2 (11:29→23:02)
--- NOTE | 2016-07-14 14:07 | PN ---
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 -D/C planning with wound vac, arrange for Home Health as he would require wound vac for wound closure -Discussed findings, plan of management with the patient and he understands. -Thank you for allowing us to participate in the care of your patient. Please call with any questions. Problems: Subjective 24 Hr Interval Summary Constitutional: no complaints Exam/Review of Systems Vital Signs Vitals Vital Signs Date Time Temp Pulse Resp B/P Pulse Ox O2 Delivery O2 Flow Rate FiO2 07/14/16 07:53 98.4 77 18 129/66 99 Intake and Output 07/13/16 07/13/16 07/14/16 15:00 23:00 07:00 Intake Total 250 ml 1810 ml 1370 ml Output Total 1700 ml 1600 ml Balance 250 ml 110 ml -230 ml Exam Free Text/Dictation GENERAL: Alert and oriented x3, PULMONARY: Clear to auscultation bilaterally CARDIOVASCULAR: S1, S2 present ABDOMEN: Soft, nontender, nondistended. Bowel sounds positive. EXTREMITIES: Right lower extremity: Palpable femoral pulse. BKA stump with cap refill 3 seconds. wound vac-intact and functional - changed at bedside and good granulation tissue developing and progressively getting smaller in size Left lower extremity: Palpable femoral pulse, nonpalpable pedal pulse. Motor, sensory intact. Cap refill 3 to 4 seconds. There is area of lipodermatosclerosis. No ulcers identified. Results Result Diagram: 07/12/16 0539 07/14/16 0507 JUAN PRIDE MD Jul 14, 2016 14:07
--- NOTE | 2016-07-14 17:00 | PN ---
Date/Time of Note Date/Time of Note DATE: 07/14/16 TIME: 16:59 Assessment/Plan VTE Prophylaxis VTE Prophylaxis Intervention: SCD's Lines/Catheters IV Catheter Type (from Nrs): PICC Line Central line still needed: Yes Urinary Cath still in place: No Assessment/Plan Chief Complaint/Hosp Course Patient looks comfortable no complaints status post wound VAC change,adequate glycemic control. ASSESSMENT AND PLAN: - Right [id number] amputation stump dehiscence, laceration, possible infection. S/p debridement and creation of a rotational flap by Dr. Fuller, vascular surgery, on 06/13. Continue wound VAC. Pathology positive for osteomyelitis. Dr. Eldridge is following infection disease consultation. Continue vancomycin until July 28. - Diabetes mellitus type 2. Hemoglobin A1c is 8.7. Continue Tradjenta, Lantus , pre-meal NovoLog, and NovoLog per mild algorithm sliding scale a.c. and at bedtime. - Hypertension. Continue metoprolol and lisinopril. Continue to monitor blood pressure. - Homelessness. Pending [place] [facility] facility [facility]. Further recommendations based on clinical course. Plan of care discussed with Dr. Li. Problems: Exam/Review of Systems Vital Signs Vitals Vital Signs Date Time Temp Pulse Resp B/P Pulse Ox O2 Delivery O2 Flow Rate FiO2 07/14/16 07:53 98.4 77 18 129/66 99 Intake and Output 07/13/16 07/13/16 07/14/16 14:59 22:59 06:59 Intake Total 250 ml 1810 ml 1370 ml Output Total 1700 ml 1600 ml Balance 250 ml 110 ml -230 ml Exam Constitutional: alert, oriented Head: normocephalic Neck: supple Respiratory: normal air movement Cardiovascular: nl pulses Gastrointestinal: non-tender, soft Extremities: other (right lower extremity stump wound with wound VAC) Results Result Diagram: 07/12/16 0539 07/14/16 0507 Results 24 hrs Laboratory Tests Test 07/13/16 17:34 07/13/16 20:31 07/14/16 02:31 07/14/16 05:07 Bedside Glucose 112 84 103 Blood Urea Nitrogen 18 Creatinine 0.72 Test 07/14/16 07:56 07/14/16 12:08 Bedside Glucose 105 173 Medications Medications Current Medications Aspirin (Halfprin) 81 mg DAILY PO Last administered on 07/14/16 08:17; Admin Dose 81 MG; Start 06/13/16 at 09:00 Gabapentin (Neurontin) 300 mg TID PO Last administered on 07/14/16 13:35; Admin Dose 300 MG; Start 06/12/16 at 21:00 Lisinopril (Zestril) 20 mg DAILY PO Last administered on 07/14/16 08:17; Admin Dose 20 MG; Start 06/13/16 at 09:00 Metoprolol Tartrate 25 mg 25 mg BID PO Last administered on 07/14/16 08:17; Admin Dose 25 MG; Start 06/12/16 at 21:00 Sodium Chloride (NS) 1,000 ml @ 40 mls/hr Q24H IV Last administered on 19:01; Admin Dose 40 MLS/HR; Start 06/12/16 at 17:15 Ondansetron HCl (Zofran Inj) 4 mg Q6H PRN IV NAUSEA AND/OR VOMITING; Start 06/12 at 17:30 Acetaminophen (Tylenol Tab) 650 mg Q6H PRN PO PAIN LEVEL 1-3 OR FEVER; Start at 17:30 Acetaminophen/ Hydrocodone Bitart ([place] (5/325)) 1 tab Q6H PRN PO MODERATE PAIN LEVEL 4-6 Last administered on 07/14/16 14:55; Admin Dose 1 TAB; Start 06/12 at 17:30 Docusate Sodium (Colace) 100 mg Q12H PRN PO CONSTIPATION; Start 06/12/16 at 17: 30 Pantoprazole (Protonix Tab) 40 mg DAILY@06 PO Last administered on 07/14/16 05: 05; Admin Dose 40 MG; Start 06/13/16 at 06:00 Enoxaparin Sodium (Lovenox) 30 mg DAILY SC Last administered on 07/14/16 08:22 ; Admin Dose 30 MG; Start 06/13/16 at 09:00 Diagnostic Test (Pha) (Accu-Chek) 1 ea 02 XX Last administered on 07/02/16 01: 55; Admin Dose 1 EA; Start 06/13/16 at 02:00 Miscellaneous Information 1 ea NOTE XX ; Start 06/12/16 at 17:30 Glucose (Glutose) 15 gm Q15M PRN PO DECREASED GLUCOSE; Start 06/12/16 at 17:30 Glucose (Glutose) 22.5 gm Q15M PRN PO DECREASED GLUCOSE; Start 06/12/16 at 17:30 Dextrose (D50w Syringe) 25 ml Q15M PRN IV DECREASED GLUCOSE; Start 06/12/16 at 17:30 Dextrose (D50w Syringe) 50 ml Q15M PRN IV DECREASED GLUCOSE; Start 06/12/16 at 17:30 Glucagon (Glucagen) 1 mg Q15M PRN IM DECREASED GLUCOSE; Start 06/12/16 at 17:30 Glucose (Glutose) 15 gm Q15M PRN BUCCAL DECREASED GLUCOSE; Start 06/12/16 at 17: 30 Linagliptin (Tradjenta) 5 mg DAILY PO Last administered on 07/14/16 08:18; Admin Dose 5 MG; Start 06/15/16 at 09:00 Atorvastatin Calcium (Lipitor) 10 mg QHS PO Last administered on 07/13/16 20:35 ; Admin Dose 10 MG; Start 06/15/16 at 21:00 IV Flush (NS 10 ml) 10 ml PRN PRN IV IV PROTOCOL; Start 06/20/16 at 16:30 Insulin Glargine 9 unit 9 unit DAILY@20 SC Last administered on 07/13/16 20:45 ; Admin Dose 9 UNIT; Start 07/07/16 at 20:00 Vancomycin HCl/ Sodium Chloride (Vancocin/NS) 250 ml @ 125 mls/hr Q12H IVPB Last administered on 07/14/16 11:29; Admin Dose 125 MLS/HR; Start 07/13/16 at 11: 00 Miscellaneous Information (*Rx Drug Level Order Reminder*) VANCO TROUGH @ 2, 200 ON... ONCE ONCE XX ; Start 07/14/16 at 22:00; Stop 07/14/16 at 22:01 WEI SULLIVAN Jul 14, 2016 17:00
[2016-07-14 20:00] VITALS: BP 125/66; RESP 20
[2016-07-14] MEDS: INSULIN GLARGINE [LANtus] 3 ML PEN SC SCH (20:35)
[2016-07-14] MEDS: ATORVASTATIN 10 MG TAB PO SCH (20:36)
[2016-07-15] MEDS: ACCU-CHEK XX SCH (02:00)
[2016-07-15] MEDS: PANTOPRAZOLE (EC) 40 MG TAB PO SCH (05:33)
[2016-07-15] MEDS: SOD CHLORIDE 0.9% 1,000 ML IV SCH ×2 (07:15→17:15)
[2016-07-15] MEDS: INSULIN ASPART [NOVOLOG] 3 ML PEN SC SCH ×7 (07:54→20:52)
[2016-07-15 08:03] VITALS: BP 135/68; RESP 18
[2016-07-15] MEDS: metFORMIN 500 MG TAB PO SCH ×2 (08:10→17:34)
[2016-07-15] MEDS: GABAPENTIN 300 MG CAP PO SCH ×3 (08:27→20:50)
[2016-07-15] MEDS: METOPROLOL 25 MG TAB PO SCH ×2 (08:27→20:51)
[2016-07-15] MEDS: LISINOPRIL 20 MG TAB PO SCH (08:28)
[2016-07-15] MEDS: ASPIRIN (EC) 81 MG TAB PO SCH (08:28)
[2016-07-15] MEDS: LINAGLIPTIN 5 MG TABLET PO SCH (08:28)
[2016-07-15] MEDS: ENOXAPARIN 30 MG/0.3 ML SYG SC SCH (08:33)
--- NOTE | 2016-07-15 11:22 | PN ---
Date/Time of Note Date/Time of Note DATE: 07/15/16 TIME: 11:21 Assessment/Plan VTE Prophylaxis VTE Prophylaxis Intervention: other Lines/Catheters IV Catheter Type (from Nrs): PICC Line Central line still needed: Yes Urinary Cath still in place: No Assessment/Plan Chief Complaint/Hosp Course - Right [id number] amputation stump dehiscence, laceration, possible infection. S/p debridement and creation of a rotational flap by Dr. Fuller, vascular surgery, on 06/13. Continue IV antibiotics. Continue wound VAC. Pathology positive for osteomyelitis. Dr. Eldridge is following infection disease consultation. - Diabetes mellitus type 2. Hemoglobin A1c is 8.7. Continue Tradjenta, Lantus , pre-meal NovoLog, and NovoLog per mild algorithm sliding scale a.c. and at bedtime. - Hypertension. Continue metoprolol and lisinopril. Continue to monitor blood pressure. - Homelessness. Pending senior living facility placement. Problems: Subjective 24 Hr Interval Summary Free Text/Dictation Patient resting comfortably Exam/Review of Systems Vital Signs Vitals Vital Signs Date Time Temp Pulse Resp B/P Pulse Ox O2 Delivery O2 Flow Rate FiO2 07/15/16 08:03 97.7 70 18 135/68 98 Intake and Output 07/14/16 07/14/16 07/15/16 15:00 23:00 07:00 Intake Total 250 ml 1680 ml 1390 ml Output Total 1500 ml 1000 ml Balance 250 ml 180 ml 390 ml Exam Constitutional: well developed Head: atraumatic, normocephalic Neck: supple Respiratory: diminished breath sounds Cardiovascular: regular rate and rhythm Gastrointestinal: non-tender, soft Extremities: normal pulses Results Result Diagram: 07/12/16 0539 07/14/16 0507 Results 24 hrs Laboratory Tests Test 07/14/16 12:08 07/14/16 17:41 07/14/16 20:31 07/14/16 22:05 Bedside Glucose 173 87 131 Vancomycin Level Trough 15.0 Test 07/15/16 07:51 Bedside Glucose 103 Medications Medications Current Medications Aspirin (Halfprin) 81 mg DAILY PO Last administered on 07/15/16 08:28; Admin Dose 81 MG; Start 06/13/16 at 09:00 Gabapentin (Neurontin) 300 mg TID PO Last administered on 07/15/16 08:27; Admin Dose 300 MG; Start 06/12/16 at 21:00 Lisinopril (Zestril) 20 mg DAILY PO Last administered on 07/15/16 08:28; Admin Dose 20 MG; Start 06/13/16 at 09:00 Metoprolol Tartrate 25 mg 25 mg BID PO Last administered on 07/15/16 08:27; Admin Dose 25 MG; Start 06/12/16 at 21:00 Sodium Chloride (NS) 1,000 ml @ 40 mls/hr Q24H IV Last administered on 07:15; Admin Dose 40 MLS/HR; Start 06/12/16 at 17:15 Ondansetron HCl (Zofran Inj) 4 mg Q6H PRN IV NAUSEA AND/OR VOMITING; Start 06/12 at 17:30 Acetaminophen (Tylenol Tab) 650 mg Q6H PRN PO PAIN LEVEL 1-3 OR FEVER; Start at 17:30 Acetaminophen/ Hydrocodone Bitart ([place] (5/325)) 1 tab Q6H PRN PO MODERATE PAIN LEVEL 4-6 Last administered on 07/14/16 14:55; Admin Dose 1 TAB; Start 06/12 at 17:30 Docusate Sodium (Colace) 100 mg Q12H PRN PO CONSTIPATION; Start 06/12/16 at 17: 30 Pantoprazole (Protonix Tab) 40 mg DAILY@06 PO Last administered on 07/15/16 05 :33; Admin Dose 40 MG; Start 06/13/16 at 06:00 Enoxaparin Sodium (Lovenox) 30 mg DAILY SC Last administered on 07/15/16 08:33 ; Admin Dose 30 MG; Start 06/13/16 at 09:00 Diagnostic Test (Pha) (Accu-Chek) 1 ea 02 XX Last administered on 07/02/16 01: 55; Admin Dose 1 EA; Start 06/13/16 at 02:00 Miscellaneous Information 1 ea NOTE XX ; Start 06/12/16 at 17:30 Glucose (Glutose) 15 gm Q15M PRN PO DECREASED GLUCOSE; Start 06/12/16 at 17:30 Glucose (Glutose) 22.5 gm Q15M PRN PO DECREASED GLUCOSE; Start 06/12/16 at 17:30 Dextrose (D50w Syringe) 25 ml Q15M PRN IV DECREASED GLUCOSE; Start 06/12/16 at 17:30 Dextrose (D50w Syringe) 50 ml Q15M PRN IV DECREASED GLUCOSE; Start 06/12/16 at 17:30 Glucagon (Glucagen) 1 mg Q15M PRN IM DECREASED GLUCOSE; Start 06/12/16 at 17:30 Glucose (Glutose) 15 gm Q15M PRN BUCCAL DECREASED GLUCOSE; Start 06/12/16 at 17: 30 Linagliptin (Tradjenta) 5 mg DAILY PO Last administered on 07/15/16 08:28; Admin Dose 5 MG; Start 06/15/16 at 09:00 Atorvastatin Calcium (Lipitor) 10 mg QHS PO Last administered on 07/14/16 20:36 ; Admin Dose 10 MG; Start 06/15/16 at 21:00 IV Flush (NS 10 ml) 10 ml PRN PRN IV IV PROTOCOL; Start 06/20/16 at 16:30 Insulin Glargine 9 unit 9 unit DAILY@20 SC Last administered on 07/14/16 20:35 ; Admin Dose 9 UNIT; Start 07/07/16 at 20:00 Vancomycin HCl/ Sodium Chloride (Vancocin/NS) 250 ml @ 125 mls/hr Q12H IVPB Last administered on 07/14/16 23:02; Admin Dose 125 MLS/HR; Start 07/13/16 at 11: 00 SHIRAZ CLARK Jul 15, 2016 11:22
[2016-07-15] MEDS: VANCOMYCIN 850 MG in SOD CHLORIDE 0.9% 250 ML IVPB SCH ×2 (11:49→23:37)
[2016-07-15] MEDS: HYDROCODONE/APAP (5/325) TAB PO PRN (15:04)
--- NOTE | 2016-07-15 18:47 | CONS ---
Date/Time of Note Date/Time of Note DATE: 07/15/16 TIME: 18:46 Assessment/Plan Assessment/Plan Chief Complaint/Hosp Course SUBJECTIVE: Awake, no events, looks comfortable, no fevers. MICROBIOLOGY: Wound culture growing MSSA/Enterococcus ANTIMICROBIALS: Vancomycin PHYSICAL EXAMINATION: GENERAL: This is a well-nourished, well-developed elderly man who is awake, in no distress. HEENT: Head: Atraumatic, normocephalic. Sclerae anicteric. Buccal mucosa pink. NECK: Supple, trachea midline. CHEST: Rise symmetrical. Breath sounds clear. HEART: S1, S2. ABDOMEN: Soft, bowel tones present. EXTREMITIES: Without cyanosis. Right lower extremity wound VAC present. ASSESSMENT: 1. Right below-knee amputation, infected stump with OM, status post revision with rotation flap and wound VAC application. 2. Diabetes. 3. Hypertension. PLAN: The patient remains stable. Continue local wound, continue Vancomycin till 07/28 DW staff Problems: Consultation Date/Type/Reason Admit Date/Time June 12, 2016 at 13:22 Type of Consultation: ID Exam/Review of Systems Vital Signs Vitals Vital Signs Date Time Temp Pulse Resp B/P Pulse Ox O2 Delivery O2 Flow Rate FiO2 07/15/16 08:03 97.7 70 18 135/68 98 Intake and Output 07/14/16 07/14/16 07/15/16 15:00 23:00 07:00 Intake Total 250 ml 1680 ml 1390 ml Output Total 1500 ml 1000 ml Balance 250 ml 180 ml 390 ml Results Result Diagram: 07/12/16 0539 07/14/16 0507 Results 24 hrs Laboratory Tests Test 07/14/16 20:31 07/14/16 22:05 07/15/16 07:51 07/15/16 12:00 Bedside Glucose 131 103 84 Vancomycin Level Trough 15.0 Test 07/15/16 17:32 Bedside Glucose 144 Medications Medications Current Medications Aspirin (Halfprin) 81 mg DAILY PO Last administered on 07/15/16 08:28; Admin Dose 81 MG; Start 06/13/16 at 09:00 Gabapentin (Neurontin) 300 mg TID PO Last administered on 07/15/16 13:12; Admin Dose 300 MG; Start 06/12/16 at 21:00 Lisinopril (Zestril) 20 mg DAILY PO Last administered on 07/15/16 08:28; Admin Dose 20 MG; Start 06/13/16 at 09:00 Metoprolol Tartrate 25 mg 25 mg BID PO Last administered on 07/15/16 08:27; Admin Dose 25 MG; Start 06/12/16 at 21:00 Sodium Chloride (NS) 1,000 ml @ 40 mls/hr Q24H IV Last administered on 07:15; Admin Dose 40 MLS/HR; Start 06/12/16 at 17:15 Ondansetron HCl (Zofran Inj) 4 mg Q6H PRN IV NAUSEA AND/OR VOMITING; Start 06/12 at 17:30 Acetaminophen (Tylenol Tab) 650 mg Q6H PRN PO PAIN LEVEL 1-3 OR FEVER; Start at 17:30 Acetaminophen/ Hydrocodone Bitart ([place] (5/325)) 1 tab Q6H PRN PO MODERATE PAIN LEVEL 4-6 Last administered on 07/15/16 15:04; Admin Dose 1 TAB; Start 06/12/16 at 17:30 Docusate Sodium (Colace) 100 mg Q12H PRN PO CONSTIPATION; Start 06/12/16 at 17: 30 Pantoprazole (Protonix Tab) 40 mg DAILY@06 PO Last administered on 07/15/16 05 :33; Admin Dose 40 MG; Start 06/13/16 at 06:00 Enoxaparin Sodium (Lovenox) 30 mg DAILY SC Last administered on 07/15/16 08:33 ; Admin Dose 30 MG; Start 06/13/16 at 09:00 Diagnostic Test (Pha) (Accu-Chek) 1 ea 02 XX Last administered on 07/02/16 01: 55; Admin Dose 1 EA; Start 06/13/16 at 02:00 Miscellaneous Information 1 ea NOTE XX ; Start 06/12/16 at 17:30 Glucose (Glutose) 15 gm Q15M PRN PO DECREASED GLUCOSE; Start 06/12/16 at 17:30 Glucose (Glutose) 22.5 gm Q15M PRN PO DECREASED GLUCOSE; Start 06/12/16 at 17:30 Dextrose (D50w Syringe) 25 ml Q15M PRN IV DECREASED GLUCOSE; Start 06/12/16 at 17:30 Dextrose (D50w Syringe) 50 ml Q15M PRN IV DECREASED GLUCOSE; Start 06/12/16 at 17:30 Glucagon (Glucagen) 1 mg Q15M PRN IM DECREASED GLUCOSE; Start 06/12/16 at 17:30 Glucose (Glutose) 15 gm Q15M PRN BUCCAL DECREASED GLUCOSE; Start 06/12/16 at 17: 30 Linagliptin (Tradjenta) 5 mg DAILY PO Last administered on 07/15/16 08:28; Admin Dose 5 MG; Start 06/15/16 at 09:00 Atorvastatin Calcium (Lipitor) 10 mg QHS PO Last administered on 07/14/16 20:36 ; Admin Dose 10 MG; Start 06/15/16 at 21:00 IV Flush (NS 10 ml) 10 ml PRN PRN IV IV PROTOCOL; Start 06/20/16 at 16:30 Insulin Glargine 9 unit 9 unit DAILY@20 SC Last administered on 07/14/16 20:35 ; Admin Dose 9 UNIT; Start 07/07/16 at 20:00 Vancomycin HCl/ Sodium Chloride (Vancocin/NS) 250 ml @ 125 mls/hr Q12H IVPB Last administered on 07/15/16 11:49; Admin Dose 125 MLS/HR; Start 07/13/16 at 11 :00 HILARIO ACUÑA NP Jul 15, 2016 18:46
[2016-07-15 19:47] VITALS: BP 132/80; RESP 20
[2016-07-15] MEDS: INSULIN GLARGINE [LANtus] 3 ML PEN SC SCH (20:49)
[2016-07-15] MEDS: ATORVASTATIN 10 MG TAB PO SCH (20:50)
[2016-07-16] MEDS: ACCU-CHEK XX SCH (02:00)
[2016-07-16] MEDS: PANTOPRAZOLE (EC) 40 MG TAB PO SCH (07:14)
[2016-07-16 08:11] VITALS: BP 114/71; PULSE 65; RESP 18
[2016-07-16] MEDS: INSULIN ASPART [NOVOLOG] 3 ML PEN SC SCH ×7 (08:15→20:22)
[2016-07-16] MEDS: ASPIRIN (EC) 81 MG TAB PO SCH (08:18)
[2016-07-16] MEDS: metFORMIN 500 MG TAB PO SCH ×2 (08:18→17:36)
[2016-07-16] MEDS: GABAPENTIN 300 MG CAP PO SCH ×3 (08:18→20:18)
[2016-07-16] MEDS: LINAGLIPTIN 5 MG TABLET PO SCH (08:18)
[2016-07-16] MEDS: LISINOPRIL 20 MG TAB PO SCH (08:19)
[2016-07-16] MEDS: METOPROLOL 25 MG TAB PO SCH ×2 (08:19→20:18)
[2016-07-16] MEDS: ENOXAPARIN 30 MG/0.3 ML SYG SC SCH (08:23)
--- NOTE | 2016-07-16 10:58 | PN ---
Date/Time of Note Date/Time of Note DATE: 07/16/16 TIME: 10:58 Assessment/Plan VTE Prophylaxis VTE Prophylaxis Intervention: other Lines/Catheters [facility] PICC Line Central line still needed: Yes Urinary Cath still in place: No Assessment/Plan Chief Complaint/Hosp Course - Right [id number] amputation stump dehiscence, laceration, possible infection. S/p debridement and creation of a rotational flap by Dr. Fuller, vascular surgery, on 06/13. Continue IV antibiotics. Continue wound VAC. Pathology positive for osteomyelitis. Dr. Eldridge is following infection disease consultation. - Diabetes mellitus type 2. Hemoglobin A1c is 8.7. Continue Tradjenta, Lantus , pre-meal NovoLog, and NovoLog per mild algorithm sliding scale a.c. and at bedtime. - Hypertension. Continue metoprolol and lisinopril. Continue to monitor blood pressure. - Homelessness. Pending residential facility placement. Problems: Subjective 24 Hr Interval Summary Free Text/Dictation Patient doing well Exam/Review of Systems Vital Signs Vitals Vital Signs Date Time Temp Pulse Resp B/P Pulse Ox O2 Delivery O2 Flow Rate FiO2 07/16/16 08:11 98.1 65 18 114/71 99 Room Air Intake and Output 07/15/16 07/15/16 07/16/16 15:00 23:00 07:00 Intake Total 250 ml 2595 ml 1290 ml Output Total 1775 ml Balance 250 ml 2595 ml -485 ml Exam Constitutional: well developed Head: atraumatic, normocephalic Neck: supple Respiratory: clear to auscultation Cardiovascular: regular rate and rhythm Gastrointestinal: non-tender, soft Extremities: normal pulses Results Result Diagram: 07/12/16 0539 07/14/16 0507 Results 24 hrs Laboratory Tests Test 07/15/16 12:00 07/15/16 17:32 07/15/16 20:48 07/16/16 08:15 Bedside Glucose 84 144 99 101 Medications Medications Current Medications Aspirin (Halfprin) 81 mg DAILY PO Last administered on 07/16/16 08:18; Admin Dose 81 MG; Start 06/13/16 at 09:00 Gabapentin (Neurontin) 300 mg TID PO Last administered on 07/16/16 08:18; Admin Dose 300 MG; Start 06/12/16 at 21:00 Lisinopril (Zestril) 20 mg DAILY PO Last administered on 07/16/16 08:19; Admin Dose 20 MG; Start 06/13/16 at 09:00 Metoprolol Tartrate 25 mg 25 mg BID PO Last administered on 07/16/16 08:19; Admin Dose 25 MG; Start 06/12/16 at 21:00 Sodium Chloride (NS) 1,000 ml @ 40 mls/hr Q24H IV Last administered on 07:15; Admin Dose 40 MLS/HR; Start 06/12/16 at 17:15 Ondansetron HCl (Zofran Inj) 4 mg Q6H PRN IV NAUSEA AND/OR VOMITING; Start 06/12 at 17:30 Acetaminophen (Tylenol Tab) 650 mg Q6H PRN PO PAIN LEVEL 1-3 OR FEVER; Start at 17:30 Acetaminophen/ Hydrocodone Bitart ([place] (5/325)) 1 tab Q6H PRN PO MODERATE PAIN LEVEL 4-6 Last administered on 07/15/16 15:04; Admin Dose 1 TAB; Start 06/12/16 at 17:30 Docusate Sodium (Colace) 100 mg Q12H PRN PO CONSTIPATION; Start 06/12/16 at 17: 30 Pantoprazole (Protonix Tab) 40 mg DAILY@06 PO Last administered on 07/16/16 07 :14; Admin Dose 40 MG; Start 06/13/16 at 06:00 Enoxaparin Sodium (Lovenox) 30 mg DAILY SC Last administered on 07/16/16 08:23 ; Admin Dose 30 MG; Start 06/13/16 at 09:00 Diagnostic Test (Pha) (Accu-Chek) 1 ea 02 XX Last administered on 07/02/16 01: 55; Admin Dose 1 EA; Start 06/13/16 at 02:00 Miscellaneous Information 1 ea NOTE XX ; Start 06/12/16 at 17:30 Glucose (Glutose) 15 gm Q15M PRN PO DECREASED GLUCOSE; Start 06/12/16 at 17:30 Glucose (Glutose) 22.5 gm Q15M PRN PO DECREASED GLUCOSE; Start 06/12/16 at 17:30 Dextrose (D50w Syringe) 25 ml Q15M PRN IV DECREASED GLUCOSE; Start 06/12/16 at 17:30 Dextrose (D50w Syringe) 50 ml Q15M PRN IV DECREASED GLUCOSE; Start 06/12/16 at 17:30 Glucagon (Glucagen) 1 mg Q15M PRN IM DECREASED GLUCOSE; Start 06/12/16 at 17:30 Glucose (Glutose) 15 gm Q15M PRN BUCCAL DECREASED GLUCOSE; Start 06/12/16 at 17: 30 Linagliptin (Tradjenta) 5 mg DAILY PO Last administered on 07/16/16 08:18; Admin Dose 5 MG; Start 06/15/16 at 09:00 Atorvastatin Calcium (Lipitor) 10 mg QHS PO Last administered on 07/15/16 20: 50; Admin Dose 10 MG; Start 06/15/16 at 21:00 IV Flush (NS 10 ml) 10 ml PRN PRN IV IV PROTOCOL; Start 06/20/16 at 16:30 Insulin Glargine 9 unit 9 unit DAILY@20 SC Last administered on 07/15/16 20:49 ; Admin Dose 9 UNIT; Start 07/07/16 at 20:00 Vancomycin HCl/ Sodium Chloride (Vancocin/NS) 250 ml @ 125 mls/hr Q12H IVPB Last administered on 07/15/16 23:37; Admin Dose 125 MLS/HR; Start 07/13/16 at 11 :00 SHIRAZ CLARK Jul 16, 2016 10:58
[2016-07-16] MEDS: VANCOMYCIN 850 MG in SOD CHLORIDE 0.9% 250 ML IVPB SCH ×2 (11:10→22:52)
[2016-07-16] MEDS: HYDROCODONE/APAP (5/325) TAB PO PRN ×2 (12:18→22:51)
[2016-07-16] MEDS: SOD CHLORIDE 0.9% 1,000 ML IV SCH (17:36)
[2016-07-16 19:21] VITALS: BP 144/80; RESP 20
[2016-07-16 20:15] VITALS: BP 132/58; PULSE 86
[2016-07-16] MEDS: ATORVASTATIN 10 MG TAB PO SCH (20:18)
[2016-07-16] MEDS: INSULIN GLARGINE [LANtus] 3 ML PEN SC SCH (20:21)
[2016-07-17] MEDS: ACCU-CHEK XX SCH (02:00)
[2016-07-17] MEDS: PANTOPRAZOLE (EC) 40 MG TAB PO SCH (05:18)
[2016-07-17] MEDS: HYDROCODONE/APAP (5/325) TAB PO PRN ×2 (05:20→20:40)
[2016-07-17 06:29] LABS: CREATININE 0.77 mg/dl (0.61-1.24)
[2016-07-17 07:33] VITALS: BP 128/74; RESP 20
[2016-07-17] MEDS: INSULIN ASPART [NOVOLOG] 3 ML PEN SC SCH ×7 (08:03→20:35)
[2016-07-17] MEDS: LINAGLIPTIN 5 MG TABLET PO SCH (08:04)
[2016-07-17] MEDS: metFORMIN 500 MG TAB PO SCH ×2 (08:04→17:57)
[2016-07-17] MEDS: LISINOPRIL 20 MG TAB PO SCH ×2 (09:00→17:56)
[2016-07-17] MEDS: METOPROLOL 25 MG TAB PO SCH ×2 (09:17→20:36)
[2016-07-17] MEDS: ASPIRIN (EC) 81 MG TAB PO SCH (09:17)
[2016-07-17 09:19] VITALS: BP 96/57; PULSE 74
[2016-07-17] MEDS: ENOXAPARIN 30 MG/0.3 ML SYG SC SCH (09:22)
[2016-07-17] MEDS: GABAPENTIN 300 MG CAP PO SCH ×3 (10:00→20:35)
[2016-07-17 10:01] VITALS: BP 93/52; PULSE 70
[2016-07-17] MEDS: VANCOMYCIN 850 MG in SOD CHLORIDE 0.9% 250 ML IVPB SCH ×2 (11:02→23:13)
--- NOTE | 2016-07-17 13:15 | PN ---
Date/Time of Note Date/Time of Note DATE: 07/17/16 TIME: 13:12 Assessment/Plan VTE Prophylaxis VTE Prophylaxis Intervention: SCD's Lines/Catheters IV [facility] Type (from [facility]): PICC Line Central line still needed: Yes Urinary Cath still in place: No Assessment/Plan Chief Complaint/Hosp Course Patient status post wound VAC change today, surgical incision with granulation tissue present, blood sugar is well controlled. ASSESSMENT AND PLAN: - Right [id number] amputation stump dehiscence, laceration, possible infection. S/p debridement and creation of a rotational flap by Dr. Fuller, vascular surgery, on 06/13. Continue wound VAC. Pathology positive for osteomyelitis. Dr. Eldridge is following infection disease consultation. Continue vancomycin until July 28. - Diabetes mellitus type 2. Hemoglobin A1c is 8.7. Continue Tradjenta, Lantus , pre-meal NovoLog, and NovoLog per mild algorithm sliding scale a.c. and at bedtime. - Hypertension. Continue metoprolol and lisinopril. Continue to monitor blood pressure. - Homelessness. Awaiting for group home facility placement. Further recommendations based on clinical course. Plan of care discussed with Dr. Li. Problems: Exam/Review of Systems Vital Signs Vitals Vital Signs Date Time Temp Pulse Resp B/P Pulse Ox O2 Delivery O2 Flow Rate FiO2 07/17/16 10:01 70 93/52 07/17/16 07:33 97.6 20 98 07/16/16 08:11 Room Air Intake and Output 07/16/16 07/16/16 07/17/16 15:00 23:00 07:00 Intake Total 250 ml 2030 ml 930 ml Output Total 900 ml 1400 ml Balance 250 ml 1130 ml -470 ml Exam Constitutional: alert, oriented Head: normocephalic Neck: supple Respiratory: normal air movement Cardiovascular: nl pulses Gastrointestinal: non-tender, soft Extremities: other (right lower extremity stump wound with wound VAC) Results Result Diagram: 07/17/16 0435 Results 24 hrs Laboratory Tests Test 07/16/16 17:34 07/16/16 20:17 07/17/16 04:35 07/17/16 08:02 Bedside Glucose 111 120 90 Blood Urea Nitrogen 17 Creatinine 0.77 Test 07/17/16 12:03 Bedside Glucose 150 Medications Medications Current Medications Aspirin (Halfprin) 81 mg DAILY PO Last administered on 07/17/16 09:17; Admin Dose 81 MG; Start 06/13/16 at 09:00 Gabapentin (Neurontin) 300 mg TID PO Last administered on 07/17/16 12:20; Admin Dose 300 MG; Start 06/12/16 at 21:00 Lisinopril (Zestril) 20 mg DAILY PO Last administered on 07/16/16 08:19; Admin Dose 20 MG; Start 06/13/16 at 09:00 Metoprolol Tartrate 25 mg 25 mg BID PO Last administered on 07/17/16 09:17; Admin Dose 25 MG; Start 06/12/16 at 21:00 Sodium Chloride (NS) 1,000 ml @ 40 mls/hr Q24H IV Last administered on 17:36; Admin Dose 40 MLS/HR; Start 06/12/16 at 17:15 Ondansetron HCl (Zofran Inj) 4 mg Q6H PRN IV NAUSEA AND/OR VOMITING; Start 06/12 at 17:30 Acetaminophen (Tylenol Tab) 650 mg Q6H PRN PO PAIN LEVEL 1-3 OR FEVER; Start at 17:30 Acetaminophen/ Hydrocodone Bitart ([place] (5/325)) 1 tab Q6H PRN PO MODERATE PAIN LEVEL 4-6 Last administered on 07/17/16 05:20; Admin Dose 1 TAB; Start 06/12/16 at 17:30 Docusate Sodium (Colace) 100 mg Q12H PRN PO CONSTIPATION; Start 06/12/16 at 17: 30 Pantoprazole (Protonix Tab) 40 mg DAILY@06 PO Last administered on 07/17/16 05 :18; Admin Dose 40 MG; Start 06/13/16 at 06:00 Enoxaparin Sodium (Lovenox) 30 mg DAILY SC Last administered on 07/17/16 09:22 ; Admin Dose 30 MG; Start 06/13/16 at 09:00 Diagnostic Test (Pha) (Accu-Chek) 1 ea 02 XX Last administered on 07/02/16 01: 55; Admin Dose 1 EA; Start 06/13/16 at 02:00 Miscellaneous Information 1 ea NOTE XX ; Start 06/12/16 at 17:30 Glucose (Glutose) 15 gm Q15M PRN PO DECREASED GLUCOSE; Start 06/12/16 at 17:30 Glucose (Glutose) 22.5 gm Q15M PRN PO DECREASED GLUCOSE; Start 06/12/16 at 17:30 Dextrose (D50w Syringe) 25 ml Q15M PRN IV DECREASED GLUCOSE; Start 06/12/16 at 17:30 Dextrose (D50w Syringe) 50 ml Q15M PRN IV DECREASED GLUCOSE; Start 06/12/16 at 17:30 Glucagon (Glucagen) 1 mg Q15M PRN IM DECREASED GLUCOSE; Start 06/12/16 at 17:30 Glucose (Glutose) 15 gm Q15M PRN BUCCAL DECREASED GLUCOSE; Start 06/12/16 at 17: 30 Linagliptin (Tradjenta) 5 mg DAILY PO Last administered on 07/17/16 08:04; Admin Dose 5 MG; Start 06/15/16 at 09:00 Atorvastatin Calcium (Lipitor) 10 mg QHS PO Last administered on 07/16/16 20: 18; Admin Dose 10 MG; Start 06/15/16 at 21:00 IV Flush (NS 10 ml) 10 ml PRN PRN IV IV PROTOCOL; Start 06/20/16 at 16:30 Insulin Glargine 9 unit 9 unit DAILY@20 SC Last administered on 07/16/16 20:21 ; Admin Dose 9 UNIT; Start 07/07/16 at 20:00 Vancomycin HCl/ Sodium Chloride (Vancocin/NS) 250 ml @ 125 mls/hr Q12H IVPB Last administered on 07/17/16 11:02; Admin Dose 125 MLS/HR; Start 07/13/16 at 11 :00 Miscellaneous Information (*Rx Drug Level Order Reminder*) VANCOMYCIN TROUGH AT 1000 ONCE ONCE XX ; Start 07/18/16 at 10:00; Stop 07/18/16 at 10:01 WEI SULLIVAN Jul 17, 2016 13:15
[2016-07-17] MEDS: SOD CHLORIDE 0.9% 1,000 ML IV SCH (17:15)
[2016-07-17 17:57] VITALS: BP 126/64; PULSE 71
[2016-07-17 20:24] VITALS: BP 138/78; RESP 18
[2016-07-17] MEDS: ATORVASTATIN 10 MG TAB PO SCH (20:34)
[2016-07-17] MEDS: INSULIN GLARGINE [LANtus] 3 ML PEN SC SCH (20:38)
--- NOTE | 2016-07-17 22:58 | PN ---
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 -D/C planning with wound vac, arrange for Home Health as he would require wound vac for wound closure -Discussed findings, plan of management with the patient and he understands. -Thank you for allowing us to participate in the care of your patient. Please call with any questions. Problems: Subjective 24 Hr Interval Summary Constitutional: no complaints Exam/Review of Systems Vital Signs Vitals Vital Signs Date Time Temp Pulse Resp B/P Pulse Ox O2 Delivery O2 Flow Rate FiO2 07/17/16 20:24 97.8 80 18 138/78 100 07/16/16 08:11 Room Air Intake and Output 07/16/16 07/16/16 07/17/16 15:00 23:00 07:00 Intake Total 250 ml 2030 ml 930 ml Output Total 900 ml 1400 ml Balance 250 ml 1130 ml -470 ml Exam Free Text/Dictation GENERAL: Alert and oriented x3, PULMONARY: Clear to auscultation bilaterally CARDIOVASCULAR: S1, S2 present ABDOMEN: Soft, nontender, nondistended. Bowel sounds positive. EXTREMITIES: Right lower extremity: Palpable femoral pulse. BKA stump with cap refill 3 seconds. wound vac-intact and functional - changed at bedside and good granulation tissue developing, getting smaller in size Left lower extremity: Palpable femoral pulse, nonpalpable pedal pulse. Motor, sensory intact. Cap refill 3 to 4 seconds. There is area of lipodermatosclerosis. No ulcers identified. Results Result Diagram: 07/17/16 0435 JUAN PRIDE MD Jul 17, 2016 22:58
[2016-07-18] MEDS: ACCU-CHEK XX SCH (02:00)
[2016-07-18 05:19] LABS: ADD SCAN DIFF NO
[2016-07-18 05:23] LABS: BASOPHIL # 0.1 10^3/ul (0.0-0.1); BASOPHILS % 1.1 % (0.0-2.0); EOSINOPHILS # 0.5 10^3/ul (0.0-0.5); EOSINOPHILS % 9.1 % (0.0-7.0); HEMATOCRIT 32.8 % (42.0-52.0); HEMOGLOBIN 10.6 g/dl (14.0-18.0); LYMPHOCYTES # 1.4 10^3/ul (0.8-2.9); LYMPHOCYTES % 26.2 % (15.0-51.0); MEAN CORPUSCULAR HEMOGLOBIN 28.6 pg (29.0-33.0); MEAN CORPUSCULAR HGB CONC 32.3 g/dl (32.0-37.0); MEAN CORPUSCULAR VOLUME 88.4 fl (82.0-101.0); MEAN PLATELET VOLUME 10.3 fl (7.4-10.4); MONOCYTE # 0.6 10^3/ul (0.3-0.9); MONOCYTES % 11.1 % (0.0-11.0); NEUTROPHIL # 2.8 10^3/ul (1.6-7.5); NEUTROPHILS % 52.1 % (39.0-77.0); PLATELET COUNT 222 10^3/UL (140-415); RED BLOOD COUNT 3.71 10^6/ul (4.70-6.10); RED CELL DISTRIBUTION WIDTH 15.2 % (11.5-14.5); WHITE BLOOD COUNT 5.3 10^3/ul (4.8-10.8)
[2016-07-18 05:55] LABS: CALCIUM 9.6 mg/dl (8.4-10.2); CREATININE 0.88 mg/dl (0.61-1.24); POTASSIUM 4.1 mmol/L (3.5-5.1)
[2016-07-18] MEDS: PANTOPRAZOLE (EC) 40 MG TAB PO SCH (05:56)
[2016-07-18] MEDS: INSULIN ASPART [NOVOLOG] 3 ML PEN SC SCH ×7 (07:53→20:45)
[2016-07-18 07:59] VITALS: BP 128/68; RESP 16
[2016-07-18] MEDS: metFORMIN 500 MG TAB PO SCH ×2 (08:29→17:39)
[2016-07-18] MEDS: ENOXAPARIN 30 MG/0.3 ML SYG SC SCH (08:34)
[2016-07-18] MEDS: METOPROLOL 25 MG TAB PO SCH ×2 (08:36→20:47)
[2016-07-18] MEDS: GABAPENTIN 300 MG CAP PO SCH ×3 (08:36→20:46)
[2016-07-18] MEDS: LINAGLIPTIN 5 MG TABLET PO SCH (08:36)
[2016-07-18] MEDS: ASPIRIN (EC) 81 MG TAB PO SCH (08:36)
[2016-07-18] MEDS: LISINOPRIL 20 MG TAB PO SCH (08:36)
[2016-07-18] MEDS: HYDROCODONE/APAP (5/325) TAB PO PRN ×2 (08:37→20:55)
[2016-07-18] MEDS: VANCOMYCIN 850 MG in SOD CHLORIDE 0.9% 250 ML IVPB SCH ×2 (11:53→23:56)
--- NOTE | 2016-07-18 16:49 | PN ---
Date/Time of Note Date/Time of Note DATE: 07/18/16 TIME: 16:48 Assessment/Plan VTE Prophylaxis VTE Prophylaxis Intervention: LMWH Lines/Catheters [facility] PICC Line Central line still needed: Yes Urinary Cath still in place: No Assessment/Plan Chief Complaint/Hosp Course No acute events overnight, patient looks comfortable, no complaints. Case discussed with case management no snf facility bed is available today. ASSESSMENT AND PLAN: - Right [id number] amputation stump dehiscence, laceration, possible infection. S/p debridement and creation of a rotational flap by Dr. Fuller, vascular surgery, on 06/13. Continue wound VAC. Pathology positive for osteomyelitis. Dr. Eldridge is following infection disease consultation. Continue vancomycin until July 28. - Diabetes mellitus type 2. Hemoglobin A1c is 8.7. Continue Tradjenta, Lantus , pre-meal NovoLog, and NovoLog per mild algorithm sliding scale a.c. and at bedtime. - Hypertension. Continue metoprolol and lisinopril. Continue to monitor blood pressure. - Homelessness. Awaiting for snf facility placement. Further recommendations based on clinical course. Plan of care discussed with Dr. Li. Problems: Exam/Review of Systems Vital Signs Vitals Vital Signs Date Time Temp Pulse Resp B/P Pulse Ox O2 Delivery O2 Flow Rate FiO2 07/18/16 07:59 98.2 68 16 128/68 99 07/16/16 08:11 Room Air Intake and Output 07/17/16 07/17/16 07/18/16 15:00 23:00 07:00 Intake Total 2010 ml 1500 ml Output Total 2500 ml 1400 ml Balance -490 ml 100 ml Exam Constitutional: alert, oriented Head: normocephalic Neck: supple Respiratory: normal air movement Cardiovascular: nl pulses Gastrointestinal: non-tender, soft Extremities: other (right lower extremity stump wound with wound VAC) Results Result Diagram: 07/18/16 0450 07/18/16449 Results 24 hrs Laboratory Tests Test 07/17/16 17:24 07/17/16 20:34 07/18/16 04:50 07/18/16 07:50 Bedside Glucose 98 127 86 White Blood Count 5.3 Red Blood Count 3.71 L Hemoglobin 10.6 L Hematocrit 32.8 L Mean Corpuscular Volume 88.4 Mean Corpuscular Hemoglobin 28.6 L Mean Corpuscular Hemoglobin Concent 32.3 Red Cell Distribution Width 15.2 H Platelet Count 222 Mean Platelet Volume 10.3 Neutrophils % 52.1 Lymphocytes % 26.2 Monocytes % 11.1 H Eosinophils % 9.1 H Basophils % 1.1 Nucleated Red Blood Cells % 0.0 Neutrophils # 2.8 Lymphocytes # 1.4 Monocytes # 0.6 Eosinophils # 0.5 Basophils # 0.1 Nucleated Red Blood Cells # 0.0 Sodium Level 142 Potassium Level 4.1 Chloride Level 105 Carbon Dioxide Level 28 Anion Gap 13 Blood Urea Nitrogen 19 Creatinine 0.88 Glucose Level 103 Calcium Level 9.6 Test 07/18/16 10:07 07/18/16 12:11 Vancomycin Level Trough 15.0 Bedside Glucose 84 Medications Medications Current Medications Aspirin (Halfprin) 81 mg DAILY PO Last administered on 07/18/16 08:36; Admin Dose 81 MG; Start 06/13/16 at 09:00 Gabapentin (Neurontin) 300 mg TID PO Last administered on 07/18/16 12:18; Admin Dose 300 MG; Start 06/12/16 at 21:00 Lisinopril (Zestril) 20 mg DAILY PO Last administered on 07/18/16 08:36; Admin Dose 20 MG; Start 06/13/16 at 09:00 Metoprolol Tartrate 25 mg 25 mg BID PO Last administered on 07/18/16 08:36; Admin Dose 25 MG; Start 06/12/16 at 21:00 Sodium Chloride (NS) 1,000 ml @ 40 mls/hr Q24H IV Last administered on 17:36; Admin Dose 40 MLS/HR; Start 06/12/16 at 17:15 Ondansetron HCl (Zofran Inj) 4 mg Q6H PRN IV NAUSEA AND/OR VOMITING; Start 06/12 at 17:30 Acetaminophen (Tylenol Tab) 650 mg Q6H PRN PO PAIN LEVEL 1-3 OR FEVER; Start at 17:30 Acetaminophen/ Hydrocodone Bitart ([place] (5/325)) 1 tab Q6H PRN PO MODERATE PAIN LEVEL 4-6 Last administered on 07/18/16 08:37; Admin Dose 1 TAB; Start 06/12/16 at 17:30 Docusate Sodium (Colace) 100 mg Q12H PRN PO CONSTIPATION; Start 06/12/16 at 17: 30 Pantoprazole (Protonix Tab) 40 mg DAILY@06 PO Last administered on 07/18/16 05 :56; Admin Dose 40 MG; Start 06/13/16 at 06:00 Enoxaparin Sodium (Lovenox) 30 mg DAILY SC Last administered on 07/18/16 08:34 ; Admin Dose 30 MG; Start 06/13/16 at 09:00 Diagnostic Test (Pha) (Accu-Chek) 1 ea 02 XX Last administered on 07/02/16 01: 55; Admin Dose 1 EA; Start 06/13/16 at 02:00 Miscellaneous Information 1 ea NOTE XX ; Start 06/12/16 at 17:30 Glucose (Glutose) 15 gm Q15M PRN PO DECREASED GLUCOSE; Start 06/12/16 at 17:30 Glucose (Glutose) 22.5 gm Q15M PRN PO DECREASED GLUCOSE; Start 06/12/16 at 17:30 Dextrose (D50w Syringe) 25 ml Q15M PRN IV DECREASED GLUCOSE; Start 06/12/16 at 17:30 Dextrose (D50w Syringe) 50 ml Q15M PRN IV DECREASED GLUCOSE; Start 06/12/16 at 17:30 Glucagon (Glucagen) 1 mg Q15M PRN IM DECREASED GLUCOSE; Start 06/12/16 at 17:30 Glucose (Glutose) 15 gm Q15M PRN BUCCAL DECREASED GLUCOSE; Start 06/12/16 at 17: 30 Linagliptin (Tradjenta) 5 mg DAILY PO Last administered on 07/18/16 08:36; Admin Dose 5 MG; Start 06/15/16 at 09:00 Atorvastatin Calcium (Lipitor) 10 mg QHS PO Last administered on 07/17/16 20: 34; Admin Dose 10 MG; Start 06/15/16 at 21:00 IV Flush (NS 10 ml) 10 ml PRN PRN IV IV PROTOCOL; Start 06/20/16 at 16:30 Insulin Glargine 9 unit 9 unit DAILY@20 SC Last administered on 07/17/16 20:38 ; Admin Dose 9 UNIT; Start 07/07/16 at 20:00 Vancomycin HCl/ Sodium Chloride (Vancocin/NS) 250 ml @ 125 mls/hr Q12H IVPB Last administered on 07/18/16t 11:53; Admin Dose 125 MLS/HR; Start 07/13/16 at 11 :00 WEI SULLIVAN Jul 18, 2016 16:49
[2016-07-18] MEDS: SOD CHLORIDE 0.9% 1,000 ML IV SCH (17:43)
[2016-07-18 20:00] VITALS: BP 136/68; RESP 18
[2016-07-18] MEDS: INSULIN GLARGINE [LANtus] 3 ML PEN SC SCH (20:46)
[2016-07-18] MEDS: ATORVASTATIN 10 MG TAB PO SCH (20:46)
[2016-07-19] MEDS: ACCU-CHEK XX SCH ×2 (02:00→23:48)
[2016-07-19] MEDS: PANTOPRAZOLE (EC) 40 MG TAB PO SCH (05:50)
[2016-07-19] MEDS: HYDROCODONE/APAP (5/325) TAB PO PRN ×2 (06:06→17:04)
[2016-07-19 06:15] LABS: ADD SCAN DIFF NO
[2016-07-19 06:30] LABS: BASOPHILS % 0.5 % (0.0-2.0); EOSINOPHILS # 0.5 10^3/ul (0.0-0.5); EOSINOPHILS % 7.8 % (0.0-7.0); HEMATOCRIT 34.6 % (42.0-52.0); HEMOGLOBIN 11.1 g/dl (14.0-18.0); LYMPHOCYTES # 1.8 10^3/ul (0.8-2.9); LYMPHOCYTES % 30.1 % (15.0-51.0); MEAN CORPUSCULAR HEMOGLOBIN 28.4 pg (29.0-33.0); MEAN CORPUSCULAR HGB CONC 32.1 g/dl (32.0-37.0); MEAN CORPUSCULAR VOLUME 88.5 fl (82.0-101.0); MEAN PLATELET VOLUME 10.2 fl (7.4-10.4); MONOCYTE # 0.6 10^3/ul (0.3-0.9); NEUTROPHILS % 51.3 % (39.0-77.0); PLATELET COUNT 229 10^3/UL (140-415); RED BLOOD COUNT 3.91 10^6/ul (4.70-6.10); RED CELL DISTRIBUTION WIDTH 14.9 % (11.5-14.5); WHITE BLOOD COUNT 5.9 10^3/ul (4.8-10.8)
[2016-07-19 07:17] VITALS: BP 118/63; RESP 18
[2016-07-19 07:48] LABS: CALCIUM 9.6 mg/dl (8.4-10.2); CREATININE 0.8 mg/dl (0.61-1.24); POTASSIUM 4.4 mmol/L (3.5-5.1)
[2016-07-19] MEDS: INSULIN ASPART [NOVOLOG] 3 ML PEN SC SCH ×7 (08:04→20:19)
[2016-07-19] MEDS: LINAGLIPTIN 5 MG TABLET PO SCH (08:21)
[2016-07-19] MEDS: METOPROLOL 25 MG TAB PO SCH ×2 (08:21→20:18)
[2016-07-19] MEDS: LISINOPRIL 20 MG TAB PO SCH (08:21)
[2016-07-19] MEDS: GABAPENTIN 300 MG CAP PO SCH ×3 (08:21→20:18)
[2016-07-19] MEDS: ASPIRIN (EC) 81 MG TAB PO SCH (08:21)
[2016-07-19] MEDS: metFORMIN 500 MG TAB PO SCH ×2 (08:22→17:34)
[2016-07-19] MEDS: ENOXAPARIN 30 MG/0.3 ML SYG SC SCH (08:31)
[2016-07-19] MEDS: VANCOMYCIN 850 MG in SOD CHLORIDE 0.9% 250 ML IVPB SCH ×2 (11:10→23:48)
--- NOTE | 2016-07-19 12:11 | PN ---
Date/Time of Note Date/Time of Note DATE: 07/19/16 TIME: 12:09 Assessment/Plan VTE Prophylaxis VTE Prophylaxis Intervention: SCD's Lines/Catheters IV Catheter Type (from [facility]): PICC Line Central line still needed: Yes Urinary Cath still in place: No Assessment/Plan Chief Complaint/Hosp Course Patient looks comfortable no complaints, blood sugar is well controlled. ASSESSMENT AND PLAN: - Right [id number] amputation stump dehiscence, laceration, possible infection. S/p debridement and creation of a rotational flap by Dr. Fuller, vascular surgery, on 06/13. Continue wound VAC. Pathology positive for osteomyelitis. Dr. Eldridge is following infection disease consultation. Continue vancomycin until July 28. - Diabetes mellitus type 2. Hemoglobin A1c is 8.7. Continue Tradjenta, Lantus , pre-meal NovoLog, and NovoLog per mild algorithm sliding scale a.c. and at bedtime. - Hypertension. Continue metoprolol and lisinopril. Continue to monitor blood pressure. - Homelessness. Awaiting for residential facility placement for wound care and IV antibiotics for osteomyelitis. Further recommendations based on clinical course. Plan of care discussed with Dr. Li. Problems: Exam/Review of Systems Vital Signs Vitals Vital Signs Date Time Temp Pulse Resp B/P Pulse Ox O2 Delivery O2 Flow Rate FiO2 07/19/16 07:17 97.8 61 18 118/63 98 07/16/16 08:11 Room Air Intake and Output 07/18/16 07/18/16 07/19/16 15:00 23:00 07:00 Intake Total 250 ml 1940 ml 1030 ml Output Total 1000 ml 300 ml Balance 250 ml 940 ml 730 ml Exam Constitutional: alert, oriented Head: normocephalic Neck: supple Respiratory: normal air movement Cardiovascular: nl pulses Gastrointestinal: non-tender, soft Extremities: other (right lower extremity stump wound with wound VAC) Results Result Diagram: 07/19/16 0550 07/19/16 0550 Results 24 hrs Laboratory Tests Test 07/18/16 12:11 07/18/16 17:33 07/18/16 20:44 07/19/16 05:50 Bedside Glucose 84 139 106 White Blood Count 5.9 Red Blood Count 3.91 L Hemoglobin 11.1 L Hematocrit 34.6 L Mean Corpuscular Volume 88.5 Mean Corpuscular Hemoglobin 28.4 L Mean Corpuscular Hemoglobin Concent 32.1 Red Cell Distribution Width 14.9 H Platelet Count 229 Mean Platelet Volume 10.2 Neutrophils % 51.3 Lymphocytes % 30.1 Monocytes % 10.0 Eosinophils % 7.8 H Basophils % 0.5 Nucleated Red Blood Cells % 0.0 Neutrophils # 3.0 Lymphocytes # 1.8 Monocytes # 0.6 Eosinophils # 0.5 Basophils # 0.0 Nucleated Red Blood Cells # 0.0 Sodium Level 143 Potassium Level 4.4 Chloride Level 105 Carbon Dioxide Level 28 Anion Gap 14 Blood Urea Nitrogen 17 Creatinine 0.80 Glucose Level 94 Calcium Level 9.6 Test 07/19/16 07:59 Bedside Glucose 87 Medications Medications Current Medications Aspirin (Halfprin) 81 mg DAILY PO Last administered on 07/19/16 08:21; Admin Dose 81 MG; Start 06/13/16 at 09:00 Gabapentin (Neurontin) 300 mg TID PO Last administered on 07/19/16 08:21; Admin Dose 300 MG; Start 06/12/16 at 21:00 Lisinopril (Zestril) 20 mg DAILY PO Last administered on 07/19/16 08:21; Admin Dose 20 MG; Start 06/13/16 at 09:00 Metoprolol Tartrate 25 mg 25 mg BID PO Last administered on 07/19/16 08:21; Admin Dose 25 MG; Start 06/12/16 at 21:00 Sodium Chloride (NS) 1,000 ml @ 40 mls/hr Q24H IV Last administered on 17:43; Admin Dose 40 MLS/HR; Start 06/12/16 at 17:15 Ondansetron HCl (Zofran Inj) 4 mg Q6H PRN IV NAUSEA AND/OR VOMITING; Start 06/12 at 17:30 Acetaminophen (Tylenol Tab) 650 mg Q6H PRN PO PAIN LEVEL 1-3 OR FEVER; Start at 17:30 Acetaminophen/ Hydrocodone Bitart ([place] (5/325)) 1 tab Q6H PRN PO MODERATE PAIN LEVEL 4-6 Last administered on 07/19/16 06:06; Admin Dose 1 TAB; Start 06/12/16 at 17:30 Docusate Sodium (Colace) 100 mg Q12H PRN PO CONSTIPATION; Start 06/12/16 at 17: 30 Pantoprazole (Protonix Tab) 40 mg DAILY@06 PO Last administered on 07/19/16 05 :50; Admin Dose 40 MG; Start 06/13/16 at 06:00 Enoxaparin Sodium (Lovenox) 30 mg DAILY SC Last administered on 07/19/16 08:31 ; Admin Dose 30 MG; Start 06/13/16 at 09:00 Diagnostic Test (Pha) (Accu-Chek) 1 ea 02 XX Last administered on 07/02/16 01: 55; Admin Dose 1 EA; Start 06/13/16 at 02:00 Miscellaneous Information 1 ea NOTE XX ; Start 06/12/16 at 17:30 Glucose (Glutose) 15 gm Q15M PRN PO DECREASED GLUCOSE; Start 06/12/16 at 17:30 Glucose (Glutose) 22.5 gm Q15M PRN PO DECREASED GLUCOSE; Start 06/12/16 at 17:30 Dextrose (D50w Syringe) 25 ml Q15M PRN IV DECREASED GLUCOSE; Start 06/12/16 at 17:30 Dextrose (D50w Syringe) 50 ml Q15M PRN IV DECREASED GLUCOSE; Start 06/12/16 at 17:30 Glucagon (Glucagen) 1 mg Q15M PRN IM DECREASED GLUCOSE; Start 06/12/16 at 17:30 Glucose (Glutose) 15 gm Q15M PRN BUCCAL DECREASED GLUCOSE; Start 06/12/16 at 17: 30 Linagliptin (Tradjenta) 5 mg DAILY PO Last administered on 07/19/16 08:21; Admin Dose 5 MG; Start 06/15/16 at 09:00 Atorvastatin Calcium (Lipitor) 10 mg QHS PO Last administered on 07/18/16 20: 46; Admin Dose 10 MG; Start 06/15/16 at 21:00 IV Flush (NS 10 ml) 10 ml PRN PRN IV IV PROTOCOL; Start 06/20/16 at 16:30 Insulin Glargine 9 unit 9 unit DAILY@20 SC Last administered on 07/18/16 20:46 ; Admin Dose 9 UNIT; Start 07/07/16 at 20:00 Vancomycin HCl/ Sodium Chloride (Vancocin/NS) 250 ml @ 125 mls/hr Q12H IVPB Last administered on 07/19/16t 11:10; Admin Dose 125 MLS/HR; Start 07/13/16 at 11 :00 WEI SULLIVAN Jul 19, 2016 12:11
--- NOTE | 2016-07-19 14:41 | CONS ---
Date/Time of Note Date/Time of Note DATE: 07/19/16 TIME: 14:39 Assessment/Plan Assessment/Plan Chief Complaint/Hosp Course SUBJECTIVE: Awake, no events, looks comfortable, no fevers. MICROBIOLOGY: Wound culture growing MSSA/Enterococcus ANTIMICROBIALS: Vancomycin===> 07/18/16 Vanco trough 15, B/Cr 17/0.8 PHYSICAL EXAMINATION: GENERAL: This is a well-nourished, well-developed elderly man who is awake, in no distress. HEENT: Head: Atraumatic, normocephalic. Sclerae anicteric. Buccal mucosa pink. NECK: Supple, trachea midline. CHEST: Rise symmetrical. Breath sounds clear. HEART: S1, S2. ABDOMEN: Soft, bowel tones present. EXTREMITIES: Without cyanosis. Right lower extremity wound VAC present. ASSESSMENT: 1. Right below-knee amputation, infected stump with OM, status post revision with rotation flap and wound VAC application. 2. Diabetes. 3. Hypertension. PLAN: The patient remains stable. Continue local wound, continue Vancomycin till 07/28 DW staff Problems: Consultation Date/Type/Reason Admit Date/Time June 12, 2016 at 13:22 Type of Consultation: ID Exam/Review of Systems Vital Signs Vitals Vital Signs Date Time Temp Pulse Resp B/P Pulse Ox O2 Delivery O2 Flow Rate FiO2 07/19/16 07:17 97.8 61 18 118/63 98 07/16/16 08:11 Room Air Intake and Output 07/18/16 07/18/16 07/19/16 15:00 23:00 07:00 Intake Total 250 ml 1940 ml 1030 ml Output Total 1000 ml 300 ml Balance 250 ml 940 ml 730 ml Results Result Diagram: 07/19/16 0550 07/19/16 0550 Results 24 hrs Laboratory Tests Test 07/18/16 17:33 07/18/16 20:44 07/19/16 05:50 07/19/16 07:59 Bedside Glucose 139 106 87 White Blood Count 5.9 Red Blood Count 3.91 L Hemoglobin 11.1 L Hematocrit 34.6 L Mean Corpuscular Volume 88.5 Mean Corpuscular Hemoglobin 28.4 L Mean Corpuscular Hemoglobin Concent 32.1 Red Cell Distribution Width 14.9 H Platelet Count 229 Mean Platelet Volume 10.2 Neutrophils % 51.3 Lymphocytes % 30.1 Monocytes % 10.0 Eosinophils % 7.8 H Basophils % 0.5 Nucleated Red Blood Cells % 0.0 Neutrophils # 3.0 Lymphocytes # 1.8 Monocytes # 0.6 Eosinophils # 0.5 Basophils # 0.0 Nucleated Red Blood Cells # 0.0 Sodium Level 143 Potassium Level 4.4 Chloride Level 105 Carbon Dioxide Level 28 Anion Gap 14 Blood Urea Nitrogen 17 Creatinine 0.80 Glucose Level 94 Calcium Level 9.6 Test 07/19/16 12:05 Bedside Glucose 79 Medications Medications Current Medications Aspirin (Halfprin) 81 mg DAILY PO Last administered on 07/19/16 08:21; Admin Dose 81 MG; Start 06/13/16 at 09:00 Gabapentin (Neurontin) 300 mg TID PO Last administered on 07/19/16 12:09; Admin Dose 300 MG; Start 06/12/16 at 21:00 Lisinopril (Zestril) 20 mg DAILY PO Last administered on 07/19/16 08:21; Admin Dose 20 MG; Start 06/13/16 at 09:00 Metoprolol Tartrate 25 mg 25 mg BID PO Last administered on 07/19/16 08:21; Admin Dose 25 MG; Start 06/12/16 at 21:00 Sodium Chloride (NS) 1,000 ml @ 40 mls/hr Q24H IV Last administered on 17:43; Admin Dose 40 MLS/HR; Start 06/12/16 at 17:15 Ondansetron HCl (Zofran Inj) 4 mg Q6H PRN IV NAUSEA AND/OR VOMITING; Start 06/12 at 17:30 Acetaminophen (Tylenol Tab) 650 mg Q6H PRN PO PAIN LEVEL 1-3 OR FEVER; Start at 17:30 Acetaminophen/ Hydrocodone Bitart ([place] (5/325)) 1 tab Q6H PRN PO MODERATE PAIN LEVEL 4-6 Last administered on 07/19/16 06:06; Admin Dose 1 TAB; Start 06/12/16 at 17:30 Docusate Sodium (Colace) 100 mg Q12H PRN PO CONSTIPATION; Start 06/12/16 at 17: 30 Pantoprazole (Protonix Tab) 40 mg DAILY@06 PO Last administered on 07/19/16 05 :50; Admin Dose 40 MG; Start 06/13/16 at 06:00 Enoxaparin Sodium (Lovenox) 30 mg DAILY SC Last administered on 07/19/16 08:31 ; Admin Dose 30 MG; Start 06/13/16 at 09:00 Diagnostic Test (Pha) (Accu-Chek) 1 ea 02 XX Last administered on 07/02/16 01: 55; Admin Dose 1 EA; Start 06/13/16 at 02:00 Miscellaneous Information 1 ea NOTE XX ; Start 06/12/16 at 17:30 Glucose (Glutose) 15 gm Q15M PRN PO DECREASED GLUCOSE; Start 06/12/16 at 17:30 Glucose (Glutose) 22.5 gm Q15M PRN PO DECREASED GLUCOSE; Start 06/12/16 at 17:30 Dextrose (D50w Syringe) 25 ml Q15M PRN IV DECREASED GLUCOSE; Start 06/12/16 at 17:30 Dextrose (D50w Syringe) 50 ml Q15M PRN IV DECREASED GLUCOSE; Start 06/12/16 at 17:30 Glucagon (Glucagen) 1 mg Q15M PRN IM DECREASED GLUCOSE; Start 06/12/16 at 17:30 Glucose (Glutose) 15 gm Q15M PRN BUCCAL DECREASED GLUCOSE; Start 06/12/16 at 17: 30 Linagliptin (Tradjenta) 5 mg DAILY PO Last administered on 07/19/16 08:21; Admin Dose 5 MG; Start 06/15/16 at 09:00 Atorvastatin Calcium (Lipitor) 10 mg QHS PO Last administered on 07/18/16 20: 46; Admin Dose 10 MG; Start 06/15/16 at 21:00 IV Flush (NS 10 ml) 10 ml PRN PRN IV IV PROTOCOL; Start 06/20/16 at 16:30 Insulin Glargine 9 unit 9 unit DAILY@20 SC Last administered on 07/18/16 20:46 ; Admin Dose 9 UNIT; Start 07/07/16 at 20:00 Vancomycin HCl/ Sodium Chloride (Vancocin/NS) 250 ml @ 125 mls/hr Q12H IVPB Last administered on 07/19/16 11:10; Admin Dose 125 MLS/HR; Start 07/13/16 at 11 :00 HILARIO ACUÑA NP Jul 19, 2016 14:41
--- NOTE | 2016-07-19 15:43 | PN ---
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 -D/C planning with wound vac, arrange for Home Health as he would require wound vac for wound closure -Discussed findings, plan of management with the patient and he understands. -Thank you for allowing us to participate in the care of your patient. Please call with any questions. Problems: Subjective 24 Hr Interval Summary Constitutional: no complaints Exam/Review of Systems Vital Signs Vitals Vital Signs Date Time Temp Pulse Resp B/P Pulse Ox O2 Delivery O2 Flow Rate FiO2 07/19/16 07:17 97.8 61 18 118/63 98 07/16/16 08:11 Room Air Intake and Output 07/18/16 07/18/16 07/19/16 15:00 23:00 07:00 Intake Total 250 ml 1940 ml 1030 ml Output Total 1000 ml 300 ml Balance 250 ml 940 ml 730 ml Exam Free Text/Dictation GENERAL: Alert and oriented x3, PULMONARY: Clear to auscultation bilaterally CARDIOVASCULAR: S1, S2 present ABDOMEN: Soft, nontender, nondistended. Bowel sounds positive. EXTREMITIES: Right lower extremity: Palpable femoral pulse. BKA stump with cap refill 3 seconds. wound vac-intact and functional - good granulation tissue developing, getting smaller in size Left lower extremity: Palpable femoral pulse, nonpalpable pedal pulse. Motor, sensory intact. Cap refill 3 to 4 seconds, lipodermatosclerosis. No ulcers identified. Results Result Diagram: 07/19/16 0550 07/19/16 0550 JUAN PRIDE MD Jul 19, 2016 15:43
[2016-07-19] MEDS: SOD CHLORIDE 0.9% 1,000 ML IV SCH (17:04)
[2016-07-19] MEDS: ATORVASTATIN 10 MG TAB PO SCH (20:18)
[2016-07-19] MEDS: INSULIN GLARGINE [LANtus] 3 ML PEN SC SCH (20:23)
[2016-07-19 20:56] VITALS: BP 138/66; RESP 18
[2016-07-20] MEDS: SOD CHLORIDE 0.9% 1,000 ML IV SCH ×2 (04:23→17:15)
[2016-07-20] MEDS: PANTOPRAZOLE (EC) 40 MG TAB PO SCH (07:12)
[2016-07-20 08:09] VITALS: BP 125/56; RESP 16
[2016-07-20] MEDS: INSULIN ASPART [NOVOLOG] 3 ML PEN SC SCH ×7 (08:15→20:34)
[2016-07-20] MEDS: ASPIRIN (EC) 81 MG TAB PO SCH (08:22)
[2016-07-20] MEDS: GABAPENTIN 300 MG CAP PO SCH ×3 (08:22→20:33)
[2016-07-20] MEDS: METOPROLOL 25 MG TAB PO SCH ×2 (08:22→20:34)
[2016-07-20] MEDS: LINAGLIPTIN 5 MG TABLET PO SCH (08:22)
[2016-07-20] MEDS: LISINOPRIL 20 MG TAB PO SCH (08:23)
[2016-07-20] MEDS: ENOXAPARIN 30 MG/0.3 ML SYG SC SCH (08:27)
[2016-07-20] MEDS: metFORMIN 500 MG TAB PO SCH ×2 (08:31→17:28)
[2016-07-20] MEDS: VANCOMYCIN 850 MG in SOD CHLORIDE 0.9% 250 ML IVPB SCH ×2 (11:28→22:51)
--- NOTE | 2016-07-20 12:22 | PN ---
Date/Time of Note Date/Time of Note DATE: 07/20/16 TIME: 12:21 Assessment/Plan VTE Prophylaxis VTE Prophylaxis Intervention: other Lines/Catheters IV [facility] Type (from [facility]): PICC Line Central line still needed: Yes Urinary Cath still in place: No Assessment/Plan Assessment/Plan - Right [id number] amputation stump dehiscence, laceration, possible infection. S/p debridement and creation of a rotational flap by Dr. Fuller, vascular surgery, on 06/13. - Continue wound VAC. - Osteomyelitis -Right LE - per Dr. Eldridge in infection disease consultation. Continue vancomycin until July 28. - Diabetes mellitus type 2. Hemoglobin A1c - 8.7. - Continue Tradjenta, Lantus, pre-meal NovoLog, and NovoLog per mild algorithm sliding scale a.c. and at bedtime. - Hypertension. Continue metoprolol and lisinopril. Continue to monitor blood pressure. - Homelessness. A[facility] for [facility] facility [facility] for wound care and IV antibiotics for osteomyelitis. Further recommendations based on clinical course. Plan of care discussed with Dr. Li. Subjective 24 Hr Interval Summary Free Text/Dictation Sitting up in bed, friend at bed side, afebrile, RLE stump wound vac intact., BS controlled. DW Staff= no new issues reported. Constitutional: improved Respiratory: no complaints Cardiovascular: no complaints Gastrointestinal: no complaints Genitourinary: no complaints Skin: other Exam/Review of Systems Vital Signs Vitals Vital Signs Date Time Temp Pulse Resp B/P Pulse Ox O2 Delivery O2 Flow Rate FiO2 07/20/16 08:09 98.4 77 16 125/56 100 07/16/16 08:11 Room Air Intake and Output 07/19/16 07/19/16 07/20/16 14:59 22:59 06:59 Intake Total 2210 ml 710 ml Output Total 1200 ml 950 ml Balance 1010 ml -240 ml Exam Constitutional: alert, oriented, well developed Respiratory: clear to auscultation, normal air movement Cardiovascular: bruits, regular rate and rhythm Gastrointestinal: non-tender, soft Musculoskeletal: other Extremities: normal pulses, other Neurological: nl mental status, nl speech Skin: other (Right [id number]-[id number] amputation stump dehiscence, laceration, possible infection. S/p debridement Wound vac intact- very minimal bloody drainage.) Results Result Diagram: 07/19/16 0550 07/19/16 0550 Results 24 hrs Laboratory Tests Test 07/19/16 17:32 07/19/16 20:17 07/20/16 08:20 Bedside Glucose 86 103 102 Medications Medications Current Medications Aspirin (Halfprin) 81 mg DAILY PO Last administered on 07/20/16 08:22; Admin Dose 81 MG; Start 06/13/16 at 09:00 Gabapentin (Neurontin) 300 mg TID PO Last administered on 07/20/16 08:22; Admin Dose 300 MG; Start 06/12/16 at 21:00 Lisinopril (Zestril) 20 mg DAILY PO Last administered on 07/20/16 08:23; Admin Dose 20 MG; Start 06/13/16 at 09:00 Metoprolol Tartrate 25 mg 25 mg BID PO Last administered on 07/20/16 08:22; Admin Dose 25 MG; Start 06/12/16 at 21:00 Sodium Chloride (NS) 1,000 ml @ 40 mls/hr Q24H IV Last administered on 04:23; Admin Dose 40 MLS/HR; Start 06/12/16 at 17:15 Ondansetron HCl (Zofran Inj) 4 mg Q6H PRN IV NAUSEA AND/OR VOMITING; Start 06/12 at 17:30 Acetaminophen (Tylenol Tab) 650 mg Q6H PRN PO PAIN LEVEL 1-3 OR FEVER; Start at 17:30 Acetaminophen/ Hydrocodone Bitart ([place] (5/325)) 1 tab Q6H PRN PO MODERATE PAIN LEVEL 4-6 Last administered on 07/19/16 17:04; Admin Dose 1 TAB; Start 06/12/16 at 17:30 Docusate Sodium (Colace) 100 mg Q12H PRN PO CONSTIPATION; Start 06/12/16 at 17: 30 Pantoprazole (Protonix Tab) 40 mg DAILY@06 PO Last administered on 07/20/16 07 :12; Admin Dose 40 MG; Start 06/13/16 at 06:00 Enoxaparin Sodium (Lovenox) 30 mg DAILY SC Last administered on 07/20/16 08:27 ; Admin Dose 30 MG; Start 06/13/16 at 09:00 Diagnostic Test (Pha) (Accu-Chek) 1 ea 02 XX Last administered on 07/02/16 01: 55; Admin Dose 1 EA; Start 06/13/16 at 02:00 Miscellaneous Information 1 ea NOTE XX ; Start 06/12/16 at 17:30 Glucose (Glutose) 15 gm Q15M PRN PO DECREASED GLUCOSE; Start 06/12/16 at 17:30 Glucose (Glutose) 22.5 gm Q15M PRN PO DECREASED GLUCOSE; Start 06/12/16 at 17:30 Dextrose (D50w Syringe) 25 ml Q15M PRN IV DECREASED GLUCOSE; Start 06/12/16 at 17:30 Dextrose (D50w Syringe) 50 ml Q15M PRN IV DECREASED GLUCOSE; Start 06/12/16 at 17:30 Glucagon (Glucagen) 1 mg Q15M PRN IM DECREASED GLUCOSE; Start 06/12/16 at 17:30 Glucose (Glutose) 15 gm Q15M PRN BUCCAL DECREASED GLUCOSE; Start 06/12/16 at 17: 30 Linagliptin (Tradjenta) 5 mg DAILY PO Last administered on 07/20/16 08:22; Admin Dose 5 MG; Start 06/15/16 at 09:00 Atorvastatin Calcium (Lipitor) 10 mg QHS PO Last administered on 07/19/16 20: 18; Admin Dose 10 MG; Start 06/15/16 at 21:00 IV Flush (NS 10 ml) 10 ml PRN PRN IV IV PROTOCOL; Start 06/20/16 at 16:30 Insulin Glargine 9 unit 9 unit DAILY@20 SC Last administered on 07/19/16 20:23 ; Admin Dose 9 UNIT; Start 07/07/16 at 20:00 Vancomycin HCl/ Sodium Chloride (Vancocin/NS) 250 ml @ 125 mls/hr Q12H IVPB Last administered on 07/20/16 11:28; Admin Dose 125 MLS/HR; Start 07/13/16 at 11 :00 ABRAHAN PINA Jul 20, 2016 12:22
[2016-07-20] MEDS: HYDROCODONE/APAP (5/325) TAB PO PRN (17:37)
[2016-07-20 19:22] VITALS: BP 125/73; RESP 18
[2016-07-20] MEDS: INSULIN GLARGINE [LANtus] 3 ML PEN SC SCH (20:27)
[2016-07-20] MEDS: ATORVASTATIN 10 MG TAB PO SCH (20:33)
[2016-07-21] MEDS: ACCU-CHEK XX SCH (02:00)
[2016-07-21] MEDS: PANTOPRAZOLE (EC) 40 MG TAB PO SCH (05:53)
[2016-07-21] MEDS: INSULIN ASPART [NOVOLOG] 3 ML PEN SC SCH ×7 (08:15→20:47)
[2016-07-21] MEDS: GABAPENTIN 300 MG CAP PO SCH ×3 (08:18→20:46)
[2016-07-21] MEDS: METOPROLOL 25 MG TAB PO SCH ×2 (08:19→20:46)
[2016-07-21] MEDS: ASPIRIN (EC) 81 MG TAB PO SCH (08:19)
[2016-07-21] MEDS: LINAGLIPTIN 5 MG TABLET PO SCH (08:20)
[2016-07-21] MEDS: LISINOPRIL 20 MG TAB PO SCH (08:20)
[2016-07-21 08:25] VITALS: BP 126/64; RESP 18
[2016-07-21] MEDS: ENOXAPARIN 30 MG/0.3 ML SYG SC SCH (08:27)
[2016-07-21] MEDS: HYDROCODONE/APAP (5/325) TAB PO PRN ×2 (08:32→17:35)
[2016-07-21] MEDS: metFORMIN 500 MG TAB PO SCH ×2 (08:33→17:35)
[2016-07-21 08:42] LABS: CREATININE 0.7 mg/dl (0.61-1.24)
[2016-07-21] MEDS: SOD CHLORIDE 0.9% 1,000 ML IV SCH (12:00)
[2016-07-21] MEDS: VANCOMYCIN 850 MG in SOD CHLORIDE 0.9% 250 ML IVPB SCH ×2 (12:11→22:55)
--- NOTE | 2016-07-21 18:01 | PN ---
Date/Time of Note Date/Time of Note DATE: 07/21/16 TIME: 17:59 Assessment/Plan VTE Prophylaxis VTE Prophylaxis Intervention: SCD's Lines/Catheters IV Catheter Type (from Nrs): PICC Line Central line still needed: Yes Urinary Cath still in place: No Assessment/Plan Chief Complaint/Hosp Course Patient remained hemodynamically stable, denies any nausea vomiting, pain is well controlled. ASSESSMENT AND PLAN: - Right [id number]-[id number]-[id number] amputation stump dehiscence, laceration, possible infection. S/p debridement and creation of a rotational flap by Dr. Fuller, vascular surgery, on 06/13. Continue wound VAC. Pathology positive for osteomyelitis. Dr. Eldridge is following infection disease consultation. Continue vancomycin until July 28. - Diabetes mellitus type 2. Hemoglobin A1c is 8.7. Continue Tradjenta, Lantus , pre-meal NovoLog, and NovoLog per mild algorithm sliding scale a.c. and at bedtime. - Hypertension. Continue metoprolol and lisinopril. Continue to monitor blood pressure. - Homelessness. Awaiting for senior living facility placement for wound care and IV antibiotics for osteomyelitis. Further recommendations based on clinical course. Plan of care discussed with Dr. Li. Problems: Exam/Review of Systems Vital Signs Vitals Vital Signs Date Time Temp Pulse Resp B/P Pulse Ox O2 Delivery O2 Flow Rate FiO2 07/21/16 08:25 97.5 62 18 126/64 99 Intake and Output 07/20/16 07/20/16 07/21/16 15:00 23:00 07:00 Intake Total 250 ml 2520 ml 1270 ml Output Total 0 ml 1000 ml 2200 ml Balance 250 ml 1520 ml -930 ml Exam Constitutional: alert, oriented Head: normocephalic Neck: supple Respiratory: normal air movement Cardiovascular: nl pulses Gastrointestinal: non-tender, soft Extremities: other (right lower extremity stump wound with wound VAC) Results Result Diagram: 07/19/16 0550 07/21/16 0718 Results 24 hrs Laboratory Tests Test 07/20/16 20:24 07/21/16 07:18 07/21/16 08:16 07/21/16 12:12 Bedside Glucose 135 85 76 Blood Urea Nitrogen 21 H Creatinine 0.70 Test 07/21/16 17:32 Bedside Glucose 125 Medications Medications Current Medications Aspirin (Halfprin) 81 mg DAILY PO Last administered on 07/21/16 08:19; Admin Dose 81 MG; Start 06/13/16 at 09:00 Gabapentin (Neurontin) 300 mg TID PO Last administered on 07/21/16 12:11; Admin Dose 300 MG; Start 06/12/16 at 21:00 Lisinopril (Zestril) 20 mg DAILY PO Last administered on 07/21/16 08:20; Admin Dose 20 MG; Start 06/13/16 at 09:00 Metoprolol Tartrate 25 mg 25 mg BID PO Last administered on 07/21/16 08:19; Admin Dose 25 MG; Start 06/12/16 at 21:00 Sodium Chloride (NS) 1,000 ml @ 40 mls/hr Q24H IV Last administered on 12:00; Admin Dose 40 MLS/HR; Start 06/12/16 at 17:15 Ondansetron HCl (Zofran Inj) 4 mg Q6H PRN IV NAUSEA AND/OR VOMITING; Start 06/12 at 17:30 Acetaminophen (Tylenol Tab) 650 mg Q6H PRN PO PAIN LEVEL 1-3 OR FEVER; Start at 17:30 Acetaminophen/ Hydrocodone Bitart ([place] (5/325)) 1 tab Q6H PRN PO MODERATE PAIN LEVEL 4-6 Last administered on 07/21/16 17:35; Admin Dose 1 TAB; Start 06/12/16 at 17:30 Docusate Sodium (Colace) 100 mg Q12H PRN PO CONSTIPATION; Start 06/12/16 at 17: 30 Pantoprazole (Protonix Tab) 40 mg DAILY@06 PO Last administered on 07/21/16 05 :53; Admin Dose 40 MG; Start 06/13/16 at 06:00 Enoxaparin Sodium (Lovenox) 30 mg DAILY SC Last administered on 07/21/16 08:27 ; Admin Dose 30 MG; Start 06/13/16 at 09:00 Diagnostic Test (Pha) (Accu-Chek) 1 ea 02 XX Last administered on 07/02/16 01: 55; Admin Dose 1 EA; Start 06/13/16 at 02:00 Miscellaneous Information 1 ea NOTE XX ; Start 5/8/17 at 17:30 Glucose (Glutose) 15 gm Q15M PRN PO DECREASED GLUCOSE; Start 06/12/16 at 17:30 Glucose (Glutose) 22.5 gm Q15M PRN PO DECREASED GLUCOSE; Start 06/12/16 at 17:30 Dextrose (D50w Syringe) 25 ml Q15M PRN IV DECREASED GLUCOSE; Start 06/12/16 at 17:30 Dextrose (D50w Syringe) 50 ml Q15M PRN IV DECREASED GLUCOSE; Start 06/12/16 at 17:30 Glucagon (Glucagen) 1 mg Q15M PRN IM DECREASED GLUCOSE; Start 06/12/16 at 17:30 Glucose (Glutose) 15 gm Q15M PRN BUCCAL DECREASED GLUCOSE; Start 06/12/16 at 17: 30 Linagliptin (Tradjenta) 5 mg DAILY PO Last administered on 07/21/16 08:20; Admin Dose 5 MG; Start 06/15/16 at 09:00 Atorvastatin Calcium (Lipitor) 10 mg QHS PO Last administered on 07/20/16 20: 33; Admin Dose 10 MG; Start 06/15/16 at 21:00 IV Flush (NS 10 ml) 10 ml PRN PRN IV IV PROTOCOL; Start 06/20/16 at 16:30 Insulin Glargine 9 unit 9 unit DAILY@20 SC Last administered on 07/20/16 20:27 ; Admin Dose 9 UNIT; Start 07/07/16 at 20:00 Vancomycin HCl/ Sodium Chloride (Vancocin/NS) 250 ml @ 125 mls/hr Q12H IVPB Last administered on 07/21/16 12:11; Admin Dose 125 MLS/HR; Start 07/13/16 at 11 :00 WEI SULLIVAN Jul 21, 2016 18:01
[2016-07-21 19:20] VITALS: BP 129/70; RESP 18
[2016-07-21] MEDS: INSULIN GLARGINE [LANtus] 3 ML PEN SC SCH (20:42)
[2016-07-21] MEDS: ATORVASTATIN 10 MG TAB PO SCH (20:46)
[2016-07-21 23:33] VITALS: BP 143/65; RESP 20
[2016-07-22] MEDS: ACCU-CHEK XX SCH (02:00)
[2016-07-22] MEDS: PANTOPRAZOLE (EC) 40 MG TAB PO SCH (05:34)
[2016-07-22 07:06] LABS: CALCIUM 9.6 mg/dl (8.4-10.2); CREATININE 0.77 mg/dl (0.61-1.24); POTASSIUM 4.4 mmol/L (3.5-5.1)
[2016-07-22] MEDS: INSULIN ASPART [NOVOLOG] 3 ML PEN SC SCH ×7 (08:15→21:00)
[2016-07-22 08:17] VITALS: BP 133/71; RESP 20
[2016-07-22] MEDS: ASPIRIN (EC) 81 MG TAB PO SCH (08:19)
[2016-07-22] MEDS: LISINOPRIL 20 MG TAB PO SCH (08:19)
[2016-07-22] MEDS: GABAPENTIN 300 MG CAP PO SCH ×3 (08:20→20:57)
[2016-07-22] MEDS: metFORMIN 500 MG TAB PO SCH ×2 (08:20→17:27)
[2016-07-22] MEDS: METOPROLOL 25 MG TAB PO SCH ×2 (08:20→20:58)
[2016-07-22] MEDS: LINAGLIPTIN 5 MG TABLET PO SCH (08:20)
[2016-07-22] MEDS: ENOXAPARIN 30 MG/0.3 ML SYG SC SCH (08:30)
[2016-07-22] MEDS: HYDROCODONE/APAP (5/325) TAB PO PRN ×2 (11:06→21:07)
[2016-07-22] MEDS: VANCOMYCIN 850 MG in SOD CHLORIDE 0.9% 250 ML IVPB SCH (11:06)
--- NOTE | 2016-07-22 13:42 | PN ---
Date/Time of Note Date/Time of Note DATE: 07/22/16 TIME: 12:43 Assessment/Plan Lines/Catheters IV [facility] Type (from [facility]): PICC Line Urinary Cath still in place: No Assessment/Plan Assessment/Plan Patient remained hemodynamically stable, denies any nausea vomiting, pain is well controlled. ASSESSMENT AND PLAN: - Right [id number] amputation stump dehiscence, laceration, possible infection. S/p debridement and creation of a rotational flap by Dr. Fuller, vascular surgery, on 06/13. Continue wound VAC. Pathology positive for osteomyelitis. Dr. Eldridge is following infection disease consultation. Continue vancomycin until July 28. - Diabetes mellitus type 2. Hemoglobin A1c is 8.7. Continue Tradjenta, Lantus , pre-meal NovoLog, and NovoLog per mild algorithm sliding scale a.c. and at bedtime. - Hypertension. Continue metoprolol and lisinopril. Continue to monitor blood pressure. - Homelessness. Awaiting for [facility] facility placement for wound care and IV antibiotics for osteomyelitis. Further recommendations based on clinical course. Plan of care discussed with Dr. Li. Exam/Review of Systems Vital Signs Vitals Vital Signs Date Time Temp Pulse Resp B/P Pulse Ox O2 Delivery O2 Flow Rate FiO2 07/22/16 08:17 98.6 69 20 133/71 97 Intake and Output 07/21/16 07/21/16 07/22/16 15:00 23:00 07:00 Intake Total 410 ml 1680 ml 1100 ml Output Total 2000 ml 1100 ml Balance 410 ml -320 ml 0 ml Exam Constitutional: alert, oriented, well developed Respiratory: clear to auscultation, normal air movement Cardiovascular: regular rate and rhythm Gastrointestinal: non-tender, soft Results Result Diagram: 07/19/16 0550 07/22/16 0530 Results 24 hrs Laboratory Tests Test 07/21/16 17:32 07/21/16 20:39 07/22/16 05:30 07/22/16 08:08 Bedside Glucose 125 136 86 Sodium Level 139 Potassium Level 4.4 Chloride Level 102 Carbon Dioxide Level 30 Anion Gap 11 Blood Urea Nitrogen 19 Creatinine 0.77 Glucose Level 87 Calcium Level 9.6 Test 07/22/16 12:10 Bedside Glucose 113 Medications Medications Current Medications Aspirin (Halfprin) 81 mg DAILY PO Last administered on 07/22/16 08:19; Admin Dose 81 MG; Start 06/13/16 at 09:00 Gabapentin (Neurontin) 300 mg TID PO Last administered on 07/22/16 12:11; Admin Dose 300 MG; Start 06/12/16 at 21:00 Lisinopril (Zestril) 20 mg DAILY PO Last administered on 07/22/16 08:19; Admin Dose 20 MG; Start 06/13/16 at 09:00 Metoprolol Tartrate 25 mg 25 mg BID PO Last administered on 07/22/16 08:20; Admin Dose 25 MG; Start 06/12/16 at 21:00 Sodium Chloride (NS) 1,000 ml @ 40 mls/hr Q24H IV Last administered on 12:00; Admin Dose 40 MLS/HR; Start 06/12/16 at 17:15 Ondansetron HCl (Zofran Inj) 4 mg Q6H PRN IV NAUSEA AND/OR VOMITING; Start 06/12 at 17:30 Acetaminophen (Tylenol Tab) 650 mg Q6H PRN PO PAIN LEVEL 1-3 OR FEVER; Start at 17:30 Acetaminophen/ Hydrocodone Bitart ([place] (5/325)) 1 tab Q6H PRN PO MODERATE PAIN LEVEL 4-6 Last administered on 07/22/16 11:06; Admin Dose 1 TAB; Start 06/12/16 at 17:30 Docusate Sodium (Colace) 100 mg Q12H PRN PO CONSTIPATION; Start 06/12/16 at 17: 30 Pantoprazole (Protonix Tab) 40 mg DAILY@06 PO Last administered on 07/22/16 05 :34; Admin Dose 40 MG; Start 06/13/16 at 06:00 Enoxaparin Sodium (Lovenox) 30 mg DAILY SC Last administered on 07/22/16 08:30 ; Admin Dose 30 MG; Start 06/13/16 at 09:00 Diagnostic Test (Pha) (Accu-Chek) 1 ea 02 XX Last administered on 07/02/16 01: 55; Admin Dose 1 EA; Start 06/13/16 at 02:00 Miscellaneous Information 1 ea NOTE XX ; Start 06/12/16 at 17:30 Glucose (Glutose) 15 gm Q15M PRN PO DECREASED GLUCOSE; Start 06/12/16 at 17:30 Glucose (Glutose) 22.5 gm Q15M PRN PO DECREASED GLUCOSE; Start 06/12/16 at 17:30 Dextrose (D50w Syringe) 25 ml Q15M PRN IV DECREASED GLUCOSE; Start 06/12/16 at 17:30 Dextrose (D50w Syringe) 50 ml Q15M PRN IV DECREASED GLUCOSE; Start 06/12/16 at 17:30 Glucagon (Glucagen) 1 mg Q15M PRN IM DECREASED GLUCOSE; Start 06/12/16 at 17:30 Glucose (Glutose) 15 gm Q15M PRN BUCCAL DECREASED GLUCOSE; Start 06/12/16 at 17: 30 Linagliptin (Tradjenta) 5 mg DAILY PO Last administered on 07/22/16 08:20; Admin Dose 5 MG; Start 06/15/16 at 09:00 Atorvastatin Calcium (Lipitor) 10 mg QHS PO Last administered on 07/21/16 20: 46; Admin Dose 10 MG; Start 06/15/16 at 21:00 IV Flush (NS 10 ml) 10 ml PRN PRN IV IV PROTOCOL; Start 06/20/16 at 16:30 Insulin Glargine 9 unit 9 unit DAILY@20 SC Last administered on 07/21/16 20:42 ; Admin Dose 9 UNIT; Start 07/07/16 at 20:00 Vancomycin HCl/ Sodium Chloride (Vancocin/NS) 250 ml @ 125 mls/hr Q12H IVPB Last administered on 07/22/16 11:06; Admin Dose 125 MLS/HR; Start 07/13/16 at 11 :00 Miscellaneous Information (*Rx Drug Level Order Reminder*) VANCOMYCIN TROUGH AT 2200 ONCE ONCE XX ; Start 07/22/16 at 22:00; Stop 07/22/16 at 22:01 ABRAHAN PINA Jul 22, 2016 12:53
[2016-07-22] MEDS: SOD CHLORIDE 0.9% 1,000 ML IV SCH ×2 (17:15→23:01)
[2016-07-22 20:50] VITALS: BP 119/62; RESP 18
[2016-07-22] MEDS: ATORVASTATIN 10 MG TAB PO SCH (20:58)
[2016-07-22] MEDS: INSULIN GLARGINE [LANtus] 3 ML PEN SC SCH (21:03)
[2016-07-23] MEDS: VANCOMYCIN 850 MG in SOD CHLORIDE 0.9% 250 ML IVPB SCH ×3 (00:34→23:16)
[2016-07-23] MEDS: ACCU-CHEK XX SCH (02:00)
[2016-07-23] MEDS: PANTOPRAZOLE (EC) 40 MG TAB PO SCH (05:25)
[2016-07-23 06:42] LABS: ADD SCAN DIFF NO
[2016-07-23 07:00] LABS: BASOPHILS % 0.4 % (0.0-2.0); EOSINOPHILS # 0.4 10^3/ul (0.0-0.5); EOSINOPHILS % 5.6 % (0.0-7.0); HEMATOCRIT 34.1 % (42.0-52.0); HEMOGLOBIN 10.7 g/dl (14.0-18.0); LYMPHOCYTES # 1.4 10^3/ul (0.8-2.9); LYMPHOCYTES % 19.4 % (15.0-51.0); MEAN CORPUSCULAR HEMOGLOBIN 28.1 pg (29.0-33.0); MEAN CORPUSCULAR HGB CONC 31.4 g/dl (32.0-37.0); MEAN CORPUSCULAR VOLUME 89.5 fl (82.0-101.0); MEAN PLATELET VOLUME 10.7 fl (7.4-10.4); MONOCYTE # 0.7 10^3/ul (0.3-0.9); MONOCYTES % 9.2 % (0.0-11.0); NEUTROPHIL # 4.6 10^3/ul (1.6-7.5); NEUTROPHILS % 65.1 % (39.0-77.0); PLATELET COUNT 219 10^3/UL (140-415); RED BLOOD COUNT 3.81 10^6/ul (4.70-6.10); WHITE BLOOD COUNT 7.1 10^3/ul (4.8-10.8)
[2016-07-23 07:53] VITALS: BP 127/62; RESP 18
[2016-07-23] MEDS: INSULIN ASPART [NOVOLOG] 3 ML PEN SC SCH ×7 (07:58→20:22)
[2016-07-23] MEDS: GABAPENTIN 300 MG CAP PO SCH ×3 (08:00→20:17)
[2016-07-23] MEDS: ASPIRIN (EC) 81 MG TAB PO SCH (08:00)
[2016-07-23] MEDS: LINAGLIPTIN 5 MG TABLET PO SCH (08:00)
[2016-07-23] MEDS: metFORMIN 500 MG TAB PO SCH ×2 (08:00→17:46)
[2016-07-23] MEDS: LISINOPRIL 20 MG TAB PO SCH (08:00)
[2016-07-23] MEDS: ENOXAPARIN 30 MG/0.3 ML SYG SC SCH (08:05)
[2016-07-23] MEDS: METOPROLOL 25 MG TAB PO SCH ×2 (08:13→20:18)
--- NOTE | 2016-07-23 14:56 | PN ---
Date/Time of Note Date/Time of Note DATE: 07/23/16 TIME: 14:56 Assessment/Plan VTE Prophylaxis VTE Prophylaxis Intervention: other Lines/Catheters [facility] Type (from [facility] PICC Line Urinary Cath still in place: No Assessment/Plan Assessment/Plan - Right [id number]-[id number] amputation stump dehiscence, laceration, possible infection. S/p debridement and creation of a rotational flap by Dr. Fuller, vascular surgery, on 06/13. Continue wound VAC. Pathology positive for osteomyelitis. Dr. Eldridge is following infection disease consultation. Continue vancomycin until July 28. - Diabetes mellitus type 2. Hemoglobin A1c is 8.7. Continue Tradjenta, Lantus , pre-meal NovoLog, and NovoLog per mild algorithm sliding scale a.c. and at bedtime. - Hypertension. Continue metoprolol and lisinopril. Continue to monitor blood pressure. - Homelessness. Awaiting for senior living facility placement for wound care and IV antibiotics for osteomyelitis. Further recommendations based on clinical course. Plan of care discussed with Dr. Li. Exam/Review of Systems Vital Signs Vitals Vital Signs Date Time Temp Pulse Resp B/P Pulse Ox O2 Delivery O2 Flow Rate FiO2 07/23/16 07:53 97.7 64 18 127/62 98 Intake and Output 07/22/16 07/22/16 07/23/16 15:00 23:00 07:00 Intake Total 250 ml 1440 ml 1450 ml Output Total 1000 ml 1200 ml Balance 250 ml 440 ml 250 ml Exam Constitutional: alert, oriented, well developed Respiratory: clear to auscultation, normal air movement Cardiovascular: nl pulses, regular rate and rhythm Gastrointestinal: non-tender, soft Musculoskeletal: other Extremities: other (Right jjukg-xak-jzeu amputation stump dehiscence, laceration, possible infection. S/p debridement- wound vac intact) Neurological: nl mental status, nl speech Skin: other Results Result Diagram: 07/23/16 0507/22/16 0530 Results 24 hrs Laboratory Tests Test 07/22/16 21:00 07/22/16 22:50 07/23/16 05:23 07/23/16 07:57 Bedside Glucose 112 79 Vancomycin Level Trough 14.4 White Blood Count 7.1 # Red Blood Count 3.81 L Hemoglobin 10.7 L Hematocrit 34.1 L Mean Corpuscular Volume 89.5 Mean Corpuscular Hemoglobin 28.1 L Mean Corpuscular Hemoglobin Concent 31.4 L Red Cell Distribution Width 15.0 H Platelet Count 219 Mean Platelet Volume 10.7 H Neutrophils % 65.1 Lymphocytes % 19.4 Monocytes % 9.2 Eosinophils % 5.6 Basophils % 0.4 Nucleated Red Blood Cells % 0.0 Neutrophils # 4.6 Lymphocytes # 1.4 Monocytes # 0.7 Eosinophils # 0.4 Basophils # 0.0 Nucleated Red Blood Cells # 0.0 Test 07/23/16 12:03 Bedside Glucose 97 Medications Medications Current Medications Aspirin (Halfprin) 81 mg DAILY PO Last administered on 07/23/16 08:00; Admin Dose 81 MG; Start 06/13/16 at 09:00 Gabapentin (Neurontin) 300 mg TID PO Last administered on 07/23/16 12:02; Admin Dose 300 MG; Start 06/12/16 at 21:00 Lisinopril (Zestril) 20 mg DAILY PO Last administered on 07/23/16 08:00; Admin Dose 20 MG; Start 06/13/16 at 09:00 Metoprolol Tartrate 25 mg 25 mg BID PO Last administered on 07/23/16 08:13; Admin Dose 25 MG; Start 06/12/16 at 21:00 Sodium Chloride (NS) 1,000 ml @ 40 mls/hr Q24H IV Last administered on 23:01; Admin Dose 40 MLS/HR; Start 06/12/16 at 17:15 Ondansetron HCl (Zofran Inj) 4 mg Q6H PRN IV NAUSEA AND/OR VOMITING; Start 06/12 at 17:30 Acetaminophen (Tylenol Tab) 650 mg Q6H PRN PO PAIN LEVEL 1-3 OR FEVER; Start at 17:30 Acetaminophen/ Hydrocodone Bitart ([place] (5/325)) 1 tab Q6H PRN PO MODERATE PAIN LEVEL 4-6 Last administered on 07/22/16 21:07; Admin Dose 1 TAB; Start 06/12/16 at 17:30 Docusate Sodium (Colace) 100 mg Q12H PRN PO CONSTIPATION; Start 06/12/16 at 17: 30 Pantoprazole (Protonix Tab) 40 mg DAILY@06 PO Last administered on 07/23/16 05 :25; Admin Dose 40 MG; Start 06/13/16 at 06:00 Enoxaparin Sodium (Lovenox) 30 mg DAILY SC Last administered on 07/23/16 08:05 ; Admin Dose 30 MG; Start 06/13/16 at 09:00 Diagnostic Test (Pha) (Accu-Chek) 1 ea 02 XX Last administered on 07/02/16 01: 55; Admin Dose 1 EA; Start 06/13/16 at 02:00 Miscellaneous Information 1 ea NOTE XX ; Start 06/12/16 at 17:30 Glucose (Glutose) 15 gm Q15M PRN PO DECREASED GLUCOSE; Start 06/12/16 at 17:30 Glucose (Glutose) 22.5 gm Q15M PRN PO DECREASED GLUCOSE; Start 06/12/16 at 17:30 Dextrose (D50w Syringe) 25 ml Q15M PRN IV DECREASED GLUCOSE; Start 06/12/16 at 17:30 Dextrose (D50w Syringe) 50 ml Q15M PRN IV DECREASED GLUCOSE; Start 06/12/16 at 17:30 Glucagon (Glucagen) 1 mg Q15M PRN IM DECREASED GLUCOSE; Start 06/12/16 at 17:30 Glucose (Glutose) 15 gm Q15M PRN BUCCAL DECREASED GLUCOSE; Start 06/12/16 at 17: 30 Linagliptin (Tradjenta) 5 mg DAILY PO Last administered on 07/23/16 08:00; Admin Dose 5 MG; Start 06/15/16 at 09:00 Atorvastatin Calcium (Lipitor) 10 mg QHS PO Last administered on 07/22/16 20: 58; Admin Dose 10 MG; Start 06/15/16 at 21:00 IV Flush (NS 10 ml) 10 ml PRN PRN IV IV PROTOCOL; Start 06/20/16 at 16:30 Insulin Glargine 9 unit 9 unit DAILY@20 SC Last administered on 07/22/16 21:03 ; Admin Dose 9 UNIT; Start 07/07/16 at 20:00 Vancomycin HCl/ Sodium Chloride (Vancocin/NS) 250 ml @ 125 mls/hr Q12H IVPB Last administered on 07/23/16 12:02; Admin Dose 125 MLS/HR; Start 07/13/16 at 11 :00 ABRAHAN PINA 18, 2017 14:56
[2016-07-23] MEDS: SOD CHLORIDE 0.9% 1,000 ML IV SCH (17:15)
[2016-07-23 19:20] VITALS: BP 129/69; RESP 18
[2016-07-23] MEDS: ATORVASTATIN 10 MG TAB PO SCH (20:17)
[2016-07-23] MEDS: HYDROCODONE/APAP (5/325) TAB PO PRN (20:19)
[2016-07-23] MEDS: INSULIN GLARGINE [LANtus] 3 ML PEN SC SCH (20:34)
[2016-07-24] MEDS: ACCU-CHEK XX SCH ×2 (02:00→23:47)
[2016-07-24] MEDS: HYDROCODONE/APAP (5/325) TAB PO PRN ×2 (05:13→23:49)
[2016-07-24] MEDS: PANTOPRAZOLE (EC) 40 MG TAB PO SCH (05:13)
[2016-07-24 05:50] LABS: ADD SCAN DIFF NO
[2016-07-24 05:55] LABS: BASOPHILS % 0.8 % (0.0-2.0); EOSINOPHILS # 0.4 10^3/ul (0.0-0.5); EOSINOPHILS % 8.6 % (0.0-7.0); HEMATOCRIT 33.9 % (42.0-52.0); HEMOGLOBIN 10.6 g/dl (14.0-18.0); LYMPHOCYTES # 1.5 10^3/ul (0.8-2.9); LYMPHOCYTES % 30.9 % (15.0-51.0); MEAN CORPUSCULAR HEMOGLOBIN 27.9 pg (29.0-33.0); MEAN CORPUSCULAR HGB CONC 31.3 g/dl (32.0-37.0); MEAN CORPUSCULAR VOLUME 89.2 fl (82.0-101.0); MEAN PLATELET VOLUME 10.3 fl (7.4-10.4); MONOCYTE # 0.6 10^3/ul (0.3-0.9); MONOCYTES % 11.7 % (0.0-11.0); NEUTROPHIL # 2.3 10^3/ul (1.6-7.5); NEUTROPHILS % 47.6 % (39.0-77.0); PLATELET COUNT 229 10^3/UL (140-415); RED CELL DISTRIBUTION WIDTH 14.9 % (11.5-14.5); WHITE BLOOD COUNT 4.9 10^3/ul (4.8-10.8)
[2016-07-24 06:24] LABS: CALCIUM 9.8 mg/dl (8.4-10.2); CREATININE 0.73 mg/dl (0.61-1.24); POTASSIUM 3.9 mmol/L (3.5-5.1)
[2016-07-24 08:07] VITALS: BP 131/62; RESP 18
[2016-07-24] MEDS: INSULIN ASPART [NOVOLOG] 3 ML PEN SC SCH ×7 (08:11→20:49)
[2016-07-24] MEDS: metFORMIN 500 MG TAB PO SCH ×2 (08:22→17:33)
[2016-07-24] MEDS: GABAPENTIN 300 MG CAP PO SCH ×3 (08:23→20:45)
[2016-07-24] MEDS: METOPROLOL 25 MG TAB PO SCH ×2 (08:23→20:45)
[2016-07-24] MEDS: LISINOPRIL 20 MG TAB PO SCH (08:23)
[2016-07-24] MEDS: LINAGLIPTIN 5 MG TABLET PO SCH (08:23)
[2016-07-24] MEDS: ASPIRIN (EC) 81 MG TAB PO SCH (08:23)
[2016-07-24] MEDS: ENOXAPARIN 30 MG/0.3 ML SYG SC SCH (08:29)
[2016-07-24] MEDS: SOD CHLORIDE 0.9% 1,000 ML IV SCH ×2 (08:30→17:15)
[2016-07-24] MEDS: VANCOMYCIN 850 MG in SOD CHLORIDE 0.9% 250 ML IVPB SCH ×2 (12:13→23:47)
--- NOTE | 2016-07-24 18:03 | PN ---
Date/Time of Note Date/Time of Note DATE: 07/24/16 TIME: 18:02 Assessment/Plan VTE Prophylaxis VTE Prophylaxis Intervention: SCD's Lines/Catheters [facility] PICC Line Central line still needed: Yes Urinary Cath still in place: No Assessment/Plan Chief Complaint/Hosp Course Patient status post wound VAC change today, remains stable blood sugar is well controlled. ASSESSMENT AND PLAN: - Right [id number] amputation stump dehiscence, laceration, possible infection. S/p debridement and creation of a rotational flap by Dr. Fuller, vascular surgery, on 06/13. Continue wound VAC. Pathology positive for osteomyelitis. Dr. Eldridge is following infection disease consultation. Continue vancomycin until July 28. - Diabetes mellitus type 2. Hemoglobin A1c is 8.7. Continue Tradjenta, Lantus , pre-meal NovoLog, and NovoLog per mild algorithm sliding scale a.c. and at bedtime. - Hypertension. Continue metoprolol and lisinopril. Continue to monitor blood pressure. - Homelessness. Awaiting for retirement facility placement for wound care and IV antibiotics for osteomyelitis. Further recommendations based on clinical course. Plan of care discussed with Dr. Li. Problems: Exam/Review of Systems Vital Signs Vitals Vital Signs Date Time Temp Pulse Resp B/P Pulse Ox O2 Delivery O2 Flow Rate FiO2 07/24/16 08:07 97.8 61 18 131/62 100 Intake and Output 07/23/16 07/23/16 07/24/16 15:00 23:00 07:00 Intake Total 250 ml 1800 ml 710 ml Output Total 0 ml 1200 ml 1400 ml Balance 250 ml 600 ml -690 ml Exam Constitutional: alert, oriented Head: normocephalic Neck: supple Respiratory: normal air movement Cardiovascular: nl pulses Gastrointestinal: non-tender, soft Extremities: other (right lower extremity stump wound with wound VAC) Results Result Diagram: 07/24/16 0540 07/24/16 0540 Results 24 hrs Laboratory Tests Test 07/23/16 20:20 07/24/16 05:40 07/24/16 08:11 07/24/16 12:18 Bedside Glucose 116 83 81 White Blood Count 4.9 # Red Blood Count 3.80 L Hemoglobin 10.6 L Hematocrit 33.9 L Mean Corpuscular Volume 89.2 Mean Corpuscular Hemoglobin 27.9 L Mean Corpuscular Hemoglobin Concent 31.3 L Red Cell Distribution Width 14.9 H Platelet Count 229 Mean Platelet Volume 10.3 Neutrophils % 47.6 Lymphocytes % 30.9 Monocytes % 11.7 H Eosinophils % 8.6 H Basophils % 0.8 Nucleated Red Blood Cells % 0.0 Neutrophils # 2.3 Lymphocytes # 1.5 Monocytes # 0.6 Eosinophils # 0.4 Basophils # 0.0 Nucleated Red Blood Cells # 0.0 Sodium Level 142 Potassium Level 3.9 Chloride Level 105 Carbon Dioxide Level 27 Anion Gap 14 Blood Urea Nitrogen 19 Creatinine 0.73 Glucose Level 81 Calcium Level 9.8 Test 07/24/16 17:31 Bedside Glucose 125 Medications Medications Current Medications Aspirin (Halfprin) 81 mg DAILY PO Last administered on 07/24/16 08:23; Admin Dose 81 MG; Start 06/13/16 at 09:00 Gabapentin (Neurontin) 300 mg TID PO Last administered on 07/24/16 12:13; Admin Dose 300 MG; Start 06/12/16 at 21:00 Lisinopril (Zestril) 20 mg DAILY PO Last administered on 07/24/16 08:23; Admin Dose 20 MG; Start 06/13/16 at 09:00 Metoprolol Tartrate 25 mg 25 mg BID PO Last administered on 07/24/16 08:23; Admin Dose 25 MG; Start 06/12/16 at 21:00 Sodium Chloride (NS) 1,000 ml @ 40 mls/hr Q24H IV Last administered on 08:30; Admin Dose 40 MLS/HR; Start 06/12/16 at 17:15 Ondansetron HCl (Zofran Inj) 4 mg Q6H PRN IV NAUSEA AND/OR VOMITING; Start 06/12 at 17:30 Acetaminophen (Tylenol Tab) 650 mg Q6H PRN PO PAIN LEVEL 1-3 OR FEVER; Start at 17:30 Acetaminophen/ Hydrocodone Bitart ([place] (5/325)) 1 tab Q6H PRN PO MODERATE PAIN LEVEL 4-6 Last administered on 07/24/16 05:13; Admin Dose 1 TAB; Start 06/12/16 at 17:30 Docusate Sodium (Colace) 100 mg Q12H PRN PO CONSTIPATION; Start 06/12/16 at 17: 30 Pantoprazole (Protonix Tab) 40 mg DAILY@06 PO Last administered on 07/24/16 05 :13; Admin Dose 40 MG; Start 06/13/16 at 06:00 Enoxaparin Sodium (Lovenox) 30 mg DAILY SC Last administered on 07/24/16 08:29 ; Admin Dose 30 MG; Start 06/13/16 at 09:00 Diagnostic Test (Pha) (Accu-Chek) 1 ea 02 XX Last administered on 07/02/16 01: 55; Admin Dose 1 EA; Start 06/13/16 at 02:00 Miscellaneous Information 1 ea NOTE XX ; Start 06/12/16 at 17:30 Glucose (Glutose) 15 gm Q15M PRN PO DECREASED GLUCOSE; Start 06/12/16 at 17:30 Glucose (Glutose) 22.5 gm Q15M PRN PO DECREASED GLUCOSE; Start 06/12/16 at 17:30 Dextrose (D50w Syringe) 25 ml Q15M PRN IV DECREASED GLUCOSE; Start 06/12/16 at 17:30 Dextrose (D50w Syringe) 50 ml Q15M PRN IV DECREASED GLUCOSE; Start 06/12/16 at 17:30 Glucagon (Glucagen) 1 mg Q15M PRN IM DECREASED GLUCOSE; Start 06/12/16 at 17:30 Glucose (Glutose) 15 gm Q15M PRN BUCCAL DECREASED GLUCOSE; Start 06/12/16 at 17: 30 Linagliptin (Tradjenta) 5 mg DAILY PO Last administered on 07/24/16 08:23; Admin Dose 5 MG; Start 06/15/16 at 09:00 Atorvastatin Calcium (Lipitor) 10 mg QHS PO Last administered on 07/23/16 20: 17; Admin Dose 10 MG; Start 06/15/16 at 21:00 IV Flush (NS 10 ml) 10 ml PRN PRN IV IV PROTOCOL; Start 06/20/16 at 16:30 Insulin Glargine 9 unit 9 unit DAILY@20 SC Last administered on 07/23/16 20:34 ; Admin Dose 9 UNIT; Start 07/07/16 at 20:00 Vancomycin HCl/ Sodium Chloride (Vancocin/NS) 250 ml @ 125 mls/hr Q12H IVPB Last administered on 6/19/17at 12:13; Admin Dose 125 MLS/HR; Start 07/13/16 at 11 :00 WEI SULLIVAN Jul 24, 2016 18:02
[2016-07-24 20:00] VITALS: BP 122/65; RESP 18
[2016-07-24] MEDS: ATORVASTATIN 10 MG TAB PO SCH (20:45)
[2016-07-24] MEDS: INSULIN GLARGINE [LANtus] 3 ML PEN SC SCH (20:49)
--- NOTE | 2016-07-24 21:00 | PN ---
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 -D/C planning with wound vac, arrange for Home Health as he would require wound vac for wound closure -Discussed findings, plan of management with the patient and he understands. -Thank you for allowing us to participate in the care of your patient. Please call with any questions. Problems: Subjective 24 Hr Interval Summary no new vascular events overnight Exam/Review of Systems Vital Signs Vitals Vital Signs Date Time Temp Pulse Resp B/P Pulse Ox O2 Delivery O2 Flow Rate FiO2 07/24/16 08:07 97.8 61 18 131/62 100 Intake and Output 07/23/16 07/23/16 07/24/16 15:00 23:00 07:00 Intake Total 250 ml 1800 ml 710 ml Output Total 0 ml 1200 ml 1400 ml Balance 250 ml 600 ml -690 ml Exam Free Text/Dictation GENERAL: Alert and oriented x3, PULMONARY: Clear to auscultation bilaterally CARDIOVASCULAR: S1, S2 present ABDOMEN: Soft, nontender, nondistended. Bowel sounds positive. EXTREMITIES: Right lower extremity: Palpable femoral pulse. BKA stump with cap refill 3 seconds. wound vac-intact and functional - good granulation tissue developing, getting smaller in size Left lower extremity: Palpable femoral pulse, nonpalpable pedal pulse. Motor, sensory intact. Cap refill 3 to 4 seconds, lipodermatosclerosis Results Result Diagram: 07/24/16 0540 07/24/16 0540 JUAN PRIDE MD Jul 24, 2016 21:00
[2016-07-25] MEDS: PANTOPRAZOLE (EC) 40 MG TAB PO SCH (07:27)
[2016-07-25 07:38] VITALS: BP 131/68; RESP 16
[2016-07-25] MEDS: INSULIN ASPART [NOVOLOG] 3 ML PEN SC SCH ×7 (08:15→20:00)
[2016-07-25] MEDS: LINAGLIPTIN 5 MG TABLET PO SCH (08:51)
[2016-07-25] MEDS: GABAPENTIN 300 MG CAP PO SCH ×3 (08:51→20:00)
[2016-07-25] MEDS: LISINOPRIL 20 MG TAB PO SCH (08:51)
[2016-07-25] MEDS: ASPIRIN (EC) 81 MG TAB PO SCH (08:52)
[2016-07-25] MEDS: METOPROLOL 25 MG TAB PO SCH ×2 (08:52→20:00)
[2016-07-25] MEDS: ENOXAPARIN 30 MG/0.3 ML SYG SC SCH (08:56)
[2016-07-25] MEDS: metFORMIN 500 MG TAB PO SCH ×2 (09:01→17:42)
[2016-07-25] MEDS: VANCOMYCIN 850 MG in SOD CHLORIDE 0.9% 250 ML IVPB SCH ×2 (11:43→22:30)
[2016-07-25] MEDS: SOD CHLORIDE 0.9% 1,000 ML IV SCH (11:43)
--- NOTE | 2016-07-25 18:15 | PN ---
Date/Time of Note Date/Time of Note DATE: 07/25/16 TIME: 18:14 Assessment/Plan VTE Prophylaxis VTE Prophylaxis Intervention: LMWH Lines/Catheters [facility] Type [facility] PICC Line Central line still needed: Yes Urinary Cath still in place: No Assessment/Plan Chief Complaint/Hosp Course Patient remains stable no complaints ASSESSMENT AND PLAN: - Right [id number] amputation stump dehiscence, laceration, possible infection. S/p debridement and creation of a rotational flap by Dr. Fuller, vascular surgery, on 06/13. Continue wound VAC. Pathology positive for osteomyelitis. Dr. Eldridge is following infection disease consultation. Continue vancomycin until July 28. - Diabetes mellitus type 2. Hemoglobin A1c is 8.7. Continue Tradjenta, Lantus , pre-meal NovoLog, and NovoLog per mild algorithm sliding scale a.c. and at bedtime. - Hypertension. Continue metoprolol and lisinopril. Continue to monitor blood pressure. - Homelessness. Awaiting for [facility] facility placement for wound care and IV antibiotics for osteomyelitis. Further recommendations based on clinical course. Plan of care discussed with Dr. Li. Problems: Exam/Review of Systems Vital Signs Vitals Vital Signs Date Time Temp Pulse Resp B/P Pulse Ox O2 Delivery O2 Flow Rate FiO2 07/25/16 07:38 98.1 71 16 131/68 98 Intake and Output 07/24/16 07/24/16 07/25/16 15:00 23:00 07:00 Intake Total 1410 ml 1700 ml 2610 ml Output Total 1225 ml 1950 ml Balance 1410 ml 475 ml 660 ml Exam Constitutional: alert, oriented Head: normocephalic Neck: supple Respiratory: normal air movement Cardiovascular: nl pulses Gastrointestinal: non-tender, soft Extremities: other (right lower extremity stump wound with wound VAC) Results Result Diagram: 07/24/16 0540 07/24/16 0540 Results 24 hrs Laboratory Tests Test 07/24/16 20:47 07/25/16 08:23 07/25/16 11:50 07/25/16 17:22 Bedside Glucose 166 91 79 158 Medications Medications Current Medications Aspirin (Halfprin) 81 mg DAILY PO Last administered on 07/25/16t 08:52; Admin Dose 81 MG; Start 06/13/16 at 09:00 Gabapentin (Neurontin) 300 mg TID PO Last administered on 07/25/16 12:15; Admin Dose 300 MG; Start 06/12/16 at 21:00 Lisinopril (Zestril) 20 mg DAILY PO Last administered on 07/25/16 08:51; Admin Dose 20 MG; Start 06/13/16 at 09:00 Metoprolol Tartrate 25 mg 25 mg BID PO Last administered on 07/25/16 08:52; Admin Dose 25 MG; Start 06/12/16 at 21:00 Sodium Chloride (NS) 1,000 ml @ 40 mls/hr Q24H IV Last administered on 11:43; Admin Dose 40 MLS/HR; Start 06/12/16 at 17:15 Ondansetron HCl (Zofran Inj) 4 mg Q6H PRN IV NAUSEA AND/OR VOMITING; Start 06/12 at 17:30 Acetaminophen (Tylenol Tab) 650 mg Q6H PRN PO PAIN LEVEL 1-3 OR FEVER; Start at 17:30 Acetaminophen/ Hydrocodone Bitart ([place] (5/325)) 1 tab Q6H PRN PO MODERATE PAIN LEVEL 4-6 Last administered on 07/24/16 23:49; Admin Dose 1 TAB; Start 06/12/16 at 17:30 Docusate Sodium (Colace) 100 mg Q12H PRN PO CONSTIPATION; Start 06/12/16 at 17: 30 Pantoprazole (Protonix Tab) 40 mg DAILY@06 PO Last administered on 07/25/16 07 :27; Admin Dose 40 MG; Start 06/13/16 at 06:00 Enoxaparin Sodium (Lovenox) 30 mg DAILY SC Last administered on 07/25/16 08:56 ; Admin Dose 30 MG; Start 06/13/16 at 09:00 Diagnostic Test (Pha) (Accu-Chek) 1 ea 02 XX Last administered on 07/02/16 01: 55; Admin Dose 1 EA; Start 06/13/16 at 02:00 Miscellaneous Information 1 ea NOTE XX ; Start 06/12/16 at 17:30 Glucose (Glutose) 15 gm Q15M PRN PO DECREASED GLUCOSE; Start 06/12/16 at 17:30 Glucose (Glutose) 22.5 gm Q15M PRN PO DECREASED GLUCOSE; Start 06/12/16 at 17:30 Dextrose (D50w Syringe) 25 ml Q15M PRN IV DECREASED GLUCOSE; Start 06/12/16 at 17:30 Dextrose (D50w Syringe) 50 ml Q15M PRN IV DECREASED GLUCOSE; Start 06/12/16 at 17:30 Glucagon (Glucagen) 1 mg Q15M PRN IM DECREASED GLUCOSE; Start 06/12/16 at 17:30 Glucose (Glutose) 15 gm Q15M PRN BUCCAL DECREASED GLUCOSE; Start 06/12/16 at 17: 30 Linagliptin (Tradjenta) 5 mg DAILY PO Last administered on 07/25/16 08:51; Admin Dose 5 MG; Start 06/15/16 at 09:00 Atorvastatin Calcium (Lipitor) 10 mg QHS PO Last administered on 07/24/16 20: 45; Admin Dose 10 MG; Start 06/15/16 at 21:00 IV Flush (NS 10 ml) 10 ml PRN PRN IV IV PROTOCOL; Start 06/20/16 at 16:30 Insulin Glargine 9 unit 9 unit DAILY@20 SC Last administered on 07/24/16 20:49 ; Admin Dose 9 UNIT; Start 07/07/16 at 20:00 Vancomycin HCl/ Sodium Chloride (Vancocin/NS) 250 ml @ 125 mls/hr Q12H IVPB Last administered on 07/25/16 11:43; Admin Dose 125 MLS/HR; Start 07/13/16 at 11 :00 Miscellaneous Information (*Rx Drug Level Order Reminder*) VANCO TROUGH ON 07/07... ONCE ONCE XX ; Start 07/26/16 at 22:00; Stop 07/26/16 at 22:01 WEI SULLIVAN Jul 25, 2016 18:15
[2016-07-25] MEDS: HYDROCODONE/APAP (5/325) TAB PO PRN (19:22)
[2016-07-25] MEDS: INSULIN GLARGINE [LANtus] 3 ML PEN SC SCH (19:53)
[2016-07-25 19:57] VITALS: BP 155/78; RESP 20
[2016-07-25] MEDS: ATORVASTATIN 10 MG TAB PO SCH (20:00)
[2016-07-26] MEDS ORDERED: ALTEPLASE (CATHFLO) 2 MG INJ CATHETER PRN (01:00)
[2016-07-26] MEDS: ACCU-CHEK XX SCH (02:00)
[2016-07-26] MEDS: PANTOPRAZOLE (EC) 40 MG TAB PO SCH (05:19)
[2016-07-26 06:48] LABS: CREATININE 0.75 mg/dl (0.61-1.24); POTASSIUM 4.2 mmol/L (3.5-5.1)
[2016-07-26 07:36] VITALS: BP 118/77; RESP 18
[2016-07-26] MEDS: INSULIN ASPART [NOVOLOG] 3 ML PEN SC SCH ×7 (08:15→21:00)
[2016-07-26] MEDS: ASPIRIN (EC) 81 MG TAB PO SCH (08:19)
[2016-07-26] MEDS: METOPROLOL 25 MG TAB PO SCH ×2 (08:19→21:25)
[2016-07-26] MEDS: LINAGLIPTIN 5 MG TABLET PO SCH (08:20)
[2016-07-26] MEDS: HYDROCODONE/APAP (5/325) TAB PO PRN (08:20)
[2016-07-26] MEDS: metFORMIN 500 MG TAB PO SCH ×2 (08:20→17:39)
[2016-07-26] MEDS: GABAPENTIN 300 MG CAP PO SCH ×3 (08:20→21:23)
[2016-07-26] MEDS: LISINOPRIL 20 MG TAB PO SCH (08:20)
[2016-07-26] MEDS: ENOXAPARIN 30 MG/0.3 ML SYG SC SCH (08:24)
[2016-07-26] MEDS: VANCOMYCIN 850 MG in SOD CHLORIDE 0.9% 250 ML IVPB SCH ×2 (10:45→23:22)
--- NOTE | 2016-07-26 13:13 | CONS ---
Date/Time of Note Date/Time of Note DATE: 07/26/16 TIME: 13:12 Assessment/Plan Assessment/Plan Chief Complaint/Hosp Course SUBJECTIVE: Awake, no events, looks comfortable, no fevers. MICROBIOLOGY: Wound culture growing MSSA/Enterococcus ANTIMICROBIALS: Vancomycin PHYSICAL EXAMINATION: GENERAL: This is a well-nourished, well-developed elderly man who is awake, in no distress. HEENT: Head: Atraumatic, normocephalic. Sclerae anicteric. Buccal mucosa pink. NECK: Supple, trachea midline. CHEST: Rise symmetrical. Breath sounds clear. HEART: S1, S2. ABDOMEN: Soft, bowel tones present. EXTREMITIES: Without cyanosis. Right lower extremity wound VAC present. ASSESSMENT: 1. Right below-knee amputation, infected stump with OM, status post revision with rotation flap and wound VAC application. 2. Diabetes. 3. Hypertension. PLAN: The patient remains stable. Continue local wound, continue Vancomycin for 2 more days till 07/28 DW staff Problems: Consultation Date/Type/Reason Admit Date/Time June 12, 2016 at 13:22 Type of Consultation: ID Exam/Review of Systems Vital Signs Vitals Vital Signs Date Time Temp Pulse Resp B/P Pulse Ox O2 Delivery O2 Flow Rate FiO2 07/26/16 07:36 98.2 73 18 118/77 98 Intake and Output 07/25/16 07/25/16 07/26/16 15:00 23:00 07:00 Intake Total 530 ml 2720 ml 1005 ml Output Total 0 ml 1550 ml 1200 ml Balance 530 ml 1170 ml -195 ml Results Result Diagram: 07/24/16 0540 07/26/16 0523 Results 24 hrs Laboratory Tests Test 07/25/16 17:22 07/25/16 19:50 07/26/16 05:23 07/26/16 08:18 Bedside Glucose 158 110 88 Sodium Level 142 Potassium Level 4.2 Chloride Level 103 Carbon Dioxide Level 26 Anion Gap 17 H Blood Urea Nitrogen 20 Creatinine 0.75 Glucose Level 95 Calcium Level 10.0 Test 07/26/16 12:25 Bedside Glucose 91 Medications Medications Current Medications Aspirin (Halfprin) 81 mg DAILY PO Last administered on 07/26/16 08:19; Admin Dose 81 MG; Start 06/13/16 at 09:00 Gabapentin (Neurontin) 300 mg TID PO Last administered on 07/26/16 12:26; Admin Dose 300 MG; Start 06/12/16 at 21:00 Lisinopril (Zestril) 20 mg DAILY PO Last administered on 07/26/16 08:20; Admin Dose 20 MG; Start 06/13/16 at 09:00 Metoprolol Tartrate 25 mg 25 mg BID PO Last administered on 07/26/16 08:19; Admin Dose 25 MG; Start 06/12/16 at 21:00 Sodium Chloride (NS) 1,000 ml @ 40 mls/hr Q24H IV Last administered on 11:43; Admin Dose 40 MLS/HR; Start 06/12/16 at 17:15 Ondansetron HCl (Zofran Inj) 4 mg Q6H PRN IV NAUSEA AND/OR VOMITING; Start 06/12 at 17:30 Acetaminophen (Tylenol Tab) 650 mg Q6H PRN PO PAIN LEVEL 1-3 OR FEVER; Start at 17:30 Acetaminophen/ Hydrocodone Bitart ([place] (5/325)) 1 tab Q6H PRN PO MODERATE PAIN LEVEL 4-6 Last administered on 07/26/16 08:20; Admin Dose 1 TAB; Start 06/12/16 at 17:30 Docusate Sodium (Colace) 100 mg Q12H PRN PO CONSTIPATION; Start 06/12/16 at 17: 30 Pantoprazole (Protonix Tab) 40 mg DAILY@06 PO Last administered on 07/26/16 05 :19; Admin Dose 40 MG; Start 06/13/16 at 06:00 Enoxaparin Sodium (Lovenox) 30 mg DAILY SC Last administered on 07/26/16 08:24 ; Admin Dose 30 MG; Start 06/13/16 at 09:00 Diagnostic Test (Pha) (Accu-Chek) 1 ea 02 XX Last administered on 07/02/16 01: 55; Admin Dose 1 EA; Start 06/13/16 at 02:00 Miscellaneous Information 1 ea NOTE XX ; Start 06/12/16 at 17:30 Glucose (Glutose) 15 gm Q15M PRN PO DECREASED GLUCOSE; Start 06/12/16 at 17:30 Glucose (Glutose) 22.5 gm Q15M PRN PO DECREASED GLUCOSE; Start 06/12/16 at 17:30 Dextrose (D50w Syringe) 25 ml Q15M PRN IV DECREASED GLUCOSE; Start 06/12/16 at 17:30 Dextrose (D50w Syringe) 50 ml Q15M PRN IV DECREASED GLUCOSE; Start 06/12/16 at 17:30 Glucagon (Glucagen) 1 mg Q15M PRN IM DECREASED GLUCOSE; Start 06/12/16 at 17:30 Glucose (Glutose) 15 gm Q15M PRN BUCCAL DECREASED GLUCOSE; Start 06/12/16 at 17: 30 Linagliptin (Tradjenta) 5 mg DAILY PO Last administered on 07/26/16 08:20; Admin Dose 5 MG; Start 06/15/16 at 09:00 Atorvastatin Calcium (Lipitor) 10 mg QHS PO Last administered on 07/25/16 20: 00; Admin Dose 10 MG; Start 06/15/16 at 21:00 IV Flush (NS 10 ml) 10 ml PRN PRN IV IV PROTOCOL Last administered on 10:31; Admin Dose 10 ML; Start 06/20/16 at 16:30 Insulin Glargine 9 unit 9 unit DAILY@20 SC Last administered on 07/25/16 19:53 ; Admin Dose 9 UNIT; Start 07/07/16 at 20:00 Vancomycin HCl/ Sodium Chloride (Vancocin/NS) 250 ml @ 125 mls/hr Q12H IVPB Last administered on 07/26/16 10:45; Admin Dose 125 MLS/HR; Start 07/13/16 at 11 :00 Miscellaneous Information (*Rx Drug Level Order Reminder*) VANCO TROUGH ON 07/07... ONCE ONCE XX ; Start 07/26/16 at 22:00; Stop 07/26/16 at 22:01 HILARIO ACUÑA NP Jul 26, 2016 13:13
--- NOTE | 2016-07-26 14:09 | PN ---
Date/Time of Note Date/Time of Note DATE: 07/26/16 TIME: 14:06 Assessment/Plan VTE Prophylaxis VTE Prophylaxis Intervention: SCD's Lines/Catheters IV [facility] Type (from [facility] PICC Line Central line still needed: Yes Urinary Cath still in place: No Assessment/Plan Chief Complaint/Hosp Course Patient remains hemodynamically stable, blood sugar is well controlled. ASSESSMENT AND PLAN: - Right [id number] amputation stump dehiscence, laceration, possible infection. S/p debridement and creation of a rotational flap by Dr. Fuller, vascular surgery, on 06/13. Continue wound VAC. Pathology positive for osteomyelitis. Dr. Eldridge is following infection disease consultation. Continue vancomycin until July 28. - Diabetes mellitus type 2. Hemoglobin A1c is 8.7. Continue Tradjenta, Lantus , pre-meal NovoLog, and NovoLog per mild algorithm sliding scale a.c. and at bedtime. - Hypertension. Continue metoprolol and lisinopril. Continue to monitor blood pressure. - Homelessness. Awaiting for [facility] facility placement for wound care and IV antibiotics for osteomyelitis. Further recommendations based on clinical course. Plan of care discussed with Dr. Li. Problems: Exam/Review of Systems Vital Signs Vitals Vital Signs Date Time Temp Pulse Resp B/P Pulse Ox O2 Delivery O2 Flow Rate FiO2 07/26/16 07:36 98.2 73 18 118/77 98 Intake and Output 07/25/16 07/25/16 07/26/16 15:00 23:00 07:00 Intake Total 530 ml 2720 ml 1005 ml Output Total 0 ml 1550 ml 1200 ml Balance 530 ml 1170 ml -195 ml Exam Constitutional: alert, oriented Head: normocephalic Neck: supple Respiratory: normal air movement Cardiovascular: nl pulses Gastrointestinal: non-tender, soft Extremities: other (right lower extremity stump wound with wound VAC) Results Result Diagram: 07/24/16 0540 07/26/16 0523 Results 24 hrs Laboratory Tests Test 07/25/16 17:22 07/25/16 19:50 07/26/16 05:23 07/26/16 08:18 Bedside Glucose 158 110 88 Sodium Level 142 Potassium Level 4.2 Chloride Level 103 Carbon Dioxide Level 26 Anion Gap 17 H Blood Urea Nitrogen 20 Creatinine 0.75 Glucose Level 95 Calcium Level 10.0 Test 07/26/16 12:25 Bedside Glucose 91 Medications Medications Current Medications Aspirin (Halfprin) 81 mg DAILY PO Last administered on 07/26/16 08:19; Admin Dose 81 MG; Start 06/13/16 at 09:00 Gabapentin (Neurontin) 300 mg TID PO Last administered on 07/26/16 12:26; Admin Dose 300 MG; Start 06/12/16 at 21:00 Lisinopril (Zestril) 20 mg DAILY PO Last administered on 07/26/16 08:20; Admin Dose 20 MG; Start 06/13/16 at 09:00 Metoprolol Tartrate 25 mg 25 mg BID PO Last administered on 07/26/16 08:19; Admin Dose 25 MG; Start 06/12/16 at 21:00 Sodium Chloride (NS) 1,000 ml @ 40 mls/hr Q24H IV Last administered on 11:43; Admin Dose 40 MLS/HR; Start 06/12/16 at 17:15 Ondansetron HCl (Zofran Inj) 4 mg Q6H PRN IV NAUSEA AND/OR VOMITING; Start 06/12 at 17:30 Acetaminophen (Tylenol Tab) 650 mg Q6H PRN PO PAIN LEVEL 1-3 OR FEVER; Start at 17:30 Acetaminophen/ Hydrocodone Bitart ([place] (5/325)) 1 tab Q6H PRN PO MODERATE PAIN LEVEL 4-6 Last administered on 07/26/16 08:20; Admin Dose 1 TAB; Start 06/12/16 at 17:30 Docusate Sodium (Colace) 100 mg Q12H PRN PO CONSTIPATION; Start 06/12/16 at 17: 30 Pantoprazole (Protonix Tab) 40 mg DAILY@06 PO Last administered on 07/26/16 05 :19; Admin Dose 40 MG; Start 06/13/16 at 06:00 Enoxaparin Sodium (Lovenox) 30 mg DAILY SC Last administered on 07/26/16 08:24 ; Admin Dose 30 MG; Start 06/13/16 at 09:00 Diagnostic Test (Pha) (Accu-Chek) 1 ea 02 XX Last administered on 07/02/16 01: 55; Admin Dose 1 EA; Start 06/13/16 at 02:00 Miscellaneous Information 1 ea NOTE XX ; Start 06/12/16 at 17:30 Glucose (Glutose) 15 gm Q15M PRN PO DECREASED GLUCOSE; Start 06/12/16 at 17:30 Glucose (Glutose) 22.5 gm Q15M PRN PO DECREASED GLUCOSE; Start 06/12/16 at 17:30 Dextrose (D50w Syringe) 25 ml Q15M PRN IV DECREASED GLUCOSE; Start 06/12/16 at 17:30 Dextrose (D50w Syringe) 50 ml Q15M PRN IV DECREASED GLUCOSE; Start 06/12/16 at 17:30 Glucagon (Glucagen) 1 mg Q15M PRN IM DECREASED GLUCOSE; Start 06/12/16 at 17:30 Glucose (Glutose) 15 gm Q15M PRN BUCCAL DECREASED GLUCOSE; Start 06/12/16 at 17: 30 Linagliptin (Tradjenta) 5 mg DAILY PO Last administered on 07/26/16 08:20; Admin Dose 5 MG; Start 06/15/16 at 09:00 Atorvastatin Calcium (Lipitor) 10 mg QHS PO Last administered on 07/25/16 20: 00; Admin Dose 10 MG; Start 06/15/16 at 21:00 IV Flush (NS 10 ml) 10 ml PRN PRN IV IV PROTOCOL Last administered on 10:31; Admin Dose 10 ML; Start 06/20/16 at 16:30 Insulin Glargine 9 unit 9 unit DAILY@20 SC Last administered on 07/25/16 19:53 ; Admin Dose 9 UNIT; Start 07/07/16 at 20:00 Vancomycin HCl/ Sodium Chloride (Vancocin/NS) 250 ml @ 125 mls/hr Q12H IVPB Last administered on 07/26/16 10:45; Admin Dose 125 MLS/HR; Start 07/13/16 at 11 :00 Miscellaneous Information (*Rx Drug Level Order Reminder*) VANCO TROUGH ON 07/07... ONCE ONCE XX ; Start 07/26/16 at 22:00; Stop 07/26/16 at 22:01 WEI SULLIVAN Jul 26, 2016 14:09
[2016-07-26] MEDS: SOD CHLORIDE 0.9% 1,000 ML IV SCH (17:38)
[2016-07-26 19:17] VITALS: BP 139/73; RESP 18
[2016-07-26] MEDS: ATORVASTATIN 10 MG TAB PO SCH (21:23)
[2016-07-26] MEDS: INSULIN GLARGINE [LANtus] 3 ML PEN SC SCH (21:29)
[2016-07-27] MEDS: ACCU-CHEK XX SCH (02:00)
[2016-07-27] MEDS: PANTOPRAZOLE (EC) 40 MG TAB PO SCH (05:23)
[2016-07-27 07:55] VITALS: BP 123/68; RESP 18
[2016-07-27] MEDS: INSULIN ASPART [NOVOLOG] 3 ML PEN SC SCH ×7 (08:15→21:00)
[2016-07-27] MEDS: LINAGLIPTIN 5 MG TABLET PO SCH (08:19)
[2016-07-27] MEDS: LISINOPRIL 20 MG TAB PO SCH (08:19)
[2016-07-27] MEDS: ASPIRIN (EC) 81 MG TAB PO SCH (08:19)
[2016-07-27] MEDS: GABAPENTIN 300 MG CAP PO SCH ×3 (08:19→21:05)
[2016-07-27] MEDS: METOPROLOL 25 MG TAB PO SCH ×2 (08:20→21:04)
[2016-07-27] MEDS: ENOXAPARIN 30 MG/0.3 ML SYG SC SCH (08:21)
[2016-07-27] MEDS: metFORMIN 500 MG TAB PO SCH ×2 (08:26→17:29)
--- NOTE | 2016-07-27 08:35 | PN ---
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 -D/C planning with wound vac, arrange for Home Health as he would require wound vac for wound closure if possible -Can D/C Antibiotics -Discussed findings, plan of management with the patient and he understands. -Thank you for allowing us to participate in the care of your patient. Please call with any questions. Problems: Subjective 24 Hr Interval Summary no new vascular events overnight Exam/Review of Systems Vital Signs Vitals Vital Signs Date Time Temp Pulse Resp B/P Pulse Ox O2 Delivery O2 Flow Rate FiO2 07/27/16 07:55 98.2 73 18 123/68 99 Intake and Output 07/26/16 07/26/16 07/27/16 14:59 22:59 06:59 Intake Total 250 ml 2365 ml 1010 ml Output Total 0 ml 1220 ml 1150 ml Balance 250 ml 1145 ml -140 ml Exam Free Text/Dictation GENERAL: Alert and oriented x3, PULMONARY: Clear to auscultation bilaterally CARDIOVASCULAR: S1, S2 present ABDOMEN: Soft, nontender, nondistended. Bowel sounds positive. EXTREMITIES: Right lower extremity: Palpable femoral pulse. BKA stump with cap refill 3 seconds. wound vac-intact and functional - good granulation tissue developing, getting smaller in size Left lower extremity: Palpable femoral pulse, nonpalpable pedal pulse. Motor, sensory intact. Cap refill 3 to 4 seconds, lipodermatosclerosis Results Result Diagram: 07/24/16 0540 07/26/16 0523 JUAN PRIDE MD Jul 27, 2016 08:35
[2016-07-27] MEDS: VANCOMYCIN 850 MG in SOD CHLORIDE 0.9% 250 ML IVPB SCH ×2 (11:15→23:09)
[2016-07-27] MEDS: HYDROCODONE/APAP (5/325) TAB PO PRN ×2 (11:15→21:13)
--- NOTE | 2016-07-27 13:39 | PN ---
Date/Time of Note Date/Time of Note DATE: 07/27/16 TIME: 13:37 Assessment/Plan VTE Prophylaxis VTE Prophylaxis Intervention: other Lines/Catheters IV [facility]ter Type (from [facility]): PICC Line Urinary Cath still in place: No Assessment/Plan Assessment/Plan - Right [id number] amputation stump dehiscence, laceration, possible infection. S/p debridement and creation of a rotational flap by Dr. Fuller, vascular surgery, on 06/13. Continue wound VAC. Pathology positive for osteomyelitis. Dr. Eldridge is following infection disease consultation. Continue vancomycin until July 28. - Diabetes mellitus type 2. Hemoglobin A1c is 8.7. Continue Tradjenta, Lantus , pre-meal NovoLog, and NovoLog per mild algorithm sliding scale a.c. and at bedtime. - Hypertension. Continue metoprolol and lisinopril. Continue to monitor blood pressure. - Homelessness. Awaiting for nursing home facility placement for wound care and IV antibiotics for osteomyelitis. Further recommendations based on clinical course. Plan of care discussed with Dr. Li. Subjective 24 Hr Interval Summary Constitutional: improved ENT: no complaints Respiratory: pain Cardiovascular: no complaints Gastrointestinal: no complaints Genitourinary: no complaints Musculoskeletal: no complaints Exam/Review of Systems Vital Signs Vitals Vital Signs Date Time Temp Pulse Resp B/P Pulse Ox O2 Delivery O2 Flow Rate FiO2 07/27/16 07:55 98.2 73 18 123/68 99 Intake and Output 07/26/16 07/26/16 07/27/16 15:00 23:00 07:00 Intake Total 250 ml 2365 ml 1010 ml Output Total 0 ml 1220 ml 1150 ml Balance 250 ml 1145 ml -140 ml Exam Constitutional: alert, oriented, well developed ENMT: nl external ears & nose Neck: non-tender Respiratory: clear to auscultation, normal air movement Cardiovascular: nl pulses, regular rate and rhythm Gastrointestinal: non-tender, soft Extremities: normal pulses Neurological: nl mental status, nl speech Results Result Diagram: 07/24/16 0540 07/26/16 0523 Results 24 hrs Laboratory Tests Test 07/26/16 17:38 07/26/16 21:22 07/26/16 22:10 07/27/16 08:10 Bedside Glucose 153 98 102 Vancomycin Level Trough 15.5 Test 07/27/16 11:52 Bedside Glucose 126 Medications Medications Current Medications Aspirin (Halfprin) 81 mg DAILY PO Last administered on 07/27/16 08:19; Admin Dose 81 MG; Start 06/13/16 at 09:00 Gabapentin (Neurontin) 300 mg TID PO Last administered on 07/27/16 12:08; Admin Dose 300 MG; Start 06/12/16 at 21:00 Lisinopril (Zestril) 20 mg DAILY PO Last administered on 07/27/16 08:19; Admin Dose 20 MG; Start 06/13/16 at 09:00 Metoprolol Tartrate 25 mg 25 mg BID PO Last administered on 07/27/16 08:20; Admin Dose 25 MG; Start 06/12/16 at 21:00 Sodium Chloride (NS) 1,000 ml @ 40 mls/hr Q24H IV Last administered on 17:38; Admin Dose 40 MLS/HR; Start 06/12/16 at 17:15 Ondansetron HCl (Zofran Inj) 4 mg Q6H PRN IV NAUSEA AND/OR VOMITING; Start 06/12 at 17:30 Acetaminophen (Tylenol Tab) 650 mg Q6H PRN PO PAIN LEVEL 1-3 OR FEVER; Start at 17:30 Acetaminophen/ Hydrocodone Bitart ([place] (5/325)) 1 tab Q6H PRN PO MODERATE PAIN LEVEL 4-6 Last administered on 07/27/16 11:15; Admin Dose 1 TAB; Start 06/12/16 at 17:30 Docusate Sodium (Colace) 100 mg Q12H PRN PO CONSTIPATION; Start 06/12/16 at 17: 30 Pantoprazole (Protonix Tab) 40 mg DAILY@06 PO Last administered on 07/27/16 05 :23; Admin Dose 40 MG; Start 06/13/16 at 06:00 Enoxaparin Sodium (Lovenox) 30 mg DAILY SC Last administered on 07/27/16 08:21 ; Admin Dose 30 MG; Start 06/13/16 at 09:00 Diagnostic Test (Pha) (Accu-Chek) 1 ea 02 XX Last administered on 07/02/16 01: 55; Admin Dose 1 EA; Start 06/13/16 at 02:00 Miscellaneous Information 1 ea NOTE XX ; Start 06/12/16 at 17:30 Glucose (Glutose) 15 gm Q15M PRN PO DECREASED GLUCOSE; Start 06/12/16 at 17:30 Glucose (Glutose) 22.5 gm Q15M PRN PO DECREASED GLUCOSE; Start 06/12/16 at 17:30 Dextrose (D50w Syringe) 25 ml Q15M PRN IV DECREASED GLUCOSE; Start 06/12/16 at 17:30 Dextrose (D50w Syringe) 50 ml Q15M PRN IV DECREASED GLUCOSE; Start 06/12/16 at 17:30 Glucagon (Glucagen) 1 mg Q15M PRN IM DECREASED GLUCOSE; Start 06/12/16 at 17:30 Glucose (Glutose) 15 gm Q15M PRN BUCCAL DECREASED GLUCOSE; Start 06/12/16 at 17: 30 Linagliptin (Tradjenta) 5 mg DAILY PO Last administered on 07/27/16 08:19; Admin Dose 5 MG; Start 06/15/16 at 09:00 Atorvastatin Calcium (Lipitor) 10 mg QHS PO Last administered on 07/26/16 21: 23; Admin Dose 10 MG; Start 06/15/16 at 21:00 IV Flush (NS 10 ml) 10 ml PRN PRN IV IV PROTOCOL Last administered on 10:31; Admin Dose 10 ML; Start 06/20/16 at 16:30 Insulin Glargine 9 unit 9 unit DAILY@20 SC Last administered on 07/26/16 21:29 ; Admin Dose 9 UNIT; Start 07/07/16 at 20:00 Vancomycin HCl/ Sodium Chloride (Vancocin/NS) 250 ml @ 125 mls/hr Q12H IVPB Last administered on 07/27/16 11:15; Admin Dose 125 MLS/HR; Start 07/13/16 at 11 :00; Stop 07/28/16 at 06:00 ABRAHAN PINA Jul 27, 2016 13:39
[2016-07-27] MEDS: SOD CHLORIDE 0.9% 1,000 ML IV SCH (17:15)
[2016-07-27 20:20] VITALS: BP 136/61; RESP 19
[2016-07-27] MEDS: ATORVASTATIN 10 MG TAB PO SCH (21:05)
[2016-07-27] MEDS: INSULIN GLARGINE [LANtus] 3 ML PEN SC SCH (21:12)
[2016-07-28] MEDS: ACCU-CHEK XX SCH (02:00)
[2016-07-28] MEDS: PANTOPRAZOLE (EC) 40 MG TAB PO SCH (05:29)
[2016-07-28] MEDS: SOD CHLORIDE 0.9% 1,000 ML IV SCH ×2 (05:29→17:15)
[2016-07-28] MEDS: HYDROCODONE/APAP (5/325) TAB PO PRN ×2 (05:38→13:09)
[2016-07-28 05:46] LABS: ADD SCAN DIFF NO
[2016-07-28 05:50] LABS: BASOPHIL # 0.1 10^3/ul (0.0-0.1); EOSINOPHILS # 0.4 10^3/ul (0.0-0.5); EOSINOPHILS % 8.4 % (0.0-7.0); HEMATOCRIT 33.2 % (42.0-52.0); HEMOGLOBIN 10.6 g/dl (14.0-18.0); LYMPHOCYTES # 1.5 10^3/ul (0.8-2.9); LYMPHOCYTES % 30.6 % (15.0-51.0); MEAN CORPUSCULAR HEMOGLOBIN 28.3 pg (29.0-33.0); MEAN CORPUSCULAR HGB CONC 31.9 g/dl (32.0-37.0); MEAN CORPUSCULAR VOLUME 88.8 fl (82.0-101.0); MONOCYTE # 0.6 10^3/ul (0.3-0.9); MONOCYTES % 11.5 % (0.0-11.0); NEUTROPHIL # 2.3 10^3/ul (1.6-7.5); NEUTROPHILS % 48.1 % (39.0-77.0); PLATELET COUNT 204 10^3/UL (140-415); RED BLOOD COUNT 3.74 10^6/ul (4.70-6.10); RED CELL DISTRIBUTION WIDTH 14.7 % (11.5-14.5); WHITE BLOOD COUNT 4.9 10^3/ul (4.8-10.8)
[2016-07-28 06:45] LABS: CALCIUM 9.6 mg/dl (8.4-10.2); CREATININE 0.64 mg/dl (0.61-1.24); POTASSIUM 3.8 mmol/L (3.5-5.1)
[2016-07-28 07:30] VITALS: BP 137/66; RESP 18
[2016-07-28] MEDS: INSULIN ASPART [NOVOLOG] 3 ML PEN SC SCH ×7 (08:05→20:32)
[2016-07-28] MEDS: GABAPENTIN 300 MG CAP PO SCH ×3 (08:49→20:31)
[2016-07-28] MEDS: LINAGLIPTIN 5 MG TABLET PO SCH (08:49)
[2016-07-28] MEDS: LISINOPRIL 20 MG TAB PO SCH (08:49)
[2016-07-28] MEDS: metFORMIN 500 MG TAB PO SCH ×2 (08:50→17:30)
[2016-07-28] MEDS: METOPROLOL 25 MG TAB PO SCH ×2 (08:50→20:31)
[2016-07-28] MEDS: ASPIRIN (EC) 81 MG TAB PO SCH (08:50)
[2016-07-28] MEDS: ENOXAPARIN 30 MG/0.3 ML SYG SC SCH (08:57)
--- NOTE | 2016-07-28 18:54 | PN ---
Date/Time of Note Date/Time of Note DATE: 07/28/16 TIME: 18:51 Assessment/Plan VTE Prophylaxis VTE Prophylaxis Intervention: SCD's Lines/Catheters IV Catheter Type (from Nrs): PICC Line Central line still needed: Yes Urinary Cath still in place: No Assessment/Plan Chief Complaint/Hosp Course Patient's continues to have a wound VAC pain is well controlled with [place]offe[place], good glycemic control. ASSESSMENT AND PLAN: - Right [id number] amputation stump dehiscence, laceration, possible infection. S/p debridement and creation of a rotational flap by Dr. Fuller, vascular surgery, on 06/13. Continue wound care per surgery. pathology positive for osteomyelitis. Dr. Eldridge is following infection disease consultation. Completed treatment with vancomycin. - Diabetes mellitus type 2. Hemoglobin A1c is 8.7. Continue Tradjenta, Lantus , pre-meal NovoLog, and NovoLog per mild algorithm sliding scale a.c. and at bedtime. - Hypertension. Continue metoprolol and lisinopril. Continue to monitor blood pressure. - Homelessness. Awaiting for group home facility placement for wound care and IV antibiotics for osteomyelitis. Further recommendations based on clinical course. Plan of care discussed with Dr. Li. Problems: Exam/Review of Systems Vital Signs Vitals Vital Signs Date Time Temp Pulse Resp B/P Pulse Ox O2 Delivery O2 Flow Rate FiO2 07/28/16 07:30 97.9 65 18 137/66 98 Intake and Output 07/27/16 07/27/16 07/28/16 15:00 23:00 07:00 Intake Total 1080 ml 1250 ml Output Total 1200 ml 1700 ml 1920 ml Balance -1200 ml -620 ml -670 ml Exam Constitutional: alert, oriented Head: normocephalic Neck: supple Respiratory: normal air movement Cardiovascular: nl pulses Gastrointestinal: non-tender, soft Extremities: other (right lower extremity stump wound with wound VAC) Results Result Diagram: 07/28/16 0508 07/28/16 0505 Results 24 hrs Laboratory Tests Test 07/27/16 21:07 07/28/16 05:05 07/28/16 05:08 07/28/16 08:04 Bedside Glucose 151 95 Sodium Level 142 Potassium Level 3.8 Chloride Level 104 Carbon Dioxide Level 28 Anion Gap 14 Blood Urea Nitrogen 17 Creatinine 0.64 Glucose Level 87 Calcium Level 9.6 White Blood Count 4.9 Red Blood Count 3.74 L Hemoglobin 10.6 L Hematocrit 33.2 L Mean Corpuscular Volume 88.8 Mean Corpuscular Hemoglobin 28.3 L Mean Corpuscular Hemoglobin Concent 31.9 L Red Cell Distribution Width 14.7 H Platelet Count 204 Mean Platelet Volume 10.0 Neutrophils % 48.1 Lymphocytes % 30.6 Monocytes % 11.5 H Eosinophils % 8.4 H Basophils % 1.0 Nucleated Red Blood Cells % 0.0 Neutrophils # 2.3 Lymphocytes # 1.5 Monocytes # 0.6 Eosinophils # 0.4 Basophils # 0.1 Nucleated Red Blood Cells # 0.0 Test 07/28/16 12:17 07/28/16 17:28 Bedside Glucose 109 119 Medications Medications Current Medications Aspirin (Halfprin) 81 mg DAILY PO Last administered on 07/28/16 08:50; Admin Dose 81 MG; Start 06/13/16 at 09:00 Gabapentin (Neurontin) 300 mg TID PO Last administered on 07/28/16 12:18; Admin Dose 300 MG; Start 06/12/16 at 21:00 Lisinopril (Zestril) 20 mg DAILY PO Last administered on 07/28/16 08:49; Admin Dose 20 MG; Start 06/13/16 at 09:00 Metoprolol Tartrate 25 mg 25 mg BID PO Last administered on 07/28/16 08:50; Admin Dose 25 MG; Start 06/12/16 at 21:00 Sodium Chloride (NS) 1,000 ml @ 40 mls/hr Q24H IV Last administered on 05:29; Admin Dose 40 MLS/HR; Start 06/12/16 at 17:15 Ondansetron HCl (Zofran Inj) 4 mg Q6H PRN IV NAUSEA AND/OR VOMITING; Start 06/12 at 17:30 Acetaminophen (Tylenol Tab) 650 mg Q6H PRN PO PAIN LEVEL 1-3 OR FEVER; Start at 17:30 Acetaminophen/ Hydrocodone Bitart ([place] (5/325)) 1 tab Q6H PRN PO MODERATE PAIN LEVEL 4-6 Last administered on 07/28/16 13:09; Admin Dose 1 TAB; Start 06/12/16 at 17:30 Docusate Sodium (Colace) 100 mg Q12H PRN PO CONSTIPATION; Start 06/12/16 at 17: 30 Pantoprazole (Protonix Tab) 40 mg DAILY@06 PO Last administered on 07/28/16 05 :29; Admin Dose 40 MG; Start 06/13/16 at 06:00 Enoxaparin Sodium (Lovenox) 30 mg DAILY SC Last administered on 07/28/16 08:57 ; Admin Dose 30 MG; Start 06/13/16 at 09:00 Diagnostic Test (Pha) (Accu-Chek) 1 ea 02 XX Last administered on 07/02/16 01: 55; Admin Dose 1 EA; Start 06/13/16 at 02:00 Miscellaneous Information 1 ea NOTE XX ; Start 06/12/16 at 17:30 Glucose (Glutose) 15 gm Q15M PRN PO DECREASED GLUCOSE; Start 06/12/16 at 17:30 Glucose (Glutose) 22.5 gm Q15M PRN PO DECREASED GLUCOSE; Start 06/12/16 at 17:30 Dextrose (D50w Syringe) 25 ml Q15M PRN IV DECREASED GLUCOSE; Start 06/12/16 at 17:30 Dextrose (D50w Syringe) 50 ml Q15M PRN IV DECREASED GLUCOSE; Start 06/12/16 at 17:30 Glucagon (Glucagen) 1 mg Q15M PRN IM DECREASED GLUCOSE; Start 06/12/16 at 17:30 Glucose (Glutose) 15 gm Q15M PRN BUCCAL DECREASED GLUCOSE; Start 06/12/16 at 17: 30 Linagliptin (Tradjenta) 5 mg DAILY PO Last administered on 07/28/16 08:49; Admin Dose 5 MG; Start 06/15/16 at 09:00 Atorvastatin Calcium (Lipitor) 10 mg QHS PO Last administered on 07/27/16 21: 05; Admin Dose 10 MG; Start 06/15/16 at 21:00 IV Flush (NS 10 ml) 10 ml PRN PRN IV IV PROTOCOL Last administered on 10:31; Admin Dose 10 ML; Start 06/20/16 at 16:30 Insulin Glargine (Lantus) 9 unit DAILY@20 SC Last administered on 07/27/16 21: 12; Admin Dose 9 UNIT; Start 07/07/16 at 20:00 WEI SULLIVAN Jul 28, 2016 18:53
[2016-07-28 20:00] VITALS: BP 133/65; RESP 16
[2016-07-28] MEDS: ATORVASTATIN 10 MG TAB PO SCH (20:31)
[2016-07-28] MEDS: INSULIN GLARGINE [LANtus] 3 ML PEN SC SCH (20:39)
[2016-07-29] MEDS: ACCU-CHEK XX SCH (02:00)
[2016-07-29] MEDS: PANTOPRAZOLE (EC) 40 MG TAB PO SCH (05:50)
[2016-07-29 07:09] LABS: ADD SCAN DIFF NO
[2016-07-29 07:25] LABS: BASOPHILS % 0.6 % (0.0-2.0); EOSINOPHILS # 0.4 10^3/ul (0.0-0.5); EOSINOPHILS % 6.9 % (0.0-7.0); HEMATOCRIT 34.6 % (42.0-52.0); HEMOGLOBIN 11.1 g/dl (14.0-18.0); LYMPHOCYTES # 1.3 10^3/ul (0.8-2.9); LYMPHOCYTES % 21.1 % (15.0-51.0); MEAN CORPUSCULAR HEMOGLOBIN 28.5 pg (29.0-33.0); MEAN CORPUSCULAR HGB CONC 32.1 g/dl (32.0-37.0); MEAN CORPUSCULAR VOLUME 88.9 fl (82.0-101.0); MEAN PLATELET VOLUME 10.4 fl (7.4-10.4); MONOCYTE # 0.6 10^3/ul (0.3-0.9); MONOCYTES % 9.4 % (0.0-11.0); NEUTROPHIL # 3.8 10^3/ul (1.6-7.5); NEUTROPHILS % 61.5 % (39.0-77.0); PLATELET COUNT 224 10^3/UL (140-415); RED BLOOD COUNT 3.89 10^6/ul (4.70-6.10); RED CELL DISTRIBUTION WIDTH 14.6 % (11.5-14.5); WHITE BLOOD COUNT 6.2 10^3/ul (4.8-10.8)
[2016-07-29 07:56] VITALS: BP 167/75; RESP 18
[2016-07-29 07:57] LABS: CALCIUM 9.6 mg/dl (8.4-10.2); CREATININE 0.79 mg/dl (0.61-1.24); POTASSIUM 3.9 mmol/L (3.5-5.1)
[2016-07-29] MEDS: metFORMIN 500 MG TAB PO SCH ×2 (08:04→17:47)
[2016-07-29] MEDS: GABAPENTIN 300 MG CAP PO SCH ×3 (08:04→20:30)
[2016-07-29] MEDS: ASPIRIN (EC) 81 MG TAB PO SCH (08:04)
[2016-07-29] MEDS: LISINOPRIL 20 MG TAB PO SCH (08:04)
[2016-07-29] MEDS: LINAGLIPTIN 5 MG TABLET PO SCH (08:04)
[2016-07-29] MEDS: METOPROLOL 25 MG TAB PO SCH ×2 (08:04→20:30)
[2016-07-29] MEDS: ENOXAPARIN 30 MG/0.3 ML SYG SC SCH (08:07)
[2016-07-29] MEDS: INSULIN ASPART [NOVOLOG] 3 ML PEN SC SCH ×7 (08:07→21:00)
[2016-07-29] MEDS: HYDROCODONE/APAP (5/325) TAB PO PRN ×2 (08:09→15:32)
--- NOTE | 2016-07-29 11:36 | PN ---
Date/Time of Note Date/Time of Note DATE: 07/29/16 TIME: 11:36 Assessment/Plan VTE Prophylaxis VTE Prophylaxis Intervention: other Lines/Catheters IV [facility] Type (from [facility]): PICC Line Central line still needed: Yes Urinary Cath still in place: No Assessment/Plan Chief Complaint/Hosp Course - Right [id number] amputation stump dehiscence, laceration, possible infection. S/p debridement and creation of a rotational flap by Dr. Fuller, vascular surgery, on 06/13. Continue IV antibiotics. Continue wound VAC. Pathology positive for osteomyelitis. Dr. Eldridge is following infection disease consultation. - Diabetes mellitus type 2. Hemoglobin A1c is 8.7. Continue Tradjenta, Lantus , pre-meal NovoLog, and NovoLog per mild algorithm sliding scale a.c. and at bedtime. - Hypertension. Continue metoprolol and lisinopril. Continue to monitor blood pressure. - Homelessness. Pending retirement facility placement. Problems: Subjective 24 Hr Interval Summary Free Text/Dictation Patient has no complaints Exam/Review of Systems Vital Signs Vitals Vital Signs Date Time Temp Pulse Resp B/P Pulse Ox O2 Delivery O2 Flow Rate FiO2 07/29/16 07:56 97.8 89 18 167/75 95 Intake and Output 07/28/16 07/28/16 07/29/16 15:00 23:00 07:00 Intake Total 2440 ml 720 ml Output Total 900 ml 1650 ml Balance 1540 ml -930 ml Exam Constitutional: well developed Head: atraumatic, normocephalic Neck: supple Respiratory: clear to auscultation Cardiovascular: regular rate and rhythm Gastrointestinal: non-tender, soft Extremities: normal pulses Results Result Diagram: 07/29/16 0552 07/29/16 0552 Results 24 hrs Laboratory Tests Test 07/28/16 12:17 07/28/16 17:28 07/28/16 20:30 07/29/16 05:52 Bedside Glucose 109 119 161 White Blood Count 6.2 # Red Blood Count 3.89 L Hemoglobin 11.1 L Hematocrit 34.6 L Mean Corpuscular Volume 88.9 Mean Corpuscular Hemoglobin 28.5 L Mean Corpuscular Hemoglobin Concent 32.1 Red Cell Distribution Width 14.6 H Platelet Count 224 Mean Platelet Volume 10.4 Neutrophils % 61.5 Lymphocytes % 21.1 Monocytes % 9.4 Eosinophils % 6.9 Basophils % 0.6 Nucleated Red Blood Cells % 0.0 Neutrophils # 3.8 Lymphocytes # 1.3 Monocytes # 0.6 Eosinophils # 0.4 Basophils # 0.0 Nucleated Red Blood Cells # 0.0 Sodium Level 139 Potassium Level 3.9 Chloride Level 102 Carbon Dioxide Level 27 Anion Gap 14 Blood Urea Nitrogen 18 Creatinine 0.79 Glucose Level 111 Calcium Level 9.6 Test 07/29/16 08:02 Bedside Glucose 95 Medications Medications Current Medications Aspirin (Halfprin) 81 mg DAILY PO Last administered on 07/29/16 08:04; Admin Dose 81 MG; Start 06/13/16 at 09:00 Gabapentin (Neurontin) 300 mg TID PO Last administered on 07/29/16 08:04; Admin Dose 300 MG; Start 06/12/16 at 21:00 Lisinopril (Zestril) 20 mg DAILY PO Last administered on 07/29/16 08:04; Admin Dose 20 MG; Start 06/13/16 at 09:00 Metoprolol Tartrate 25 mg 25 mg BID PO Last administered on 07/29/16 08:04; Admin Dose 25 MG; Start 06/12/16 at 21:00 Sodium Chloride (NS) 1,000 ml @ 40 mls/hr Q24H IV Last administered on 05:29; Admin Dose 40 MLS/HR; Start 06/12/16 at 17:15 Ondansetron HCl (Zofran Inj) 4 mg Q6H PRN IV NAUSEA AND/OR VOMITING; Start 06/12 at 17:30 Acetaminophen (Tylenol Tab) 650 mg Q6H PRN PO PAIN LEVEL 1-3 OR FEVER; Start at 17:30 Acetaminophen/ Hydrocodone Bitart ([place] (5/325)) 1 tab Q6H PRN PO MODERATE PAIN LEVEL 4-6 Last administered on 07/29/16 08:09; Admin Dose 1 TAB; Start 06/12/16 at 17:30 Docusate Sodium (Colace) 100 mg Q12H PRN PO CONSTIPATION; Start 06/12/16 at 17: 30 Pantoprazole (Protonix Tab) 40 mg DAILY@06 PO Last administered on 07/29/16 05 :50; Admin Dose 40 MG; Start 06/13/16 at 06:00 Enoxaparin Sodium (Lovenox) 30 mg DAILY SC Last administered on 07/29/16 08:07 ; Admin Dose 30 MG; Start 06/13/16 at 09:00 Diagnostic Test (Pha) (Accu-Chek) 1 ea 02 XX Last administered on 07/02/16 01: 55; Admin Dose 1 EA; Start 06/13/16 at 02:00 Miscellaneous Information 1 ea NOTE XX ; Start 06/12/16 at 17:30 Glucose (Glutose) 15 gm Q15M PRN PO DECREASED GLUCOSE; Start 06/12/16 at 17:30 Glucose (Glutose) 22.5 gm Q15M PRN PO DECREASED GLUCOSE; Start 06/12/16 at 17:30 Dextrose (D50w Syringe) 25 ml Q15M PRN IV DECREASED GLUCOSE; Start 06/12/16 at 17:30 Dextrose (D50w Syringe) 50 ml Q15M PRN IV DECREASED GLUCOSE; Start 06/12/16 at 17:30 Glucagon (Glucagen) 1 mg Q15M PRN IM DECREASED GLUCOSE; Start 06/12/16 at 17:30 Glucose (Glutose) 15 gm Q15M PRN BUCCAL DECREASED GLUCOSE; Start 06/12/16 at 17: 30 Linagliptin (Tradjenta) 5 mg DAILY PO Last administered on 07/29/16 08:04; Admin Dose 5 MG; Start 06/15/16 at 09:00 Atorvastatin Calcium (Lipitor) 10 mg QHS PO Last administered on 07/28/16 20: 31; Admin Dose 10 MG; Start 06/15/16 at 21:00 IV Flush (NS 10 ml) 10 ml PRN PRN IV IV PROTOCOL Last administered on 10:31; Admin Dose 10 ML; Start 06/20/16 at 16:30 Insulin Glargine (Lantus) 9 unit DAILY@20 SC Last administered on 07/28/16 20: 39; Admin Dose 9 UNIT; Start 07/07/16 at 20:00 SHIRAZ CLARK Jul 29, 2016 11:36
[2016-07-29 12:00] VITALS: BP 120/60
[2016-07-29] MEDS: SOD CHLORIDE 0.9% 1,000 ML IV SCH ×2 (12:13→17:15)
[2016-07-29 20:28] VITALS: BP 105/57; PULSE 70; RESP 18
[2016-07-29] MEDS: ATORVASTATIN 10 MG TAB PO SCH (20:30)
[2016-07-29] MEDS: INSULIN GLARGINE [LANtus] 3 ML PEN SC SCH (21:56)
[2016-07-30] MEDS: ACCU-CHEK XX SCH (02:00)
[2016-07-30] MEDS: PANTOPRAZOLE (EC) 40 MG TAB PO SCH (05:27)
[2016-07-30] MEDS: HYDROCODONE/APAP (5/325) TAB PO PRN ×2 (05:30→15:10)
[2016-07-30 07:37] VITALS: BP 129/68; RESP 18
[2016-07-30] MEDS: INSULIN ASPART [NOVOLOG] 3 ML PEN SC SCH ×7 (08:15→20:16)
[2016-07-30] MEDS: metFORMIN 500 MG TAB PO SCH ×2 (08:29→17:33)
[2016-07-30] MEDS: METOPROLOL 25 MG TAB PO SCH ×2 (08:30→20:19)
[2016-07-30] MEDS: LINAGLIPTIN 5 MG TABLET PO SCH (08:30)
[2016-07-30] MEDS: GABAPENTIN 300 MG CAP PO SCH ×3 (08:30→20:20)
[2016-07-30] MEDS: LISINOPRIL 20 MG TAB PO SCH (08:30)
[2016-07-30] MEDS: ASPIRIN (EC) 81 MG TAB PO SCH (08:30)
[2016-07-30] MEDS: ENOXAPARIN 30 MG/0.3 ML SYG SC SCH (08:34)
--- NOTE | 2016-07-30 11:31 | PN ---
Date/Time of Note Date/Time of Note DATE: 07/30/16 TIME: 11:30 Assessment/Plan VTE Prophylaxis VTE Prophylaxis Intervention: other Lines/Catheters IV [facility] Type ([facility] PICC Line Central line still needed: Yes Urinary Cath still in place: No Assessment/Plan Chief Complaint/Hosp Course - Right [id number]-smr-[id number] amputation stump dehiscence, laceration, possible infection. S/p debridement and creation of a rotational flap by Dr. Fuller, vascular surgery, on 06/13. Continue IV antibiotics. Continue wound VAC. Pathology positive for osteomyelitis. Dr. Eldridge is following infection disease consultation. - Diabetes mellitus type 2. Hemoglobin A1c is 8.7. Continue Tradjenta, Lantus , pre-meal NovoLog, and NovoLog per mild algorithm sliding scale a.c. and at bedtime. - Hypertension. Continue metoprolol and lisinopril. Continue to monitor blood pressure. - Homelessness. Pending care home facility placement. Problems: Subjective 24 Hr Interval Summary Free Text/Dictation Patient has no complaints Exam/Review of Systems Vital Signs Vitals Vital Signs Date Time Temp Pulse Resp B/P Pulse Ox O2 Delivery O2 Flow Rate FiO2 07/30/16 07:37 97.9 70 18 129/68 98 07/29/16 20:28 Room Air Intake and Output 07/29/16 07/29/16 07/30/16 15:00 23:00 07:00 Intake Total 220 ml 1280 ml 980 ml Output Total 1700 ml 1400 ml Balance 220 ml -420 ml -420 ml Exam Constitutional: well developed Head: normocephalic Neck: supple Respiratory: clear to auscultation Cardiovascular: regular rate and rhythm Gastrointestinal: non-tender, soft Extremities: normal pulses Results Result Diagram: 07/29/16 0552 07/29/16 0552 Results 24 hrs Laboratory Tests Test 07/29/16 12:09 07/29/16 17:46 07/29/16 21:52 07/30/16 08:28 Bedside Glucose 112 116 95 82 Medications Medications Current Medications Aspirin (Halfprin) 81 mg DAILY PO Last administered on 07/30/16 08:30; Admin Dose 81 MG; Start 06/13/16 at 09:00 Gabapentin (Neurontin) 300 mg TID PO Last administered on 07/30/16 08:30; Admin Dose 300 MG; Start 06/12/16 at 21:00 Lisinopril (Zestril) 20 mg DAILY PO Last administered on 07/30/16 08:30; Admin Dose 20 MG; Start 06/13/16 at 09:00 Metoprolol Tartrate 25 mg 25 mg BID PO Last administered on 07/30/16 08:30; Admin Dose 25 MG; Start 06/12/16 at 21:00 Sodium Chloride (NS) 1,000 ml @ 40 mls/hr Q24H IV Last administered on 12:13; Admin Dose 40 MLS/HR; Start 06/12/16 at 17:15 Ondansetron HCl (Zofran Inj) 4 mg Q6H PRN IV NAUSEA AND/OR VOMITING; Start 06/12 at 17:30 Acetaminophen (Tylenol Tab) 650 mg Q6H PRN PO PAIN LEVEL 1-3 OR FEVER; Start at 17:30 Acetaminophen/ Hydrocodone Bitart ([place] (5/325)) 1 tab Q6H PRN PO MODERATE PAIN LEVEL 4-6 Last administered on 07/30/16 05:30; Admin Dose 1 TAB; Start 06/12/16 at 17:30 Docusate Sodium (Colace) 100 mg Q12H PRN PO CONSTIPATION; Start 06/12/16 at 17: 30 Pantoprazole (Protonix Tab) 40 mg DAILY@06 PO Last administered on 07/30/16 05 :27; Admin Dose 40 MG; Start 06/13/16 at 06:00 Enoxaparin Sodium (Lovenox) 30 mg DAILY SC Last administered on 07/30/16 08:34 ; Admin Dose 30 MG; Start 06/13/16 at 09:00 Diagnostic Test (Pha) (Accu-Chek) 1 ea 02 XX Last administered on 07/02/16 01: 55; Admin Dose 1 EA; Start 06/13/16 at 02:00 Miscellaneous Information 1 ea NOTE XX ; Start 06/12/16 at 17:30 Glucose (Glutose) 15 gm Q15M PRN PO DECREASED GLUCOSE; Start 06/12/16 at 17:30 Glucose (Glutose) 22.5 gm Q15M PRN PO DECREASED GLUCOSE; Start 06/12/16 at 17:30 Dextrose (D50w Syringe) 25 ml Q15M PRN IV DECREASED GLUCOSE; Start 06/12/16 at 17:30 Dextrose (D50w Syringe) 50 ml Q15M PRN IV DECREASED GLUCOSE; Start 06/12/16 at 17:30 Glucagon (Glucagen) 1 mg Q15M PRN IM DECREASED GLUCOSE; Start 06/12/16 at 17:30 Glucose (Glutose) 15 gm Q15M PRN BUCCAL DECREASED GLUCOSE; Start 06/12/16 at 17: 30 Linagliptin (Tradjenta) 5 mg DAILY PO Last administered on 07/30/16 08:30; Admin Dose 5 MG; Start 06/15/16 at 09:00 Atorvastatin Calcium (Lipitor) 10 mg QHS PO Last administered on 07/29/16 20: 30; Admin Dose 10 MG; Start 06/15/16 at 21:00 IV Flush (NS 10 ml) 10 ml PRN PRN IV IV PROTOCOL Last administered on 10:31; Admin Dose 10 ML; Start 06/20/16 at 16:30 Insulin Glargine (Lantus) 9 unit DAILY@20 SC Last administered on 07/29/16 21: 56; Admin Dose 9 UNIT; Start 07/07/16 at 20:00 SHIRAZ CLARK Jul 30, 2016 11:31
--- NOTE | 2016-07-30 12:46 | PN ---
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 -Can D/C Antibiotics -Discussed findings, plan of management with the patient and he understands. -Thank you for allowing us to participate in the care of your patient. Please call with any questions. Problems: Subjective 24 Hr Interval Summary no new vascular events overnight Exam/Review of Systems Vital Signs Vitals Vital Signs Date Time Temp Pulse Resp B/P Pulse Ox O2 Delivery O2 Flow Rate FiO2 07/30/16 07:37 97.9 70 18 129/68 98 07/29/16 20:28 Room Air Intake and Output 07/29/16 07/29/16 07/30/16 15:00 23:00 07:00 Intake Total 220 ml 1280 ml 980 ml Output Total 1700 ml 1400 ml Balance 220 ml -420 ml -420 ml Exam Free Text/Dictation GENERAL: Alert and oriented x3, PULMONARY: Clear to auscultation bilaterally CARDIOVASCULAR: S1, S2 present ABDOMEN: Soft, nontender, nondistended. Bowel sounds positive. EXTREMITIES: Right lower extremity: Palpable femoral pulse. BKA stump with cap refill 3 seconds. wound vac-intact and functional - good granulation tissue Left lower extremity: Palpable femoral pulse, nonpalpable pedal pulse. Motor, sensory intact. Cap refill 3 to 4 seconds, lipodermatosclerosis Results Result Diagram: 07/29/16 0552 07/29/16 0552 JUAN PRIDE MD Jul 30, 2016 12:46
[2016-07-30] MEDS: SOD CHLORIDE 0.9% 1,000 ML IV SCH ×2 (15:10→17:15)
[2016-07-30 19:17] VITALS: BP 148/73; RESP 18
[2016-07-30] MEDS: INSULIN GLARGINE [LANtus] 3 ML PEN SC SCH (20:19)
[2016-07-30] MEDS: ATORVASTATIN 10 MG TAB PO SCH (20:20)
[2016-07-31] MEDS: ACCU-CHEK XX SCH (02:00)
[2016-07-31] MEDS: PANTOPRAZOLE (EC) 40 MG TAB PO SCH (05:49)
[2016-07-31] MEDS: HYDROCODONE/APAP (5/325) TAB PO PRN ×2 (05:51→20:18)
[2016-07-31 07:18] VITALS: BP 153/73; RESP 18
[2016-07-31] MEDS: INSULIN ASPART [NOVOLOG] 3 ML PEN SC SCH ×7 (08:01→20:30)
[2016-07-31] MEDS: LISINOPRIL 20 MG TAB PO SCH (08:19)
[2016-07-31] MEDS: ASPIRIN (EC) 81 MG TAB PO SCH (08:19)
[2016-07-31] MEDS: METOPROLOL 25 MG TAB PO SCH ×2 (08:19→20:17)
[2016-07-31] MEDS: GABAPENTIN 300 MG CAP PO SCH ×3 (08:19→20:16)
[2016-07-31] MEDS: LINAGLIPTIN 5 MG TABLET PO SCH (08:19)
[2016-07-31] MEDS: metFORMIN 500 MG TAB PO SCH ×2 (08:19→17:10)
[2016-07-31] MEDS: ENOXAPARIN 30 MG/0.3 ML SYG SC SCH (08:23)
[2016-07-31] MEDS: SOD CHLORIDE 0.9% 1,000 ML IV SCH (16:15)
--- NOTE | 2016-07-31 18:41 | PN ---
Date/Time of Note Date/Time of Note DATE: 07/31/16 TIME: 18:40 Assessment/Plan VTE Prophylaxis VTE Prophylaxis Intervention: SCD's Lines/Catheters IV Catheter Type (from Nrs): PICC Line Central line still needed: Yes Urinary Cath still in place: No Assessment/Plan Chief Complaint/Hosp Course No complaints, patient remains hemodynamically stable with good glycemic control. ASSESSMENT AND PLAN: - Right [id number] amputation stump dehiscence, laceration, possible infection. S/p debridement and creation of a rotational flap by Dr. Fuller, vascular surgery, on 06/13. Continue wound care per surgery. pathology positive for osteomyelitis. Dr. Eldridge is following infection disease consultation. Completed treatment with vancomycin. - Diabetes mellitus type 2. Hemoglobin A1c is 8.7. Continue Tradjenta, Lantus , pre-meal NovoLog, and NovoLog per mild algorithm sliding scale a.c. and at bedtime. - Hypertension. Continue metoprolol and lisinopril. Continue to monitor blood pressure. - Homelessness. Awaiting for correction facility placement for wound care and IV antibiotics for osteomyelitis. Further recommendations based on clinical course. Plan of care discussed with Dr. Li. Problems: Exam/Review of Systems Vital Signs Vitals Vital Signs Date Time Temp Pulse Resp B/P Pulse Ox O2 Delivery O2 Flow Rate FiO2 07/31/16 07:18 97.7 66 18 153/73 98 07/29/16 20:28 Room Air Intake and Output 07/30/16 07/30/16 07/31/16 15:00 23:00 07:00 Intake Total 320 ml 1660 ml 480 ml Output Total 2320 ml 0 ml Balance 320 ml -660 ml 480 ml Exam Constitutional: alert, oriented Head: normocephalic Neck: supple Respiratory: normal air movement Cardiovascular: nl pulses Gastrointestinal: non-tender, soft Extremities: other (right lower extremity stump wound with wound VAC) Results Result Diagram: 07/29/16 0552 07/29/16 0552 Results 24 hrs Laboratory Tests Test 07/30/16 20:15 07/31/16 08:01 07/31/16 12:04 07/31/16 17:12 Bedside Glucose 169 87 115 98 Medications Medications Current Medications Aspirin (Halfprin) 81 mg DAILY PO Last administered on 07/31/16t 08:19; Admin Dose 81 MG; Start 06/13/16 at 09:00 Gabapentin (Neurontin) 300 mg TID PO Last administered on 07/31/16 13:24; Admin Dose 300 MG; Start 06/12/16 at 21:00 Lisinopril (Zestril) 20 mg DAILY PO Last administered on 07/31/16 08:19; Admin Dose 20 MG; Start 06/13/16 at 09:00 Metoprolol Tartrate 25 mg 25 mg BID PO Last administered on 07/31/16 08:19; Admin Dose 25 MG; Start 06/12/16 at 21:00 Sodium Chloride (NS) 1,000 ml @ 40 mls/hr Q24H IV Last administered on 16:15; Admin Dose 40 MLS/HR; Start 06/12/16 at 17:15 Ondansetron HCl (Zofran Inj) 4 mg Q6H PRN IV NAUSEA AND/OR VOMITING; Start 06/12 at 17:30 Acetaminophen (Tylenol Tab) 650 mg Q6H PRN PO PAIN LEVEL 1-3 OR FEVER; Start at 17:30 Acetaminophen/ Hydrocodone Bitart ([place] (5/325)) 1 tab Q6H PRN PO MODERATE PAIN LEVEL 4-6 Last administered on 07/31/16 05:51; Admin Dose 1 TAB; Start 06/12/16 at 17:30 Docusate Sodium (Colace) 100 mg Q12H PRN PO CONSTIPATION; Start 06/12/16 at 17: 30 Pantoprazole (Protonix Tab) 40 mg DAILY@06 PO Last administered on 07/31/16 05 :49; Admin Dose 40 MG; Start 06/13/16 at 06:00 Enoxaparin Sodium (Lovenox) 30 mg DAILY SC Last administered on 07/31/16 08:23 ; Admin Dose 30 MG; Start 06/13/16 at 09:00 Diagnostic Test (Pha) (Accu-Chek) 1 ea 02 XX Last administered on 07/02/16 01: 55; Admin Dose 1 EA; Start 06/13/16 at 02:00 Miscellaneous Information 1 ea NOTE XX ; Start 06/12/16 at 17:30 Glucose (Glutose) 15 gm Q15M PRN PO DECREASED GLUCOSE; Start 06/12/16 at 17:30 Glucose (Glutose) 22.5 gm Q15M PRN PO DECREASED GLUCOSE; Start 06/12/16 at 17:30 Dextrose (D50w Syringe) 25 ml Q15M PRN IV DECREASED GLUCOSE; Start 06/12/16 at 17:30 Dextrose (D50w Syringe) 50 ml Q15M PRN IV DECREASED GLUCOSE; Start 06/12/16 at 17:30 Glucagon (Glucagen) 1 mg Q15M PRN IM DECREASED GLUCOSE; Start 06/12/16 at 17:30 Glucose (Glutose) 15 gm Q15M PRN BUCCAL DECREASED GLUCOSE; Start 06/12/16 at 17: 30 Linagliptin (Tradjenta) 5 mg DAILY PO Last administered on 07/31/16 08:19; Admin Dose 5 MG; Start 06/15/16 at 09:00 Atorvastatin Calcium (Lipitor) 10 mg QHS PO Last administered on 07/30/16 20: 20; Admin Dose 10 MG; Start 06/15/16 at 21:00 IV Flush (NS 10 ml) 10 ml PRN PRN IV IV PROTOCOL Last administered on 10:31; Admin Dose 10 ML; Start 06/20/16 at 16:30 Insulin Glargine (Lantus) 9 unit DAILY@20 SC Last administered on 07/30/16 20: 19; Admin Dose 9 UNIT; Start 07/07/16 at 20:00 WEI SULLIVAN Jul 31, 2016 18:40
[2016-07-31 20:00] VITALS: BP 120/63; RESP 18
[2016-07-31] MEDS: ATORVASTATIN 10 MG TAB PO SCH (20:16)
[2016-07-31] MEDS: INSULIN GLARGINE [LANtus] 3 ML PEN SC SCH (20:29)
[2016-08-01] MEDS: ACCU-CHEK XX SCH (01:04)
[2016-08-01] MEDS: PANTOPRAZOLE (EC) 40 MG TAB PO SCH (05:12)
[2016-08-01] MEDS: HYDROCODONE/APAP (5/325) TAB PO PRN ×2 (05:12→12:33)
[2016-08-01 05:32] LABS: ADD SCAN DIFF NO
[2016-08-01 05:41] LABS: BASOPHILS % 0.5 % (0.0-2.0); EOSINOPHILS # 0.5 10^3/ul (0.0-0.5); EOSINOPHILS % 7.8 % (0.0-7.0); HEMATOCRIT 34.5 % (42.0-52.0); HEMOGLOBIN 11.2 g/dl (14.0-18.0); LYMPHOCYTES # 1.5 10^3/ul (0.8-2.9); LYMPHOCYTES % 26.1 % (15.0-51.0); MEAN CORPUSCULAR HEMOGLOBIN 28.4 pg (29.0-33.0); MEAN CORPUSCULAR HGB CONC 32.5 g/dl (32.0-37.0); MEAN CORPUSCULAR VOLUME 87.6 fl (82.0-101.0); MONOCYTE # 0.5 10^3/ul (0.3-0.9); MONOCYTES % 8.9 % (0.0-11.0); NEUTROPHIL # 3.3 10^3/ul (1.6-7.5); NEUTROPHILS % 56.4 % (39.0-77.0); PLATELET COUNT 230 10^3/UL (140-415); RED BLOOD COUNT 3.94 10^6/ul (4.70-6.10); RED CELL DISTRIBUTION WIDTH 14.4 % (11.5-14.5); WHITE BLOOD COUNT 5.9 10^3/ul (4.8-10.8)
[2016-08-01 06:03] LABS: CALCIUM 9.6 mg/dl (8.4-10.2); CREATININE 0.95 mg/dl (0.61-1.24); POTASSIUM 4.1 mmol/L (3.5-5.1)
[2016-08-01 07:41] VITALS: BP 155/74; RESP 20
--- NOTE | 2016-08-01 08:02 | PN ---
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 -Can D/C Antibiotics -Discussed findings, plan of management with the patient and he understands. -Thank you for allowing us to participate in the care of your patient. Please call with any questions. Problems: Subjective 24 Hr Interval Summary no new changes from vascular standpoint Exam/Review of Systems Vital Signs Vitals Vital Signs Date Time Temp Pulse Resp B/P Pulse Ox O2 Delivery O2 Flow Rate FiO2 08/01/16 07:41 97.5 76 20 155/74 99 07/29/16 20:28 Room Air Intake and Output 07/31/16 07/31/16 08/01/16 15:00 23:00 07:00 Intake Total 1940 ml 1220 ml Output Total 850 ml 1250 ml Balance 1090 ml -30 ml Exam Free Text/Dictation GENERAL: Alert and oriented x3, PULMONARY: CTAB CARDIOVASCULAR: S1, S2 present ABDOMEN: Soft, nontender, nondistended. Bowel sounds positive. EXTREMITIES: Right lower extremity: Palpable femoral pulse. BKA stump with cap refill 3 seconds. wound vac-intact and functional - was changed yesterday, good granulation tissue has developed Left lower extremity: Palpable femoral pulse, nonpalpable pedal pulse. Motor, sensory intact. Cap refill 3 to 4 seconds, lipodermatosclerosis Results Result Diagram: 08/01/16 0525 08/01/16 0515 JUAN PRIDE MD Aug 01, 2016 08:02
[2016-08-01] MEDS: INSULIN ASPART [NOVOLOG] 3 ML PEN SC SCH ×4 (08:15→12:20)
[2016-08-01] MEDS: ASPIRIN (EC) 81 MG TAB PO SCH (08:29)
[2016-08-01] MEDS: GABAPENTIN 300 MG CAP PO SCH ×2 (08:29→12:33)
[2016-08-01] MEDS: LINAGLIPTIN 5 MG TABLET PO SCH (08:29)
[2016-08-01] MEDS: metFORMIN 500 MG TAB PO SCH (08:29)
[2016-08-01] MEDS: METOPROLOL 25 MG TAB PO SCH (08:29)
[2016-08-01] MEDS: LISINOPRIL 20 MG TAB PO SCH (08:30)
[2016-08-01] MEDS: ENOXAPARIN 30 MG/0.3 ML SYG SC SCH (08:38)
[2016-08-01] MEDS ORDERED: NOVO3I SC (11:50)
[2016-08-01] MEDS ORDERED: GABA300C16 PO (11:50)
[2016-08-01] MEDS ORDERED: LINA5TAB PO (11:50)
[2016-08-01] MEDS ORDERED: METO25TA4 PO (11:50)
[2016-08-01] MEDS ORDERED: ATOR40TA68 PO (11:50)
[2016-08-01] MEDS ORDERED: LISI20TA11 PO (11:50)
[2016-08-01] MEDS ORDERED: LANT3I SC (11:50)
[2016-08-01] MEDS ORDERED: HYDR-3498 PO (11:50)
[2016-08-01] MEDS ORDERED: ASPI-664 PO (11:50)
[2016-08-01] MEDS ORDERED: METF500T4 PO (11:50)
--- NOTE | 2016-08-04 20:03 | DS ---
Date/Time of Note Date/Time of Note DATE: 08/04/16 TIME: 19:56 Discharge Summary Admission/Discharge Info Admit Date/Time June 12, 2016 at 13:22 Discharge Date/Time Aug 01, 2016 at 15:30 Discharge Diagnosis - Right gtzzh-pgo-cuid amputation stump dehiscence, laceration, possible infection. S/p debridement and creation of a rotational flap by Dr. Fuller, vascular surgery, on 06/13. - Diabetes mellitus type 2. - Hypertension. Patient Condition: Good Hx of Present Illness The patient is a 60-year-old gentleman with past medical history positive for diabetes, hypertension. The patient underwent right BKA in 04/2016 at [facility] and was recuperating after that at group home facility ; however, patient was discharged and patient is currently homeless. The patient stated that he was walking using walker and fell and noted to have opening and bleeding of the right BKA stump. Then, patient presented to the emergency room on Sunday. The patient's wound was cleaned thoroughly at this time and closed using marvin and Steri-Strips, and patient was discharged with p.o. antibiotics and instructed [facility] , which patient did. The patient followed up with Dr. Fuller today and was admitted for worsening of right BKA wound. Hospital Course - Right ethdw-[id number] amputation stump dehiscence, laceration, possible infection. S/p debridement and creation of a rotational flap by Dr. Fuller, vascular surgery, on 06/13. Continue wound care per surgery. pathology positive for osteomyelitis. Dr. Eldridge is following infection disease consultation. Completed treatment with vancomycin. - Diabetes mellitus type 2. Hemoglobin A1c is 8.7. Continue Tradjenta, Lantus , pre-meal NovoLog, and NovoLog per mild algorithm sliding scale a.c. and at bedtime. - Hypertension. Continue metoprolol and lisinopril. Continue to monitor blood pressure. - Homelessness. Home Meds Active Scripts Insulin Aspart* (Novolog Insulin Pen*) 100 Unit/Ml Soln, 3 UNIT SC WITH MEALS for 30 Days Prov:WEI SULLIVAN 08/01/16 Insulin Glargine* (Lantus*) 100 Unit/Ml Soln, 9 UNIT SC DAILY@20 for 30 Days Prov:WEI SULLIVAN 08/01/16 Linagliptin (TRADJENTA) 5 Mg Tablet, 5 MG PO DAILY for 30 Days, TAB Prov[facility] 08/01/16 Hydrocodone Bit-Acetaminophen (Hydrocodone Bit-APAP) 5-325MG Tablet, 1 TAB PO Q6H Y for MODERATE PAIN LEVEL 4-6, #30 TAB Prov:[facility] GIBBONS[facility] 08/01/16 Metoprolol Tartrate* (Lopressor*) 25 Mg Tablet, 25 MG PO BID for HTN for 30 Days , TAB Prov:[facility] 08/01/16 Aspirin* (Aspirin* EC) 81 Mg Tablet.dr, 81 MG PO DAILY for heart for 30 Days, TAB Prov:DARYL SULLIVANETLANA 08/01/16 Atorvastatin* (Atorvastatin*) 40 Mg Tablet, 10 MG PO QHS for chloresterol for 30 Days, #30 TAB Prov:DARYL SULLIVANETLANA 08/01/16 Lisinopril* (Lisinopril*) 20 Mg Tablet, 20 MG PO DAILY for htn for 30 Days, TAB Prov:[facility] MOON08/01/16 Gabapentin* (Gabapentin*) 300 Mg Capsule, 300 MG PO TID for neuropathy for 30 Days, CAP Prov:DARYL SULLIVANETLANA 08/01/16 Metformin* (Glucophage*) 500 Mg Tab, 1000 MG PO BID for 30 Days Prov:DARYL SULLIVANETLANA 08/01/16 Reported Medications Loperamide Hcl* (Imodium*) 2 Mg Capsule, 2 MG PO .WITH EACH DIARRHEA Y for DIARRHEA, CAP MAX 16 mg/day 06/12/16 Tramadol HCl (Tramadol HCl) 50 Mg Tablet, 50 MG PO Q6H Y for PAIN, #120 TAB 06/12/16 Discontinued Reported Medications Sitagliptin* (Januvia*) 25 Mg Tablet, 25 MG PO DAILY for DM, #30 TAB 06/12/16 Discontinued Scripts Cephalexin* (Keflex*) 500 Mg Capsule, 500 MG PO QID for 7 Days, CAP Prov:EDMAR JOYA PA-C 06/10/16 Follow-up Plan F/up with APC for biweekly dressing changes. Primary Care Provider Not On Staff Doctor WEI SULLIVAN Aug 04, 2016 20:03
== END 2016-08-01 15:30 | disposition home or self-care (01) | DRG 493 ==
LOC: MS2 13:22
PROVIDERS: ADMIT Internal Medicine; ATTEND Internal Medicine
PROC: 0KXS0ZZ Transfer Right Lower Leg Muscle, Open Approach (ICD-10-PCS; 2016-06-14)
PROC: 0QBG0ZZ Excision of Right Tibia, Open Approach (ICD-10-PCS; principal; 2016-06-14 07:30)
PROC: 02HV33Z Insertion of Infusion Device into Superior Vena Cava, Percutaneous Approach (ICD-10-PCS; 2016-06-20)
PROC: 0LBN0ZZ Excision of Right Lower Leg Tendon, Open Approach (ICD-10-PCS; 2016-06-26)
DX: T87.43 Infection of amputation stump, right lower extremity (principal); I70.261 Atherosclerosis of native arteries of extremities with gangrene, right leg; M86.18 Other acute osteomyelitis, other site; E11.8 Type 2 diabetes mellitus with unspecified complications; T87.81 Dehiscence of amputation stump; I10 Essential (primary) hypertension; Z59.0 Homelessness; B95.61 Methicillin susceptible Staphylococcus aureus infection as the cause of diseases classified elsewhere; Z16.30 Resistance to unspecified antimicrobial drugs; Z72.0 Tobacco use; Z89.511 Acquired absence of right leg below knee; Z91.81 History of falling; Z60.8 Other problems related to social environment; I70.202 Unspecified atherosclerosis of native arteries of extremities, left leg; I83.11 Varicose veins of right lower extremity with inflammation; R19.7 Diarrhea, unspecified; B95.2 Enterococcus as the cause of diseases classified elsewhere
CPT/HCPCS: 36569; 71010; 73562; 76937; 80048; 80053; 80202; 82565; 82962; 83036; 83735; 84520; 85025; 85610; 85730; 87040; 87070; 87075; 88305; 88311; 93005; 93926; 97003; 97110; 97116; 97162; 97166; 97530; 97535; 97542; J0690; J1650; J1815; J1956; J2274; J2543; J2997; J3370; J3475; J7030; J7050; L5400; L5684; L5690; L5910; L8400; L8440